=== PATIENT | female | born 1950 | race Caucasian/White ===

== ENCOUNTER 2020-11-09 11:58 | Inpatient (IN) | payer MEDICARE, BC ==
[2020-11-09] MEDS ORDERED: NALOXONE 0.4 MG/ML 1 ML VIAL IV STA (12:01)
[2020-11-09] MEDS ORDERED: IPRATROPIUM-ALBUTEROL 3 ML NEB INHALATION STA (12:08)
[2020-11-09] MEDS ORDERED: LORazepam 2 MG/ML INJ IV PRN ×2 (12:09)
[2020-11-09] MEDS ORDERED: IPRATROPIUM-ALBUTEROL 3 ML NEB INHALATION PRN (12:09)
[2020-11-09 12:12] LABS: Glucose,Whole Blood 131 mg/dL (75-99)
--- NOTE | 2020-11-09 12:14 | ED ---
General Adult HPI - General Chief complaint: Shortness of Breath Stated complaint: unresponsive Time Seen by Provider: 11/09/20 12:05 Source: EMS, RN notes reviewed Mode of arrival: EMS Limitations: altered mental status, physical limitation - History of Present Illness Initial comments: Patient is a 70-year-old female presenting to the emergency Department with shortness of breath. Patient last known well 3 hours before family found her again after 11 with difficulty in breathing. Patient was decreased responsiveness. EMS states further history is limited. Patient is unresponsive at this time and does not provide any further history. - Related Data Home Medications Medication Instructions Recorded Confirmed Albuterol Inhaler [Ventolin Hfa 2 puff INHALATION RT-Q6H PRN 11/09/20 11/09/20 Inhaler] Cholecalciferol [Vitamin D3 (25 50 mcg PO DAILY 11/09/20 11/09/20 Mcg = 1000 Iu)] Dialyvite Tablet 1 tab PO DAILY 11/09/20 11/09/20 Docusate [Colace] 100 mg PO DAILY PRN 11/09/20 11/09/20 Fluticasone Nasal [place] [Flonase 1 spray EA NOSTRIL BID 11/09/20 11/09/20 Nasal [place]] Furosemide [Lasix] 40 mg PO SUTUTHSA 11/09/20 11/09/20 Lidocaine-Prilocaine Cream [Emla 1 applic TOPICAL DAILY PRN 11/09/20 11/09/20 Cream 2.5%/2.5%] Melatonin 3 mg PO HS PRN 11/09/20 11/09/20 Montelukast Sodium [Singulair] 10 mg PO HS 11/09/20 11/09/20 Omeprazole 20 mg PO DAILY 11/09/20 11/09/20 Propranolol HCl 20 mg PO DAILY 11/09/20 11/09/20 Tiotropium Br/Olodaterol HCl 2 puff INHALATION RT-DAILY 11/09/20 11/09/20 [Stiolto Respimat Inhal [place]] allopurinoL [Zyloprim] 200 mg PO DAILY 11/09/20 11/09/20 amLODIPine [Norvasc] 10 mg PO DAILY 11/09/20 11/09/20 levOCARNitine [Levocarnitine] 990 mg PO BID 11/09/20 11/09/20 Allergies Allergy/AdvReac Type Severity Reaction Status Date / Time Corticosteroids Allergy Unknown Verified 11/09/20 13:06 (Glucocorticoids) iodine Allergy Unknown Verified 11/09/20 13:06 Penicillins Allergy Unknown Verified 11/09/20 13:06 shellfish derived [Shellfish] Allergy Unknown Verified 11/09/20 13:06 [id number] Reductase Allergy Unknown Verified 11/09/20 13:06 Inhibitor Sulfa (Sulfonamide Allergy Unknown Verified 11/09/20 13:06 Antibiotics) Review of Systems ROS Statement: Those systems with pertinent positive or pertinent negative responses have been documented in the HPI. ROS Other: All systems not noted in ROS Statement are negative. Limitations: ROS unobtainable due to patients medical condition Past Medical History History of Any Multi-Drug Resistant Organisms: None Reported Smoking Status: Unknown if ever smoked Past Alcohol Use History: None Reported Past Drug Use History: None Reported General Exam Limitations: altered mental status, physical limitation General appearance: obtunded, obese Head exam: Present: atraumatic Eye exam: Present: normal appearance, PERRL ENT exam: Present: normal oropharynx Neck exam: Present: normal inspection Respiratory exam: Present: respiratory distress, wheezes, decreased breath sounds Cardiovascular Exam: Present: regular rate, normal rhythm Expanded Peripheral pulses: 2+: Radial (R), Radial (L) GI/Abdominal exam: Present: soft. Absent: tenderness Extremities exam: Present: normal inspection Expanded Eye Response: (1) no response Motor Response: (1) no motor response Verbal Response: (1) no verbal response Psychiatric exam: Present: other (Unresponsive) Skin exam: Present: normal color Course Vital Signs 11/09/20 11/09/20 11/09/20 12:02 12:08 12:27 Temperature 97.9 F 97.9 F Pulse Rate 67 61 60 Respiratory 31 H 22 16 Rate Blood Pressure 143/110 143/82 78/48 O2 Sat by Pulse 88 L 99 100 Oximetry 11/09/20 11/09/20 11/09/20 12:33 12:36 13:00 Temperature 97.9 F 97.7 F Pulse Rate 58 L 58 L Respiratory 8 L 10 L 16 Rate Blood Pressure 75/41 87/50 O2 Sat by Pulse 100 96 Oximetry 11/09/20 11/09/20 11/09/20 13:20 13:44 14:00 Temperature 97.7 F Pulse Rate 53 L 57 L 56 L Respiratory 12 18 20 Rate Blood Pressure 72/47 87/50 78/52 O2 Sat by Pulse 96 97 96 Oximetry - Reevaluation(s) Reevaluation #1: 11/09/20 14:29 Family present. Family updated. Family states patient symptoms progressed since 3 AM this morning started with anxiety than dyspnea and decreased responsiveness. Family updated on patient's critical condition. Patient is full code at this time. Daughter does consent to central line placement. 11/09/20 14:34 Patient given 2 L bolus for ideal body weight of 64 kg. There is concern for septic shock diagnosed at 1430. Blood culture and lactic acid ordered. Central line placed with levophed. IV antibiotics ordered. 11/09/20 14:[address] Casillas, who will consult for critical care and come evaluate. EKG Findings - EKG Comments: EKG Findings:: Normal sinus rhythm 65. [place] 170. QRS 150. QT 44. QTC 503. Left axis. Right bundle branch block. No acute ST change. Procedures - ABG Interpretation Ph: 7.166 PCO2: 83.7 PO2: 172 Bicarbonate: 30 Interpretation: respiratory acidosis - Central Line Placement Right Femoral Consent Obtained: verbal consent (Discussed with daughter), emergent situation Patient Placed on Monitor/Pulse Ox: Yes MD Prep: mask, gown, gloves Central Line Prep: Chlorhexidine scrub Local Anesthesia Used: Lidocaine 1% Amount of Anesthesia Used (mls): 2 Central Line Lumen Inserted: triple Central Line Position: good blood return, all ports aspirated, flushed, capped, sutured in place with 3-0 nylon Dressing Applied: Tegaderm Patient Tolerated Procedure: well Complications: none - Sepsis Sepsis Focused Exam #1 Time Sepsis Criteria Met: 14:30 Sepsis Focused Exam Date: 11/09/20 Sepsis Focused Exam Time: 14:37 Sepsis Focused Exam Complete: Yes Vital Signs & RN Notes Reviewed: Yes Capillary Refill: < 2 Seconds: Fingers, Toes Peripheral Pulses: Normal: Radial (R), Radial (L) Skin Color: Normal for Patient Respiratory Exam: decreased breath sounds Cardiovascular Exam: regular rate, normal rhythm Medical Decision Making - Lab Data Result diagrams: 11/09/20 12:22 11/09/20 12:22 Lab Results 11/09/20 11/09/20 11/09/20 Range/Units 12:01 12:22 12:22 WBC 15.1 H (3.8-10.6) k/uL RBC 2.45 L (3.80-5.40) m/uL Hgb 6.8 L* (11.4-16.0) gm/dL Hct 23.5 L (34.0-46.0) % MCV 95.8 (80.0-100.0) fL MCH 27.9 (25.0-35.0) pg MCHC 29.1 L (31.0-37.0) g/dL RDW 16.7 H (11.5-15.5) % Plt Count 222 (150-450) k/uL MPV 7.2 Neutrophils % 93 % Lymphocytes % 2 % Monocytes % 3 % Eosinophils % 1 % Basophils % 0 % Neutrophils # 14.1 H (1.3-7.7) k/uL Lymphocytes # 0.3 L (1.0-4.8) k/uL Monocytes # 0.5 (0-1.0) k/uL Eosinophils # 0.2 (0-0.7) k/uL Basophils # 0.0 (0-0.2) k/uL Hypochromasia Marked Anisocytosis Slight PT 11.4 (9.0-12.0) sec INR 1.1 (<1.2) APTT 25.7 (22.0-30.0) sec Sample Site ABG pH (7.35-7.45) ABG pCO2 (35-45) mmHg ABG pO2 (83-108) mmHg ABG HCO3 (21-25) mmol/L ABG Total CO2 (19-24) mmol/L ABG O2 Saturation (94-97) % ABG Base Excess mmol/L Zachary Test FiO2 % Sodium (137-145) mmol/L Potassium (3.5-5.1) mmol/L Chloride (98-107) mmol/L Carbon Dioxide (22-30) mmol/L Anion Gap mmol/L BUN (7-17) mg/dL Creatinine (0.52-1.04) mg/dL Est GFR (CKD-EPI)AfAm (>60 ml/min/1.73 sqM) Est GFR (CKD-EPI)NonAf (>60 ml/min/1.73 sqM) Glucose (74-99) mg/dL POC Glucose (mg/dL) 131 H (75-99) mg/dL POC Glu Press Room Supervisor ID Plasma Lactic Acid Johnny (0.7-2.0) mmol/L Calcium (8.4-10.2) mg/dL Total Bilirubin (0.2-1.3) mg/dL AST (14-36) U/L ALT (4-34) U/L Alkaline Phosphatase (38-126) U/L Troponin I (0.000-0.034) ng/mL NT-Pro-B Natriuret Pep pg/mL Total Protein (6.3-8.2) g/dL Albumin (3.5-5.0) g/dL Urine Color Urine Appearance (Clear) Urine pH (5.0-8.0) Ur Specific [place] (1.001-1.035) Urine Protein (Negative) Urine Glucose (UA) (Negative) Urine Ketones (Negative) Urine Blood (Negative) Urine Nitrite (Negative) Urine Bilirubin (Negative) Urine Urobilinogen (<2.0) mg/dL Ur Leukocyte Esterase (Negative) Urine RBC (0-5) /hpf Urine WBC (0-5) /hpf Ur Squamous Epith Cells (0-4) /hpf Hyaline Casts (0-2) /lpf Stool Occult Blood (Negative) Coronavirus (PCR) (Not Detectd) 11/09/20 11/09/20 11/09/20 Range/Units 12:22 12:22 12:22 WBC (3.8-10.6) k/uL RBC (3.80-5.40) m/uL Hgb (11.4-16.0) gm/dL Hct (34.0-46.0) % MCV (80.0-100.0) fL MCH (25.0-35.0) pg MCHC (31.0-37.0) g/dL RDW (11.5-15.5) % Plt Count (150-450) k/uL MPV Neutrophils % % Lymphocytes % % Monocytes % % Eosinophils % % Basophils % % Neutrophils # (1.3-7.7) k/uL Lymphocytes # (1.0-4.8) k/uL Monocytes # (0-1.0) k/uL Eosinophils # (0-0.7) k/uL Basophils # (0-0.2) k/uL Hypochromasia Anisocytosis PT (9.0-12.0) sec INR (<1.2) APTT (22.0-30.0) sec Sample Site ABG pH (7.35-7.45) ABG pCO2 (35-45) mmHg ABG pO2 (83-108) mmHg ABG HCO3 (21-25) mmol/L ABG Total CO2 (19-24) mmol/L ABG O2 Saturation (94-97) % ABG Base Excess mmol/L Zachary Test FiO2 % Sodium 140 (137-145) mmol/L Potassium 3.9 (3.5-5.1) mmol/L Chloride 110 H (98-107) mmol/L Carbon Dioxide 26 (22-30) mmol/L Anion Gap 4 mmol/L BUN 22 H (7-17) mg/dL Creatinine 3.26 H (0.52-1.04) mg/dL Est GFR (CKD-EPI)AfAm 16 (>60 ml/min/1.73 sqM) Est GFR (CKD-EPI)NonAf 14 (>60 ml/min/1.73 sqM) Glucose 111 H (74-99) mg/dL POC Glucose (mg/dL) (75-99) mg/dL POC Glu Press Room Supervisor ID Plasma Lactic Acid Johnny <0.5 L (0.7-2.0) mmol/L Calcium 6.5 L (8.4-10.2) mg/dL Total Bilirubin 0.4 (0.2-1.3) mg/dL AST 124 H (14-36) U/L ALT 112 H (4-34) U/L Alkaline Phosphatase 104 (38-126) U/L Troponin I 0.029 (0.000-0.034) ng/mL NT-Pro-B Natriuret Pep pg/mL Total Protein 4.6 L (6.3-8.2) g/dL Albumin 2.5 L (3.5-5.0) g/dL Urine Color Urine Appearance (Clear) Urine pH (5.0-8.0) Ur Specific [place] (1.001-1.035) Urine Protein (Negative) Urine Glucose (UA) (Negative) Urine Ketones (Negative) Urine Blood (Negative) Urine Nitrite (Negative) Urine Bilirubin (Negative) Urine Urobilinogen (<2.0) mg/dL Ur Leukocyte Esterase (Negative) Urine RBC (0-5) /hpf Urine WBC (0-5) /hpf Ur Squamous Epith Cells (0-4) /hpf Hyaline Casts (0-2) /lpf Stool Occult Blood (Negative) Coronavirus (PCR) (Not Detectd) 11/09/20 11/09/20 11/09/20 Range/Units 12:22 12:22 12:35 WBC (3.8-10.6) k/uL RBC (3.80-5.40) m/uL Hgb (11.4-16.0) gm/dL Hct (34.0-46.0) % MCV (80.0-100.0) fL MCH (25.0-35.0) pg MCHC (31.0-37.0) g/dL RDW (11.5-15.5) % Plt Count (150-450) k/uL MPV Neutrophils % % Lymphocytes % % Monocytes % % Eosinophils % % Basophils % % Neutrophils # (1.3-7.7) k/uL Lymphocytes # (1.0-4.8) k/uL Monocytes # (0-1.0) k/uL Eosinophils # (0-0.7) k/uL Basophils # (0-0.2) k/uL Hypochromasia Anisocytosis PT (9.0-12.0) sec INR (<1.2) APTT (22.0-30.0) sec Sample Site ABG pH (7.35-7.45) ABG pCO2 (35-45) mmHg ABG pO2 (83-108) mmHg ABG HCO3 (21-25) mmol/L ABG Total CO2 (19-24) mmol/L ABG O2 Saturation (94-97) % ABG Base Excess mmol/L Zachary Test FiO2 % Sodium (137-145) mmol/L Potassium (3.5-5.1) mmol/L Chloride (98-107) mmol/L Carbon Dioxide (22-30) mmol/L Anion Gap mmol/L BUN (7-17) mg/dL Creatinine (0.52-1.04) mg/dL Est GFR (CKD-EPI)AfAm (>60 ml/min/1.73 sqM) Est GFR (CKD-EPI)NonAf (>60 ml/min/1.73 sqM) Glucose (74-99) mg/dL POC Glucose (mg/dL) (75-99) mg/dL POC Glu Press Room Supervisor ID Plasma Lactic Acid Johnny (0.7-2.0) mmol/L Calcium (8.4-10.2) mg/dL Total Bilirubin (0.2-1.3) mg/dL AST (14-36) U/L ALT (4-34) U/L Alkaline Phosphatase (38-126) U/L Troponin I (0.000-0.034) ng/mL NT-Pro-B Natriuret Pep 67488 pg/mL Total Protein (6.3-8.2) g/dL Albumin (3.5-5.0) g/dL Urine Color Light Yellow Urine Appearance Clear (Clear) Urine pH 7.0 (5.0-8.0) Ur Specific [place] 1.006 (1.001-1.035) Urine Protein 2+ H (Negative) Urine Glucose (UA) Negative (Negative) Urine Ketones Negative (Negative) Urine Blood Negative (Negative) Urine Nitrite Negative (Negative) Urine Bilirubin Negative (Negative) Urine Urobilinogen <2.0 (<2.0) mg/dL Ur Leukocyte Esterase Negative (Negative) Urine RBC 1 (0-5) /hpf Urine WBC 3 (0-5) /hpf Ur Squamous Epith Cells <1 (0-4) /hpf Hyaline Casts 1 (0-2) /lpf Stool Occult Blood (Negative) Coronavirus (PCR) Not Detected (Not Detectd) 11/09/20 11/09/20 Range/Units 12:36 12:56 WBC (3.8-10.6) k/uL RBC (3.80-5.40) m/uL Hgb (11.4-16.0) gm/dL Hct (34.0-46.0) % MCV (80.0-100.0) fL MCH (25.0-35.0) pg MCHC (31.0-37.0) g/dL RDW (11.5-15.5) % Plt Count (150-450) k/uL MPV Neutrophils % % Lymphocytes % % Monocytes % % Eosinophils % % Basophils % % Neutrophils # (1.3-7.7) k/uL Lymphocytes # (1.0-4.8) k/uL Monocytes # (0-1.0) k/uL Eosinophils # (0-0.7) k/uL Basophils # (0-0.2) k/uL Hypochromasia Anisocytosis PT (9.0-12.0) sec INR (<1.2) APTT (22.0-30.0) sec Sample Site rbrach ABG pH 7.17 L* (7.35-7.45) ABG pCO2 84 H* (35-45) mmHg ABG pO2 172 H (83-108) mmHg ABG HCO3 30 H (21-25) mmol/L ABG Total CO2 33 H (19-24) mmol/L ABG O2 Saturation 97.9 H (94-97) % ABG Base Excess 1.6 mmol/L Zachary Test Yes FiO2 100 % Sodium (137-145) mmol/L Potassium (3.5-5.1) mmol/L Chloride (98-107) mmol/L Carbon Dioxide (22-30) mmol/L Anion Gap mmol/L BUN (7-17) mg/dL Creatinine (0.52-1.04) mg/dL Est GFR (CKD-EPI)AfAm (>60 ml/min/1.73 sqM) Est GFR (CKD-EPI)NonAf (>60 ml/min/1.73 sqM) Glucose (74-99) mg/dL POC Glucose (mg/dL) (75-99) mg/dL POC Glu Press Room Supervisor ID Plasma Lactic Acid Johnny (0.7-2.0) mmol/L Calcium (8.4-10.2) mg/dL Total Bilirubin (0.2-1.3) mg/dL AST (14-36) U/L ALT (4-34) U/L Alkaline Phosphatase (38-126) U/L Troponin I (0.000-0.034) ng/mL NT-Pro-B Natriuret Pep pg/mL Total Protein (6.3-8.2) g/dL Albumin (3.5-5.0) g/dL Urine Color Urine Appearance (Clear) Urine pH (5.0-8.0) Ur Specific [place] (1.001-1.035) Urine Protein (Negative) Urine Glucose (UA) (Negative) Urine Ketones (Negative) Urine Blood (Negative) Urine Nitrite (Negative) Urine Bilirubin (Negative) Urine Urobilinogen (<2.0) mg/dL Ur Leukocyte Esterase (Negative) Urine RBC (0-5) /hpf Urine WBC (0-5) /hpf Ur Squamous Epith Cells (0-4) /hpf Hyaline Casts (0-2) /lpf Stool Occult Blood Positive H (Negative) Coronavirus (PCR) (Not Detectd) - Radiology Data Radiology results: image reviewed (Chest x-ray shows coarse diffuse lung garner consistent with pneumonia) Critical Care Time Critical Care Time: Yes Total Critical Care Time: 44 Disposition Clinical Impression: Respiratory failure, Pneumonia, GI hemorrhage, Septic shock Disposition: ADMITTED IP TO THIS [facility] Condition: Critical Is patient prescribed a controlled substance at d/c from ED?: No Referrals: None,Stated [REFERRING] - 1-2 days Decision Time: 14:30
[2020-11-09] MEDS ORDERED: SODIUM CHLORIDE 0.9% 1,000 ML IV STA ×2 (12:35→13:13)
[2020-11-09 12:40] LABS: ABG Base Excess 1.6 mmol/L; ABG HCO3 30 mmol/L (21-25); ABG Oxygen Saturation 97.9 % (94-97); ABG PO2 172 mmHg (83-108); ABG TCO2 33 mmol/L (19-24); Allen Test Performed? Yes
[2020-11-09 12:42] LABS: Anisocytosis Slight; Basophils % (A) 0 %; Eosinophils # (A) 0.2 k/uL (0-0.7); Eosinophils % (A) 1 %; HCT 23.5 % (34.0-46.0); Hypochromasia Marked; Lymphocytes # (A) 0.3 k/uL (1.0-4.8); Lymphocytes % (A) 2 %; MCH 27.9 pg (25.0-35.0); MCHC 29.1 g/dL (31.0-37.0); MCV 95.8 fL (80.0-100.0); Mean Platelet Volume 7.2; Monocytes # (A) 0.5 k/uL (0-1.0); Monocytes % (A) 3 %; Neutrophils # (A) 14.1 k/uL (1.3-7.7); Neutrophils % (A) 93 %; Platelet Count 222 k/uL (150-450); RBC 2.45 m/uL (3.80-5.40); RDW 16.7 % (11.5-15.5); WBC 15.1 k/uL (3.8-10.6)
[2020-11-09 12:45] LABS: HGB 6.8 gm/dL (11.4-16.0)
[2020-11-09 12:49] LABS: ABG PCO2 84 mmHg (35-45); ABG PH 7.17 (7.35-7.45)
--- NOTE | 2020-11-09 12:49 | XR ---
EXAMINATION TYPE: XR chest 1V portable DATE OF EXAM: 11/09/2020 HISTORY: Shortness of breath. COMPARISON: None TECHNIQUE: Single view of the chest is submitted. FINDINGS: Endotracheal tube 5 cm from the greg. Coarse infiltrates throughout both lung garner compatible with pneumonia. The heart is mildly enlarged. Hilar and mediastinal structures are within normal limits. Degenerative changes are seen of the dorsal spine. IMPRESSION: 1. Coarse infiltrates throughout both lung garner compatible with pneumonia.
[2020-11-09 12:50] LABS: INR 1.1 (<1.2); Partial Thromboplastin Time 25.7 sec (22.0-30.0); Prothrombin Time 11.4 sec (9.0-12.0)
[2020-11-09 12:53] LABS: Appearance,Urine Clear (Clear); Bilirubin,Urine Negative (Negative); Blood,Urine Negative (Negative); Color,Urine Light Yellow; Glucose,Urine (UA) Negative (Negative); Hyaline Casts,Urine 1 /lpf (0-2); Ketones,Urine Negative (Negative); Leukocyte Esterase,Urine Negative (Negative); Nitrite,Urine Negative (Negative); Protein,Urine 2+ (Negative); RBC,Urine 1 /hpf (0-5); Specific Gravity,Urine 1.006 (1.001-1.035); Squamous Epithelial Cell,Urine <1 /hpf (0-4); Urobilinogen,Urine <2.0 mg/dL (<2.0); WBC,Urine 3 /hpf (0-5)
[2020-11-09 12:53] LABS: Potassium 3.9 mmol/L (3.5-5.1)
[2020-11-09 12:54] LABS: Albumin 2.5 g/dL (3.5-5.0); Total Bilirubin 0.4 mg/dL (0.2-1.3); Total Protein 4.6 g/dL (6.3-8.2)
[2020-11-09 13:00] LABS: Calcium 6.5 mg/dL (8.4-10.2)
[2020-11-09] MEDS ORDERED: PNEUMONIA PROTOCOL UTILIZED 1 EACH MISC PO PRN (13:11)
[2020-11-09] MEDS ORDERED: CEFEPIME 2 GM in SODIUM CHLORIDE 0.9% 100 ML IVPB STA (13:11)
[2020-11-09] MEDS ORDERED: AZITHROMYCIN 500 MG in SODIUM CHLORIDE 0.9% 250 ML IVPB STA (13:11)
--- NOTE | 2020-11-09 13:53 | CT ---
EXAMINATION TYPE: CT brain wo con DATE OF EXAM: 11/09/2020 COMPARISON: None HISTORY: unresponsive CT DLP: 1098.[address] of the brain was performed. The ventricles, basal cisterns and sulci overlying the cerebral convexities demonstrate mild enlargem ent. There is no evidence for intracranial hemorrhage or sulcal effacement. There is decreased attenuation about the periventricular white matter and deep white matter of both c erebral hemispheres, compatible with chronic small vessel ischemia. Differential diagnosis does inclu de demyelination. No mass effects are seen.No midline shift. Osseous calvarium is intact. If symptoms persist consider MRI. IMPRESSION: 1. Age related atrophic and chronic small vessel ischemic change without acute intracranial process s een at this time.
[2020-11-09] MEDS: NOREPINEPHRINE 32 MG in SODIUM CHLORIDE 0.9% 218 ML IV SCH (14:26)
[2020-11-09] MEDS ORDERED: PANTOPRAZOLE 40 MG/10 ML VIAL IVP STA (14:31)
[2020-11-09] MEDS ORDERED: NALOXONE 0.4 MG/ML 1 ML VIAL IV PRN (14:38)
[2020-11-09] MEDS ORDERED: SODIUM CHLORIDE 0.9% 1,000 ML IV SCH (14:45)
--- NOTE | 2020-11-09 15:38 | P.CNPUL ---
History of Present Illness Consult date: 11/09/20 Requesting physician: Ruben Webber Reason for consult: other (Mechanical ventilator/critical care management) Chief complaint: Altered mental status History of present illness: This is a 70-year-old female patient who follows with Dr. Keene. She does have a history of end-stage renal disease receiving hemodialysis on Thursday, hypertension, pulmonary disease followed at [facility], gastroesophageal reflux disease. Approximate 3:00 this morning the patient was having some altered mental status. Her family was observing her. She started propanolol is a new medication yesterday. By 8 AM she was much less responsive and EMS was called. She was brought into the emergency room where she was hypotensive and unable to protect her airway. She was intubated and placed on mechanical ventilator. Initial settings are assist-control rate of 16, tidal volume 450, FiO2 100% and a PEEP of 5. Follow-up blood gases revealed a pO2 of 172, P CO2 83 come a pH 7.16. Respiratory rate was adjusted to 16, FiO2 down to 60%. A right femoral triple-lumen catheter placed. She is seen today in consultation in the emergency room. She is on propofol at 5 mcg/kg/m. Norepi nephrine at 0.05 mcg/kg/m. She received 2 L of fluid resuscitation. White count 15.1. Hemoglobin 6.8. Platelet count 222. INR 1.1. Sodium 140. Potassium 3.9. Creatinine 3.26. Glucose 111. ProBNP 13,200. Troponin 0.029. AST 124. ALT 112. Stool for occult blood positive. Coronavirus by PCR not detected. Chest x-ray reveals coarse infiltrates throughout both lung garner, pulmonary edema. Computed tomography scan of the brain revealed age-related atrophy and chronic small vessel changes without acute intracranial process. No family is present. No other information is able to be obtained. No previous admission to this facility. She's been initiated on cefepime and azithromycin. One unit of packed red blood cells has been ordered. Review of Systems ROS unobtainable: due to endotracheal tube Past Medical History History of Any Multi-Drug Resistant Organisms: None Reported Smoking Status: Unknown if ever smoked Past Alcohol Use History: None Reported Past Drug Use History: None Reported Medications and Allergies Home Medications Medication Instructions Recorded Confirmed Type Albuterol Inhaler [Ventolin Hfa 2 puff INHALATION RT-Q6H PRN 11/09/20 11/09/20 History Inhaler] Cholecalciferol [Vitamin D3 (25 50 mcg PO DAILY 11/09/20 11/09/20 History Mcg = 1000 Iu)] Dialyvite Tablet 1 tab PO DAILY 11/09/20 11/09/20 History Docusate [Colace] 100 mg PO DAILY PRN 11/09/20 11/09/20 History Fluticasone Nasal [place] [Flonase 1 spray EA NOSTRIL BID 11/09/20 11/09/20 History Nasal [place]] Furosemide [Lasix] 40 mg PO SUTUTHSA 11/09/20 11/09/20 History Lidocaine-Prilocaine Cream [Emla 1 applic TOPICAL DAILY PRN 11/09/20 11/09/20 History Cream 2.5%/2.5%] Melatonin 3 mg PO HS PRN 11/09/20 11/09/20 History Montelukast Sodium [Singulair] 10 mg PO HS 11/09/20 11/09/20 History Omeprazole 20 mg PO DAILY 11/09/20 11/09/20 History Propranolol HCl 20 mg PO DAILY 11/09/20 11/09/20 History Tiotropium Br/Olodaterol HCl 2 puff INHALATION RT-DAILY 11/09/20 11/09/20 History [Stiolto Respimat Inhal [place]] allopurinoL [Zyloprim] 200 mg PO DAILY 11/09/20 11/09/20 History amLODIPine [Norvasc] 10 mg PO DAILY 11/09/20 11/09/20 History levOCARNitine [Levocarnitine] 990 mg PO BID 11/09/20 11/09/20 History Allergies Allergy/AdvReac Type Severity Reaction Status Date / Time Corticosteroids Allergy Unknown Verified 11/09/20 13:06 (Glucocorticoids) iodine Allergy Unknown Verified 11/09/20 13:06 Penicillins Allergy Unknown Verified 11/09/20 13:06 shellfish derived [Shellfish] Allergy Unknown Verified 11/09/20 13:06 Lhmqwne-Yii-Dwy Reductase Allergy Unknown Verified 11/09/20 13:06 Inhibitor Sulfa (Sulfonamide Allergy Unknown Verified 11/09/20 13:06 Antibiotics) Physical Exam Vitals: Vital Signs Temp Pulse Resp BP Pulse Ox 11/09/20 15:00 97.7 F 54 L 20 108/68 97 11/09/20 14:56 97.7 F 53 L 20 97/62 99 11/09/20 14:00 97.7 F 56 L 20 78/52 96 11/09/20 13:44 57 L 18 87/50 97 11/09/20 13:20 53 L 12 72/47 96 11/09/20 13:00 97.7 F 58 L 16 87/50 96 11/09/20 12:36 97.9 F 58 L 10 L 75/41 100 11/09/20 12:33 8 L 11/09/20 12:27 97.9 F 60 16 78/48 100 11/09/20 12:08 97.9 F 61 22 143/82 99 11/09/20 12:02 67 31 H 143/110 88 L Intake and Output 11/09/20 11/09/20 11/09/20 06:59 14:59 22:59 Intake Total 7.481 Balance 7.481 Intake: Intake, IV Titration 7.481 Amount Norepinephrine 32 mg In 0.161 Sodium Chloride 0.9% 218 ml @ 0.05 MCG/KG/MIN 2. 416 mls/hr IV .Q24H C[facility]IE Rx#:[id number] propofoL 1,000 mg In 7.320 Empty Bag 1 bag @ Titrate IV .Q0M CANDIE Rx#: [id number] Other: Weight 103.1 kg GENERAL EXAM: Intubated, sedated 70-year-old female patient. HEAD: Normocephalic. EYES: Sluggish reaction of pupils, equal size. NOSE: Clear with pink turbinates. THROAT: Oral endotracheal and gastric tube secured in place. No erythema or exudates. NECK: No masses, no JVD. CHEST: No chest wall deformity. LUNGS: Equal air entry with bilateral scattered crackles CVS: S1 and S2 normal with no audible murmur, regular rhythm. ABDOMEN: No hepatosplenomegaly, normal bowel sounds, no guarding or rigidity. SPINE: No scoliosis or deformity SKIN: No rashes CENTRAL NERVOUS SYSTEM: No focal deficits, tone is normal in all 4 extremities. EXTREMITIES: Right femoral triple-lumen catheter in place. Left upper extremity graft. No clubbing, no cyanosis. Peripheral pulses are intact. Results - Laboratory Findings CBC and BMP: 11/09/20 12:22 11/09/20 12:22 ABG ABG pH 7.17 (7.35-7.45) L* 11/09/20 12:36 ABG pCO2 84 mmHg (35-45) H* 11/09/20 12:36 ABG pO2 172 mmHg (83-108) H 11/09/20 12:36 ABG O2 Saturation 97.9 % (94-97) H 11/09/20 12:36 PT/INR, D-dimer PT 11.4 sec (9.0-12.0) 11/09/20 12:22 INR 1.1 (<1.2) 11/09/20 12:22 Abnormal lab findings: Abnormal Labs 11/09/20 11/09/20 11/09/20 12:01 12:22 12:22 WBC 15.1 H RBC 2.45 L Hgb 6.8 L* Hct 23.5 L MCHC 29.1 L RDW 16.7 H Neutrophils # 14.1 H Lymphocytes # 0.3 L ABG pH ABG pCO2 ABG pO2 ABG HCO3 ABG Total CO2 ABG O2 Saturation Chloride 110 H BUN 22 H Creatinine 3.26 H Glucose 111 H POC Glucose (mg/dL) 131 H Plasma Lactic Acid Johnny Calcium 6.5 L AST 124 H ALT 112 H Total Protein 4.6 L Albumin 2.5 L Urine Protein Stool Occult Blood 11/09/20 11/09/20 11/09/20 12:22 12:35 12:36 WBC RBC Hgb Hct MCHC RDW Neutrophils # Lymphocytes # ABG pH 7.17 L* ABG pCO2 84 H* ABG pO2 172 H ABG HCO3 30 H ABG Total CO2 33 H ABG O2 Saturation 97.9 H Chloride BUN Creatinine Glucose POC Glucose (mg/dL) Plasma Lactic Acid Johnny <0.5 L Calcium AST ALT Total Protein Albumin Urine Protein 2+ H Stool Occult Blood 11/09/20 12:56 WBC RBC Hgb Hct MCHC RDW Neutrophils # Lymphocytes # ABG pH ABG pCO2 ABG pO2 ABG HCO3 ABG Total CO2 ABG O2 Saturation Chloride BUN Creatinine Glucose POC Glucose (mg/dL) Plasma Lactic Acid Johnny Calcium AST ALT Total Protein Albumin Urine Protein Stool Occult Blood Positive H - Diagnostic Findings Chest x-ray: image reviewed Assessment and Plan Assessment: 1 Altered mental status of unclear etiology 2 Acute hypoxemic respiratory failure requiring intubation mechanical vent ilatory support on 11/09/2020, secondary to acute fluid volume overload/pulmonary edema 3 Acute hypotension requiring pressor support 4 Acute anemia, presenting hemoglobin 6.8 5 Elevated liver enzymes 6 End stage renal disease on hemodialysis Thursday. Creatinine today 3.6 7 COPD/asthma follows with medical accounts receivable specialist out of [place] 8 History of hypertension 9 History of gout 10 History of carnitine deficiency Plan: The patient was seen and evaluated by Dr. Garza Chest x-ray, ABGs and labs reviewed Transfer to the ICU Transfuse 1 unit of packed red blood cells Continue sedation and pressors Continue cefepime and azithromycin for now Continue bronchodilators 0.9 normal saline at 130 ML's per hour. Repeat arterial blood gases We will continue to follow and make further recommendations based on her clinical status I, the cosigning physician, performed a history & physical examination of the patient. Lungs sounds with bilateral scattered crackles. Maintaining good O2 saturations in the 90s on 60% FiO2. I discussed the assessment and plan of care with my nurse practitioner, Angela Maciel. I attest to the above consultation as dictated by her. Time with Patient: Greater than 30
[2020-11-09 15:44] LABS: Glucose,Whole Blood 135 mg/dL (75-99)
[2020-11-09] MEDS: IPRATROPIUM-ALBUTEROL 3 ML NEB INHALATION SCH ×2 (15:58→21:01)
--- NOTE | 2020-11-09 15:59 | P.HPIM ---
History of Present Illness H&P Date: 11/09/20 Chief Complaint: Shortness of breath Patient is a 70-year-old female with a history of end-stage renal disease on dialysis Thursday and Thursday, CHF unknown EF, and COPD chronically on 2L NC who came in via EMS secondary to decreased responsiveness. In the ER she was obtunded and was intubated. Initial laboratory analysis was significant for hemoglobin of 6.1, BUN 22, creatinine 3.26, calcium 6.5, AST is 124, ALT 112, BNO [id number] urinalysis was negative and a COVID 19 screening negative. Chest x- ray reviewed by myself and shows pulmonary edema with fluid within the right major fissure. She became hypotensive and a central line was placed and she was started on Levaquin 5. Propofol was initiated for sedation. She was noted to have a pH of 7.17/84/172/30 30 minutes after on the vent and setting were adjusted. She was noted to have a peak pressure of 48. Patient seen and examined at bedside. She is sedated on the vent. Daughter present and answers all medical history gathering for the patient. She last had a dialysis on Thursday. Yesterday she took her first dose of propranolol. Approximately one hour later she began having increasing shortness of breath. This continued to progress throughout the day and was noted to be severe at 4 AM. Between the hours of 4 AM and 8 and had to go up from 2 L to 8 L and from nasal cannula to a mask. She was complaining of dizziness. THey noted that her pulse was 49 and per daughter her typical resting HR is 100. Her O2 did register as less than 70. She did have some confusion at that point in time and is trying to take the mask off. The daughter reports she was nodding yes and no appropriately during that period but at 8 AM she became unresponsive and activated EMS area and she has been in her typical state of health. She has not been complaining of any recent chest pain, nausea, vomiting, or diarrhea. She does make some urine per the daughter. She tells that she has severe cramping with dialysis. She is unsure of her ejection fraction. Review of Systems ROS unobtainable: due to mental status Past Medical History Past Medical History: Hypertension Additional Past Medical History / Comment(s): ESRD on M/W/F last on 11/07 on HD for 1.75 years, CHF, COPD on 2.5 L NC, History of Any Multi-Drug Resistant Organisms: None Reported Additional Past Surgical History / Comment(s): Left Upper arm graft, hs of HD cath right, Salivary gland tumor, leonides Smoking Status: Former smoker (quit 9 year ago) Past Alcohol Use History: None Reported Past Drug Use History: None Reported Additional History: Wheelchair boud outside of the house due to shortness of breath - Past Family History Father Family Medical History: Unable to Obtain Mother Family Medical History: Congestive Heart Failure (CHF) Medications and Allergies Home Medications Medication Instructions Recorded Confirmed Type Albuterol Inhaler [Ventolin Hfa 2 puff INHALATION RT-Q6H PRN 11/09/20 11/09/20 History Inhaler] Cholecalciferol [Vitamin D3 (25 50 mcg PO DAILY 11/09/20 11/09/20 History Mcg = 1000 Iu)] Dialyvite Tablet 1 tab PO DAILY 11/09/20 11/09/20 History Docusate [Colace] 100 mg PO DAILY PRN 11/09/20 11/09/20 History Fluticasone Nasal [place] [Flonase 1 spray EA NOSTRIL BID 11/09/20 11/09/20 History Nasal [place]] Furosemide [Lasix] 40 mg PO SUTUTHSA 11/09/20 11/09/20 History Lidocaine-Prilocaine Cream [Emla 1 applic TOPICAL DAILY PRN 11/09/20 11/09/20 History Cream 2.5%/2.5%] Melatonin 3 mg PO HS PRN 11/09/20 11/09/20 History Montelukast Sodium [Singulair] 10 mg PO HS 11/09/20 11/09/20 History Omeprazole 20 mg PO DAILY 11/09/20 11/09/20 History Propranolol HCl 20 mg PO DAILY 11/09/20 11/09/20 History Tiotropium Br/Olodaterol HCl 2 puff INHALATION RT-DAILY 11/09/20 11/09/20 History [Stiolto Respimat Inhal [place]] allopurinoL [Zyloprim] 200 mg PO DAILY 11/09/20 11/09/20 History amLODIPine [Norvasc] 10 mg PO DAILY 11/09/20 11/09/20 History levOCARNitine [Levocarnitine] 990 mg PO BID 11/09/20 11/09/20 History Allergies Allergy/AdvReac Type Severity Reaction Status Date / Time Corticosteroids Allergy Unknown Verified 11/09/20 13:06 (Glucocorticoids) iodine Allergy Unknown Verified 11/09/20 13:06 Penicillins Allergy Unknown Verified 11/09/20 13:06 shellfish derived [Shellfish] Allergy Unknown Verified 11/09/20 13:06 Xnilrzq-Bpw-Tle Reductase Allergy Unknown Verified 11/09/20 13:06 Inhibitor Sulfa (Sulfonamide Allergy Unknown Verified 11/09/20 13:06 Antibiotics) Physical Exam Osteopathic Statement: *. No significant issues noted on an osteopathic structural exam other than those noted in the History and Physical/Consult. Vitals: Vital Signs Temp Pulse Resp BP Pulse Ox 11/09/20 14:00 97.7 F 56 L 20 78/52 96 11/09/20 13:44 57 L 18 87/50 97 11/09/20 13:20 53 L 12 72/47 96 11/09/20 13:00 97.7 F 58 L 16 87/50 96 11/09/20 12:36 97.9 F 58 L 10 L 75/41 100 11/09/20 12:33 8 L 11/09/20 12:27 97.9 F 60 16 78/48 100 11/09/20 12:08 97.9 F 61 22 143/82 99 11/09/20 12:02 67 31 H 143/110 88 L Intake and Output 11/08/20 11/09/20 11/09/20 22:59 06:59 14:59 Intake Total 7.481 Balance 7.481 Intake: Intake, IV Titration 7.481 Amount Norepinephrine 32 mg In 0.161 Sodium Chloride 0.9% 218 ml @ 0.05 MCG/KG/MIN 2. 416 mls/hr IV .Q24H [facility] Rx#:[id number] propofoL 1,000 mg In 7.320 Empty Bag 1 bag @ Titrate IV .Q0M CANDIE Rx#: [id number] Other: Weight 103.1 kg General: ill appearing, moderate distress, appears at stated age Derm: warm, dry Head: atraumatic, normocephalic, symmetric Eyes: EOMI, no lid lag, anicteric sclera, pupils equal round reactive to light ENT: Nose and ears atraumatic, no thrush, + ET tube in place Neck: No thyromegaly, no cervical lymphadenopathy, trachea midline, supple Mouth: no lip lesion, mucus membranes dry Cardiovascular: S1S2 reg, no murmur, positive posterior tibial pulse bilateral, 3+ edema, capillary refill less than 2 seconds Lungs: course bs bilateral, no ronchi, no rales, no wheeze, no accessory muscle use Abdominal: soft, nontender to palpation, no guarding, no appreciable organomegaly, normal bowel sounds, + ronquillo in place yellow urine Ext: no gross muscle atrophy, muscle strength muscle strength 5 out of 5 in all 4 extremities, no contractures Neuro: Pupils are pinpoint, no withdrawal to pain all 4 extremities Psych: obtunded Results CBC & Chem 7: 11/09/20 18:26 11/09/20 18:26 Labs: Abnormal Lab Results - Last 24 Hours (Table) 11/09/20 11/09/20 11/09/20 Range/Units 12:01 12:22 12:22 WBC 15.1 H (3.8-10.6) k/uL RBC 2.45 L (3.80-5.40) m/uL Hgb 6.8 L* (11.4-16.0) gm/dL Hct 23.5 L (34.0-46.0) % MCHC 29.1 L (31.0-37.0) g/dL RDW 16.7 H (11.5-15.5) % Neutrophils # 14.1 H (1.3-7.7) k/uL Lymphocytes # 0.3 L (1.0-4.8) k/uL ABG pH (7.35-7.45) ABG pCO2 (35-45) mmHg ABG pO2 (83-108) mmHg ABG HCO3 (21-25) mmol/L ABG Total CO2 (19-24) mmol/L ABG O2 Saturation (94-97) % Chloride 110 H (98-107) mmol/L BUN 22 H (7-17) mg/dL Creatinine 3.26 H (0.52-1.04) mg/dL Glucose 111 H (74-99) mg/dL POC Glucose (mg/dL) 131 H (75-99) mg/dL Plasma Lactic Acid Johnny (0.7-2.0) mmol/L Calcium 6.5 L (8.4-10.2) mg/dL AST 124 H (14-36) U/L ALT 112 H (4-34) U/L Total Protein 4.6 L (6.3-8.2) g/dL Albumin 2.5 L (3.5-5.0) g/dL Urine Protein (Negative) Stool Occult Blood (Negative) 11/09/20 11/09/20 11/09/20 Range/Units 12:22 12:35 12:36 WBC (3.8-10.6) k/uL RBC (3.80-5.40) m/uL Hgb (11.4-16.0) gm/dL Hct (34.0-46.0) % MCHC (31.0-37.0) g/dL RDW (11.5-15.5) % Neutrophils # (1.3-7.7) k/uL Lymphocytes # (1.0-4.8) k/uL ABG pH 7.17 L* (7.35-7.45) ABG pCO2 84 H* (35-45) mmHg ABG pO2 172 H (83-108) mmHg ABG HCO3 30 H (21-25) mmol/L ABG Total CO2 33 H (19-24) mmol/L ABG O2 Saturation 97.9 H (94-97) % Chloride (98-107) mmol/L BUN (7-17) mg/dL Creatinine (0.52-1.04) mg/dL Glucose (74-99) mg/dL POC Glucose (mg/dL) (75-99) mg/dL Plasma Lactic Acid Johnny <0.5 L (0.7-2.0) mmol/L Calcium (8.4-10.2) mg/dL AST (14-36) U/L ALT (4-34) U/L Total Protein (6.3-8.2) g/dL Albumin (3.5-5.0) g/dL Urine Protein 2+ H (Negative) Stool Occult Blood (Negative) 11/09/20 Range/Units 12:56 WBC (3.8-10.6) k/uL RBC (3.80-5.40) m/uL Hgb (11.4-16.0) gm/dL Hct (34.0-46.0) % MCHC (31.0-37.0) g/dL RDW (11.5-15.5) % Neutrophils # (1.3-7.7) k/uL Lymphocytes # (1.0-4.8) k/uL ABG pH (7.35-7.45) ABG pCO2 (35-45) mmHg ABG pO2 (83-108) mmHg ABG HCO3 (21-25) mmol/L ABG Total CO2 (19-24) mmol/L ABG O2 Saturation (94-97) % Chloride (98-107) mmol/L BUN (7-17) mg/dL Creatinine (0.52-1.04) mg/dL Glucose (74-99) mg/dL POC Glucose (mg/dL) (75-99) mg/dL Plasma Lactic Acid Johnny (0.7-2.0) mmol/L Calcium (8.4-10.2) mg/dL AST (14-36) U/L ALT (4-34) U/L Total Protein (6.3-8.2) g/dL Albumin (3.5-5.0) g/dL Urine Protein (Negative) Stool Occult Blood Positive H (Negative) Assessment and Plan Assessment: Acute exacerbation of CHF with unknown EF -Check echo -Fluid management with dialysis -Not chronically an NIKKI inhibitor -Beta linsey on hold secondary to tachycardia -Strict I's and O's, daily weights -Pending results of echocardiogram consider cardiology consult Anemia with + FOB -Follow CBC -1 unit packed red blood cells -Check iron studies End-stage renal disease on hemodialysis Thursday/Thursday/Thursday -Case discussed with Dr. Ott and will plan for hemodialysis today Shock -Undetermined etiology possible septic versus medication induced versus is cardiogenic -Continue with levothyroid -Check pro-calcitonin possible underlying pneumonia but most likely congestive heart failure -Continue with broad-spectrum antibiotics COPD with acute on chronic Respiratory failure -Clinically doubt exacerbation and feel that patient's current state is more likely secondary to fluid overload -Pulmonary recommendations -Bronchodilators -Pulmonary hygiene -Sputum culture HTN - recently discovered - hold propranolol and norvasc Toxic metabolic encephlopathy - treatment as above Possible posturing -Patient noted to have rhythmic enrolling bilateral lower extremities -Continue to monitor Obesity with BMI 34.6 -Structured outpatient weight loss Daughter updated at bedside. Aware that her mother is critical we will have to wait the next 1-2 days to see how she doesn't improve. She reports that the ALLERGY to corticosteroids increased confusion 4-5 days after steroids are in itiated. She confirms full code. The patient is admitted with an anticipated greater than 2 midnight stay for evaluation of AE chf. Surrogate decision-maker: daughter CODE STATUS:Full DVT prophylaxis: SCDs Discussed with: jarad arana, ed physician Anticipated discharge date: unknow Anticipated discharge place: unknown A total of 75 minutes was spent on the care of this complex patient more than 50% of the time was spent in counseling and care coordination.
[2020-11-09 17:33] LABS: Anisocytosis Slight; Hypochromasia Marked; MCH 28.3 pg (25.0-35.0); MCHC 30.1 g/dL (31.0-37.0); MCV 93.9 fL (80.0-100.0); Platelet Count 247 k/uL (150-450); RBC 3.31 m/uL (3.80-5.40); RDW 16.5 % (11.5-15.5); WBC 18.7 k/uL (3.8-10.6)
[2020-11-09 17:47] LABS: HGB 9.3 gm/dL (11.4-16.0)
--- NOTE | 2020-11-09 18:31 | ECHOF ---
Referral Reason:chf MEASUREMENTS -------- HEIGHT: 172.7 cm WEIGHT: 103.0 kg BP: 108/68 RVIDd: 4.1 cm (< 3.3) IVSd: 1.5 cm (0.6 - 1.1) LVIDd: 5.5 cm (3.9 - 5.3) LVPWd: 1.7 cm (0.6 - 1.1) IVSs: 1.7 cm LVIDs: 4.5 cm LVPWs: 1.7 cm LAESV Index (A-L): 45.88 ml/m Ao Diam: 3.5 cm (2.0 - 3.7) AV Cusp: 1.9 cm (1.5 - 2.6) MV EXCURSION: 12.649 mm (> 18.000) MV EF SLOPE: 81 mm/s (70 - 150) EPSS: 0.8 cm MV E Jacob: 1.38 m/s MV DecT: 326 ms MV A Jacob: 1.34 m/s MV E/A Ratio: 1.03 AR PHT: 314 ms RAP: 5.00 mmHg RVSP: 25.00 mmHg FINDINGS -------- This was a technically difficult study with suboptimal views. Pt. on a vent. The left ventricle is mildly dilated. There is moderate concentric left ventricular hypertrophy. Overall left ventricular systolic function is mild-moderately impaired with, an EF between 40 - 45 %. The right ventricle is moderately enlarged. LA is severely dilated >40 ml/m2 The right atrium was not well visualized. 5.0mg of Lumason was utilized for enhancement of images Interatrial and interventricular septum intact. There is mild aortic regurgitation. There is no evidence of aortic stenosis. Moderate mitral annular calcification present. Exqhdfpz-pl-hrtvcz mitral regurgitation is present. Acmf-xq-ixxepxhj mitral stenosis , with a MVA of 2.3cm (by PHT) Mild tricuspid regurgitation present. There is no evidence of pulmonary hypertension. The right v entricular systolic pressure, as measured by Doppler, is 25.00mmHg. The pulmonic valve was not well visualized. There is no pulmonic regurgitation present. The aortic root size is normal. IVC Not well visulized. There is no pericardial effusion. CONCLUSIONS -------- 1. The left ventricle is mildly dilated. 2. There is moderate concentric left ventricular hypertrophy. 3. Overall left ventricular systolic function is mild-moderately impaired with, an EF between 40 - 45 %. 4. The right ventricle is moderately enlarged. 5. LA is severely dilated >40 ml/m2 6. There is mild aortic regurgitation. 7. Moderate mitral annular calcification present. 8. Higdvxcy-if-rxkuij mitral regurgitation is present. 9. Zwcm-qg-eqqdvdgv mitral stenosis. 10. , with a MVA of 2.3cm (by PHT) 11. Mild tricuspid regurgitation present. HARNESS RACING HANDICAPPER: Amber Warner RDCS
[2020-11-09 18:39] LABS: Anisocytosis Slight; Basophils % (A) 0 %; Eosinophils % (A) 0 %; HCT 30.6 % (34.0-46.0); HGB 9.2 gm/dL (11.4-16.0); Hypochromasia Marked; Lymphocytes # (A) 0.5 k/uL (1.0-4.8); Lymphocytes % (A) 3 %; MCH 28.6 pg (25.0-35.0); MCHC 29.9 g/dL (31.0-37.0); MCV 95.5 fL (80.0-100.0); Mean Platelet Volume 7.3; Monocytes # (A) 0.6 k/uL (0-1.0); Monocytes % (A) 4 %; Neutrophils # (A) 14.7 k/uL (1.3-7.7); Neutrophils % (A) 93 %; Platelet Count 235 k/uL (150-450); RBC 3.21 m/uL (3.80-5.40); RDW 16.5 % (11.5-15.5); WBC 15.9 k/uL (3.8-10.6)
[2020-11-09 18:47] LABS: INR 0.9 (<1.2); Prothrombin Time 9.9 sec (9.0-12.0)
[2020-11-09 19:01] LABS: Albumin 3.3 g/dL (3.5-5.0); Calcium 8.3 mg/dL (8.4-10.2); Potassium 4.7 mmol/L (3.5-5.1); Total Bilirubin 0.7 mg/dL (0.2-1.3); Total Protein 5.6 g/dL (6.3-8.2)
[2020-11-09] MEDS: CEFEPIME 2 GM in SODIUM CHLORIDE 0.9% 100 ML IVPB SCH (21:46)
[2020-11-09] MEDS: MONTELUKAST 10 MG TAB PO SCH (21:46)
[2020-11-09] MEDS: PANTOPRAZOLE 40 MG/10 ML VIAL IVP SCH (21:46)
[2020-11-09 22:31] LABS: Anisocytosis Slight; HCT 28.9 % (34.0-46.0); HGB 8.8 gm/dL (11.4-16.0); Hypochromasia Marked; MCH 28.4 pg (25.0-35.0); MCHC 30.3 g/dL (31.0-37.0); MCV 93.6 fL (80.0-100.0); Mean Platelet Volume 7.3; Platelet Count 229 k/uL (150-450); RBC 3.08 m/uL (3.80-5.40); RDW 16.4 % (11.5-15.5); WBC 13.6 k/uL (3.8-10.6)
[2020-11-10] MEDS: IPRATROPIUM-ALBUTEROL 3 ML NEB INHALATION SCH ×6 (00:08→22:02)
[2020-11-10 00:39] LABS: Glucose,Whole Blood 73 mg/dL (75-99)
[2020-11-10 04:01] LABS: Anisocytosis Slight; HCT 27.4 % (34.0-46.0); HGB 8.3 gm/dL (11.4-16.0); Hypochromasia Marked; MCH 27.9 pg (25.0-35.0); MCHC 30.3 g/dL (31.0-37.0); MCV 92.1 fL (80.0-100.0); Mean Platelet Volume 7.7; Platelet Count 247 k/uL (150-450); RBC 2.98 m/uL (3.80-5.40); RDW 16.5 % (11.5-15.5); WBC 13.9 k/uL (3.8-10.6)
[2020-11-10 04:18] LABS: Albumin 3.1 g/dL (3.5-5.0); Potassium 4.5 mmol/L (3.5-5.1); Total Bilirubin 0.7 mg/dL (0.2-1.3); Total Protein 5.3 g/dL (6.3-8.2)
[2020-11-10 05:53] LABS: Glucose,Whole Blood 86 mg/dL (75-99)
[2020-11-10 06:12] LABS: ABG Base Excess -0.5 mmol/L; ABG HCO3 25 mmol/L (21-25); ABG Oxygen Saturation 96.6 % (94-97); ABG PCO2 48 mmHg (35-45); ABG PH 7.34 (7.35-7.45); ABG PO2 79 mmHg (83-108); ABG TCO2 27 mmol/L (19-24); Allen Test Performed? Yes
--- NOTE | 2020-11-10 06:37 | XR ---
EXAMINATION TYPE: XR chest 1V portable DATE OF EXAM: 11/10/2020 CLINICAL HISTORY: Difficulty breathing progress study. TECHNIQUE: Single AP portable semiupright view of the chest is obtained. COMPARISON: Chest x-ray from one day earlier. FINDINGS: Stable endotracheal and orogastric tubes. Persistent cardiomegaly. Persistent reticular in creased markings bilaterally with bibasilar and right midlung opacities. Osseous structures remains i ntact. IMPRESSION: Overall stable findings, cardiomegaly and chronic parenchymal changes with right midlun g and bibasilar acute infiltrate and/or atelectasis are all redemonstrated.
--- NOTE | 2020-11-10 08:53 | PCN ---
PROCEDURE NOTE PROCEDURE: Left radial arterial line. PREOPERATIVE DIAGNOSES: Frequent blood draws and blood gas monitoring. POSTOPERATIVE DIAGNOSES: Frequent blood draws and blood gas monitoring. OPERATORS: Dr. Garaz and Dr. Maciel. Indications: Hemodynamic monitoring. A time-out was completed verifying correct patient, procedure, site, positioning, and implant(s) or special equipment if applicable. Zachary's test was performed to ensure adequate perfusion. The patient's left wrist was prepped and draped in sterile fashion. 1% Lidocaine was used to anesthetize the area. An 18G [place] arterial line was introduced into the left radial artery. The catheter was threaded over the guide wire and the needle was removed with appropriate pulsatile blood return. Blood loss was minimal. The catheter was then sutured in place to the skin and a sterile dressing applied. Perfusion to the extremity distal to the point of catheter insertion was checked and found to be adequate. The patient tolerated the procedure well and there were no complications. There is good waveform and blood pressure reading. Again, no immediate complications. The patient tolerated the procedure very well. MMODL / IJN: [id number] /
[2020-11-10] MEDS ORDERED: DARBEPOETIN ALFA 40 MCG/0.4 ML SYRINGE SQ SCH (09:00)
--- NOTE | 2020-11-10 09:02 | P.NPCON ---
History of Present Illness - Reason for Consult end stage renal disease - History of Present Illness Reason for consultation: End-stage renal disease History of present illness: Patient is a 70-year-old female seen in renal consultation for end-stage renal disease. She is maintained on hemodialysis on Thursday schedule. Patient is home oxygen dependent and was requiring more oxygen at home yesterday. She was subsequently found unresponsive by family and was brought to the hospital. She is currently intubated and is on 50% FiO2. She is also on low-dose Levophed. Patient's left AV graft is clotted and she scheduled for a groin catheter placement today. No fever but she was noted to be hypothermic yesterday with temperature documented as low as 89F. Cultures pending. Chest x-ray suggestive of pneumonia. She is currently on cefepime and azithromycin. Covid PCR was negative. Patient's echocardiogram revealed ejection fraction of 40-45% with mild to moderate mitral stenosis and moderate to severe mitral regurgitation. Patient is quite edematous. Vital signs are stable. On low-dose Levophed. General: The patient appeared well nourished and normally developed. HEENT: Intubated. LUNGS: Breath sounds decreased. HEART: Rate and Rhythm are regular. ABDOMEN: Soft, nontender. EXTREMITITES: 2+ edema. Past Medical History Past Medical History: Hypertension Additional Past Medical History / Comment(s): ESRD on M/W/F last on 11/07 on HD for 1.75 years, CHF, COPD on 2.5 L NC, History of Any Multi-Drug Resistant Organisms: None Reported Past Surgical History: Cholecystectomy Additional Past Surgical History / Comment(s): Left Upper arm graft, hs of HD cath right, Salivary gland tumor, leonides Smoking Status: Former smoker (quit 9 year ago) Past Alcohol Use History: None Reported Past Drug Use History: None Reported - Past Family History Father Family Medical History: Unable to Obtain Mother Family Medical History: Congestive Heart Failure (CHF) Medications and Allergies Home Medications Medication Instructions Recorded Confirmed Type Albuterol Inhaler [Ventolin Hfa 2 puff INHALATION RT-Q6H PRN 11/09/20 11/09/20 History Inhaler] Cholecalciferol [Vitamin D3 (25 50 mcg PO DAILY 11/09/20 11/09/20 History Mcg = 1000 Iu)] Dialyvite Tablet 1 tab PO DAILY 11/09/20 11/09/20 History Docusate [Colace] 100 mg PO DAILY PRN 11/09/20 11/09/20 History Fluticasone Nasal [place] [Flonase 1 spray EA NOSTRIL BID 11/09/20 11/09/20 History Nasal [place]] Furosemide [Lasix] 40 mg PO SUTUTHSA 11/09/20 11/09/20 History Lidocaine-Prilocaine Cream [Emla 1 applic TOPICAL DAILY PRN 11/09/20 11/09/20 Hi story Cream 2.5%/2.5%] Melatonin 3 mg PO HS PRN 11/09/20 11/09/20 History Montelukast Sodium [Singulair] 10 mg PO HS 11/09/20 11/09/20 History Omeprazole 20 mg PO DAILY 11/09/20 11/09/20 History Propranolol HCl 20 mg PO DAILY 11/09/20 11/09/20 History Tiotropium Br/Olodaterol HCl 2 puff INHALATION RT-DAILY 11/09/20 11/09/20 History [Stiolto Respimat Inhal Spreckels] allopurinoL [Zyloprim] 200 mg PO DAILY 11/09/20 11/09/20 History amLODIPine [Norvasc] 10 mg PO DAILY 11/09/20 11/09/20 History levOCARNitine [Levocarnitine] 990 mg PO BID 11/09/20 11/09/20 History Allergies Allergy/AdvReac Type Severity Reaction Status Date / Time Corticosteroids Allergy Unknown Verified 11/09/20 13:06 (Glucocorticoids) iodine Allergy Unknown Verified 11/09/20 13:06 Penicillins Allergy Unknown Verified 11/09/20 13:06 shellfish derived [Shellfish] Allergy Unknown Verified 11/09/20 13:06 [id number]-Fcy Reductase Allergy Unknown Verified 11/09/20 13:06 Inhibitor Sulfa (Sulfonamide Allergy Unknown Verified 11/09/20 13:06 Antibiotics) Physical Exam Vitals: Vital Signs Temp Pulse Resp BP Pulse Ox 11/10/20 08:40 86 11/10/20 07:00 82 20 97/50 97 11/10/20 06:30 82 20 101/51 97 11/10/20 06:00 82 20 103/52 96 11/10/20 05:30 81 20 91/48 95 02/27/21 05:00 81 20 96/48 96 11/10/20 04:30 81 20 100/56 98 11/10/20 04:00 98.8 F 76 20 98/52 99 11/10/20 03:54 74 11/10/20 03:43 73 11/10/20 03:30 74 20 91/51 96 11/10/20 03:00 74 20 95/50 95 11/10/20 02:30 75 20 94/51 96 11/10/20 02:00 73 20 95/53 96 11/10/20 01:30 73 20 92/52 95 11/10/20 01:00 71 21 105/55 96 11/10/20 00:30 71 20 101/54 98 11/10/20 00:22 72 11/10/20 00:10 70 11/10/20 00:00 97.0 F L 70 20 103/57 98 11/09/20 23:30 68 20 101/57 97 11/09/20 23:00 68 20 101/56 98 11/09/20 22:30 67 20 99/59 97 11/09/20 22:00 64 20 102/57 96 11/09/20 21:30 65 20 101/67 96 11/09/20 21:01 65 11/09/20 21:00 65 17 110/62 98 11/09/20 20:30 61 20 108/65 100 11/09/20 20:00 94.1 F L 60 20 107/59 100 11/09/20 19:30 61 20 99/62 100 11/09/20 19:00 94.1 F L 59 L 20 102/61 100 11/09/20 18:30 60 20 108/58 98 11/09/20 18:00 93.9 F L 61 11 L 113/65 98 11/09/20 17:30 61 13 109/66 97 11/09/20 17:00 59 L 16 99/89 96 11/09/20 16:50 60 20 99/89 95 11/09/20 16:40 93.6 F L 58 L 20 122/71 94 L 11/09/20 16:30 60 18 109/59 97 11/09/20 16:20 59 L 20 94 L 11/09/20 16:11 59 L 11/09/20 16:10 59 L 20 109/67 97 11/09/20 16:00 89.2 F L 58 L 20 107/57 95 11/09/20 15:59 60 11/09/20 15:50 89 F L 60 20 11/09/20 15:00 97.7 F 54 L 20 108/68 97 11/09/20 14:56 97.7 F 53 L 20 97/62 99 11/09/20 14:00 97.7 F 56 L 20 78/52 96 11/09/20 13:44 57 L 18 87/50 97 11/09/20 13:20 53 L 12 72/47 96 11/09/20 13:00 97.7 F 58 L 16 87/50 96 11/09/20 12:36 97.9 F 58 L 10 L 75/41 100 11/09/20 12:33 8 L 11/09/20 12:27 97.9 F 60 16 78/48 100 11/09/20 12:08 97.9 F 61 22 143/82 99 11/09/20 12:02 67 31 H 143/110 88 L Intake and Output 11/09/20 11/10/20 11/10/20 22:59 06:59 14:59 Intake Total 176.211 202.132 15 Output Total 127 87 10 Balance 49.211 115.132 5 Intake: IV 70 190 15 Cefepime 2 gm In Sodium 100 Chloride 0.9% 100 ml @ 25 mls/hr IVPB Q8H C[facility] Rx#: [id number] KVO 70 90 15 Intake, IV Titration 106.211 12.132 Amount Norepinephrine 32 mg In 13.531 12.132 Sodium Chloride 0.9% 218 ml @ 0.05 MCG/KG/MIN 2. 416 mls/hr IV .Q24H [facility] Rx#:[id number] propofoL 1,000 mg In 92.680 Empty Bag 1 bag @ Titrate IV .Q0M CANDIE Rx#: [id number] Output: Urine 127 87 10 Other: Weight 103.1 kg 99.2 kg Results - Lab Results Most recent lab results ABG pH 7.34 (7.35-7.45) L 11/10/20 06:06 ABG pCO2 48 mmHg (35-45) H 11/10/20 06:06 ABG pO2 79 mmHg (83-108) L 11/10/20 06:06 ABG HCO3 25 mmol/L (21-25) 11/10/20 06:06 ABG O2 Saturation 96.6 % (94-97) 11/10/20 06:06 Calcium 8.0 mg/dL (8.4-10.2) L 11/10/20 03:36 11/10/20 03:36 11/10/20 03:36 Assessment and Plan Plan: Assessment: 1. End-stage renal disease maintained on hemodialysis on Thursday schedule via left upper extremity AV graft. 2. Clotted AV graft. Vascular surgery following. Femoral catheter replaced today. 3. Acute hypoxic and hypercapnic respiratory failure. 4. Volume overload. 5. Acute on chronic systolic CHF with ejection fraction of 40-45% with moderate to severe mitral regurgitation and mild to moderate mitral stenosis. 6. Anemia of chronic any disease. 7. Shock likely secondary to pneumonia. On low-dose Levophed. Plan: Hemodialysis today with goal UF 2-3 L as able to tolerate. Plan for another treatment tomorrow. Femoral catheter to be placed today. Follow-up cultures. Check iron studies. Add Aranesp. Wean FiO2 and vasopressors. Thank you for the consultation. I will continue to follow the patient with you during her hospital stay.
--- NOTE | 2020-11-10 09:15 | P.PN ---
Subjective Progress Note Date: 11/10/20 Principal diagnosis: Acute on chronic hypoxemic respiratory failure, altered mental status This is a 70-year-old female patient who follows with Dr. Keene. She does have a history of end-stage renal disease receiving hemodialysis on Thursday, hypertension, pulmonary disease followed at [facility], gastroesophageal reflux disease. Approximate 3:00 this morning the patient was having some altered mental status. Her family was observing her. She started propanolol is a new medication yesterday. By 8 AM she was much less responsive and EMS was called. She was brought into the emergency room where she was hypotensive and unable to protect her airway. She was intubated and placed on mechanical ventilator. Initial settings are assist-control rate of 16, tidal volume 450, FiO2 100% and a PEEP of 5. Follow-up blood gases revealed a pO2 of 172, P CO2 83 come a pH 7.16. Respiratory rate was adjusted to 16, FiO2 down to 60%. A right femoral triple-lumen catheter placed. She is seen today in consultation in the emergency room. She is on propofol at 5 mcg/kg/m. Norepinephrine at 0.05 mcg/kg/m. She received 2 L of fluid resuscitation. Whi te count 15.1. Hemoglobin 6.8. Platelet count 222. INR 1.1. Sodium 140. Potassium 3.9. Creatinine 3.26. Glucose 111. ProBNP 13,200. Troponin 0.029. AST 124. ALT 112. Stool for occult blood positive. Coronavirus by PCR not detected. Chest x-ray reveals coarse infiltrates throughout both lung garner, pulmonary edema. Computed tomography scan of the brain revealed age-related atrophy and chronic small vessel changes without acute intracranial process. No family is present. No other information is able to be obtained. No previous admission to this facility. She's been initiated on cefepime and azithromycin. One unit of packed red blood cells has been ordered. The patient was seen today 11/10/2020 in follow-up in the intensive care unit. She remains intubated on the mechanical ventilator. Current settings are assist control at a rate of 20, tidal volume 450, FiO2 50% and a PEEP of 5. Morning blood gases reveal a P O2 of 79, pCO2 48, pH 7.3. She is sedated on propofol at 20 mcg/kg/m. Requiring norepinephrine at 0.04 mcg/kg/m approximately 4 mcg/m. 0.9 normal saline at KVO. Chest x-ray reveals cardiomegaly with persistent reticular increased markings bilaterally without bibasilar right midlung opacities. Stable compared to yesterday. She has received 1 unit of packed red blood cells this admission. Current hemoglobin 8.3. White count 13.9. Sodium 139. Potassium 4.5. Creatinine 4.75. AST 71. ALT 102. Stool for occult blood was positive. Left upper extremity AV fistula was not working. No hemodialysis yesterday. The plan is for temporary HD catheter today and dialysis later today. Tube feedings will be initiated. Left radial arterial line placed. She remains on DuoNeb inhalations every 4 hours, antibiotics in the form of cefepime and azithromycin. Protonix for GI prophylaxis. Objective - Vital Signs Vital signs: Vital Signs Temp 98.8 F 11/10/20 04:00 Pulse 88 11/10/20 08:50 Resp 20 11/10/20 07:00 BP 97/50 11/10/20 07:00 Pulse Ox 97 11/10/20 07:00 Intake & Output 11/09/20 11/10/20 11/10/20 18:59 06:59 18:59 Intake Total 60.291 325.533 15 Output Total 55 159 10 Balance 5.291 166.533 5 Weight 103.1 kg 99.2 kg Intake: IV 30 230 15 Cefepime 2 gm In Sodium 100 Chloride 0.9% 100 ml @ 25 mls/hr IVPB Q8H CANDIE Rx#: [id number] KVO 30 130 15 Intake, IV Titration 30.291 95.533 Amount Norepinephrine 32 mg In 13.692 12.132 Sodium Chloride 0.9% 218 ml @ 0.05 MCG/KG/MIN 2. 416 mls/hr IV .Q24H [facility]IE Rx#:[id number] propofoL 1,000 mg In 16.599 83.401 Empty Bag 1 bag @ Titrate IV .Q0M CANDIE Rx#: [id number] Output: Urine 55 159 10 - Exam GENERAL EXAM: Intubated, sedated 70-year-old female patient. HEAD: Normocephalic. EYES: Sluggish reaction of pupils, equal size. NOSE: Clear with pink turbinates. THROAT: Oral endotracheal and gastric tube secured in place. No erythema or exudates. NECK: No masses, no JVD. CHEST: No chest wall deformity. LUNGS: Equal air entry with bilateral scattered crackles CVS: S1 and S2 normal with no audible murmur, regular rhythm. ABDOMEN: No hepatosplenomegaly, normal bowel sounds, no guarding or rigidity. SPINE: No scoliosis or deformity SKIN: No rashes CENTRAL NERVOUS SYSTEM: No focal deficits, tone is normal in all 4 extremities. EXTREMITIES: Right femoral triple-lumen catheter in place. Left upper extremity graft. No clubbing, no cyanosis. Peripheral pulses are intact. - Labs CBC & Chem 7: 11/10/20 03:36 11/10/20 03:36 Labs: Abnormal Lab Results - Last 24 Hours (Table) 11/09/20 11/09/20 11/09/20 Range/Units 12:01 12:22 12:22 WBC 15.1 H (3.8-10.6) k/uL RBC 2.45 L (3.80-5.40) m/uL Hgb 6.8 L* (11.4-16.0) gm/dL Hct 23.5 L (34.0-46.0) % MCHC 29.1 L (31.0-37.0) g/dL RDW 16.7 H (11.5-15.5) % Neutrophils # 14.1 H (1.3-7.7) k/uL Lymphocytes # 0.3 L (1.0-4.8) k/uL ABG pH (7.35-7.45) ABG pCO2 (35-45) mmHg ABG pO2 (83-108) mmHg ABG HCO3 (21-25) mmol/L ABG Total CO2 (19-24) mmol/L ABG O2 Saturation (94-97) % Chloride 110 H (98-107) mmol/L BUN 22 H (7-17) mg/dL Creatinine 3.26 H (0.52-1.04) mg/dL Glucose 111 H (74-99) mg/dL POC Glucose (mg/dL) 131 H (75-99) mg/dL Plasma Lactic Acid Johnny (0.7-2.0) mmol/L Calcium 6.5 L (8.4-10.2) mg/dL AST 124 H (14-36) U/L ALT 112 H (4-34) U/L Alkaline Phosphatase (38-126) U/L Total Protein 4.6 L (6.3-8.2) g/dL Albumin 2.5 L (3.5-5.0) g/dL Urine Protein (Negative) Stool Occult Blood (Negative) Crossmatch 11/09/20 11/09/20 11/09/20 Range/Units 12:22 12:35 12:36 WBC (3.8-10.6) k/uL RBC (3.80-5.40) m/uL Hgb (11.4-16.0) gm/dL Hct (34.0-46.0) % MCHC (31.0-37.0) g/dL RDW (11.5-15.5) % Neutrophils # (1.3-7.7) k/uL Lymphocytes # (1.0-4.8) k/uL ABG pH 7.17 L* (7.35-7.45) ABG pCO2 84 H* (35-45) mmHg ABG pO2 172 H (83-108) mmHg ABG HCO3 30 H (21-25) mmol/L ABG Total CO2 33 H (19-24) mmol/L ABG O2 Saturation 97.9 H (94-97) % Chloride (98-107) mmol/L BUN (7-17) mg/dL Creatinine (0.52-1.04) mg/dL Glucose (74-99) mg/dL POC Glucose (mg/dL) (75-99) mg/dL Plasma Lactic Acid Johnny <0.5 L (0.7-2.0) mmol/L Calcium (8.4-10.2) mg/dL AST (14-36) U/L ALT (4-34) U/L Alkaline Phosphatase (38-126) U/L Total Protein (6.3-8.2) g/dL Albumin (3.5-5.0) g/dL Urine Protein 2+ H (Negative) Stool Occult Blood (Negative) Crossmatch 11/09/20 11/09/20 11/09/20 Range/Units 12:56 14:47 15:43 WBC (3.8-10.6) k/uL RBC (3.80-5.40) m/uL Hgb (11.4-16.0) gm/dL Hct (34.0-46.0) % MCHC (31.0-37.0) g/dL RDW (11.5-15.5) % Neutrophils # (1.3-7.7) k/uL Lymphocytes # (1.0-4.8) k/uL ABG pH (7.35-7.45) ABG pCO2 (35-45) mmHg ABG pO2 (83-108) mmHg ABG HCO3 (21-25) mmol/L ABG Total CO2 (19-24) mmol/L ABG O2 Saturation (94-97) % Chloride (98-107) mmol/L BUN (7-17) mg/dL Creatinine (0.52-1.04) mg/dL Glucose (74-99) mg/dL POC Glucose (mg/dL) 135 H (75-99) mg/dL Plasma Lactic Acid Johnny (0.7-2.0) mmol/L Calcium (8.4-10.2) mg/dL AST (14-36) U/L ALT (4-34) U/L Alkaline Phosphatase (38-126) U/L Total Protein (6.3-8.2) g/dL Albumin (3.5-5.0) g/dL Urine Protein (Negative) Stool Occult Blood Positive H (Negative) Crossmatch See Detail 11/09/20 11/09/20 11/09/20 Range/Units 16:49 18:26 18:26 WBC 18.7 H 15.9 H (3.8-10.6) k/uL RBC 3.31 L 3.21 L (3.80-5.40) m/uL Hgb 9.3 L D 9.2 L (11.4-16.0) gm/dL Hct 31.0 L 30.6 L (34.0-46.0) % MCHC 30.1 L 29.9 L (31.0-37.0) g/dL RDW 16.5 H 16.5 H (11.5-15.5) % Neutrophils # 14.7 H (1.3-7.7) k/uL Lymphocytes # 0.5 L (1.0-4.8) k/uL ABG pH (7.35-7.45) ABG pCO2 (35-45) mmHg ABG pO2 (83-108) mmHg ABG HCO3 (21-25) mmol/L ABG Total CO2 (19-24) mmol/L ABG O2 Saturation (94-97) % Chloride (98-107) mmol/L BUN 33 H (7-17) mg/dL Creatinine 4.44 H (0.52-1.04) mg/dL Glucose 130 H (74-99) mg/dL POC Glucose (mg/dL) (75-99) mg/dL Plasma Lactic Acid Johnny (0.7-2.0) mmol/L Calcium 8.3 L (8.4-10.2) mg/dL AST 118 H (14-36) U/L ALT 129 H (4-34) U/L Alkaline Phosphatase 128 H (38-126) U/L Total Protein 5.6 L (6.3-8.2) g/dL Albumin 3.3 L (3.5-5.0) g/dL Urine Protein (Negative) Stool Occult Blood (Negative) Crossmatch 11/09/20 11/10/20 11/10/20 Range/Units 22:09 00:38 03:36 WBC 13.6 H 13.9 H (3.8-10.6) k/uL RBC 3.08 L 2.98 L (3.80-5.40) m/uL Hgb 8.8 L 8.3 L (11.4-16.0) gm/dL Hct 28.9 L 27.4 L (34.0-46.0) % MCHC 30.3 L 30.3 L (31.0-37.0) g/dL RDW 16.4 H 16.5 H (11.5-15.5) % Neutrophils # (1.3-7.7) k/uL Lymphocytes # (1.0-4.8) k/uL ABG pH (7.35-7.45) ABG pCO2 (35-45) mmHg ABG pO2 (83-108) mmHg ABG HCO3 (21-25) mmol/L ABG Total CO2 (19-24) mmol/L ABG O2 Saturation (94-97) % Chloride (98-107) mmol/L BUN (7-17) mg/dL Creatinine (0.52-1.04) mg/dL Glucose (74-99) mg/dL POC Glucose (mg/dL) 73 L (75-99) mg/dL Plasma Lactic Acid Johnny (0.7-2.0) mmol/L Calcium (8.4-10.2) mg/dL AST (14-36) U/L ALT (4-34) U/L Alkaline Phosphatase (38-126) U/L Total Protein (6.3-8.2) g/dL Albumin (3.5-5.0) g/dL Urine Protein (Negative) Stool Occult Blood (Negative) Crossmatch 11/10/20 11/10/20 Range/Units 03:36 06:06 WBC (3.8-10.6) k/uL RBC (3.80-5.40) m/uL Hgb (11.4-16.0) gm/dL Hct (34.0-46.0) % MCHC (31.0-37.0) g/dL RDW (11.5-15.5) % Neutrophils # (1.3-7.7) k/uL Lymphocytes # (1.0-4.8) k/uL ABG pH 7.34 L (7.35-7.45) ABG pCO2 48 H (35-45) mmHg ABG pO2 79 L (83-108) mmHg ABG HCO3 (21-25) mmol/L ABG Total CO2 27 H (19-24) mmol/L ABG O2 Saturation (94-97) % Chloride (98-107) mmol/L BUN 40 H (7-17) mg/dL Creatinine 4.75 H (0.52-1.04) mg/dL Glucose (74-99) mg/dL POC Glucose (mg/dL) (75-99) mg/dL Plasma Lactic Acid Johnny (0.7-2.0) mmol/L Calcium 8.0 L (8.4-10.2) mg/dL AST 71 H (14-36) U/L ALT 102 H (4-34) U/L Alkaline Phosphatase (38-126) U/L Total Protein 5.3 L (6.3-8.2) g/dL Albumin 3.1 L (3.5-5.0) g/dL Urine Protein (Negative) Stool Occult Blood (Negative) Crossmatch Microbiology - Last 24 Hours (Table) 11/09/20 21:01 Gram Stain - Preliminary Sputum Sputum Culture - Preliminary Assessment and Plan Assessment: 1 Altered mental status of unclear etiology 2 Acute hypoxemic respiratory failure requiring intubation mechanical ventilatory support on 11/09/2020, secondary to acute fluid volume o verload/pulmonary edema 3 Acute hypotension requiring pressor support 4 Acute anemia, presenting hemoglobin 6.8 5 Elevated liver enzymes 6 End stage renal disease on hemodialysis Thursday. Creatinine today 3.6 7 COPD/asthma follows with radiation control health physicist out of [place] 8 History of hypertension 9 History of gout 10 History of carnitine deficiency Plan: The patient was seen and evaluated by Dr. Garza Chest x-ray, ABGs and labs reviewed Continue sedation for now Possible spontaneous breathing trial and daily interruption of sedation after hemodialysis today Titrate the pressors as tolerated Continue cefepime and azithromycin for now Continue bronchodilators Lovenox for DVT prophylaxis Left radial arterial line placed Initiate tube feedings We will continue to follow and make further recommendations based on her clinical status Critical care time not including procedures: 36 minutes I, the cosigning physician, performed a history & physical examination of the patient. Lungs sounds with bilateral crackles in the posterior bases, scattered rhonchi. Maintaining good O2 saturations in the 90s on 50% FiO2. I discussed the assessment and plan of care with my nurse practitioner, Angela Maciel. I attest to the above note as dictated by her.
--- NOTE | 2020-11-10 10:00 | P.GSCN ---
History of Present Illness History of present illness: 70-year-old white female, I was consulted for placement of urgent dialysis catheter. Ant has history of acute chronic renal failure on dialysis 3 times a week patient had left upper problem which has been occluded. Patient has been intubated. Patient also history of COPD in the past and his heart failure Patient was seen and discussed care unit she has been intubated Chest crackles bilateral Abdomen is soft nontender Vascular femorals are 1+ bilateral Plan is placement of the dialysis catheter risk and complication discussed Past Medical History Past Medical History: Hypertension Additional Past Medical History / Comment(s): ESRD on M/W/F last on 11/07 on HD for 1.75 years, CHF, COPD on 2.5 L NC, History of Any Multi-Drug Resistant Organisms: None Reported Past Surgical History: Cholecystectomy Additional Past Surgical History / Comment(s): Left Upper arm graft, hs of HD cath right, Salivary gland tumor, leonides Smoking Status: Former smoker (quit 9 year ago) Past Alcohol Use History: None Reported Past Drug Use History: None Reported - Past Family History Father Family Medical History: Unable to Obtain Mother Family Medical History: Congestive Heart Failure (CHF) Medications and Allergies Home Medications Medication Instructions Recorded Confirmed Type Albuterol Inhaler [Ventolin Hfa 2 puff INHALATION RT-Q6H PRN 11/09/20 11/09/20 History Inhaler] Cholecalciferol [Vitamin D3 (25 50 mcg PO DAILY 11/09/20 11/09/20 History Mcg = 1000 Iu)] Dialyvite Tablet 1 tab PO DAILY 11/09/20 11/09/20 History Docusate [Colace] 100 mg PO DAILY PRN 11/09/20 11/09/20 History Fluticasone Nasal [place] [Flonase 1 spray EA NOSTRIL BID 11/09/20 11/09/20 History Nasal [place]] Furosemide [Lasix] 40 mg PO SUTUTHSA 11/09/20 11/09/20 History Lidocaine-Prilocaine Cream [Emla 1 applic TOPICAL DAILY PRN 11/09/20 11/09/20 History Cream 2.5%/2.5%] Melatonin 3 mg PO HS PRN 11/09/20 11/09/20 History Montelukast Sodium [Singulair] 10 mg PO HS 11/09/20 11/09/20 History Omeprazole 20 mg PO DAILY 11/09/20 11/09/20 History Propranolol HCl 20 mg PO DAILY 11/09/20 11/09/20 History Tiotropium Br/Olodaterol HCl 2 puff INHALATION RT-DAILY 11/09/20 11/09/20 History [Stiolto Respimat Inhal [place]] allopurinoL [Zyloprim] 200 mg PO DAILY 11/09/20 11/09/20 History amLODIPine [Norvasc] 10 mg PO DAILY 11/09/20 11/09/20 History levOCARNitine [Levocarnitine] 990 mg PO BID 11/09/20 11/09/20 History Allergies Allergy/AdvReac Type Severity Reaction Status Date / Time Corticosteroids Allergy Unknown Verified 11/09/20 13:06 (Glucocorticoids) iodine Allergy Unknown Verified 11/09/20 13:06 Penicillins Allergy Unknown Verified 11/09/20 13:06 shellfish derived [Shellfish] Allergy Unknown Verified 11/09/20 13:06 Ozspuct-Mvl-Bmh Reductase Allergy Unknown Verified 11/09/20 13:06 Inhibitor Sulfa (Sulfonamide Allergy Unknown Verified 11/09/20 13:06 Antibiotics) Surgical - Exam Vital Signs Pulse Resp BP Pulse Ox 67 31 H 143/110 88 L 11/09/20 12:02 11/09/20 12:02 11/09/20 12:02 11/09/20 12:02 Results - Labs 11/10/20 03:36 11/10/20 03:36 Abnormal Lab Results - Last 24 Hours (Table) 11/09/20 11/09/20 11/09/20 Range/Units 12:01 12:22 12:22 WBC 15.1 H (3.8-10.6) k/uL RBC 2.45 L (3.80-5.40) m/uL Hgb 6.8 L* (11.4-16.0) gm/dL Hct 23.5 L (34.0-46.0) % MCHC 29.1 L (31.0-37.0) g/dL RDW 16.7 H (11.5-15.5) % Neutrophils # 14.1 H (1.3-7.7) k/uL Lymphocytes # 0.3 L (1.0-4.8) k/uL ABG pH (7.35-7.45) ABG pCO2 (35-45) mmHg ABG pO2 (83-108) mmHg ABG HCO3 (21-25) mmol/L ABG Total CO2 (19-24) mmol/L ABG O2 Saturation (94-97) % Chloride 110 H (98-107) mmol/L BUN 22 H (7-17) mg/dL Creatinine 3.26 H (0.52-1.04) mg/dL Glucose 111 H (74-99) mg/dL POC Glucose (mg/dL) 131 H (75-99) mg/dL Plasma Lactic Acid Johnny (0.7-2.0) mmol/L Calcium 6.5 L (8.4-10.2) mg/dL AST 124 H (14-36) U/L ALT 112 H (4-34) U/L Alkaline Phosphatase (38-126) U/L Total Protein 4.6 L (6.3-8.2) g/dL Albumin 2.5 L (3.5-5.0) g/dL Urine Protein (Negative) Stool Occult Blood (Negative) Crossmatch 11/09/20 11/09/20 11/09/20 Range/Units 12:22 12:35 12:36 WBC (3.8-10.6) k/uL RBC (3.80-5.40) m/uL Hgb (11.4-16.0) gm/dL Hct (34.0-46.0) % MCHC (31.0-37.0) g/dL RDW (11.5-15.5) % Neutrophils # (1.3-7.7) k/uL Lymphocytes # (1.0-4.8) k/uL ABG pH 7.17 L* (7.35-7.45) ABG pCO2 84 H* (35-45) mmHg ABG pO2 172 H (83-108) mmHg ABG HCO3 30 H (21-25) mmol/L ABG Total CO2 33 H (19-24) mmol/L ABG O2 Saturation 97.9 H (94-97) % Chloride (98-107) mmol/L BUN (7-17) mg/dL Creatinine (0.52-1.04) mg/dL Glucose (74-99) mg/dL POC Glucose (mg/dL) (75-99) mg/dL Plasma Lactic Acid Johnny <0.5 L (0.7-2.0) mmol/L Calcium (8.4-10.2) mg/dL AST (14-36) U/L ALT (4-34) U/L Alkaline Phosphatase (38-126) U/L Total Protein (6.3-8.2) g/dL Albumin (3.5-5.0) g/dL Urine Protein 2+ H (Negative) Stool Occult Blood (Negative) Crossmatch 11/09/20 11/09/20 11/09/20 Range/Units 12:56 14:47 15:43 WBC (3.8-10.6) k/uL RBC (3.80-5.40) m/uL Hgb (11.4-16.0) gm/dL Hct (34.0-46.0) % MCHC (31.0-37.0) g/dL RDW (11.5-15.5) % Neutrophils # (1.3-7.7) k/uL Lymphocytes # (1.0-4.8) k/uL ABG pH (7.35-7.45) ABG pCO2 (35-45) mmHg ABG pO2 (83-108) mmHg ABG HCO3 (21-25) mmol/L ABG Total CO2 (19-24) mmol/L ABG O2 Saturation (94-97) % Chloride (98-107) mmol/L BUN (7-17) mg/dL Creatinine (0.52-1.04) mg/dL Glucose (74-99) mg/dL POC Glucose (mg/dL) 135 H (75-99) mg/dL Plasma Lactic Acid Johnny (0.7-2.0) mmol/L Calcium (8.4-10.2) mg/dL AST (14-36) U/L ALT (4-34) U/L Alkaline Phosphatase (38-126) U/L Total Protein (6.3-8.2) g/dL Albumin (3.5-5.0) g/dL Urine Protein (Negative) Stool Occult Blood Positive H (Negative) Crossmatch See Detail 11/09/20 11/09/20 11/09/20 Range/Units 16:49 18:26 18:26 WBC 18.7 H 15.9 H (3.8-10.6) k/uL RBC 3.31 L 3.21 L (3.80-5.40) m/uL Hgb 9.3 L D 9.2 L (11.4-16.0) gm/dL Hct 31.0 L 30.6 L (34.0-46.0) % MCHC 30.1 L 29.9 L (31.0-37.0) g/dL RDW 16.5 H 16.5 H (11.5-15.5) % Neutrophils # 14.7 H (1.3-7.7) k/uL Lymphocytes # 0.5 L (1.0-4.8) k/uL ABG pH (7.35-7.45) ABG pCO2 (35-45) mmHg ABG pO2 (83-108) mmHg ABG HCO3 (21-25) mmol/L ABG Total CO2 (19-24) mmol/L ABG O2 Saturation (94-97) % Chloride (98-107) mmol/L BUN 33 H (7-17) mg/dL Creatinine 4.44 H (0.52-1.04) mg/dL Glucose 130 H (74-99) mg/dL POC Glucose (mg/dL) (75-99) mg/dL Plasma Lactic Acid Johnny (0.7-2.0) mmol/L Calcium 8.3 L (8.4-10.2) mg/dL AST 118 H (14-36) U/L ALT 129 H (4-34) U/L Alkaline Phosphatase 128 H (38-126) U/L Total Protein 5.6 L (6.3-8.2) g/dL Albumin 3.3 L (3.5-5.0) g/dL Urine Protein (Negative) Stool Occult Blood (Negative) Crossmatch 11/09/20 11/10/20 11/10/20 Range/Units 22:09 00:38 03:36 WBC 13.6 H 13.9 H (3.8-10.6) k/uL RBC 3.08 L 2.98 L (3.80-5.40) m/uL Hgb 8.8 L 8.3 L (11.4-16.0) gm/dL Hct 28.9 L 27.4 L (34.0-46.0) % MCHC 30.3 L 30.3 L (31.0-37.0) g/dL RDW 16.4 H 16.5 H (11.5-15.5) % Neutrophils # (1.3-7.7) k/uL Lymphocytes # (1.0-4.8) k/uL ABG pH (7.35-7.45) ABG pCO2 (35-45) mmHg ABG pO2 (83-108) mmHg ABG HCO3 (21-25) mmol/L ABG Total CO2 (19-24) mmol/L ABG O2 Saturation (94-97) % Chloride (98-107) mmol/L BUN (7-17) mg/dL Creatinine (0.52-1.04) mg/dL Glucose (74-99) mg/dL POC Glucose (mg/dL) 73 L (75-99) mg/dL Plasma Lactic Acid Johnny (0.7-2.0) mmol/L Calcium (8.4-10.2) mg/dL AST (14-36) U/L ALT (4-34) U/L Alkaline Phosphatase (38-126) U/L Total Protein (6.3-8.2) g/dL Albumin (3.5-5.0) g/dL Urine Protein (Negative) Stool Occult Blood (Negative) Crossmatch 11/10/20 11/10/20 Range/Units 03:36 06:06 WBC (3.8-10.6) k/uL RBC (3.80-5.40) m/uL Hgb (11.4-16.0) gm/dL Hct (34.0-46.0) % MCHC (31.0-37.0) g/dL RDW (11.5-15.5) % Neutrophils # (1.3-7.7) k/uL Lymphocytes # (1.0-4.8) k/uL ABG pH 7.34 L (7.35-7.45) ABG pCO2 48 H (35-45) mmHg ABG pO2 79 L (83-108) mmHg ABG HCO3 (21-25) mmol/L ABG Total CO2 27 H (19-24) mmol/L ABG O2 Saturation (94-97) % Chloride (98-107) mmol/L BUN 40 H (7-17) mg/dL Creatinine 4.75 H (0.52-1.04) mg/dL Glucose (74-99) mg/dL POC Glucose (mg/dL) (75-99) mg/dL Plasma Lactic Acid Johnny (0.7-2.0) mmol/L Calcium 8.0 L (8.4-10.2) mg/dL AST 71 H (14-36) U/L ALT 102 H (4-34) U/L Alkaline Phosphatase (38-126) U/L Total Protein 5.3 L (6.3-8.2) g/dL Albumin 3.1 L (3.5-5.0) g/dL Urine Protein (Negative) Stool Occult Blood (Negative) Crossmatch Microbiology - Last 24 Hours (Table) 11/09/20 21:01 Gram Stain - Preliminary Sputum Sputum Culture - Preliminary Diabetes panel 11/09/20 11/09/20 11/10/20 Range/Units 12:22 18:26 03:36 Sodium 140 139 139 (137-145) mmol/L Potassium 3.9 4.7 4.5 (3.5-5.1) mmol/L Chloride 110 H 105 103 (98-107) mmol/L Carbon Dioxide 26 22 24 (22-30) mmol/L BUN 22 H 33 H 40 H (7-17) mg/dL Creatinine 3.26 H 4.44 H 4.75 H (0.52-1.04) mg/dL Glucose 111 H 130 H 80 (74-99) mg/dL Calcium 6.5 L 8.3 L 8.0 L (8.4-10.2) mg/dL AST 124 H 118 H 71 H (14-36) U/L ALT 112 H 129 H 102 H (4-34) U/L Alkaline Phosphatase 104 128 H 104 (38-126) U/L Total Protein 4.6 L 5.6 L 5.3 L (6.3-8.2) g/dL Albumin 2.5 L 3.3 L 3.1 L (3.5-5.0) g/dL Calcium panel 11/09/20 11/09/20 11/10/20 Range/Units 12:22 18:26 03:36 Calcium 6.5 L 8.3 L 8.0 L (8.4-10.2) mg/dL Albumin 2.5 L 3.3 L 3.1 L (3.5-5.0) g/dL Pituitary panel 11/09/20 11/09/20 11/10/20 Range/Units 12:22 18: 03:36 Sodium 140 139 139 (137-145) mmol/L Potassium 3.9 4.7 4.5 (3.5-5.1) mmol/L Chloride 110 H 105 103 (98-107) mmol/L Carbon Dioxide 26 22 24 (22-30) mmol/L BUN 22 H 33 H 40 H (7-17) mg/dL Creatinine 3.26 H 4.44 H 4.75 H (0.52-1.04) mg/dL Glucose 111 H 130 H 80 (74-99) mg/dL Calcium 6.5 L 8.3 L 8.0 L (8.4-10.2) mg/dL Adrenal panel 11/09/20 11/09/20 11/10/20 Range/Units 12: 18:26 03:36 Sodium 140 139 139 (137-145) mmol/L Potassium 3.9 4.7 4.5 (3.5-5.1) mmol/L Chloride 110 H 105 103 (98-107) mmol/L Carbon Dioxide 26 22 24 (22-30) mmol/L BUN 22 H 33 H 40 H (7-17) mg/dL Creatinine 3.26 H 4.44 H 4.75 H (0.52-1.04) mg/dL Glucose 111 H 130 H 80 (74-99) mg/dL Calcium 6.5 L 8.3 L 8.0 L (8.4-10.2) mg/dL Total Bilirubin 0.4 0.7 0.7 (0.2-1.3) mg/dL AST 124 H 118 H 71 H (14-36) U/L ALT 112 H 129 H 102 H (4-34) U/L Alkaline Phosphatase 104 128 H 104 (38-126) U/L Total Protein 4.6 L 5.6 L 5.3 L (6.3-8.2) g/dL Albumin 2.5 L 3.3 L 3.1 L (3.5-5.0) g/dL
--- NOTE | 2020-11-10 10:02 | P.PCN ---
Description of Procedure: Preoperative diagnoses is acute chronic renal failure Postoperative same Procedure patient was seen in the room left groin was prepped and draped applied in standard manner patient has a triple-lumen catheter for IV infusion of the right groin ultrasound-guided 1% lidocaine was used to access the left femoral vein and micropuncture guidewire was passed and 4. dilator advanced on the top of the guidewire. After that we passed a regular guidewire without any resistance dilator was advanced on the top of guidewire. After that we placed a double-lumen dialysis catheter on the top of guidewire guidewire was removed catheter was flushed with heparin heparin saline and Hep-Lock and secured with 3-0 nylon dressing applied patient are to the procedure well
[2020-11-10] MEDS: CEFEPIME 2 GM in SODIUM CHLORIDE 0.9% 100 ML IVPB SCH ×2 (10:23→14:55)
[2020-11-10] MEDS: PANTOPRAZOLE 40 MG/10 ML VIAL IVP SCH ×2 (10:23→21:40)
[2020-11-10] MEDS: CHOLECALCIFEROL 25 MCG (1000 IU) TABLET PO SCH (10:23)
[2020-11-10] MEDS: allopurinoL 100 MG TAB PO SCH (10:23)
[2020-11-10] MEDS: ENOXAPARIN 30 MG/0.3 ML SYRINGE SQ SCH (10:31)
[2020-11-10] MEDS: CHLORHEXIDINE GLUCONATE 15 ML CUP MUCOUS MEM SCH ×2 (10:58→21:12)
[2020-11-10 11:48] LABS: Glucose,Whole Blood 92 mg/dL (75-99)
[2020-11-10 15:10] LABS: % Iron Saturation 8.47 (12.00-45.00); Ferritin 844.4 ng/mL (10.0-291.0)
[2020-11-10] MEDS ORDERED: AZITHROMYCIN 500 MG in SODIUM CHLORIDE 0.9% 250 ML IVPB SCH (16:00)
--- NOTE | 2020-11-10 17:05 | P.PN ---
Subjective Progress Note Date: 11/10/20 Principal diagnosis: Unresponsiveness Patient continues to be on mechanical ventilation. When seen she was getting dialysis. Still requiring pressors. Objective - Vital Signs Vital signs: Vital Signs Temp 97.9 F 11/10/20 16:00 Pulse 88 11/10/20 16:00 Resp 21 11/10/20 16:00 BP 112/54 11/10/20 16:00 Pulse Ox 100 11/10/20 16:00 Intake & Output 11/09/20 11/10/20 11/10/20 18:59 06:59 18:59 Intake Total 60.291 325.533 358.129 Output Total 55 159 3040 Balance 5.291 166.533 -2681.871 Weight 103.1 kg 99.2 kg 99.2 kg Intake: IV 30 230 261 A-line 21 Cefepime 2 gm In Sodium 100 100 Chloride 0.9% 100 ml @ 25 mls/hr IVPB Q8H [facility] Rx#: [id number] KVO 30 130 140 Intake, IV Titration 30.291 95.533 97.129 Amount Norepinephrine 32 mg In 13.692 12.132 23.722 Sodium Chloride 0.9% 218 ml @ 0.05 MCG/KG/MIN 2. 416 mls/hr IV .Q24H [facility] Rx#:[id number] propofoL 1,000 mg In 16.599 83.401 Empty Bag 1 bag @ Titrate IV .Q0M [facility] Rx#: [id number] propofoL 1,000 mg In 73.407 Empty Bag 1 bag @ Titrate IV .Q0M [facility] Rx#: [id number] Output: Urine 55 159 40 Hemodialysis 3000 ABP, PAP, CO, CI - Last Documented Arterial Blood Pressure 104/41 - Exam General: ill appearing, moderate distress, appears at stated age Derm: warm, dry Head: atraumatic, normocephalic, symmetric Eyes: EOMI, no lid lag, anicteric sclera, pupils equal round reactive to light ENT: Nose and ears atraumatic, no thrush, + ET tube in place Neck: No thyromegaly, no cervical lymphadenopathy, trachea midline, supple Mouth: no lip lesion, mucus membranes dry Cardiovascular: S1S2 reg, no murmur, positive posterior tibial pulse bilateral, 3+ edema, capillary refill less than 2 seconds Lungs: course bs bilateral, no ronchi, no rales, no wheeze, no accessory muscle use Abdominal: soft, nontender to palpation, no guarding, no appreciable organomegaly, normal bowel sounds, + ronquillo in place yellow urine Ext: no gross muscle atrophy, muscle strength muscle strength 5 out of 5 in all 4 extremities, no contractures Neuro: Pupils are pinpoint, no withdrawal to pain all 4 extremities Psych: obtunded - Labs CBC & Chem 7: 11/10/20 03:36 11/10/20 03:36 Labs: Abnormal Lab Results - Last 24 Hours (Table) 11/09/20 11/09/20 11/09/20 Range/Units 16:49 18:26 18:26 WBC 18.7 H 15.9 H (3.8-10.6) k/uL RBC 3.31 L 3.21 L (3.80-5.40) m/uL Hgb 9.3 L D 9.2 L (11.4-16.0) gm/dL Hct 31.0 L 30.6 L (34.0-46.0) % MCHC 30.1 L 29.9 L (31.0-37.0) g/dL RDW 16.5 H 16.5 H (11.5-15.5) % Neutrophils # 14.7 H (1.3-7.7) k/uL Lymphocytes # 0.5 L (1.0-4.8) k/uL ABG pH (7.35-7.45) ABG pCO2 (35-45) mmHg ABG pO2 (83-108) mmHg ABG Total CO2 (19-24) mmol/L BUN 33 H (7-17) mg/dL Creatinine 4.44 H (0.52-1.04) mg/dL Glucose 130 H (74-99) mg/dL POC Glucose (mg/dL) (75-99) mg/dL Calcium 8.3 L (8.4-10.2) mg/dL Iron (50-170) ug/dL TIBC (228-460) ug/dL % Saturation (12.00-45.00) Ferritin (10.0-291.0) ng/mL AST 118 H (14-36) U/L ALT 129 H (4-34) U/L Alkaline Phosphatase 128 H (38-126) U/L Total Protein 5.6 L (6.3-8.2) g/dL Albumin 3.3 L (3.5-5.0) g/dL Procalcitonin (0.02-0.09) ng/mL 11/09/20 11/10/20 11/10/20 Range/Units 22:09 00:38 03:36 WBC 13.6 H 13.9 H (3.8-10.6) k/uL RBC 3.08 L 2.98 L (3.80-5.40) m/uL Hgb 8.8 L 8.3 L (11.4-16.0) gm/dL Hct 28.9 L 27.4 L (34.0-46.0) % MCHC 30.3 L 30.3 L (31.0-37.0) g/dL RDW 16.4 H 16.5 H (11.5-15.5) % Neutrophils # (1.3-7.7) k/uL Lymphocytes # (1.0-4.8) k/uL ABG pH (7.35-7.45) ABG pCO2 (35-45) mmHg ABG pO2 (83-108) mmHg ABG Total CO2 (19-24) mmol/L BUN (7-17) mg/dL Creatinine (0.52-1.04) mg/dL Glucose (74-99) mg/dL POC Glucose (mg/dL) 73 L (75-99) mg/dL Calcium (8.4-10.2) mg/dL Iron (50-170) ug/dL TIBC (228-460) ug/dL % Saturation (12.00-45.00) Ferritin (10.0-291.0) ng/mL AST (14-36) U/L ALT (4-34) U/L Alkaline Phosphatase (38-126) U/L Total Protein (6.3-8.2) g/dL Albumin (3.5-5.0) g/dL Procalcitonin (0.02-0.09) ng/mL 11/10/20 11/10/20 11/10/20 Range/Units 03:36 03:36 03:36 WBC (3.8-10.6) k/uL RBC (3.80-5.40) m/uL Hgb (11.4-16.0) gm/dL Hct (34.0-46.0) % MCHC (31.0-37.0) g/dL RDW (11.5-15.5) % Neutrophils # (1.3-7.7) k/uL Lymphocytes # (1.0-4.8) k/uL ABG pH (7.35-7.45) ABG pCO2 (35-45) mmHg ABG pO2 (83-108) mmHg ABG Total CO2 (19-24) mmol/L BUN 40 H (7-17) mg/dL Creatinine 4.75 H (0.52-1.04) mg/dL Glucose (74-99) mg/dL POC Glucose (mg/dL) (75-99) mg/dL Calcium 8.0 L (8.4-10.2) mg/dL Iron 15 L (50-170) ug/dL TIBC 177 L (228-460) ug/dL % Saturation 8.47 L (12.00-45.00) Ferritin 844.4 H (10.0-291.0) ng/mL AST 71 H (14-36) U/L ALT 102 H (4-34) U/L Alkaline Phosphatase (38-126) U/L Total Protein 5.3 L (6.3-8.2) g/dL Albumin 3.1 L (3.5-5.0) g/dL Procalcitonin 5.66 H (0.02-0.09) ng/mL 11/10/20 Range/Units 06:06 WBC (3.8-10.6) k/uL RBC (3.80-5.40) m/uL Hgb (11.4-16.0) gm/dL Hct (34.0-46.0) % MCHC (31.0-37.0) g/dL RDW (11.5-15.5) % Neutrophils # (1.3-7.7) k/uL Lymphocytes # (1.0-4.8) k/uL ABG pH 7.34 L (7.35-7.45) ABG pCO2 48 H (35-45) mmHg ABG pO2 79 L (83-108) mmHg ABG Total CO2 27 H (19-24) mmol/L BUN (7-17) mg/dL Creatinine (0.52-1.04) mg/dL Glucose (74-99) mg/dL POC Glucose (mg/dL) (75-99) mg/dL Calcium (8.4-10.2) mg/dL Iron (50-170) ug/dL TIBC (228-460) ug/dL % Saturation (12.00-45.00) Ferritin (10.0-291.0) ng/mL AST (14-36) U/L ALT (4-34) U/L Alkaline Phosphatase (38-126) U/L Total Protein (6.3-8.2) g/dL Albumin (3.5-5.0) g/dL Procalcitonin (0.02-0.09) ng/mL Microbiology - Last 24 Hours (Table) 11/09/20 21:01 Gram Stain - Preliminary Sputum Sputum Culture - Preliminary Assessment and Plan Plan: Acute exacerbation of CHF with unknown EF -Echo showing mitral valve disease, stenosis and regurgitation, left atrial dilation, 40-45% ejection fraction. -Getting dialysis today -Beta linsey on hold secondary to hypotension -Strict I's and O's, daily weights Anemia with + FOB -Follow CBC -1 unit packed red blood cells - Continue on aranesp End-stage renal disease on hemodialysis Thursday/Thursday/Thursday -Nephrology following Shock -Undetermined etiology possible septic versus medication induced versus is cardiogenic -Continue with levophed -Pro-calcitonin high, tinea antibiotics COPD with acute on chronic hypoxic Respiratory failure -Pulmonary recommendations -Bronchodilators -Pulmonary hygiene -Sputum culture HTN currently hypotensive - recently discovered - hold propranolol and norvasc Toxic metabolic encephlopathy - treatment as above Possible posturing -Patient noted to have rhythmic enrolling bilateral lower extremities -Continue to monitor Obesity with BMI 34.6 -Structured outpatient weight loss CODE STATUS:Full DVT prophylaxis: SCDs Anticipated discharge date: unknow Anticipated discharge place: unknown A total of 35 minutes was spent on the care of this complex patient more than 50% of the time was spent in counseling and care coordination.
[2020-11-10 17:14] LABS: Glucose,Whole Blood 82 mg/dL (75-99)
[2020-11-10] MEDS ORDERED: HEPARIN SODIUM,PORCINE 5,000 UNIT/ML 1 ML VIAL ONE (18:00)
[2020-11-10] MEDS ORDERED: PHENYTOIN SODIUM INJ 1,000 MG in SODIUM CHLORIDE 0.9% 100 ML IVPB STA (19:06)
[2020-11-10] MEDS: NOREPINEPHRINE 32 MG in SODIUM CHLORIDE 0.9% 218 ML IV SCH (21:12)
[2020-11-10] MEDS: MONTELUKAST 10 MG TAB PO SCH (21:40)
[2020-11-10] MEDS: MELATONIN 3 MG TABLET PO SCH (21:40)
[2020-11-10 23:44] LABS: Glucose,Whole Blood 100 mg/dL (75-99)
[2020-11-11] MEDS: IPRATROPIUM-ALBUTEROL 3 ML NEB INHALATION SCH ×3 (00:22→07:20)
[2020-11-11 04:40] LABS: Anisocytosis Slight; Basophils % (A) 0 %; Eosinophils # (A) 0.3 k/uL (0-0.7); Eosinophils % (A) 3 %; HCT 25.1 % (34.0-46.0); HGB 7.5 gm/dL (11.4-16.0); Hypochromasia Marked; Lymphocytes # (A) 0.9 k/uL (1.0-4.8); Lymphocytes % (A) 10 %; MCH 27.6 pg (25.0-35.0); Mean Platelet Volume 8.9; Monocytes # (A) 0.5 k/uL (0-1.0); Monocytes % (A) 6 %; Neutrophils # (A) 7.4 k/uL (1.3-7.7); Neutrophils % (A) 80 %; Platelet Count 198 k/uL (150-450); RBC 2.73 m/uL (3.80-5.40); RDW 16.5 % (11.5-15.5); WBC 9.2 k/uL (3.8-10.6)
[2020-11-11 05:02] LABS: Calcium 8.6 mg/dL (8.4-10.2); Potassium 4.1 mmol/L (3.5-5.1); Total Bilirubin 0.6 mg/dL (0.2-1.3); Total Protein 5.2 g/dL (6.3-8.2)
[2020-11-11 06:19] LABS: Glucose,Whole Blood 95 mg/dL (75-99)
--- NOTE | 2020-11-11 06:35 | XR ---
EXAMINATION TYPE: XR chest 1V portable DATE OF EXAM: 11/11/2020 CLINICAL HISTORY: Difficulty breathing progress study. TECHNIQUE: Single AP portable semiupright view of the chest is obtained. COMPARISON: Chest x-ray from one and 2 days earlier FINDINGS: Interval extubation with removal of endotracheal and orogastric tubes. Persistent cardiome edison. Persistent reticular increased markings bilaterally with bibasilar and right midlung opacities. Osseous structures remain intact. IMPRESSION: Interval extubation. Cardiomegaly and background chronic parenchymal changes with right m idlung and bibasilar acute infiltrate and/or atelectasis are all redemonstrated.
[2020-11-11] MEDS ORDERED: PHENYTOIN SODIUM INJ 100 MG in SODIUM CHLORIDE 0.9% 100 ML IVPB SCH (08:00)
--- NOTE | 2020-11-11 09:39 | P.PN ---
Subjective patient is seen in follow-up for end-stage renal disease. She is maintained on hemodialysis on Thursday schedule. She was extubated November 10. Currently on 4 L nasal cannula. No chest pain or shortness of breath. Tolerated dialysis well yesterday with 3 L of infiltration. Vital signs are stable. General: The patient appeared well nourished and normally developed. HEENT: Head exam is unremarkable. Neck is without jugular venous distension. LUNGS: Breath sounds decreased. HEART: Rate and Rhythm are regular. ABDOMEN: Soft, nontender. EXTREMITITES: 1+ edema. Objective - Vital Signs Vital signs: Vital Signs Temp 97.6 F 11/11/20 08:00 Pulse 103 H 11/11/20 09:00 Resp 22 11/11/20 09:00 BP 115/58 11/10/20 18:30 Pulse Ox 91 L 11/11/20 09:00 Intake & Output 11/10/20 11/11/20 11/11/20 18:59 06:59 18:59 Intake Total 401.113 216 36 Output Total 3050 47 20 Balance -2648.887 169 16 Weight 99.2 kg 97.5 kg Intake: IV 302 216 36 A-line 27 36 6 Cefepime 2 gm In Sodium 100 Chloride 0.9% 100 ml @ 25 mls/hr IVPB Q8H [facility] Rx#: [id number] KVO 175 180 30 Intake, IV Titration 99.113 Amount Norepinephrine 32 mg In 23.722 Sodium Chloride 0.9% 218 ml @ 0.05 MCG/KG/MIN 2. 416 mls/hr IV .Q24H [facility] Rx#:[id number] propofoL 1,000 mg In 75.391 Empty Bag 1 bag @ Titrate IV .Q0M [facility] Rx#: [id number] Output: Urine 50 47 20 Hemodialysis 3000 ABP, PAP, CO, CI - Last Documented Arterial Blood Pressure 162/60 - Labs CBC & Chem 7: 11/11/20 04:30 11/11/20 04:30 Labs: Abnormal Lab Results - Last 24 Hours (Table) 11/09/20 11/10/20 11/10/20 Range/Units 14:47 03:36 03:36 RBC (3.80-5.40) m/uL Hgb (11.4-16.0) gm/dL Hct (34.0-46.0) % MCHC (31.0-37.0) g/dL RDW (11.5-15.5) % Lymphocytes # (1.0-4.8) k/uL Chloride (98-107) mmol/L BUN (7-17) mg/dL Creatinine (0.52-1.04) mg/dL POC Glucose (mg/dL) (75-99) mg/dL Iron 15 L (50-170) ug/dL TIBC 177 L (228-460) ug/dL % Saturation 8.47 L (12.00-45.00) Ferritin 844.4 H (10.0-291.0) ng/mL AST (14-36) U/L ALT (4-34) U/L Total Protein (6.3-8.2) g/dL Albumin (3.5-5.0) g/dL Procalcitonin 5.66 H (0.02-0.09) ng/mL Crossmatch See Detail 11/10/20 11/11/20 11/11/20 Range/Units 23:43 04:30 04:30 RBC 2.73 L (3.80-5.40) m/uL Hgb 7.5 L (11.4-16.0) gm/dL Hct 25.1 L (34.0-46.0) % MCHC 30.0 L (31.0-37.0) g/dL RDW 16.5 H (11.5-15.5) % Lymphocytes # 0.9 L (1.0-4.8) k/uL Chloride 111 H (98-107) mmol/L BUN 22 H (7-17) mg/dL Creatinine 3.41 H (0.52-1.04) mg/dL POC Glucose (mg/dL) 100 H (75-99) mg/dL Iron (50-170) ug/dL TIBC (228-460) ug/dL % Saturation (12.00-45.00) Ferritin (10.0-291.0) ng/mL AST 37 H (14-36) U/L ALT 69 H (4-34) U/L Total Protein 5.2 L (6.3-8.2) g/dL Albumin 3.0 L (3.5-5.0) g/dL Procalcitonin (0.02-0.09) ng/mL Crossmatch Microbiology - Last 24 Hours (Table) 11/09/20 14:30 Blood Culture - Preliminary Blood No Growth after 24 hours 11/09/20 14:47 Blood Culture - Preliminary Blood No Growth after 24 hours 11/09/20 21:01 Gram Stain - Preliminary Sputum Sputum Culture - Preliminary Assessment and Plan Plan: Assessment: 1. End-stage renal disease maintained on hemodialysis on Thursday schedule. 2. Clotted AV graft. Vascular surgery following. Femoral catheter placed November 10. 3. Acute hypoxic and hypercapnic respiratory failure. Extubated November 10. 4. Volume overload. Improved with ultrafiltration. 5. Acute on chronic systolic CHF with ejection fraction of 40-45% with moderate to severe mitral regurgitation and mild to moderate mitral stenosis. 6. Anemia of chronic kidney disease. Maintained on Aranesp. Iron deficiency present. 7. Shock likely secondary to pneumonia. Off vasopressors. On antibiotics. Plan: Hemodialysis tomorrow with goal 3 L UF. IV iron 3 doses. First dose today. Patient will need a permacath placed and groin catheter removed prior to discharge. However she wishes to transfer to [facility] for the permac ath placement.
[2020-11-11] MEDS: allopurinoL 100 MG TAB PO SCH (10:42)
[2020-11-11] MEDS: CHOLECALCIFEROL 25 MCG (1000 IU) TABLET PO SCH (10:42)
[2020-11-11] MEDS: SODIUM FERRIC GLUCONAT-SUCROSE 125 MG in SODIUM CHLORIDE 0.9% 100 ML IVPB SCH (10:46)
[2020-11-11] MEDS: CEFEPIME 1 GM in SODIUM CHLORIDE 0.9% 50 ML IVPB SCH ×2 (10:46→20:03)
[2020-11-11] MEDS: ENOXAPARIN 30 MG/0.3 ML SYRINGE SQ SCH (10:46)
[2020-11-11] MEDS: PANTOPRAZOLE 40 MG/10 ML VIAL IVP SCH ×2 (10:47→20:04)
--- NOTE | 2020-11-11 12:35 | P.PN ---
Subjective Progress Note Date: 11/11/20 Principal diagnosis: Acute on chronic hypoxemic respiratory failure, altered mental status This is a 70-year-old female patient who follows with Dr. Keene. She does have a history of end-stage renal disease receiving hemodialysis on Thursday, hypertension, pulmonary disease followed at [facility], gastroesophageal reflux disease. Approximate 3:00 this morning the patient was having some altered mental status. Her family was observing her. She started propanolol is a new medication yesterday. By 8 AM she was much less responsive and EMS was called. She was brought into the emergency room where she was hypotensive and unable to protect her airway. She was intubated and placed on mechanical ventilator. Initial settings are assist-control rate of 16, tidal volume 450, FiO2 100% and a PEEP of 5. Follow-up blood gases revealed a pO2 of 172, P CO2 83 come a pH 7.16. Respiratory rate was adjusted to 16, FiO2 down to 60%. A right femoral triple-lumen catheter placed. She is seen today in consultation in the emergency room. She is on propofol at 5 mcg/kg/m. Norepinephrine at 0.05 mcg/kg/m. She received 2 L of fluid resuscitation. Whi te count 15.1. Hemoglobin 6.8. Platelet count 222. INR 1.1. Sodium 140. Potassium 3.9. Creatinine 3.26. Glucose 111. ProBNP 13,200. Troponin 0.029. AST 124. ALT 112. Stool for occult blood positive. Coronavirus by PCR not detected. Chest x-ray reveals coarse infiltrates throughout both lung garner, pulmonary edema. Computed tomography scan of the brain revealed age-related atrophy and chronic small vessel changes without acute intracranial process. No family is present. No other information is able to be obtained. No previous admission to this facility. She's been initiated on cefepime and azithromycin. One unit of packed red blood cells has been ordered. The patient was seen today 11/10/2020 in follow-up in the intensive care unit. She remains intubated on the mechanical ventilator. Current settings are assist control at a rate of 20, tidal volume 450, FiO2 50% and a PEEP of 5. Morning blood gases reveal a P O2 of 79, pCO2 48, pH 7.3. She is sedated on propofol at 20 mcg/kg/m. Requiring norepinephrine at 0.04 mcg/kg/m approximately 4 mcg/m. 0.9 normal saline at KVO. Chest x-ray reveals cardiomegaly with persistent reticular increased markings bilaterally without bibasilar right midlung opacities. Stable compared to yesterday. She has received 1 unit of packed red blood cells this admission. Current hemoglobin 8.3. White count 13.9. Sodium 139. Potassium 4.5. Creatinine 4.75. AST 71. ALT 102. Stool for occult blood was positive. Left upper extremity AV fistula was not working. No hemodialysis yesterday. The plan is for temporary HD catheter today and dialysis later today. Tube feedings will be initiated. Left radial arterial line placed. She remains on DuoNeb inhalations every 4 hours, antibiotics in the form of cefepime and azithromycin. Protonix for GI prophylaxis. The patient is seen today 11/11/2020 and follow-up in the intensive care unit. She was successfully extubated yesterday 11/10/2020. Early this morning she was doing quite well she is on 3 L nasal cannula and maintaining O2 saturations in the 90s. By noontime or so she was getting quite tired and is requiring BiPAP 10/5 and 50% FiO2. The plan is for repeat hemodialysis today. 3 L was removed yesterday. She has 0.9 normal saline at 10 mL per hour. Chest x-ray continues to show cardiomegaly and background chronic parenchymal changes with right mid lung and bibasilar infiltrate/atelectasis. Blood and sputum cultures reveal no growth to date. White count 9.2. Hemoglobin 7.5. Sodium 142. Potassium 4.1. Creatinine 3.41. AST 37, ALT 69. Albumin 3.0. She remains on cefepime. She declines bronchodilators. She is having her Stiolto brought in from home. She is on Lovenox for DVT prophylaxis. Objective - Vital Signs Vital signs: Vital Signs Temp 98.1 F 11/11/20 12:00 Pulse 101 H 11/11/20 12:00 Resp 22 11/11/20 12:00 BP 115/58 11/10/20 18:30 Pulse Ox 95 11/11/20 12:00 Intake & Output 11/10/20 11/11/20 11/11/20 18:59 06:59 18:59 Intake Total 401.113 216 78 Output Total 3050 47 95 Balance -2648.887 169 -17 Weight 99.2 kg 97.5 kg Intake: IV 302 216 78 A-line 27 36 18 Cefepime 2 gm In Sodium 100 Chloride 0.9% 100 ml @ 25 mls/hr IVPB Q8H CANDIE Rx#: [id number] KVO 175 180 60 Intake, IV Titration 99.113 Amount Norepinephrine 32 mg In 23.722 Sodium Chloride 0.9% 218 ml @ 0.05 MCG/KG/MIN 2. 416 mls/hr IV .Q24H CANDIE Rx#:[id number] propofoL 1,000 mg In 75.391 Empty Bag 1 bag @ Titrate IV .Q0M CANDIE Rx#: [id number] Output: Urine 50 47 95 Hemodialysis 3000 ABP, PAP, CO, CI - Last Documented Arterial Blood Pressure 159/57 - Exam GENERAL EXAM: Awake, alert, very pleasant 70-year-old female patient on 3 L nasal cannula alternating with BiPAP 10/5 50% FiO2.. HEAD: Normocephalic. EYES: Sluggish reaction of pupils, equal size. NOSE: Clear with pink turbinates. THROAT: Oral endotracheal and gastric tube secured in place. No erythema or exudates. NECK: No masses, no JVD. CHEST: No chest wall deformity. LUNGS: Equal air entry with bilateral scattered crackles, rhonchi CVS: S1 and S2 normal with no audible murmur, regular rhythm. ABDOMEN: No hepatosplenomegaly, normal bowel sounds, no guarding or rigidity. SPINE: No scoliosis or deformity SKIN: No rashes CENTRAL NERVOUS SYSTEM: No focal deficits, tone is normal in all 4 extremities. EXTREMITIES: Right femoral triple-lumen catheter in place. Left upper extremity graft. Left groin temporary hemodialysis catheter. No clubbing, no cyanosis. Peripheral pulses are intact. - Labs CBC & Chem 7: 11/11/20 04:30 11/11/20 04:30 Labs: Abnormal Lab Results - Last 24 Hours (Table) 11/09/20 11/10/20 11/10/20 Range/Units 14:47 03:36 23:43 RBC (3.80-5.40) m/uL Hgb (11.4-16.0) gm/dL Hct (34.0-46.0) % MCHC (31.0-37.0) g/dL RDW (11.5-15.5) % Lymphocytes # (1.0-4.8) k/uL Chloride (98-107) mmol/L BUN (7-17) mg/dL Creatinine (0.52-1.04) mg/dL POC Glucose (mg/dL) 100 H (75-99) mg/dL Iron 15 L (50-170) ug/dL TIBC 177 L (228-460) ug/dL % Saturation 8.47 L (12.00-45.00) Ferritin 844.4 H (10.0-291.0) ng/mL AST (14-36) U/L ALT (4-34) U/L Total Protein (6.3-8.2) g/dL Albumin (3.5-5.0) g/dL Crossmatch See Detail 11/11/20 11/11/20 Range/Units 04:30 04:30 RBC 2.73 L (3.80-5.40) m/uL Hgb 7.5 L (11.4-16.0) gm/dL Hct 25.1 L (34.0-46.0) % MCHC 30.0 L (31.0-37.0) g/dL RDW 16.5 H (11.5-15.5) % Lymphocytes # 0.9 L (1.0-4.8) k/uL Chloride 111 H (98-107) mmol/L BUN 22 H (7-17) mg/dL Creatinine 3.41 H (0.52-1.04) mg/dL POC Glucose (mg/dL) (75-99) mg/dL Iron (50-170) ug/dL TIBC (228-460) ug/dL % Saturation (12.00-45.00) Ferritin (10.0-291.0) ng/mL AST 37 H (14-36) U/L ALT 69 H (4-34) U/L Total Protein 5.2 L (6.3-8.2) g/dL Albumin 3.0 L (3.5-5.0) g/dL Crossmatch Microbiology - Last 24 Hours (Table) 11/09/20 14:30 Blood Culture - Preliminary Blood No Growth after 24 hours 11/09/20 14:47 Blood Culture - Preliminary Blood No Growth after 24 hours Assessment and Plan Assessment: 1 Altered mental status of unclear etiology, improved and recovered 2 Acute hypoxemic respiratory failure requiring intubation mechanical ventilatory support on 11/09/2020, secondary to acute fluid volume overload/pu lmonary edema. Extubated on 11/10/2020. 3 Acute hypotension requiring pressor support, recovered 4 Acute anemia, presenting hemoglobin 6.8, currently 7.5, no transfusions required 5 Elevated liver enzymes but improving 6 End stage renal disease on hemodialysis Thursday. Creatinine today 3.41 7 COPD/asthma follows with [facility] out of [place] 8 History of hypertension 9 History of gout 10 History of carnitine deficiency Plan: The patient was seen and evaluated by Dr. Garza Chest x-ray and labs reviewed Requiring BiPAP 10/5 and 50% FiO2 Plan is for hemodialysis again today, 2 L removed yesterday Temporary hemodialysis placed yesterday in the left groin Continue cefepime Declines bronchodilators, able to use home Stiolto Once stable, the patient requests transfer to [facility] for revision of left upper extremity AV fistula We will continue to follow and make further recommendations based on her clinical status I, the cosigning physician, performed a history & physical examination of the patient. Lungs sounds with bilateral crackles in the posterior bases, scattered rhonchi. Maintaining good O2 saturations in the 90s on 50% FiO2 via the BiPAP 10/5. I discussed the assessment and plan of care with my nurse practitioner, Angela Maciel. I attest to the above note as dictated by her.
--- NOTE | 2020-11-11 13:42 | P.PN ---
Subjective Progress Note Date: 11/11/20 Principal diagnosis: Unresponsiveness Patient was extubated today because of continued. Currently she is doing well. No shortness of breath or chest pain. Family reported that patient started getting worse when she started propranolol prescribed to her by her primary care physician for tachycardia with ambulation. She stated that she felt dizzy and shaky right before she passed out. Objective - Vital Signs Vital signs: Vital Signs Temp 98.1 F 11/11/20 12:00 Pulse 93 11/11/20 13:00 Resp 22 11/11/20 13:00 BP 115/58 11/10/20 18:30 Pulse Ox 97 11/11/20 13:00 Intake & Output 11/10/20 11/11/20 11/11/20 18:59 06:59 18:59 Intake Total 401.113 216 101 Output Total 3050 47 120 Balance -2648.887 169 -19 Weight 99.2 kg 97.5 kg Intake: IV 302 216 101 A-line 27 36 21 Cefepime 2 gm In Sodium 100 Chloride 0.9% 100 ml @ 25 mls/hr IVPB Q8H [facility] Rx#: [id number] KVO 175 180 80 Intake, IV Titration 99.113 Amount Norepinephrine 32 mg In 23.722 Sodium Chloride 0.9% 218 ml @ 0.05 MCG/KG/MIN 2. 416 mls/hr IV .Q24H [facility]IE Rx#:[id number] propofoL 1,000 mg In 75.391 Empty Bag 1 bag @ Titrate IV .Q0M C[facility]IE Rx#: [id number] Output: Urine 50 47 120 Hemodialysis 3000 ABP, PAP, CO, CI - Last Documented Arterial Blood Pressure 148/57 - Exam General: ill appearing, moderate distress, appears at stated age Derm: warm, dry Head: atraumatic, normocephalic, symmetric Eyes: EOMI, no lid lag, anicteric sclera, pupils equal round reactive to light ENT: Nose and ears atraumatic, no thrush, + ET tube in place Neck: No thyromegaly, no cervical lymphadenopathy, trachea midline, supple Mouth: no lip lesion, mucus membranes dry Cardiovascular: S1S2 reg, no murmur, positive posterior tibial pulse bilateral, 3+ edema, capillary refill less than 2 seconds Lungs: course bs bilateral, no ronchi, no rales, no wheeze, no accessory muscle use Abdominal: soft, nontender to palpation, no guarding, no appreciable organomegaly, normal bowel sounds, + ronquillo in place yellow urine Ext: no gross muscle atrophy, muscle strength muscle strength 5 out of 5 in all 4 extremities, no contractures Neuro: Pupils are pinpoint, no withdrawal to pain all 4 extremities Psych: obtunded - Labs CBC & Chem 7: 11/11/20 04:30 11/11/20 04:30 Labs: Abnormal Lab Results - Last 24 Hours (Table) 11/09/20 11/10/20 11/10/20 Range/Units 14:47 03:36 23:43 RBC (3.80-5.40) m/uL Hgb (11.4-16.0) gm/dL Hct (34.0-46.0) % MCHC (31.0-37.0) g/dL RDW (11.5-15.5) % Lymphocytes # (1.0-4.8) k/uL Chloride (98-107) mmol/L BUN (7-17) mg/dL Creatinine (0.52-1.04) mg/dL POC Glucose (mg/dL) 100 H (75-99) mg/dL Iron 15 L (50-170) ug/dL TIBC 177 L (228-460) ug/dL % Saturation 8.47 L (12.00-45.00) Ferritin 844.4 H (10.0-291.0) ng/mL AST (14-36) U/L ALT (4-34) U/L Total Protein (6.3-8.2) g/dL Albumin (3.5-5.0) g/dL Crossmatch See Detail 11/11/20 11/11/20 Range/Units 04:30 04:30 RBC 2.73 L (3.80-5.40) m/uL Hgb 7.5 L (11.4-16.0) gm/dL Hct 25.1 L (34.0-46.0) % MCHC 30.0 L (31.0-37.0) g/dL RDW 16.5 H (11.5-15.5) % Lymphocytes # 0.9 L (1.0-4.8) k/uL Chloride 111 H (98-107) mmol/L BUN 22 H (7-17) mg/dL Creatinine 3.41 H (0.52-1.04) mg/dL POC Glucose (mg/dL) (75-99) mg/dL Iron (50-170) ug/dL TIBC (228-460) ug/dL % Saturation (12.00-45.00) Ferritin (10.0-291.0) ng/mL AST 37 H (14-36) U/L ALT 69 H (4-34) U/L Total Protein 5.2 L (6.3-8.2) g/dL Albumin 3.0 L (3.5-5.0) g/dL Crossmatch Microbiology - Last 24 Hours (Table) 11/09/20 14:30 Blood Culture - Preliminary Blood No Growth after 24 hours 11/09/20 14:47 Blood Culture - Preliminary Blood No Growth after 24 hours Assessment and Plan Plan: Acute exacerbation of systolic CHF -Echo showing mitral valve disease, stenosis and regurgitation, left atrial dilation, 40-45% ejection fraction. -Getting dialysis today -Beta linsey on hold secondary to hypotension -Strict I's and O's, daily weights Anemia with + FOB -Hemoglobin down today to 7.5, recheck in a.m. -1 unit packed red blood cells given on admission - Continue on aranesp End-stage renal disease on hemodialysis Thursday/Thursday/Thursday -Nephrology following Shock -Undetermined etiology possible septic versus medication induced versus is cardiogenic -Off levophed -Pro-calcitonin high, continue antibiotics COPD with acute on chronic hypoxic Respiratory failure -Pulmonary recommendations -Bronchodilators -Pulmonary hygiene -Sputum culture Clotted AV fistula We'll call Dr. Cedeño her vascular surgeon tomorrow, permacath need to be placed prior to discharge according to nephrology service HTN currently hypotensive - recently discovered - hold propranolol and norvasc Toxic metabolic encephlopathy - treatment as above Obesity with BMI 34.6 -Structured outpatient weight loss CODE STATUS:Full DVT prophylaxis: SCDs Anticipated discharge date: 1-[address]: home A total of 35 minutes was spent on the care of this complex patient more than 50% of the time was spent in counseling and care coordination.
[2020-11-11] MEDS: OLODATEROL HCL INHALATION SCH ×2 (14:46→14:48)
[2020-11-11] MEDS: TIOTROPIUM BR INHALATION SCH ×2 (14:46→14:48)
[2020-11-11] MEDS: MELATONIN 3 MG TABLET PO SCH (20:04)
[2020-11-11] MEDS: MONTELUKAST 10 MG TAB PO SCH (20:04)
[2020-11-11] MEDS: NON FORMULARY DRUG (Levocarnitine [Levocarnitine] 330 MG Tablet) PO SCH (20:05)
[2020-11-12 03:44] LABS: Anisocytosis Slight; Basophils % (A) 0 %; Eosinophils # (A) 0.5 k/uL (0-0.7); Eosinophils % (A) 7 %; HCT 24.2 % (34.0-46.0); HGB 7.2 gm/dL (11.4-16.0); Hypochromasia Marked; Lymphocytes # (A) 0.9 k/uL (1.0-4.8); Lymphocytes % (A) 13 %; MCH 27.3 pg (25.0-35.0); MCHC 29.8 g/dL (31.0-37.0); MCV 91.6 fL (80.0-100.0); Mean Platelet Volume 9.1; Monocytes # (A) 0.5 k/uL (0-1.0); Monocytes % (A) 7 %; Neutrophils # (A) 4.9 k/uL (1.3-7.7); Neutrophils % (A) 72 %; Platelet Count 164 k/uL (150-450); RBC 2.64 m/uL (3.80-5.40); RDW 16.6 % (11.5-15.5); WBC 6.8 k/uL (3.8-10.6)
[2020-11-12 04:09] LABS: Potassium 3.8 mmol/L (3.5-5.1)
[2020-11-12 04:10] LABS: Calcium 8.6 mg/dL (8.4-10.2); Phosphorus 3.5 mg/dL (2.5-4.5)
--- NOTE | 2020-11-12 07:48 | XR ---
EXAMINATION TYPE: XR chest 1V portable DATE OF EXAM: 11/12/2020 CLINICAL HISTORY: Difficulty breathing progress study. TECHNIQUE: Single AP portable upright view of the chest is obtained. COMPARISON: Chest x-ray from one day earlier and older studies. FINDINGS: Persistent cardiomegaly with atherosclerotic aorta. Persistent reticular increased marking s bilaterally with bibasilar and patchy peripheral right midlung opacities. Osseous structures remain intact. IMPRESSION: Cardiomegaly and background chronic parenchymal changes with right midlung and bibasilar acute infiltrate and/or atelectasis are all redemonstrated. No significant change from one day enrike dawson
[2020-11-12] MEDS ORDERED: NON FORMULARY DRUG (Tiotropium Br/Olodaterol Hcl [Stiolto Respimat Inhal Spray] 4 GM Mist. INHALATION SCH (08:00)
--- NOTE | 2020-11-12 08:19 | P.PN ---
Subjective Progress Note Date: 11/12/20 This is a 70-year-old female patient who follows with Dr. Keene. She does have a history of end-stage renal disease receiving hemodialysis on Thursday, hypertension, pulmonary disease followed at [facility], gastroesophageal reflux disease. Approximate 3:00 this morning the patient was having some altered mental status. Her family was observing her. She started propanolol is a new medication yesterday. By 8 AM she was much less responsive and EMS was called. She was brought into the emergency room where she was hypotensive and unable to protect her airway. She was intubated and placed on mechanical ventilator. Initial settings are assist-control rate of 16, tidal vo lume 450, FiO2 100% and a PEEP of 5. Follow-up blood gases revealed a pO2 of 172, P CO2 83 come a pH 7.16. Respiratory rate was adjusted to 16, FiO2 down to 60%. A right femoral triple-lumen catheter placed. She is seen today in consultation in the emergency room. She is on propofol at 5 mcg/kg/m. Norepinephrine at 0.05 mcg/kg/m. She received 2 L of fluid resuscitation. White count 15.1. Hemoglobin 6.8. Platelet count 222. INR 1.1. Sodium 140. Potassium 3.9. Creatinine 3.26. Glucose 111. ProBNP 13,200. Troponin 0.029. AST 124. ALT 112. Stool for occult blood positive. Coronavirus by PCR not detected. Chest x-ray reveals coarse infiltrates throughout both lung garner, pulmonary edema. Computed tomography scan of the brain revealed age-related atrophy and chronic small vessel changes without acute intracranial process. No family is present. No other information is able to be obtained. No previous admission to this facility. She's been initiated on cefepime and azithromycin. One unit of packed red blood cells has been ordered. The patient was seen today 11/10/2020 in follow-up in the intensive care unit. She remains intubated on the mechanical ventilator. Current settings are assist control at a rate of 20, tidal volume 450, FiO2 50% and a PEEP of 5. Morning blood gases reveal a P O2 of 79, pCO2 48, pH 7.3. She is sedated on propofol at 20 mcg/kg/m. Requiring norepinephrine at 0.04 mcg/kg/m approximately 4 mcg/m. 0.9 normal saline at KVO. Chest x-ray reveals cardiomegaly with persistent reticular increased markings bilaterally without bibasilar right midlung opacities. Stable compared to yesterday. She has received 1 unit of packed red blood cells this admission. Current hemoglobin 8.3. White count 13.9. Sodium 139. Potassium 4.5. Creatinine 4.75. AST 71. ALT 102. Stool for occult blood was positive. Left upper extremity AV fistula was not working. No hemodialysis yesterday. The plan is for temporary HD catheter today and dialysis later today. Tube feedings will be initiated. Left radial arterial line placed. She remains on DuoNeb inhalations every 4 hours, antibiotics in the form of cefepime and azithromycin. Protonix for GI prophylaxis. The patient is seen today 11/11/2020 and follow-up in the intensive care unit. She was successfully extubated yesterday 11/10/2020. Early this morning she was doing quite well she is on 3 L nasal cannula and maintaining O2 saturations in the 90s. By noontime or so she was getting quite tired and is requiring BiPAP 10/5 and 50% FiO2. The plan is for repeat hemodialysis today. 3 L was removed yesterday. She has 0.9 normal saline at 10 mL per hour. Chest x-ray continues to show cardiomegaly and background chronic parenchymal changes with right midlung and bibasilar infiltrate/atelectasis. Blood and sputum cultures reveal no growth to date. White count 9.2. Hemoglobin 7.5. Sodium 142. Potassium 4.1. Creatinine 3.41. AST 37, ALT 69. Albumin 3.0. She remains on cefepime. She declines bronchodilators. She is having her Stiolto brought in from home. She is on Lovenox for DVT prophylaxis. On 11/12/2020 I'm seeing the patient in follow-up in the intensive care unit. The patient remains extubated and patient is currently on 4 L of oxygen by nasal cannula. Chest x-ray showing improvement in the volume status. There is still some interstitial and nondistended and infiltrates bilaterally more so in the right upper lobe area. There may be also some small bilateral pleural effusions. The patient is a dialysis-dependent patient and the patient has a clotted left upper extremity fistula and the patient is a temporary dialysis catheter in his left groin and his last session of hemodialysis was on 11/11/2020 with a total of 1.5 L of fluid was removed. On 11/10/2020 the liters of fluid was removed. The patient follows up with nephrology team at [facility]. Today's creatinine is at 4 with a BUN of 23. White cell count 6.8 with a hemoglobin of 7.2 and the platelet count is at 164. He is currently on no pressors and his been off pressors for the past 24 hours. He is urine output is no order of 50 mL an hour. His net fluid balance has been negative especially postdialysis. He remains on IV cefepime is in a row spectrum ant ibiotic coverage and the blood cultures and a sputum culture was essentially negative. His BNP level was 13,000 and admission. His liver function test is showing improvement in the AST and ALP. Objective - Vital Signs Vital signs: Vital Signs Temp 97.9 F 11/12/20 04:00 Pulse 87 11/12/20 07:00 Resp 27 H 11/12/20 07:00 BP 152/55 11/11/20 13:43 Pulse Ox 92 L 11/12/20 07:00 Intake & Output 11/11/20 11/12/20 11/12/20 18:59 06:59 18:59 Intake Total 191 216 18 Output Total 2045 290 20 Balance -1854 -74 -2 Weight 98.2 kg Intake: IV 191 216 18 A-line 36 36 3 KVO 155 180 15 Output: Urine 245 290 20 Hemodialysis 1800 ABP, PAP, CO, CI - Last Documented Arterial Blood Pressure 132/44 - Exam GENERAL EXAM: Awake, alert, very pleasant 70-year-old female patient on 4 L nasal cannula HEAD: Normocephalic. EYES: Sluggish reaction of pupils, equal size. NOSE: Clear with pink turbinates. THROAT: Oral endotracheal and gastric tube secured in place. No erythema or exudates. NECK: No masses, no JVD. CHEST: No chest wall deformity. LUNGS: Equal air entry with bilateral scattered crackles, rhonchi, crackles are still present in the lung bases bilaterally. CVS: S1 and S2 normal with no audible murmur, regular rhythm. ABDOMEN: No hepatosplenomegaly, normal bowel sounds, no guarding or rigidity. SPINE: No scoliosis or deformity SKIN: No rashes CENTRAL NERVOUS SYSTEM: No focal deficits, tone is normal in all 4 extremities. Patient is awake and alert and following commands and answering questions appropriately EXTREMITIES: Right femoral triple-lumen catheter in place. Left upper extremity graft. Left groin temporary hemodialysis catheter. No clubbing, no cyanosis. Peripheral pulses are intact. - Labs CBC & Chem 7: 11/12/20 03:35 11/12/20 03:35 Labs: Abnormal Lab Results - Last 24 Hours (Table) 11/12/20 11/12/20 Range/Units 03:35 03:35 RBC 2.64 L (3.80-5.40) m/uL Hgb 7.2 L (11.4-16.0) gm/dL Hct 24.2 L (34.0-46.0) % MCHC 29.8 L (31.0-37.0) g/dL RDW 16.6 H (11.5-15.5) % Lymphocytes # 0.9 L (1.0-4.8) k/uL Chloride 109 H (98-107) mmol/L BUN 23 H (7-17) mg/dL Creatinine 4.01 H (0.52-1.04) mg/dL Glucose 100 H (74-99) mg/dL Microbiology - Last 24 Hours (Table) 11/09/20 14:30 Blood Culture - Preliminary Blood No Growth after 48 hours 11/09/20 14:47 Blood Culture - Preliminary Blood No Growth after 48 hours Assessment and Plan Plan: 1 Altered mental status of unclear etiology, improved and recovered, and the patient's mental status has normalized. 2 Acute hypoxemic respiratory failure requiring intubation mechanical ventilatory support on 11/09/2020, secondary to acute fluid volume overload/ pulmonary edema. Extubated on 11/10/2020. The patient has chronic systolic CHF with ejection fraction of 40-45% with moderate to severe mitral regurgitation and mild to moderate mitral stenosis. The patient was on 2 L of oxygen at home and currently she is on 4 L. We'll attempt to wean her down gradually to maintain a saturation above 90%. Chest x-ray showing still interstitial and nodular infiltrates bilaterally and small bilateral pleural effusion. 3 Acute hypotension requiring pressor support, recovered, currently off pressors for the past 24 hours 4 Acute anemia, presenting hemoglobin 6.8, currently 7.2, no transfusions required 5 Elevated liver enzymes but improving 6 End stage renal disease on hemodialysis Thursday. The LUE fistula has clotted 7 COPD/asthma follows with [facility] out of [place] 8 History of hypertension 9 History of gout 10 History of carnitine deficiency Plan: Chest x-ray and labs reviewed Plan is for hemodialysis again today, 1.5 L removed yesterday Temporary hemodialysis placed yesterday in the left groin Continue cefepime May undergo dialysis today. Declines bronchodilators, able to use home Stiolto Once stable, the patient requests transfer to [facility] for revision of left upper extremity AV fistula Erna transferred out of the intensive care unit today. We will continue to follow and make further recommendations based on her clinical status
[2020-11-12] MEDS: CHOLECALCIFEROL 25 MCG (1000 IU) TABLET PO SCH (08:29)
[2020-11-12] MEDS: ENOXAPARIN 30 MG/0.3 ML SYRINGE SQ SCH (08:29)
[2020-11-12] MEDS: CEFEPIME 1 GM in SODIUM CHLORIDE 0.9% 50 ML IVPB SCH ×2 (08:29→21:50)
[2020-11-12] MEDS: allopurinoL 100 MG TAB PO SCH (08:29)
[2020-11-12] MEDS: PANTOPRAZOLE 40 MG/10 ML VIAL IVP SCH ×2 (08:30→21:45)
[2020-11-12] MEDS: NON FORMULARY DRUG (Levocarnitine [Levocarnitine] 330 MG Tablet) PO SCH ×2 (08:45→21:49)
[2020-11-12] MEDS: amLODIPine 5 MG TAB PO SCH (08:45)
[2020-11-12] MEDS: SODIUM FERRIC GLUCONAT-SUCROSE 125 MG in SODIUM CHLORIDE 0.9% 100 ML IVPB SCH (08:56)
[2020-11-12] MEDS: TIOTROPIUM BR INHALATION SCH (09:21)
[2020-11-12] MEDS: OLODATEROL HCL INHALATION SCH (09:21)
--- NOTE | 2020-11-12 10:37 | P.PN ---
Subjective patient is seen in follow-up for end-stage renal disease. She is maintained on hemodialysis on Thursday schedule. She was extubated November 10. Currently on 4 L nasal cannula. No chest pain or shortness of breath. Tolerating dialysis well. Vital signs are stable. General: The patient appeared well nourished and normally developed. HEENT: Head exam is unremarkable. Neck is without jugular venous distension. LUNGS: Breath sounds decreased. HEART: Rate and Rhythm are regular. ABDOMEN: Soft, nontender. EXTREMITITES: 1+ edema. Objective - Vital Signs Vital signs: Vital Signs Temp 97.5 F L 11/12/20 08:00 Pulse 93 11/12/20 09:00 Resp 19 11/12/20 09:00 BP 152/55 11/11/20 13:43 Pulse Ox 93 L 11/12/20 09:00 Intake & Output 11/11/20 11/12/20 11/12/20 18:59 06:59 18:59 Intake Total 191 216 426 Output Total 2045 290 80 Balance -4 -74 346 Weight 98.2 kg Intake: IV 191 216 204 A-line 36 36 9 Cefepime 1 gm In Sodium 50 Chloride 0.9% 50 ml @ 12. 5 mls/hr IVPB Q12HR [facility] Rx#:[id number] KVO 155 180 45 Sodium Ferric Gluconat- 100 Sucrose 125 mg In Sodium Chloride 0.9% 100 ml @ 100 mls/hr IVPB DAILY [facility] Rx#:[id number] Oral 222 Output: Urine 245 290 80 Hemodialysis 1800 ABP, PAP, CO, CI - Last Documented Arterial Blood Pressure 164/56 - Labs CBC & Chem 7: 11/12/20 03:35 11/12/20 03:35 Labs: Abnormal Lab Results - Last 24 Hours (Table) 11/12/20 11/12/20 Range/Units 03:35 03:35 RBC 2.64 L (3.80-5.40) m/uL Hgb 7.2 L (11.4-16.0) gm/dL Hct 24.2 L (34.0-46.0) % MCHC 29.8 L (31.0-37.0) g/dL RDW 16.6 H (11.5-15.5) % Lymphocytes # 0.9 L (1.0-4.8) k/uL Chloride 109 H (98-107) mmol/L BUN 23 H (7-17) mg/dL Creatinine 4.01 H (0.52-1.04) mg/dL Glucose 100 H (74-99) mg/dL Microbiology - Last 24 Hours (Table) 11/09/20 21:01 Gram Stain - Final Sputum Sputum Culture - Final 11/09/20 14:30 Blood Culture - Preliminary Blood No Growth after 48 hours 11/09/20 14:47 Blood Culture - Preliminary Blood No Growth after 48 hours Assessment and Plan Plan: Assessment: 1. End-stage renal disease maintained on hemodialysis on Thursday schedule. 2. Clotted AV graft. Vascular surgery following. Femoral catheter placed November 10 - permacath will be placed later today. 3. Acute hypoxic and hypercapnic respiratory failure. Extubated November 10. 4. Volume overload. Improved with ultrafiltration. 5. Acute on chronic systolic CHF with ejection fraction of 40-45% with moderate to severe mitral regurgitation and mild to moderate mitral stenosis. 6. Anemia of chronic kidney disease. Maintained on Aranesp. Iron deficiency present. 7. Shock likely secondary to pneumonia. Off vasopressors. On antibiotics. Plan: Currently seen while undergoing hemodialysis. Next treatment on Thursday. IV iron 3 doses. Second dose today. Permacath this afternoon. The groin catheter will be removed.
[2020-11-12 11:38] LABS: Glucose,Whole Blood 80 mg/dL (75-99)
--- NOTE | 2020-11-12 11:40 | P.PN ---
Subjective Progress Note Date: 11/12/20 Principal diagnosis: Unresponsiveness Doing well. No complaints currently. Breathing is better. No chest pain. She is currently on 4L, home baseline is 2.5L. Objective - Vital Signs Vital signs: Vital Signs Temp 97.5 F L 11/12/20 08:00 Pulse 95 11/12/20 11:00 Resp 24 11/12/20 11:00 BP 152/55 11/11/20 13:43 Pulse Ox 97 11/12/20 11:00 Intake & Output 11/11/20 11/12/20 11/12/20 18:59 06:59 18:59 Intake Total 191 216 426 Output Total 2045 290 80 Balance -1854 -74 346 Weight 98.2 kg Intake: IV 191 216 204 A-line 36 36 9 Cefepime 1 gm In Sodium 50 Chloride 0.9% 50 ml @ 12. 5 mls/hr IVPB Q12HR [facility] Rx#:[id number] KVO 155 180 45 Sodium Ferric Gluconat- 100 Sucrose 125 mg In Sodium Chloride 0.9% 100 ml @ 100 mls/hr IVPB DAILY [facility] Rx#:[id number] Oral 222 Output: Urine 245 290 80 Hemodialysis 1800 ABP, PAP, CO, CI - Last Documented Arterial Blood Pressure 180/48 - Exam General: ill appearing, moderate distress, appears at stated age Derm: warm, dry Head: atraumatic, normocephalic, symmetric Eyes: EOMI, no lid lag, anicteric sclera, pupils equal round reactive to light ENT: Nose and ears atraumatic, no thrush, + ET tube in place Neck: No thyromegaly, no cervical lymphadenopathy, trachea midline, supple Mouth: no lip lesion, mucus membranes dry Cardiovascular: S1S2 reg, no murmur, positive posterior tibial pulse bilateral, 3+ edema, capillary refill less than 2 seconds Lungs: course bs bilateral, no ronchi, no rales, no wheeze, no accessory muscle use Abdominal: soft, nontender to palpation, no guarding, no appreciable organom egaly, normal bowel sounds, + ronquillo in place yellow urine Ext: no gross muscle atrophy, muscle strength muscle strength 5 out of 5 in all 4 extremities, no contractures Neuro: Pupils are pinpoint, no withdrawal to pain all 4 extremities Psych: obtunded - Labs CBC & Chem 7: 11/12/20 03:35 11/12/20 03:35 Labs: Abnormal Lab Results - Last 24 Hours (Table) 11/12/20 11/12/20 Range/Units 03:35 03:35 RBC 2.64 L (3.80-5.40) m/uL Hgb 7.2 L (11.4-16.0) gm/dL Hct 24.2 L (34.0-46.0) % MCHC 29.8 L (31.0-37.0) g/dL RDW 16.6 H (11.5-15.5) % Lymphocytes # 0.9 L (1.0-4.8) k/uL Chloride 109 H (98-107) mmol/L BUN 23 H (7-17) mg/dL Creatinine 4.01 H (0.52-1.04) mg/dL Glucose 100 H (74-99) mg/dL Microbiology - Last 24 Hours (Table) 11/09/20 21:01 Gram Stain - Final Sputum Sputum Culture - Final 11/09/20 14:30 Blood Culture - Preliminary Blood No Growth after 48 hours 11/09/20 14:47 Blood Culture - Preliminary Blood No Growth after 48 hours Assessment and Plan Plan: Acute exacerbation of systolic CHF -Echo showing mitral valve disease, stenosis and regurgitation, left atrial dilation, 40-45% ejection fraction. -Getting dialysis today -Beta linsey on hold secondary to hypotension -Strict I's and O's, daily weights Anemia with + FOB -Hemoglobin down today to 7.2, recheck in a.m. -Iron infusion IV -1 unit packed red blood cells given on admission - Continue on aranesp End-stage renal disease on hemodialysis Thursday/Thursday/Thursday -Nephrology following Shock -Undetermined etiology possible septic versus medication induced (Propranolol started few days prior to event for tachycardia per patient) versus is cardiogenic -Resolved, off levophed -Pro-calcitonin high, but sputum and blood cx negative. Continue antibiotics COPD with acute on chronic hypoxic Respiratory failure -Pulmonary recommendations -Bronchodilators -Pulmonary hygiene Clotted AV fistula D/w Dr. Cedeño her vascular surgeon, outpatient care for the clotted AV fistula feasible Permacath to be placed this afternoon. HTN - Resume norvasc Toxic metabolic encephlopathy - treatment as above Obesity with BMI 34.6 -Structured outpatient weight loss CODE STATUS:Full DVT prophylaxis: SCDs Anticipated discharge date: tomorrow Anticipated discharge place: home A total of 35 minutes was spent on the care of this complex patient more than 50% of the time was spent in counseling and care coordination.
[2020-11-12] MEDS ORDERED: amLODIPine 10 MG TAB PO SCH (11:45)
--- NOTE | 2020-11-12 15:10 | P.CONS ---
History of Present Illness - Reason for Consult Consult date: 11/12/20 Anemia Requesting physician: Ruben Webber - Chief Complaint Altered mental status - History of Present Illness 70-year-old female with multiple medical comorbidities including congestive heart failure, COPD on home oxygen therapy, end-stage renal disease on h emodialysis, hypertension and GERD who presented to the hospital due to altered mental status and shortness of breath. Patient was subsequently intubated and has been extubated. She is receiving treatment for exacerbation of her congestive heart failure as well as metabolic encephalopathy. Patient found to be anemic on presentation with normocytic hypochromic indices. Iron studies are consistent with iron deficiency. She does report receiving iron supplementation in the past. Hemoglobin currently 7.2 from 6.8 previously. She denies any signs or symptoms of GI bleeding with no hematochezia, melena, nausea, vomiting, hematemesis or coffee-ground emesis. He denies any abdominal pain at this time. She is tolerating a diet. Review of Systems REVIEW OF SYSTEMS: CONSTITUTIONAL: Denies any fevers, chills, weight change or fatigue. CARDIOVASCULAR: Denies any chest pain, palpitations high or low blood pressures RESPIRATORY: Denies any shortness of breath, hemoptysis or cough, she had reported shortness of breath on presentation and is on home oxygen therapy. GENITOURINARY: No dysuria or hematuria, history of end-stage renal disease on hemodialysis. MUSCULOSKELETAL: No weakness reported. SKIN: Denies any new rashes or lesions, jaundice or pallor. PSYCHIATRIC: Denies any depression or anxiety. NEUROLOGY: Denies headache, denies any new focal deficits. EARS/NOSE/THROAT: No recent hearing change, congestion, nasal discharge or sore throat. EYES: No pain in eyes, discharge or change in vision. GASTROINTESTINAL: As per HPI. Past Medical History Past Medical History: Hypertension Additional Past Medical History / Comment(s): ESRD on M/W/F last on 11/07 on HD for 1.75 years, CHF, COPD on 2.5 L NC, History of Any Multi-Drug Resistant Organisms: None Reported Past Surgical History: Cholecystectomy Additional Past Surgical History / Comment(s): Left Upper arm graft, hs of HD cath right, Salivary gland tumor, leonides Smoking Status: Former smoker (quit 9 year ago) Past Alcohol Use History: None Reported Past Drug Use History: None Reported - Past Family History Father Family Medical History: Unable to Obtain Mother Family Medical History: Congestive Heart Failure (CHF) Medications and Allergies Home Medications Medication Instructions Recorded Confirmed Type Albuterol Inhaler [Ventolin Hfa 2 puff INHALATION RT-Q6H PRN 11/09/20 11/09/20 History Inhaler] Cholecalciferol [Vitamin D3 (25 50 mcg PO DAILY 11/09/20 11/09/20 History Mcg = 1000 Iu)] Dialyvite Tablet 1 tab PO DAILY 11/09/20 11/09/20 History Docusate [Colace] 100 mg PO DAILY PRN 11/09/20 11/09/20 History Fluticasone Nasal [place] [Flonase 1 spray EA NOSTRIL BID 11/09/20 11/09/20 History Nasal Henderson] Furosemide [Lasix] 40 mg PO SUTUTHSA 11/09/20 11/09/20 History Lidocaine-Prilocaine Cream [Emla 1 applic TOPICAL DAILY PRN 11/09/20 11/09/20 History Cream 2.5%/2.5%] Melatonin 3 mg PO HS PRN 11/09/20 11/09/20 History Montelukast Sodium [Singulair] 10 mg PO HS 11/09/20 11/09/20 History Omeprazole 20 mg PO DAILY 11/09/20 11/09/20 History Propranolol HCl 20 mg PO DAILY 11/09/20 11/09/20 History Tiotropium Br/Olodaterol HCl 2 puff INHALATION RT-DAILY 11/09/20 11/09/20 History [Stiolto Respimat Inhal Henderson] allopurinoL [Zyloprim] 200 mg PO DAILY 11/09/20 11/09/20 History amLODIPine [Norvasc] 10 mg PO DAILY 11/09/20 11/09/20 History levOCARNitine [Levocarnitine] 990 mg PO BID 11/09/20 11/09/20 History Allergies Allergy/AdvReac Type Severity Reaction Status Date / Time Corticosteroids Allergy Unknown Verified 11/09/20 13:06 (Glucocorticoids) iodine Allergy Unknown Verified 11/09/20 13:06 Penicillins Allergy Unknown Verified 11/09/20 13:06 shellfish derived [Shellfish] Allergy Unknown Verified 11/09/20 13:06 Pfeaccj-Uqm-Fuj Reductase Allergy Unknown Verified 11/09/20 13:06 Inhibitor Sulfa (Sulfonamide Allergy Unknown Verified 11/09/20 13:06 Antibiotics) Physical Exam Vitals: Vital Signs Temp Pulse Pulse Resp BP Pulse Ox 11/12/20 13:24 97.9 F 88 18 155/88 11/12/20 11:00 95 24 97 11/12/20 10:00 92 15 92 L 11/12/20 09:00 93 19 93 L 11/12/20 08:00 97.5 F L 83 25 H 96 11/12/20 07:00 87 27 H 92 L 11/12/20 06:00 92 15 93 L 11/12/20 05:00 97 27 H 91 L 11/12/20 04:00 97.9 F 98 23 94 L 11/12/20 03:00 86 21 94 L 11/12/20 02:00 93 24 94 L 11/12/20 01:00 93 24 91 L 11/12/20 00:10 86 21 93 L 11/12/20 00:00 98.3 F 96 30 H 93 L 11/11/20 23:00 83 26 H 94 L 11/11/20 22:00 85 25 H 94 L 11/11/20 21:00 87 23 94 L 11/11/20 20:00 97.8 F 94 17 92 L 11/11/20 19:00 104 H 24 92 L 11/11/20 18:00 92 23 93 L 11/11/20 17:00 97 17 90 L 11/11/20 16:00 97.9 F 96 20 95 11/11/20 15:00 92 21 93 L Intake and Output 11/11/20 11/12/20 11/12/20 22:59 06:59 14:59 Intake Total 144 144 462 Output Total 025 729 6950 Balance -13 -17 -8238 Intake: IV 144 144 240 A-line 24 24 15 Cefepime 1 gm In Sodium 50 Chloride 0.9% 50 ml @ 12. 5 mls/hr IVPB Q12HR [facility] Rx#:[id number] KVO 120 120 75 Sodium Ferric Gluconat- 100 Sucrose 125 mg In Sodium Chloride 0.9% 100 ml @ 100 mls/hr IVPB DAILY [facility] Rx#:[id number] Oral 222 Output: Urine 200 195 140 Hemodialysis 2000 Other: Weight 98.2 kg ABP, PAP, CO, CI - Last 8 Hours Arterial Blood Pressure 180/48 Arterial Blood Pressure 149/47 Arterial Blood Pressure 164/56 Arterial Blood Pressure 121/41 Arterial Blood Pressure 132/44 On physical examination, patient appears comfortable in no apparent distress. HEAD: Normocephalic, atraumatic. EYES: No scleral icterus. No conjunctival injection. MOUTH: No lesions, tongue midline. NECK: Trachea midline, no gross abnormalities. CHEST: Decreased air entry in all lung garner. HEART: S1-S2 appreciated. ABDOMEN: Soft, obese, nontender to palpation. Bowel sounds are positive. No organomegaly. No guarding or rigidity. EXTREMITIES: Bilateral pedal edema. SKIN: No rashes, no jaundice. NEUROLOGIC: Alert and oriented x3. No focal deficits. Results CBC & Chem 7: 11/12/20 03:35 11/12/20 03:35 Labs: Abnormal Lab Results - Last 24 Hours (Table) 11/12/20 11/12/20 Range/Units 03:35 03:35 RBC 2.64 L (3.80-5.40) m/uL Hgb 7.2 L (11.4-16.0) gm/dL Hct 24.2 L (34.0-46.0) % MCHC 29.8 L (31.0-37.0) g/dL RDW 16.6 H (11.5-15.5) % Lymphocytes # 0.9 L (1.0-4.8) k/uL Chloride 109 H (98-107) mmol/L BUN 23 H (7-17) mg/dL Creatinine 4.01 H (0.52-1.04) mg/dL Glucose 100 H (74-99) mg/dL Microbiology - Last 24 Hours (Table) 11/09/20 21:01 Gram Stain - Final Sputum Sputum Culture - Final 11/09/20 14:30 Blood Culture - Preliminary Blood No Growth after 48 hours 11/09/20 14:47 Blood Culture - Preliminary Blood No Growth after 48 hours Chest x-ray: report reviewed Assessment and Plan (1) Normocytic anemia Narrative/Plan: 70-year-old female with multiple medical comorbidities presenting to the hospital due to shortness of breath and altered mental status. The patient treated for acute exacerbation of congestive heart failure and metabolic encephalopathy. Patient found to be anemic with normocytic indices with hemoglobin 7.2. She has no signs or symptoms of bleeding denying any hematemesis, coffee-ground emesis, hematochezia or melena. Stool testing was positive for occult blood. She does report colonoscopy in the past. She denies any abdominal pain. Anemia likely multifactorial and secondary to chronic disease given normocytic indices, cannot rule out a component of GI bleed although the patient denies any overt symptoms of GI bleeding at this time and is not interested in colonoscopy Or upper endoscopy. Current Visit: Yes Status: Acute Code(s): D64.9 - ANEMIA, UNSPECIFIED SNOMED Code(s): 093031541 (2) Positive occult stool blood test Current Visit: Yes Status: Acute Code(s): R19.5 - OTHER FECAL ABNORMALITIES SNOMED Code(s): 98332318 Plan: Supportive care Okay for diet as tolerated Continue to monitor hemoglobin and hematocrit and transfuse as needed Continue Aranesp Continue iron supplementation Continue hemodialysis as per recommendations by nephrology Extensive discussion with the patient who at this time is not interested in endoscopic evaluation as she is having no signs or symptoms of GI bleeding, and follow-up after discharge for endoscopic evaluation if anemia persists Thank you for allowing us to participate in the care of the patient
[2020-11-12] MEDS ORDERED: SODIUM CHLORIDE 0.9% 250 ML IV ONE (16:52)
[2020-11-12] MEDS ORDERED: MIDAZOLAM 2 MG/2 ML VIAL IV ONE (17:03)
[2020-11-12] MEDS: fentaNYL (PF) 50 MCG/ML 2 ML AMP IV ONE ×2 (17:03→17:13)
[2020-11-12] MEDS ORDERED: LIDOCAINE 1% INJ 10MG/ML (20 ML MDV) SQ ONE ×2 (17:07→17:22)
--- NOTE | 2020-11-12 18:59 | XR ---
EXAMINATION TYPE: XR chest 1V portable DATE OF EXAM: 11/12/2020 COMPARISON: Today HISTORY: Line placement TECHNIQUE: Single view FINDINGS: There is right central venous catheter with tip in the superior vena cava. There is mild pu lmonary interstitial edema. Heart appears enlarged. There is probably some infiltrate in the right lo wer lobe. There is blunting of the costophrenic angles. IMPRESSION: Interstitial pulmonary infiltrates unchanged. Small pleural effusions unchanged. No pneum othorax.
[2020-11-12] MEDS: MONTELUKAST 10 MG TAB PO SCH (21:44)
[2020-11-12] MEDS: MELATONIN 3 MG TABLET PO SCH (22:19)
--- NOTE | 2020-11-12 22:56 | PCN ---
DATE OF PROCEDURE: 11/12/2020 PROCEDURE NOTE PREOP DIAGNOSIS: Acute chronic renal failure with occluded left arm Harriman-Garrett graft. POSTOP DIAGNOSIS: Acute chronic renal failure with occluded left arm Harriman-Garrett graft. PROCEDURE PERFORMED: 1. Ultrasound-guided 23 cm dialysis catheter placed right jugular approach. 2. Removal of the dialysis catheter from the left groin. 3. Placement of a 6-Guyanese sheath in the right groin. SEDATION: Time is 40 minutes. DESCRIPTION OF PROCEDURE: This patient was brought to the clinical lab technologist. Right side of the neck and chest was prepped and draped in the usual sterile manner. The patient had some IV started on the left arm which was not working. We decided to use the catheter in the groin which partially goes out, but still was in the femoral vein and her right groin and left side of the neck and chest were prepped and drapes applied in the usual manner with local anesthesia and IV sedation. Ultrasound-guided micropuncture was introduced to the right jugular vein. Micropuncture guidewire was passed and 4-Guyanese dilator advanced on the top of the guidewire. Then a tunnel was created. Through the tunnel, we brought 28 cm dialysis catheter. We passed a regular guidewire which was parked at the inferior vena cava and dilator was advanced and 23 cm dialysis catheter was advanced on the top of the guidewire through the sheath and sheath was removed and tip of catheter in superior vena cava and atrial junction. Flushed with heparin saline and hep-locked, secured with 3-0 nylon. Then attention was paid to the right groin. The right groin the patient had a triple-lumen catheter, which was almost completely out, but tip of the catheter was in the femoral vein. We passed a guidewire and the triple-lumen catheter was removed and we placed a 5-Guyanese sheath, secured with 3-0 nylon. Then, attention was paid to the left groin. Triple-lumen dialysis catheter was removed, secured, dressing applied. Patient tolerated the procedure well and transferred to the room in satisfactory condition. Recommend to have a chest x-ray. MMODL / IJN: [id number] / MTDD
[2020-11-12] MEDS ORDERED: ACETAMINOPHEN TAB 325 MG TAB PO STA (23:39)
[2020-11-12] MEDS ORDERED: metroNIDAZOLE 250 MG TABLET PO SCH (23:45)
[2020-11-13 04:21] LABS: Anisocytosis Slight; HCT 25.3 % (34.0-46.0); HGB 7.4 gm/dL (11.4-16.0); Hypochromasia Marked; MCH 27.1 pg (25.0-35.0); MCHC 29.3 g/dL (31.0-37.0); MCV 92.6 fL (80.0-100.0); Mean Platelet Volume 7.9; Platelet Count 174 k/uL (150-450); RBC 2.74 m/uL (3.80-5.40); RDW 16.2 % (11.5-15.5); WBC 7.8 k/uL (3.8-10.6)
--- NOTE | 2020-11-13 05:42 | XR ---
EXAMINATION TYPE: XR chest 1V portable DATE OF EXAM: 11/13/2020 Comparison: 11/12/2020 Clinical History: 70-year-old female Tube placement Findings: Right-sided double-lumen hemodialysis catheter tips in the upper right atrium. Heart remains moderate ly enlarged. Diffuse interstitial opacities persist. Slightly more focal right basilar opacity with b lunted costophrenic angle. Impression: 1. Continued moderate cardiomegaly and interstitial opacities. Correlate for mild interstitial pulmon javon edema. 2. More focal opacity at the right base could represent an area of developing more confluent pulmonar y edema. Trace right effusion.
--- NOTE | 2020-11-13 08:06 | P.PN ---
Subjective Progress Note Date: 11/13/20 This is a 70-year-old female patient who follows with Dr. Keene. She does have a history of end-stage renal disease receiving hemodialysis on Thursday, hypertension, pulmonary disease followed at [facility], gastroesophageal reflux disease. Approximate 3:00 this morning the patient was having some altered mental status. Her family was observing her. She started propanolol is a new medication yesterday. By 8 AM she was much less responsive and EMS was called. She was brought into the emergency room where she was hypotensive and unable to protect her airway. She was intubated and placed on mechanical ventilator. Initial settings are assist-control rate of 16, tidal vo lume 450, FiO2 100% and a PEEP of 5. Follow-up blood gases revealed a pO2 of 172, P CO2 83 come a pH 7.16. Respiratory rate was adjusted to 16, FiO2 down to 60%. A right femoral triple-lumen catheter placed. She is seen today in consultation in the emergency room. She is on propofol at 5 mcg/kg/m. Norepinephrine at 0.05 mcg/kg/m. She received 2 L of fluid resuscitation. White count 15.1. Hemoglobin 6.8. Platelet count 222. INR 1.1. Sodium 140. Potassium 3.9. Creatinine 3.26. Glucose 111. ProBNP 13,200. Troponin 0.029. AST 124. ALT 112. Stool for occult blood positive. Coronavirus by PCR not detected. Chest x-ray reveals coarse infiltrates throughout both lung garner, pulmonary edema. Computed tomography scan of the brain revealed age-related atrophy and chronic small vessel changes without acute intracranial process. No family is present. No other information is able to be obtained. No previous admission to this facility. She's been initiated on cefepime and azithromycin. One unit of packed red blood cells has been ordered. The patient was seen today 11/10/2020 in follow-up in the intensive care unit. She remains intubated on the mechanical ventilator. Current settings are assist control at a rate of 20, tidal volume 450, FiO2 50% and a PEEP of 5. Morning blood gases reveal a P O2 of 79, pCO2 48, pH 7.3. She is sedated on propofol at 20 mcg/kg/m. Requiring norepinephrine at 0.04 mcg/kg/m approximately 4 mcg/m. 0.9 normal saline at KVO. Chest x-ray reveals cardiomegaly with persistent reticular increased markings bilaterally without bibasilar right midlung opacities. Stable compared to yesterday. She has received 1 unit of packed red blood cells this admission. Current hemoglobin 8.3. White count 13.9. Sodium 139. Potassium 4.5. Creatinine 4.75. AST 71. ALT 102. Stool for occult blood was positive. Left upper extremity AV fistula was not working. No hemodialysis yesterday. The plan is for temporary HD catheter today and dialysis later today. Tube feedings will be initiated. Left radial arterial line placed. She remains on DuoNeb inhalations every 4 hours, antibiotics in the form of cefepime and azithromycin. Protonix for GI prophylaxis. The patient is seen today 11/11/2020 and follow-up in the intensive care unit. She was successfully extubated yesterday 11/10/2020. Early this morning she was doing quite well she is on 3 L nasal cannula and maintaining O2 saturations in the 90s. By noontime or so she was getting quite tired and is requiring BiPAP 10/5 and 50% FiO2. The plan is for repeat hemodialysis today. 3 L was removed yesterday. She has 0.9 normal saline at 10 mL per hour. Chest x-ray continues to show cardiomegaly and background chronic parenchymal changes with right midlung and bibasilar infiltrate/atelectasis. Blood and sputum cultures reveal no growth to date. White count 9.2. Hemoglobin 7.5. Sodium 142. Potassium 4.1. Creatinine 3.41. AST 37, ALT 69. Albumin 3.0. She remains on cefepime. She declines bronchodilators. She is having her Stiolto brought in from home. She is on Lovenox for DVT prophylaxis. On 11/12/2020 I'm seeing the patient in follow-up in the intensive care unit. The patient remains extubated and patient is currently on 4 L of oxygen by nasal cannula. Chest x-ray showing improvement in the volume status. There is still some interstitial and nondistended and infiltrates bilaterally more so in the right upper lobe area. There may be also some small bilateral pleural effusions. The patient is a dialysis-dependent patient and the patient has a clotted left upper extremity fistula and the patient is a temporary dialysis catheter in his left groin and his last session of hemodialysis was on 11/11/2020 with a total of 1.5 L of fluid was removed. On 11/10/2020 the liters of fluid was removed. The patient follows up with nephrology team at [facility]. Today's creatinine is at 4 with a BUN of 23. White cell count 6.8 with a hemoglobin of 7.2 and the platelet count is at 164. He is currently on no pressors and his been off pressors for the past 24 hours. He is urine output is no order of 50 mL an hour. His net fluid balance has been negative especially postdialysis. He remains on IV cefepime is in a row spectrum ant ibiotic coverage and the blood cultures and a sputum culture was essentially negative. His BNP level was 13,000 and admission. His liver function test is showing improvement in the AST and ALP. On 11/13/2020, the patient remains extubated on 2 L of oxygen by nasal cannula. She underwent hemodialysis yesterday and a total of 2 L of fluid was removed. The chest x-ray from today shows small bilateral pleural effusion, overall aeration has improved and the patient's chest x-ray findings are stable. In terms of dialysis access, the patient has a clotted AV fistula in the left upper extremity. Her temporary dialysis catheter in her groin was removed and a permacath was inserted in her right IJ. She also has IV access in her right forearm and she is doing well. No significant respiratory distress. The white cell count today is at 7.8 and hemoglobin remains stable at 7.4. Platelet count is at 174. BUN is 23 with a creatinine of 4.01 from yesterday and follow-up labs are still pending for now. In terms of her urine output, the patient has minimal amount of urine output. No pressors. Antibiotic coverage remains IV cefepime and the patient's cultures of been all negative. The liver function tests continued to improve yesterday and follow-up labs are still pending from today. No other significant events. The patient could be downgraded to medical surgical floor.. The patient was having elevated blood pressure yesterday and for that reason he was started on 5 mg of Norvasc and her BP is under better control. The patient is afebrile Objective - Vital Signs Vital signs: Vital Signs Temp 97.7 F 03/02/21 02:27 Pulse 81 11/12/20 20:00 Resp 16 11/13/20 02:27 BP 123/57 11/13/20 02:27 Pulse Ox 96 11/13/20 02:27 Intake & Output 11/12/20 11/13/20 11/13/20 18:59 06:59 18:59 Intake Total 607 45 Output Total 2290 150 Balance -1683 -105 Weight 98.6 kg Intake: IV 385 45 A-line 15 Cefepime 1 gm In Sodium 50 Chloride 0.9% 50 ml @ 12. 5 mls/hr IVPB Q12HR [facility] Rx#:[id number] KVO 120 45 Sodium Ferric Gluconat- 100 Sucrose 125 mg In Sodium Chloride 0.9% 100 ml @ 100 mls/hr IVPB DAILY [facility] Rx#:[id number] Oral 222 Output: Urine 290 150 Hemodialysis 2000 ABP, PAP, CO, CI - Last Documented Arterial Blood Pressure 180/48 - Exam GENERAL EXAM: Awake, alert, very pleasant 70-year-old female patient on 2 L nasal cannula HEAD: Normocephalic. EYES: Sluggish reaction of pupils, equal size. NOSE: Clear with pink turbinates. THROAT: Oral endotracheal and gastric tube secured in place. No erythema or exudates. NECK: No masses, no JVD. CHEST: No chest wall deformity. LUNGS: Equal air entry with bilateral scattered crackles, rhonchi, crackles are still present in the lung bases bilaterally. CVS: S1 and S2 normal with no audible murmur, regular rhythm. ABDOMEN: No hepatosplenomegaly, normal bowel sounds, no guarding or rigidity. SPINE: No scoliosis or deformity SKIN: No rashes and the patient has a permacath in her right IJ CENTRAL NERVOUS SYSTEM: No focal deficits, tone is normal in all 4 extremities. Patient is awake and alert and following commands and answering questions appropriately EXTREMITIES: Right femoral triple-lumen catheter in place. Left upper extremity graft. . No clubbing, no cyanosis. Peripheral pulses are intact. - Labs CBC & Chem 7: 11/13/20 03:24 11/12/20 03:35 Labs: Abnormal Lab Results - Last 24 Hours (Table) 11/13/20 Range/Units 03:24 RBC 2.74 L (3.80-5.40) m/uL Hgb 7.4 L (11.4-16.0) gm/dL Hct 25.3 L (34.0-46.0) % MCHC 29.3 L (31.0-37.0) g/dL RDW 16.2 H (11.5-15.5) % Microbiology - Last 24 Hours (Table) 11/09/20 14:30 Blood Culture - Preliminary Blood No Growth after 72 hours 11/09/20 14:47 Blood Culture - Preliminary Blood No Growth after 72 hours 11/09/20 21:01 Gram Stain - Final Sputum Sputum Culture - Final Assessment and Plan Plan: 1 Altered mental status of unclear etiology, improved and recovered, and the patient's mental status has normalized. 2 Acute hypoxemic respiratory failure requiring intubation mechanical ventilatory support on 11/09/2020, secondary to acute fluid volume overload/pulmonary edema. Extubated on 11/10/2020. The patient has chronic systolic CHF with ejection fraction of 40-45% with moderate to severe mitral regurgitation and mild to moderate mitral stenosis. The patient was on 2 L of oxygen at home and currently she is back to 2 L of oxygen by nasal cannula 3 Acute hypotension requiring pressor support, recovered, currently off pressors for the past 24 hours 4 Acute anemia, presenting hemoglobin 6.8, currently 7.4, no transfusions re quired the patient is receiving Venofer 5 Elevated liver enzymes but improving 6 End stage renal disease on hemodialysis Thursday. The LUE fistula has clotted 7 COPD/asthma follows with welfare supervisor out of [place] 8 History of hypertension 9 History of gout 10 History of carnitine deficiency Plan: Discontinue the Laughlin catheter Blood pressure is under better control on Norvasc at a dose of 5 mg daily basis Chest x-ray and labs reviewed him a permacath is in a good location Plan is for hemodialysis again today, 2 L removed yesterday Temporary hemodialysis catheter is removed from the left groin Discontinue cefepime Declines bronchodilators, able to use home Stiolto Once stable, the patient requests transfer to [facility] for revision of left upper extremity AV fistula Erna transferred out of the intensive care unit today. We will continue to follow and make further recommendations based on her clinical status
[2020-11-13] MEDS: PANTOPRAZOLE 40 MG/10 ML VIAL IVP SCH ×2 (08:18→20:58)
[2020-11-13] MEDS: ENOXAPARIN 30 MG/0.3 ML SYRINGE SQ SCH (08:18)
[2020-11-13] MEDS: CHOLECALCIFEROL 25 MCG (1000 IU) TABLET PO SCH (08:18)
[2020-11-13] MEDS: MULTIVITAMINS, THERA 1 EACH TAB PO SCH (08:18)
[2020-11-13] MEDS: amLODIPine 5 MG TAB PO SCH (08:18)
[2020-11-13] MEDS: TIOTROPIUM BR INHALATION SCH (08:36)
[2020-11-13] MEDS: OLODATEROL HCL INHALATION SCH (08:36)
[2020-11-13] MEDS: NON FORMULARY DRUG (Levocarnitine [Levocarnitine] 330 MG Tablet) PO SCH ×2 (08:41→20:59)
[2020-11-13] MEDS: allopurinoL 100 MG TAB PO SCH (08:42)
[2020-11-13] MEDS ORDERED: THIAMINE 100 MG TAB PO SCH (09:00)
[2020-11-13 09:29] LABS: Albumin 3.2 g/dL (3.5-5.0); Calcium 8.9 mg/dL (8.4-10.2); Potassium 4.6 mmol/L (3.5-5.1); Total Bilirubin 0.5 mg/dL (0.2-1.3); Total Protein 5.6 g/dL (6.3-8.2)
--- NOTE | 2020-11-13 10:30 | P.PN ---
Subjective Patient is seen in follow-up for end-stage renal disease. She is maintained on hemodialysis on Thursday schedule. She was extubated November 10. Currently on 2 L nasal cannula. No chest pain or shortness of breath. Tolerated dialysis yesterday with 2 L ultrafiltration. Vital signs are stable. General: The patient appeared well nourished and normally developed. HEENT: Head exam is unremarkable. Neck is without jugular venous distension. LUNGS: Breath sounds decreased. HEART: Rate and Rhythm are regular. ABDOMEN: Soft, nontender. EXTREMITITES: Trace edema. Objective - Vital Signs Vital signs: Vital Signs Temp 97.7 F 11/13/20 02:27 Pulse 81 11/12/20 20:00 Resp 16 11/13/20 02:27 BP 123/57 11/13/20 02:27 Pulse Ox 96 11/13/20 02:27 Intake & Output 11/12/20 11/13/20 11/13/20 18:59 06:59 18:59 Intake Total 607 45 Output Total 2290 150 Balance -1683 -105 Weight 98.6 kg Intake: IV 385 45 A-line 15 Cefepime 1 gm In Sodium 50 Chloride 0.9% 50 ml @ 12. 5 mls/hr IVPB Q12HR [facility] Rx#:[id number] KVO 120 45 Sodium Ferric Gluconat- 100 Sucrose 125 mg In Sodium Chloride 0.9% 100 ml @ 100 mls/hr IVPB DAILY [facility] Rx#:[id number] Oral 222 Output: Urine 290 150 Hemodialysis 2000 ABP, PAP, CO, CI - Last Documented Arterial Blood Pressure 180/48 - Labs CBC & Chem 7: 11/13/20 03:24 11/13/20 08:45 Labs: Abnormal Lab Results - Last 24 Hours (Table) 11/13/20 11/13/20 Range/Units 03:24 08:45 RBC 2.74 L (3.80-5.40) m/uL Hgb 7.4 L (11.4-16.0) gm/dL Hct 25.3 L (34.0-46.0) % MCHC 29.3 L (31.0-37.0) g/dL RDW 16.2 H (11.5-15.5) % Chloride 109 H (98-107) mmol/L Carbon Dioxide 20 L (22-30) mmol/L BUN 24 H (7-17) mg/dL Creatinine 3.88 H (0.52-1.04) mg/dL Glucose 104 H (74-99) mg/dL ALT 38 H (4-34) U/L Total Protein 5.6 L (6.3-8.2) g/dL Albumin 3.2 L (3.5-5.0) g/dL Microbiology - Last 24 Hours (Table) 11/09/20 14:30 Blood Culture - Preliminary Blood No Growth after 72 hours 11/09/20 14:47 Blood Culture - Preliminary Blood No Growth after 72 hours 11/09/20 21:01 Gram Stain - Final Sputum Sputum Culture - Final Assessment and Plan Plan: Assessment: 1. End-stage renal disease maintained on hemodialysis on Thursday schedule. 2. Clotted AV graft. Vascular surgery following. Femoral catheter placed November 10 and removed November 12. Permacath placed November 12. 3. Acute hypoxic and hypercapnic respiratory failure. Extubated November 10. 4. Volume overload. Improved with ultrafiltration. 5. Acute on chronic systolic CHF with ejection fraction of 40-45% with moderate to severe mitral regurgitation and mild to moderate mitral stenosis. 6. Anemia of chronic kidney disease. Maintained on Aranesp. Iron deficiency present. 7. Shock likely secondary to pneumonia. Off vasopressors. s/p antibiotics. Plan: Hemodialysis tomorrow. IV iron 3 doses. Last dose today.
[2020-11-13 10:42] VITALS: BMI 33.0
[2020-11-13] MEDS: ACETAMINOPHEN TAB 325 MG TAB PO PRN ×2 (12:28→20:58)
[2020-11-13] MEDS: polyethylene glycoL 3350 17 GM POWD.PACK PO SCH (12:29)
[2020-11-13] MEDS ORDERED: SODIUM FERRIC GLUCONAT-SUCROSE 125 MG in SODIUM CHLORIDE 0.9% 100 ML IVPB ONE (13:00)
--- NOTE | 2020-11-13 13:17 | P.PN ---
Subjective Progress Note Date: 11/13/20 Principal diagnosis: Anemia This is a 70-year-old female with end-stage renal disease on hemodialysis who came in with altered mental status and shortness of breath. Jatin benjamin was subsequently intubated in the emergency room, she is now status post extubation from 3 days ago. She was found to be anemic on presentation with a normocytic hypochromic indices. Iron studies are consistent with anger deficiency. She does report receiving a prior iron supplementation. She is continues to deny any signs or symptoms of GI bleeding with no hematochezia, melena, nausea, vomiting, hematemesis or coffee-ground emesis. Denies any abdominal pain. States her breathing has significantly improved. She underwent a right chest wall tunneled dialysis catheter placement yesterday she gets hemodialysis Thursday. She states she is planning on being discharged today. Yesterday was discussed for evaluation of anemia including an EGD and colonoscopy. Patient declined at that time, and continues to decline. Objective - Vital Signs Vital signs: Vital Signs Temp 97.7 F 11/13/20 02:27 Pulse 81 11/12/20 20:00 Resp 16 11/13/20 02:27 BP 123/57 11/13/20 02:27 Pulse Ox 96 11/13/20 02:27 Intake & Output 11/12/20 11/13/20 11/13/20 18:59 06:59 18:59 Intake Total 607 45 Output Total 2290 150 Balance -1683 -105 Weight 98.6 kg Intake: IV 385 45 A-line 15 Cefepime 1 gm In Sodium 50 Chloride 0.9% 50 ml @ 12. 5 mls/hr IVPB Q12HR [facility] Rx#:[id number] KVO 120 45 Sodium Ferric Gluconat- 100 Sucrose 125 mg In Sodium Chloride 0.9% 100 ml @ 100 mls/hr IVPB DAILY [facility] Rx#:[id number] Oral 222 Output: Urine 290 150 Hemodialysis 2000 ABP, PAP, CO, CI - Last Documented Arterial Blood Pressure 180/48 - Exam General appearance: The patient is alert, oriented, appears in no acute distress. HET: Head is normocephalic and atraumatic. Conjunctiva pink. Sclera anicteric. Neck: Supple without lymphadenopathy. Abdomen: Soft, nontender, nondistended with bowel sounds. No guarding or rigidity. Extremities: Normal skin color and turgor. No pedal edema Skin: No rashes, no jaundice Neurological: No focal deficits. Alert and oriented 3. - Labs CBC & Chem 7: 11/13/20 03:24 11/13/20 08:45 Labs: Abnormal Lab Results - Last 24 Hours (Table) 11/13/20 11/13/20 Range/Units 03:24 08:45 RBC 2.74 L (3.80-5.40) m/uL Hgb 7.4 L (11.4-16.0) gm/dL Hct 25.3 L (34.0-46.0) % MCHC 29.3 L (31.0-37.0) g/dL RDW 16.2 H (11.5-15.5) % Chloride 109 H (98-107) mmol/L Carbon Dioxide 20 L (22-30) mmol/L BUN 24 H (7-17) mg/dL Creatinine 3.88 H (0.52-1.04) mg/dL Glucose 104 H (74-99) mg/dL ALT 38 H (4-34) U/L Total Protein 5.6 L (6.3-8.2) g/dL Albumin 3.2 L (3.5-5.0) g/dL Microbiology - Last 24 Hours (Table) 11/09/20 14:30 Blood Culture - Preliminary Blood No Growth after 72 hours 11/09/20 14:47 Blood Culture - Preliminary Blood No Growth after 72 hours 11/09/20 21:01 Gram Stain - Final Sputum Sputum Culture - Final Assessment and Plan (1) Normocytic anemia Narrative/Plan: 70-year-old female with multiple medical comorbidities presenting to the [facility] due to shortness of breath and altered mental status. The patient treated for acute exacerbation of congestive heart failure and metabolic encephalopathy. Patient found to be anemic with normocytic indices with hemoglobin 7.2. She has no signs or symptoms of bleeding denying any hematemesi s, coffee-ground emesis, hematochezia or melena. Stool testing was positive for occult blood. She does report colonoscopy in the past. She denies any abdominal pain. Anemia likely multifactorial and secondary to chronic disease given normocytic indices, cannot rule out a component of GI bleed although the patient denies any overt symptoms of GI bleeding at this time and is not interested in colonoscopy Or upper endoscopy. Current Visit: Yes Status: Acute Code(s): D64.9 - ANEMIA, UNSPECIFIED SN OMED Code(s): 489413238 (2) Positive occult stool blood test Current Visit: Yes Status: Acute Code(s): R19.5 - OTHER FECAL ABNORMALITIES SNOMED Code(s): 01832125 Plan: Supportive care Okay for diet as tolerated Continue to monitor hemoglobin and hematocrit and transfuse as needed Continue Aranesp Continue iron supplementation Continue hemodialysis as per recommendations by nephrology Extensive discussion with the patient who at this time is not interested in endoscopic evaluation as she is having no signs or symptoms of GI bleeding, and follow-up after discharge for endoscopic evaluation if anemia persists Thank you for allowing us to participate in the care of the patient, we will sign off at this time. Dr. Ludy Pablo I agree with the dictator's note, documented as a scribe by Isabel Smith.
--- NOTE | 2020-11-13 14:42 | P.PN ---
Subjective Progress Note Date: 11/13/20 (seen at 1105) Principal diagnosis: decreased responsiveness Patient is a 70-year-old female with a history of end-stage renal disease on dialysis Thursday and Thursday, CHF unknown EF, and COPD chronically on 2L NC who came in via EMS secondary to decreased responsiveness. In the ER she was obtunded and was intubated. Initial laboratory analysis was significant for hemoglobin of 6.1, BUN 22, creatinine 3.26, calcium 6.5, AST is 124, ALT 112, BNP [id number] urinalysis was negative and a COVID 19 screening negative. Chest x- ray reviewed by myself and shows pulmonary edema with fluid within the right major fissure. She became hypotensive and a central line was placed and she was started on Levophed. She was diagnosed with acute exacerbation of congestive h eart failure possibly secondary to decreasing fluid removal from dialysis, symptomatic bradycardia, anemia with positive fecal occult blood. She is admitted to the ICU. Intensive care was consulted. Her repeat hemoglobin came back at 9 in her packed unit of red cells was held. They attempted to do dialysis on the evening of 11/09 however they were unable to do so secondary to inability to access her fistula. Vascular surgery place a temporary dialysis catheter on 11/10 and dialysis was completed. She was able to be extubated later in the day on 11/10. She was satting well on 3 L nasal cannula. She was noted to have a clotted upper extremity graft and had a permacath placed on 11/12. She was also noted to be hypertensive and was therefore started on Norvasc. She was seen by GI on the morning of 11/12 and they suggested EGD and colonoscopy for her anemia however patient declined. Patient seen and examined at bedside. She states that her shortness of breath is at baseline. No chest pain. No nausea. No vomiting. She does complain of some constipation and requests a laxative. She does not want to go to rehab and wants to go straight home. She feels as though she didn't do well at home. She also declined home care. General: non toxic, no distress, appears at stated age Derm: warm, dry Head: atraumatic, normocephalic, symmetric Eyes: EOMI, no lid lag, anicteric sclera Mouth: no lip lesion, mucus membranes moist Cardiovascular: S1S2 reg, no murmur, positive posterior tibial pulse bilateral, Lungs: Decreased breath sounds bilateral, 3 word conversational dyspnea, no rho nchi, no rales , no accessory muscle use Abdominal: soft, nontender to palpation, no guarding, no appreciable organomegaly Ext: no gross muscle atrophy, no edema, no contractures Neuro: CN II-XI grossly intact, no focal neuro deficits Psych: Alert, oriented, appropriate affect Assessment and Plan: Acute on chronic systolic congestive heart failure, ejection fraction 40-45% with moderate to severe mitral regurg and mild to moderate mitral stenosis, likely exacerbated by decreased fluid removal -Fluid optimization through hemodialysis -Did not tolerate a beta linsey at home -Has not tolerated NIKKI inhibitor in the past -Outpatient follow-up with cardiology Acute on chronic hypoxic respiratory failure -Extubated -Pulmonary recommendations -Wears 2 L nasal cannula ATC at home Hypertension, improved -Continue with Norvasc -Is still at 5 mg and takes 10 at home Acute on chronic iron deficiency and chronic disease anemia -Follow CBC -Last day of IV iron End-stage renal disease on hemodialysis Thursday/Thursday/Thursday -Nephrology recommendations appreciated -Plan on HD in a.m. and then discharged home Toxic metabolic encephalopathy -Likely secondary to hypercapnia on arrival -Resolved Constipation -Add MiraLAX Closed AV graft -Permacath placed 11/12 -Outpatient vascular surgery follow-up COPD without exacerbation -Continue with inhaler regiment Shock, resolved, undetermined etiology Transaminitis, improved Objective - Vital Signs Vital signs: Vital Signs Temp 97.7 F 11/13/20 02:27 Pulse 81 11/12/20 20:00 Resp 16 11/13/20 02:27 BP 123/57 11/13/20 02:27 Pulse Ox 96 11/13/20 02:27 Intake & Output 11/12/20 11/13/20 11/13/20 18:59 06:59 18:59 Intake Total 607 45 Output Total 2290 150 Balance -1683 -105 Weight 98.6 kg 98.6 kg Intake: IV 385 45 A-line 15 Cefepime 1 gm In Sodium 50 Chloride 0.9% 50 ml @ 12. 5 mls/hr IVPB Q12HR [facility] Rx#:[id number] KVO 120 45 Sodium Ferric Gluconat- 100 Sucrose 125 mg In Sodium Chloride 0.9% 100 ml @ 100 mls/hr IVPB DAILY [facility] Rx#:[id number] Oral 222 Output: Urine 290 150 Hemodialysis 2000 ABP, PAP, CO, CI - Last Documented Arterial Blood Pressure 180/48 - Labs CBC & Chem 7: 11/13/20 03:24 11/13/20 08:45 Labs: Abnormal Lab Results - Last 24 Hours (Table) 11/13/20 11/13/20 Range/Units 03:24 08:45 RBC 2.74 L (3.80-5.40) m/uL Hgb 7.4 L (11.4-16.0) gm/dL Hct 25.3 L (34.0-46.0) % MCHC 29.3 L (31.0-37.0) g/dL RDW 16.2 H (11.5-15.5) % Chloride 109 H (98-107) mmol/L Carbon Dioxide 20 L (22-30) mmol/L BUN 24 H (7-17) mg/dL Creatinine 3.88 H (0.52-1.04) mg/dL Glucose 104 H (74-99) mg/dL ALT 38 H (4-34) U/L Total Protein 5.6 L (6.3-8.2) g/dL Albumin 3.2 L (3.5-5.0) g/dL Microbiology - Last 24 Hours (Table) 11/09/20 14:30 Blood Culture - Preliminary Blood No Growth after 72 hours 11/09/20 14:47 Blood Culture - Preliminary Blood No Growth after 72 hours
[2020-11-13] MEDS ORDERED: bisacodyL 10 MG SUPP RECTAL STA (16:23)
--- NOTE | 2020-11-13 17:03 | IR ---
Fluoroscopy HISTORY: Dialysis catheter placement 1.1 minute fluoroscopy time supplied to the referring clinician. 306 intraoperative C-arm images doc ument the procedure. See dictated report from vascular surgery.
[2020-11-13] MEDS: MONTELUKAST 10 MG TAB PO SCH (20:58)
[2020-11-13] MEDS: MELATONIN 3 MG TABLET PO SCH (20:59)
[2020-11-14] MEDS: ACETAMINOPHEN TAB 325 MG TAB PO PRN (02:24)
[2020-11-14 04:38] LABS: Albumin 3.1 g/dL (3.5-5.0); Total Bilirubin 0.5 mg/dL (0.2-1.3); Total Protein 5.5 g/dL (6.3-8.2)
[2020-11-14 04:43] LABS: Potassium 4.7 mmol/L (3.5-5.1)
--- NOTE | 2020-11-14 08:11 | XR ---
EXAMINATION TYPE: XR chest 1V portable DATE OF EXAM: 11/14/2020 COMPARISON: 11/13/2020 INDICATION: Tube placement TECHNIQUE: Single frontal view of the chest is obtained. FINDINGS: The heart size is mildly prominent. The pulmonary vasculature is prominent. There is some mild nonspecific infiltrate within the right upper lobe. Catheter is present on the rig ht with the tip in the superior vena cava region. IMPRESSION: 1. Mild right upper lobe infiltrate. 2. Cardiomegaly with prominent pulmonary vascular markings. Consider congestive heart failure.
--- NOTE | 2020-11-14 08:41 | P.PN ---
Subjective Progress Note Date: 11/14/20 This is a 70-year-old female patient who follows with Dr. Keene. She does have a history of end-stage renal disease receiving hemodialysis on Thursday, hypertension, pulmonary disease followed at [facility], gastroesophageal reflux disease. Approximate 3:00 this morning the patient was having some altered mental status. Her family was observing her. She started propanolol is a new medication yesterday. By 8 AM she was much less responsive and EMS was called. She was brought into the emergency room where she was hypotensive and unable to protect her airway. She was intubated and placed on mechanical ventilator. Initial settings are assist-control rate of 16, tidal volume 450, FiO2 100% and a PEEP of 5. Follow-up blood gases revealed a pO2 of 172, P CO2 83 come a pH 7.16. Respiratory rate was adjusted to 16, FiO2 down to 60%. A right femoral triple-lumen catheter placed. She is seen today in consultation in the emergency room. She is on propofol at 5 mcg/kg/m. Norepinephrine at 0.05 mcg/kg/m. She received 2 L of fluid resuscitation. White count 15.1. Hemoglobin 6.8. Platelet count 222. INR 1.1. Sodium 140. Potassium 3.9. Creatinine 3.26. Glucose 111. ProBNP 13,200. Troponin 0.029. AST 124. ALT 112. Stool for occult blood positive. Coronavirus by PCR not detected. Chest x-ray reveals coarse infiltrates throughout both lung garner, pulmonary edema. Computed tomography scan of the brain revealed age-related atrophy and chronic small vessel changes without acute intracranial process. No family is present. No other information is able to be obtained. No previous admission to this facility. She's been initiated on cefepime and azithromycin. One unit of packed red blood cells has been ordered. The patient was seen today 11/10/2020 in follow-up in the intensive care unit. She remains intubated on the mechanical ventilator. Current settings are assist control at a rate of 20, tidal volume 450, FiO2 50% and a PEEP of 5. Morning blood gases reveal a P O2 of 79, pCO2 48, pH 7.3. She is sedated on propofol at 20 mcg/kg/m. Requiring norepinephrine at 0.04 mcg/kg/m approximately 4 mcg/m. 0.9 normal saline at KVO. Chest x-ray reveals cardiomegaly with persistent reticular increased markings bilaterally without bibasilar right midlung opacities. Stable compared to yesterday. She has received 1 unit of packed red blood cells this admission. Current hemoglobin 8.3. White count 13.9. Sodium 139. Potassium 4.5. Creatinine 4.75. AST 71. ALT 102. Stool for occult blood was positive. Left upper extremity AV fistula was not working. No hemodialysis yesterday. The plan is for temporary HD catheter today and di alysis later today. Tube feedings will be initiated. Left radial arterial line placed. She remains on DuoNeb inhalations every 4 hours, antibiotics in the form of cefepime and azithromycin. Protonix for GI prophylaxis. The patient is seen today 11/11/2020 and follow-up in the intensive care unit. She was successfully extubated yesterday 11/10/2020. Early this morning she was doing quite well she is on 3 L nasal cannula and maintaining O2 saturations in the 90s. By noontime or so she was getting quite tired and is requiring BiPAP 10/5 and 50% FiO2. The plan is for repeat hemodialysis today. 3 L was removed yesterday. She has 0.9 normal saline at 10 mL per hour. Chest x-ray continues to show cardiomegaly and background chronic parenchymal changes with right midlung and bibasilar infiltrate/atelectasis. Blood and sputum cultures reveal no growth to date. White count 9.2. Hemoglobin 7.5. Sodium 142. Potassium 4.1. Creatinine 3.41. AST 37, ALT 69. Albumin 3.0. She remains on cefepime. She declines bronchodilators. She is having her Stiolto brought in from home. She is on Lovenox for DVT prophylaxis. On 11/12/2020 I'm seeing the patient in follow-up in the intensive care unit. The patient remains extubated and patient is currently on 4 L of oxygen by nasal cannula. Chest x-ray showing improvement in the volume status. There is still some interstitial and nondistended and infiltrates bilaterally more so in the right upper lobe area. There may be also some small bilateral pleural effusions. The patient is a dialysis-dependent patient and the patient has a clotted left upper extremity fistula and the patient is a temporary dialysis catheter in his left groin and his last session of hemodialysis was on 11/11/2020 with a total of 1.5 L of fluid was removed. On 11/10/2020 the liters of fluid was removed. The patient follows up with nephrology team at [facility]. Today's creatinine is at 4 with a BUN of 23. White cell count 6.8 with a hemoglobin of 7.2 and the platelet count is at 164. He is currently on no pressors and his been off pressors for the past 24 hours. He is urine output is no order of 50 mL an hour. His net fluid balance has been negative especially postdialysis. He remains on IV cefepime is in a row spectrum antibi otic coverage and the blood cultures and a sputum culture was essentially negative. His BNP level was 13,000 and admission. His liver function test is showing improvement in the AST and ALP. On 11/13/2020, the patient remains extubated on 2 L of oxygen by nasal cannula. She underwent hemodialysis yesterday and a total of 2 L of fluid was removed. The chest x-ray from today shows small bilateral pleural effusion, overall aeration has improved and the patient's chest x-ray findings are stable. In terms of dialysis access, the patient has a clotted AV fistula in the left upper extremity. Her temporary dialysis catheter in her groin was removed and a permacath was inserted in her right IJ. She also has IV access in her right forearm and she is doing well. No significant respiratory distress. The white cell count today is at 7.8 and hemoglobin remains stable at 7.4. Platelet count is at 174. BUN is 23 with a creatinine of 4.01 from yesterday and follow-up labs are still pending for now. In terms of her urine output, the patient has minimal amount of urine output. No pressors. Antibiotic coverage remains IV cefepime and the patient's cultures of been all negative. The liver function tests continued to improve yesterday and follow-up labs are still pending from today. No other significant events. The patient could be downgraded to medical surgical floor.. The patient was having elevated blood pressure yesterday and for that reason he was started on 5 mg of Norvasc and her BP is under better control. The patient is afebrile On 11/14/2020 patient seen in follow-up in the intensive care unit, she is awake and alert, oriented 3, currently on 4 L of oxygen, her pulse ox is 95%. Patient is normally on home oxygen between 2-3 L and her FiO2 was turned down to 3 L/m. She is afebrile, she was up in the chair yesterday, she stated she got mild exertional dyspnea, otherwise reading comfortably, lung sounds are clear, diminished at the bases, today's chest x-ray has been reviewed and mild right upper lobe infiltrate, cardiomegaly with prominent pulmonary vascular markings. Patient is maintaining negative fluid balance she is in -1.7 L over last 24 hours, she did not have dialysis yesterday she will have a session of hemodialysis today. Labs have been reviewed, sodium is 138, potassium is 4.7, chloride is 110, CO2 is 19, B1 is 34, and creatinine is 5.32.LFT are within normal limits, no CBC ordered for today. No acute events overnight. Urine and blood cultures have shown no growth, patient is currently not on any antibiotics, she has had no fever or chills, she has occasional cough with production of some cantrell colored phlegm, no chest pain, no hemoptysis. Only trace pretibial edema in lower extremities, patient has right subclavian permacath hemodialysis catheter in place, her IV fluids have been hep-locked, no nausea vomiting or diarrhea, patient is tolerating oral intake and her appetite is improving. Objective - Vital Signs Vital signs: Vital Signs Temp 98 F 11/14/20 02:00 Pulse 81 11/12/20 20:00 Resp 16 11/14/20 02:00 BP 131/64 11/14/20 02:00 Pulse Ox 95 11/14/20 02:00 Intake & Output 11/13/20 11/14/20 11/14/20 18:59 06:59 18:59 Intake Total 500 100 Output Total 360 250 Balance 140 -150 Weight 98.6 kg 97.1 kg Intake: IV 100 KVO 100 Oral 500 Output: Urine 360 250 ABP, PAP, CO, CI - Last Documented Arterial Blood Pressure 180/48 - Exam GENERAL EXAM: Alert, active, pleasant, 70-year-old white female, currently on 4 L of oxygen pulse ox is 95% comfortable in no apparent distress. HEAD: Normocephalic/atraumatic. EYES: Normal reaction of pupils, equal size. Conjunctiva pink, sclera white. NOSE: Clear with pink turbinates. THROAT: No erythema or exudates. NECK: No masses, no JVD, no thyroid enlargement, no adenopathy. CHEST: No chest wall deformity. Symmetrical expansion. Right IJ permacath is in place LUNGS: Equal air entry with no crackles, wheeze, rhonchi or dullness. CVS: Regular rate and rhythm, normal S1 and S2, no gallops, no murmurs, no rubs ABDOMEN: Soft, nontender. No hepatosplenomegaly, normal bowel sounds, no guarding or rigidity. EXTREMITIES: No clubbing, trace pre-tibial edema, no cyanosis, 2+ pulses and upper and lower extremities. 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 SPINE: No scoliosis or deformity SKIN: No rashes CENTRAL NERVOUS SYSTEM: Alert and oriented -3. No focal deficits, tone is normal in all 4 extremities. PSYCHIATRIC: Alert and oriented -3. Appropriate affect. Intact judgment and insight. - Labs CBC & Chem 7: 11/13/20 03:24 11/14/20 03:40 Labs: Abnormal Lab Results - Last 24 Hours (Table) 11/13/20 11/14/20 Range/Units 08:45 03:40 Chloride 109 H 110 H (98-107) mmol/L Carbon Dioxide 20 L 19 L (22-30) mmol/L BUN 24 H 34 H (7-17) mg/dL Creatinine 3.88 H 5.32 H (0.52-1.04) mg/dL Glucose 104 H (74-99) mg/dL ALT 38 H (4-34) U/L Total Protein 5.6 L 5.5 L (6.3-8.2) g/dL Albumin 3.2 L 3.1 L (3.5-5.0) g/dL Microbiology - Last 24 Hours (Table) 11/09/20 14:30 Blood Culture - Preliminary Blood No Growth after 96 hours 11/09/20 14:47 Blood Culture - Preliminary Blood No Growth after 96 hours Assessment and Plan Plan: Assessment: 1 Altered mental status of unclear etiology, improved and recovered, and the patient's mental status has normalized. 2 Acute hypoxemic respiratory failure requiring intubation mechanical ventilatory support on 11/09/2020, secondary to acute fluid volume overload/pulmonary edema. Extubated on 11/10/2020. The patient has chronic systolic CHF with ejection fraction of 40-45% with moderate to severe mitral regurgitation and mild to moderate mitral stenosis. The patient was on 2 L of oxygen at home and currently she is back to 2 L of oxygen by nasal cannula 3 Acute hypotension requiring pressor support, recovered, currently off pressors for the past 24 hours 4 Acute anemia, presenting hemoglobin 6.8, currently 7.4, no transfusions required the patient is receiving Venofer 5 Elevated liver enzymes but improving 6 End stage renal disease on hemodialysis Thursday. The LUE fistula has clotted 7 COPD/asthma follows with senior sharepoint developer out of [place] 8 History of hypertension 9 History of gout 10 History of carnitine deficiency Plan: Patient is doing well, no acute events overnight, today's chest x-ray has been r eviewed, she is maintaining negative fluid balance she will have hemodialysis treatment today. FiO2 has been turned down to 3 L, and this is what the patient usually wears at home, patient is no active complaints, increase activity as tolerated, vital signs have been stable. 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 I performed a history & physical examination of the patient and discussed their management with my nurse practitioner, Luly Joy. I reviewed the nurse practitioner's note and agree with the documented findings and plan of care. Lung sounds are positive for diminished breath sounds. The findings and the impression was discussed with the patient. I attest to the documentation by the nurse practitioner. Time with Patient: Less than 30
[2020-11-14] MEDS ORDERED: HYDROcodone/APAP 5-325MG 1 EACH TAB PO STA (08:50)
[2020-11-14 08:52] VITALS: RESP 18
[2020-11-14] MEDS: MULTIVITAMINS, THERA 1 EACH TAB PO SCH (08:58)
[2020-11-14] MEDS: allopurinoL 100 MG TAB PO SCH (08:59)
[2020-11-14] MEDS: ENOXAPARIN 30 MG/0.3 ML SYRINGE SQ SCH (08:59)
[2020-11-14] MEDS: NON FORMULARY DRUG (Levocarnitine [Levocarnitine] 330 MG Tablet) PO SCH (09:00)
[2020-11-14] MEDS: polyethylene glycoL 3350 17 GM POWD.PACK PO SCH (09:00)
[2020-11-14] MEDS: PANTOPRAZOLE 40 MG/10 ML VIAL IVP SCH (09:01)
[2020-11-14] MEDS: amLODIPine 5 MG TAB PO SCH (09:01)
[2020-11-14] MEDS: CHOLECALCIFEROL 25 MCG (1000 IU) TABLET PO SCH (09:04)
[2020-11-14] MEDS: TIOTROPIUM BR INHALATION SCH (09:06)
[2020-11-14] MEDS: OLODATEROL HCL INHALATION SCH (09:06)
--- NOTE | 2020-11-14 10:34 | P.PN ---
Subjective Patient is seen in follow-up for end-stage renal disease. She is maintained on hemodialysis on Thursday schedule. She was extubated November 10. Currently on 3 L nasal cannula. No chest pain or shortness of breath. Tolerating dialysis well. Wants to go home. Vital signs are stable. General: The patient appeared well nourished and normally developed. HEENT: Head exam is unremarkable. Neck is without jugular venous distension. LUNGS: Breath sounds decreased. HEART: Rate and Rhythm are regular. ABDOMEN: Soft, nontender. EXTREMITITES: Trace edema. Objective - Vital Signs Vital signs: Vital Signs Temp 98.7 F 11/14/20 08:00 Pulse 88 11/14/20 08:00 Resp 18 11/14/20 08:00 BP 131/78 11/14/20 08:00 Pulse Ox 95 11/14/20 08:00 Intake & Output 11/13/20 11/14/20 11/14/20 18:59 06:59 18:59 Intake Total 500 100 Output Total 360 250 Balance 140 -150 Weight 98.6 kg 97.1 kg Intake: IV 100 KVO 100 Oral 500 Output: Urine 360 250 ABP, PAP, CO, CI - Last Documented Arterial Blood Pressure 180/48 - Labs CBC & Chem 7: 11/13/20 03:24 11/14/20 03:40 Labs: Abnormal Lab Results - Last 24 Hours (Table) 11/14/20 Range/Units 03:40 Chloride 110 H (98-107) mmol/L Carbon Dioxide 19 L (22-30) mmol/L BUN 34 H (7-17) mg/dL Creatinine 5.32 H (0.52-1.04) mg/dL Total Protein 5.5 L (6.3-8.2) g/dL Albumin 3.1 L (3.5-5.0) g/dL Microbiology - Last 24 Hours (Table) 11/09/20 14:30 Blood Culture - Preliminary Blood No Growth after 96 hours 11/09/20 14:47 Blood Culture - Preliminary Blood No Growth after 96 hours Assessment and Plan Plan: Assessment: 1. End-stage renal disease maintained on hemodialysis on Thursday schedule. 2. Clotted AV graft. Vascular surgery following. Femoral catheter placed November 10 and removed November 12. Permacath placed November 12. 3. Acute hypoxic and hypercapnic respiratory failure. Extubated November 10. 4. Volume overload. Improved with ultrafiltration. 5. Acute on chronic systolic CHF with ejection fraction of 40-45% with moderate to severe mitral regurgitation and mild to moderate mitral stenosis. 6. Anemia of chronic kidney disease. Maintained on Aranesp. Iron deficiency present. Status post IV iron. 7. Shock likely secondary to pneumonia. Off vasopressors. s/p antibiotics. 8. Metabolic acidosis secondary to chronic kidney disease. Expect improvement postdialysis. Plan: Currently seen while undergoing hemodialysis. Dry weight will be lowered outpatient.
[2020-11-14 13:14] VITALS: BP 128/61; PULSE 90; TEMP 98.1
--- NOTE | 2020-11-15 06:36 | P.DS ---
Providers Date of admission: 11/09/20 14:40 Expected date of discharge: 11/14/20 Attending physician: Ruben Webber Consults: 11/09/20 14:32 Consult Physician Urgent Consulting Provider: Marie Ott Consult Reason/Comments: esrd on hd Do you want consulting provider notified?: Yes 11/09/20 14:40 Consult Physician Stat Consulting Provider: Fransico Garza Consult Reason/Comments: critical care Do you want consulting provider notified?: Already Contacted 11/10/20 09:51 Consult Physician Stat Consulting Provider: Peter Dodge Consult Reason/Comments: hemodialysis catheter Do you want consulting provider notified?: Already Contacted Primary care physician: Amari Keene [facility] Hospital Course: Discharge Diagnosis: Acute on chronic systolic congestive heart failure, ejection fraction 40-45% with moderate to severe mitral regurg and mild to moderate mitral stenosis Acute on chronic hypoxic respiratory failure Hypertension, improved Acute on chronic iron deficiency and chronic disease anemia End-stage renal disease on hemodialysis Thursday/Thursday/Thursday Toxic metabolic encephalopathy Constipation Closed AV graft COPD without exacerbation Shock, resolved, undetermined etiology Transaminitis, improved Hospital Course: Patient is a 70-year-old female with a history of end-stage renal disease on dialysis Thursday and Thursday, CHF unknown EF, and COPD chronically on 2L NC who came in via EMS secondary to decreased responsiveness. In the ER she was obtunded and was intubated. Initial laboratory analysis was significant for hemoglobin of 6.1, BUN 22, creatinine 3.26, calcium 6.5, AST is 124, ALT 112, BNP [id number] urinalysis was negative and a COVID 19 screening negative. Chest x- ray reviewed by myself and shows pulmonary edema with fluid within the right major fissure. She became hypotensive and a central line was placed and she was started on Levophed. She was diagnosed with acute exacerbation of congestive heart failure possibly secondary to decreasing fluid removal from dialysis, symptomatic bradycardia, anemia with positive fecal occult blood. She is admitted to the ICU. Intensive care was consulted. Her repeat hemoglobin came back at 9 in her packed unit of red cells was held. They attempted to do dialysis on the evening of 11/09 however they were unable to do so secondary to inability to access her fistula. Vascular surgery place a temporary dialysis catheter on 11/10 and dialysis was completed. She was able to be extubated later in the day on 11/10. She was satting well on 3 L nasal cannula. She was noted to have a clotted upper extremity graft and had a permacath placed on 11/12. Her blood pressures continued to increase at her hospital stay and her Norvasc was reinitiated but at 5 mg. She was seen by GI on the morning of 11/12 and they suggested EGD and colonoscopy for her anemia however patient declined. Hemoglobin remained stable after her transfusion. She had been receiving IV fluids at dialysis secondary to cramping. She was able to tolerate fluid removal in the hospital with minimal cramping. She was slightly weak but did not want to go to rehab and felt as though she could manage at home. Offered home health care. Determined stable for discharge. Patient seen and examined at bedside on 11/14 at 0820. Currently undergoing dialysis. Denies any cramping, shortness breath, nausea, vomiting. To to go home. Vital signs reviewed and stable. General: non toxic, no distress, appears at stated age Derm: warm, dry Head: atraumatic, normocephalic, symmetric Eyes: EOMI, no lid lag, anicteric sclera Mouth: no lip lesion, mucus membranes moist Cardiovascular: S1S2 reg, no murmur, positive posterior tibial pulse bilateral, Lungs: CTA bilateral, no rhonchi, no rales , no accessory muscle use Abdominal: soft, nontender to palpation, no guarding, no appreciable organomegaly Ext: no gross muscle atrophy, no edema, no contractures Neuro: CN II-XI grossly intact, no focal neuro deficits Psych: Alert, oriented, appropriate affect A total of 35 minutes of time were spent preparing this complex discharge summary . Patient Condition at Discharge: Stable Plan - Discharge Summary New Discharge Prescriptions: New amLODIPine [Norvasc] 5 mg PO DAILY #30 tab Omeprazole 40 mg PO DAILY #30 capsule. Continue Lidocaine-Prilocaine Cream [Emla Cream 2.5%/2.5%] 1 applic TOPICAL DAILY PRN PRN Reason: DIAYLSIS Dialyvite Tablet 1 tab PO DAILY Tiotropium Br/Olodaterol HCl [Stiolto Respimat Inhal [place]] 2 puff INHALATION RT-DAILY Montelukast Sodium [Singulair] 10 mg PO HS Furosemide [Lasix] 40 mg PO SUTUTHSA allopurinoL [Zyloprim] 200 mg PO DAILY Fluticasone Nasal [place] [Flonase Nasal [place]] 1 spray EA NOSTRIL BID Albuterol Inhaler [Ventolin Hfa Inhaler] 2 puff INHALATION RT-Q6H PRN PRN Reason: Shortness Of Breath levOCARNitine [Levocarnitine] 990 mg PO BID Cholecalciferol [Vitamin D3 (25 Mcg = 1000 Iu)] 50 mcg PO DAILY Docusate [Colace] 100 mg PO DAILY PRN PRN Reason: Constipation Melatonin 3 mg PO HS PRN PRN Reason: Insomnia Discontinued Propranolol HCl 20 mg PO DAILY Omeprazole 20 mg PO DAILY amLODIPine [Norvasc] 10 mg PO DAILY Discharge Medication List Albuterol Inhaler [Ventolin Hfa Inhaler] 2 puff INHALATION RT-Q6H PRN 11/09/20 [History] Cholecalciferol [Vitamin D3 (25 Mcg = 1000 Iu)] 50 mcg PO DAILY 11/09/20 [History] Dialyvite Tablet 1 tab PO DAILY 11/09/20 [History] Docusate [Colace] 100 mg PO DAILY PRN 11/09/20 [History] Fluticasone Nasal [place] [Flonase Nasal [place]] 1 spray EA NOSTRIL BID 11/09/20 [History] Furosemide [Lasix] 40 mg PO SUTUTHSA 11/09/20 [History] Lidocaine-Prilocaine Cream [Emla Cream 2.5%/2.5%] 1 applic TOPICAL DAILY PRN 11/09/20 [History] Melatonin 3 mg PO HS PRN 11/09/20 [History] Montelukast Sodium [Singulair] 10 mg PO HS 11/09/20 [History] Tiotropium Br/Olodaterol HCl [Stiolto Respimat Inhal [place]] 2 puff INHALATION RT-DAILY 11/09/20 [History] allopurinoL [Zyloprim] 200 mg PO DAILY 11/09/20 [History] levOCARNitine [Levocarnitine] 990 mg PO BID 11/09/20 [History] Omeprazole 40 mg PO DAILY #30 capsule 11/14/20 [Rx] amLODIPine [Norvasc] 5 mg PO DAILY #30 tab 11/14/20 [Rx] Follow up Appointment(s)/Referral(s): None,Stated [REFERRING] - 1-2 days Activity/Diet/Wound Care/Special Instructions: Activity: as tolerated Diet: renal and heart healthy Special Instructions: Follow-up with your primary doctor Follow-up with your vascular surgeon Follow-up at dialysis on Thursday Monitor blood pressure, pulse ox, and heart rate daily bring these to your appointment with Dr. Ott and your primary doctor Discharge Disposition: HOME WITH HOME HEALTH SERVICES
--- NOTE | 2020-11-20 06:42 | CDI ---
Documentation Clarification Form Date: 11/20/20 From: Frieda Mcintosh Phone: Admit Date: 11/09/2020 02:40:00 PM Patient Name: Elmira Herr Visit Number: [id number] Discharge Date: 11/14/2020 01:10:00 PM ATTENTION: The Clinical Documentation Specialists (CDI) and [facility] Coding Staff appreciate your assistance in clarifying documentation. Please respond to the clarification below the line at the bottom and electronically sign. The CDI & [facility] Coding staff will review the response and follow-up if needed. Please note: Queries are made part of the Legal Health Record. If you have any questions, please contact the author of this message via ITS. Dr. Rosaline Rothman, Conflicting documentation has been found in the medical record: ED note documents clinical impression pneumonia, respiratory failure, GI hemorrhage and septic shock. Your H&P documents -check pro-calcitonin possible underlying pneumonia but most likely CHF. Nephrology consult & PNs documents -shock likely secondary to pneumonia. History/Risk Factors: acute on chronic systolic CHF w moderate to severe mitral regurg and mild to moderate mitral stenosis. Acute on chronic hypoxic resp failure. HTN w ESRD, toxic metabolic encephalopathy, COPD wo exacerbation, shock-undetermined etiology Clinical Indicators: 12/10 CXR-Coarse infiltrates throughout both lung garner compatible with pneumonia. WBC-15.1, Neutrophils-14.1, Procalcitonin-5.66, Treatment: IV Azithromycin, IV Cefepime In your opinion, what is the most clinically appropriate diagnosis for this patient? Sepsis with pneumonia Pneumonia Sepsis No sepsis and no pneumonia Other explanation of clinical findings Unable to determine (no explanation for clinical findings) No sepsis and no pneumonia, ruled out and was acute CHF MTDD
== END 2020-11-14 13:10 | disposition home or self-care (01) | DRG 291 ==
LOC: EC 11:58 → 2SICU 14:40
PROVIDERS: ADMIT Internal Medicine; ATTEND Internal Medicine
PROC: 0BH17EZ Insertion of Endotracheal Airway into Trachea, Via Natural or Artificial Opening (ICD-10-PCS; principal; 2020-11-09)
PROC: 0D9670Z Drainage of Stomach with Drainage Device, Via Natural or Artificial Opening (ICD-10-PCS; principal; 2020-11-09)
PROC: 5A1945Z Respiratory Ventilation, 24-96 Consecutive Hours (ICD-10-PCS; principal; 2020-11-09)
PROC: 3E043XZ Introduction of Vasopressor into Central Vein, Percutaneous Approach (ICD-10-PCS; principal; 2020-11-09)
PROC: 06HM33Z Insertion of Infusion Device into Right Femoral Vein, Percutaneous Approach (ICD-10-PCS; principal; 2020-11-09)
PROC: 4A133B1 Monitoring of Arterial Pressure, Peripheral, Percutaneous Approach (ICD-10-PCS; 2020-11-10)
PROC: 03HY32Z Insertion of Monitoring Device into Upper Artery, Percutaneous Approach (ICD-10-PCS; 2020-11-10)
PROC: 3E0G76Z Introduction of Nutritional Substance into Upper GI, Via Natural or Artificial Opening (ICD-10-PCS; 2020-11-10)
PROC: 4A133J1 Monitoring of Arterial Pulse, Peripheral, Percutaneous Approach (ICD-10-PCS; 2020-11-10)
PROC: 06HY33Z Insertion of Infusion Device into Lower Vein, Percutaneous Approach (ICD-10-PCS; 2020-11-10)
PROC: 5A1D70Z Performance of Urinary Filtration, Intermittent, Less than 6 Hours Per Day (ICD-10-PCS; 2020-11-10)
PROC: 5A09457 Assistance with Respiratory Ventilation, 24-96 Consecutive Hours, Continuous Positive Airway Pressure (ICD-10-PCS; 2020-11-11)
PROC: 0JH63XZ Insertion of Tunneled Vascular Access Device into Chest Subcutaneous Tissue and Fascia, Percutaneous Approach (ICD-10-PCS; 2020-11-12 22:00)
PROC: 02PY33Z Removal of Infusion Device from Great Vessel, Percutaneous Approach (ICD-10-PCS; 2020-11-12 22:00)
PROC: 02H633Z Insertion of Infusion Device into Right Atrium, Percutaneous Approach (ICD-10-PCS; 2020-11-12 22:00)
DX: I13.2 Hypertensive heart and chronic kidney disease with heart failure and with stage 5 chronic kidney disease, or end stage renal disease (principal); I50.23 Acute on chronic systolic (congestive) heart failure; J96.21 Acute and chronic respiratory failure with hypoxia; J96.22 Acute and chronic respiratory failure with hypercapnia; G92 Toxic encephalopathy; N18.6 End stage renal disease; T82.590A Other mechanical complication of surgically created arteriovenous fistula, initial encounter; R57.9 Shock, unspecified; E87.2 Acidosis; J98.11 Atelectasis; E71.40 Disorder of carnitine metabolism, unspecified; I05.2 Rheumatic mitral stenosis with insufficiency; D63.1 Anemia in chronic kidney disease; J44.9 Chronic obstructive pulmonary disease, unspecified; Z99.2 Dependence on renal dialysis; Z20.822 Contact with and (suspected) exposure to COVID-19; I45.10 Unspecified right bundle-branch block; R19.5 Other fecal abnormalities; E61.1 Iron deficiency; K21.9 Gastro-esophageal reflux disease without esophagitis; K59.00 Constipation, unspecified; M10.9 Gout, unspecified; R74.01 Elevation of levels of liver transaminase levels; E66.9 Obesity, unspecified; Z68.34 Body mass index [BMI] 34.0-34.9, adult; Z99.81 Dependence on supplemental oxygen; Z79.899 Other long term (current) drug therapy; Z87.891 Personal history of nicotine dependence; Z90.49 Acquired absence of other specified parts of digestive tract; Z87.19 Personal history of other diseases of the digestive system; Z98.890 Other specified postprocedural states; Z88.2 Allergy status to sulfonamides; Z88.8 Allergy status to other drugs, medicaments and biological substances; Z91.041 Radiographic dye allergy status; Z88.0 Allergy status to penicillin; Z91.013 Allergy to seafood; Z82.49 Family history of ischemic heart disease and other diseases of the circulatory system; Y84.1 Kidney dialysis as the cause of abnormal reaction of the patient, or of later complication, without mention of misadventure at the time of the procedure
CPT/HCPCS: 36415; 36556; 36558; 36580; 36600; 70450; 71045; 76937; 77001; 80048; 80053; 81001; 82272; 82728; 82805; 83540; 83550; 83605; 83735; 83880; 84100; 84145; 84484; 85025; 85027; 85610; 85730; 86850; 86900; 86901; 86920; 87040; 87070; 87205; 87635; 90935; 93005; 93306; 94002; 94003; 94640; 96361; 96365; 96368; 96375; 99291

== ENCOUNTER 2021-10-07 19:21 | Inpatient (IN) | payer MEDICARE, BC ==
[2021-10-07] MEDS ORDERED: IPRATROPIUM-ALBUTEROL 3 ML NEB INHALATION STA (20:01)
[2021-10-07] MEDS ORDERED: MAGNESIUM SULFATE-D5W PMX 1 GM in DEXTROSE/WATER 1 100ML.BAG IVPB STA (20:01)
--- NOTE | 2021-10-07 21:09 | XR ---
EXAMINATION TYPE: XR chest 2V DATE OF EXAM: 10/07/2021 8:44 PM COMPARISON:Multiple radiographs, with the most recent on 11/14/2020 TECHNIQUE: Frontal view of the chest. CLINICAL INDICATION:Female, 71 years old with history of difficulty breathing; FINDINGS: Lungs/Pleura: Multifocal airspace opacities. No evidence of pneumothorax or pleural effusion. Pulmonary vascularity: Pulmonary vascular congestion. Heart/mediastinum: Cardiomediastinal silhouette is enlarged and partially obscured due to overlying a nd adjacent opacities. Musculoskeletal:No acute osseous pathology. Other findings: None IMPRESSION: Bilateral diffuse airspace opacities with cardiomegaly could with pulmonary vascular congestion. Charla elate with serum BNP. Superimposed atypical pneumonia is not entirely excluded.
[2021-10-07] MEDS ORDERED: ACETAMINOPHEN TAB 500 MG TAB PO STA (21:10)
[2021-10-07 21:21] LABS: Partial Thromboplastin Time 23.1 sec (22.0-30.0); Prothrombin Time 10.8 sec (9.0-12.0)
[2021-10-07 21:26] LABS: Anisocytosis Slight; Basophils % (A) 0 %; Eosinophils % (A) 0 %; HCT 29.1 % (34.0-46.0); HGB 8.3 gm/dL (11.4-16.0); Hypochromasia Marked; Lymphocytes # (A) 0.5 k/uL (1.0-4.8); Lymphocytes % (A) 5 %; MCH 25.8 pg (25.0-35.0); MCHC 28.4 g/dL (31.0-37.0); MCV 90.7 fL (80.0-100.0); Mean Platelet Volume 8.3; Monocytes # (A) 0.4 k/uL (0-1.0); Monocytes % (A) 4 %; Neutrophils # (A) 8.8 k/uL (1.3-7.7); Neutrophils % (A) 89 %; Platelet Count 287 k/uL (150-450); Poikilocytosis Slight; RBC 3.21 m/uL (3.80-5.40); RDW 18.7 % (11.5-15.5); WBC 9.8 k/uL (3.8-10.6)
[2021-10-07 21:27] LABS: Albumin 3.2 g/dL (3.5-5.0); Calcium 8.4 mg/dL (8.4-10.2); Magnesium 1.8 mg/dL (1.6-2.3); Potassium 4.2 mmol/L (3.5-5.1); Total Bilirubin 0.9 mg/dL (0.2-1.3); Total Protein 5.7 g/dL (6.3-8.2)
--- NOTE | 2021-10-07 22:00 | ED ---
SOB HPI - General Chief Complaint: Shortness of Breath Stated Complaint: LOW O2 Time Seen by Provider: 10/07/21 19:30 Source: patient Mode of arrival: ambulatory Limitations: no limitations - History of Present Illness Initial Comments: Patient is a 71-year-old female past history of COPD on 3 L of home O2, esrd on hemodialysis Thursday and Thursday who presents to the emergency department with increased work of breathing. Patient states that she has been short of breath for 2 weeks. She saw her primary care doctor who placed her on doxycycline and a low-dose of prednisone as she does not tolerate high dose steroids. She had improvement in her symptoms however ran out of the doxycycline and this is when her breathing got worse. She did go to dialysis today however only tolerated half of the treatments. They were able to remove her fluid however due to her work of breathing she did not tolerate the second half. Patient arrives on her 3 L and is currently saturating 49%. She is not covid vaccinated. Also admits to a history of heart failure. She is on Lasix 40 mg on days that she does not have dialysis. She denies any fevers or cough. No chest pain. No other alleviating, precipitating or modifying factors - Related Data Home Medications Medication Instructions Recorded Confirmed Albuterol Inhaler [Ventolin Hfa 2 puff INHALATION RT-Q4H PRN 11/09/20 10/07/21 Inhaler] Cholecalciferol [Vitamin D3 (25 50 mcg PO DAILY 11/09/20 10/07/21 Mcg = 1000 Iu)] Dialyvite Tablet 1 tab PO DAILY 11/09/20 10/07/21 Docusate [Colace] 100 mg PO DAILY PRN 11/09/20 10/07/21 Furosemide [Lasix] 40 mg PO SUTUTHSA 11/09/20 10/07/21 Lidocaine-Prilocaine Cream [Emla 1 applic TOPICAL DAILY PRN 11/09/20 10/07/21 Cream 2.5%/2.5%] Melatonin 3 mg PO HS PRN 11/09/20 10/07/21 Montelukast Sodium [Singulair] 10 mg PO HS 11/09/20 10/07/21 Tiotropium Br/Olodaterol HCl 2 puff INHALATION RT-DAILY 11/09/20 10/07/21 [Stiolto Respimat Inhal [place]] allopurinoL [Zyloprim] 200 mg PO DAILY 11/09/20 10/07/21 levOCARNitine [Levocarnitine] 990 mg PO BID 11/09/20 10/07/21 Lactulose 20 gm PO DAILY PRN 10/07/21 10/07/21 Ondansetron Odt [Zofran ODT] 4 mg PO DAILY PRN 10/07/21 10/07/21 Ondansetron [Zofran] 8 mg PO Q8H PRN 10/07/21 10/07/21 guaiFENesin [Mucinex] 600 mg PO DAILY PRN 10/07/21 10/07/21 predniSONE [Deltasone] 10 mg PO BID 10/07/21 10/07/21 Previous Rx's Medication Instructions Recorded Acetaminophen Tab [Tylenol] 650 mg PO Q6HR PRN tab 10/21/21 Darbepoetin Fuentes [Aranesp] 40 mcg SQ Q7D each 10/21/21 Midodrine HCl 5 mg PO MOWEFR PRN #30 tablet 10/21/21 Allergies Allergy/AdvReac Type Severity Reaction Status Date / Time Corticosteroids Allergy Unknown Verified 10/07/21 20:21 (Glucocorticoids) iodine Allergy Unknown Verified 10/07/21 20:21 Penicillins Allergy Unknown Verified 10/07/21 20:21 shellfish derived [Shellfish] Allergy Unknown Verified 10/07/21 20:21 Mugoctd-JTB-ToY Reductase Allergy Unknown Verified 10/07/21 20:21 Inhibitor [Rqnngzx-Axt-Oyb Reductase Inhibitor] Sulfa (Sulfonamide Allergy Unknown Verified 10/07/21 20:21 Antibiotics) Review of Systems ROS Statement: Those systems with pertinent positive or pertinent negative responses have been documented in the HPI. ROS Other: All systems not noted in ROS Statement are negative. Past Medical History Past Medical History: Hypertension Additional Past Medical History / Comment(s): ESRD on M/W/F last on 11/07 on HD for 1.75 years, CHF, COPD on 2.5 L NC, History of Any Multi-Drug Resistant Organisms: None Reported Past Surgical History: Cholecystectomy Additional Past Surgical History / Comment(s): Left Upper arm graft, hs of HD cath right, Salivary gland tumor, leonides Smoking Status: Former smoker Past Alcohol Use History: None Reported Past Drug Use History: None Reported - Past Family History Father Family Medical History: Unable to Obtain Mother Family Medical History: Congestive Heart Failure (CHF) General Exam Limitations: no limitations General appearance: alert, in no apparent distress Head exam: Present: atraumatic, normocephalic, normal inspection Eye exam: Present: normal appearance, PERRL, EOMI. Absent: scleral icterus, conjunctival injection, periorbital swelling ENT exam: Present: normal exam, mucous membranes moist Neck exam: Present: normal inspection. Absent: tenderness, meningismus, lymphadenopathy Respiratory exam: Present: respiratory distress, wheezes, accessory muscle use, decreased breath sounds. Absent: rales, rhonchi, stridor Cardiovascular Exam: Present: normal rhythm, tachycardia, normal heart sounds. Absent: systolic murmur, diastolic murmur, rubs, gallop, clicks GI/Abdominal exam: Present: soft, normal bowel sounds. Absent: distended, tenderness, guarding, rebound, rigid Extremities exam: Present: normal inspection, full ROM, normal capillary refill. Absent: tenderness, pedal edema, joint swelling, calf tenderness Back exam: Present: normal inspection Neurological exam: Present: alert, oriented X3, CN II-XII intact Psychiatric exam: Present: normal affect, normal mood Skin exam: Present: warm, dry, intact, normal color. Absent: rash Course Vital Signs 10/07/21 10/07/21 10/07/21 19:27 20:10 20:19 Pulse Rate 110 H 102 H 106 H Respiratory 42 H Rate Blood Pressure 107/45 O2 Sat by Pulse 49 L Oximetry 10/07/21 10/07/21 10/07/21 20:59 22:11 23:50 Pulse Rate 109 H 105 H Respiratory 30 H 28 H Rate Blood Pressure 125/72 133/76 O2 Sat by Pulse 97 95 75 L Oximetry 10/08/21 10/08/21 10/08/21 00:08 02:31 03:38 Pulse Rate 100 90 87 Respiratory 30 H 20 20 Rate Blood Pressure 120/66 119/75 116/74 O2 Sat by Pulse 92 L 96 96 Oximetry 10/08/21 10/08/21 10/08/21 06:51 07:56 08:35 Pulse Rate 95 99 101 H Respiratory 22 25 H 30 H Rate Blood Pressure 103/61 117/61 118/70 O2 Sat by Pulse 98 96 94 L Oximetry 10/08/21 10/08/21 10/08/21 09:11 10:33 11:00 Pulse Rate 96 86 84 Respiratory 31 H 30 H 22 Rate Blood Pressure 106/96 93/49 97/54 O2 Sat by Pulse 93 L 94 L 96 Oximetry 10/08/21 10/08/21 16:35 18:57 Pulse Rate 87 99 Respiratory 15 24 Rate Blood Pressure 98/50 114/57 O2 Sat by Pulse 95 95 Oximetry Procedures - Fonda Protocol (Time Out) Nurse: Demetrius Jean Medical Decision Making - Medical Decision Making Upon arrival patient was placed into trauma 3. She is placed on a nonrebreather. Laboratory studies were conducted and a portable chest x-ray was performed. Laboratory studies are reviewed and demonstrate a anemia of 8.3. Troponin is 0.979. BNP 98,400. Covid is detected. Chest x-ray demonstrates bilateral diffuse airspace opacities with cardiomegaly. Patient remains with oxygenation of 94% on 15 L. I did attempt to give the patient steroids however she refused. I did recommend admission for which the patient did agree to. Spoke with Dr. Coronado who does evaluate the patient in the emergency department. Pulmonology will be placed on consult. Patient has continued work of breathing and is placed on Bipap in the ED> She remained in stable condition awaiting a bed on the floor - Lab Data Result diagrams: 10/20/21 04:48 10/20/21 04:48 Lab Results 10/07/21 10/07/21 10/07/21 Range/Units 20:15 20:34 20:34 WBC 9.8 (3.8-10.6) k/uL RBC 3.21 L (3.80-5.40) m/uL Hgb 8.3 L (11.4-16.0) gm/dL Hct 29.1 L (34.0-46.0) % MCV 90.7 (80.0-100.0) fL MCH 25.8 (25.0-35.0) pg MCHC 28.4 L (31.0-37.0) g/dL RDW 18.7 H (11.5-15.5) % Plt Count 287 (150-450) k/uL MPV 8.3 Neutrophils % 89 % Lymphocytes % 5 % Monocytes % 4 % Eosinophils % 0 % Basophils % 0 % Neutrophils # 8.8 H (1.3-7.7) k/uL Lymphocytes # 0.5 L (1.0-4.8) k/uL Monocytes # 0.4 (0-1.0) k/uL Eosinophils # 0.0 (0-0.7) k/uL Basophils # 0.0 (0-0.2) k/uL Hypochromasia Marked Poikilocytosis Slight Anisocytosis Slight PT 10.8 (9.0-12.0) sec INR 1.0 (<1.2) APTT 23.1 (22.0-30.0) sec Sodium (137-145) mmol/L Potassium (3.5-5.1) mmol/L Chloride (98-107) mmol/L Carbon Dioxide (22-30) mmol/L Anion Gap mmol/L BUN (7-17) mg/dL Creatinine (0.52-1.04) mg/dL Est GFR (CKD-EPI)AfAm (>60 ml/min/1.73 sqM) Est GFR (CKD-EPI)NonAf (>60 ml/min/1.73 sqM) Glucose (74-99) mg/dL Plasma Lactic Acid Johnny (0.7-2.0) mmol/L Calcium (8.4-10.2) mg/dL Magnesium (1.6-2.3) mg/dL Total Bilirubin (0.2-1.3) mg/dL AST (14-36) U/L ALT (4-34) U/L Alkaline Phosphatase (38-126) U/L Troponin I (0.000-0.034) ng/mL NT-Pro-B Natriuret Pep pg/mL Total Protein (6.3-8.2) g/dL Albumin (3.5-5.0) g/dL Coronavirus (PCR) Detected A (Not Detectd) 10/07/21 10/07/21 10/07/21 Range/Units 20:34 20:34 20:34 WBC (3.8-10.6) k/uL RBC (3.80-5.40) m/uL Hgb (11.4-16.0) gm/dL Hct (34.0-46.0) % MCV (80.0-100.0) fL MCH (25.0-35.0) pg MCHC (31.0-37.0) g/dL RDW (11.5-15.5) % Plt Count (150-450) k/uL MPV Neutrophils % % Lymphocytes % % Monocytes % % Eosinophils % % Basophils % % Neutrophils # (1.3-7.7) k/uL Lymphocytes # (1.0-4.8) k/uL Monocytes # (0-1.0) k/uL Eosinophils # (0-0.7) k/uL Basophils # (0-0.2) k/uL Hypochromasia Poikilocytosis Anisocytosis PT (9.0-12.0) sec INR (<1.2) APTT (22.0-30.0) sec Sodium 135 L (137-145) mmol/L Potassium 4.2 (3.5-5.1) mmol/L Chloride 96 L (98-107) mmol/L Carbon Dioxide 28 (22-30) mmol/L Anion Gap 11 mmol/L BUN 34 H (7-17) mg/dL Creatinine 4.63 H (0.52-1.04) mg/dL Est GFR (CKD-EPI)AfAm 10 (>60 ml/min/1.73 sqM) Est GFR (CKD-EPI)NonAf 9 (>60 ml/min/1.73 sqM) Glucose 110 H (74-99) mg/dL Plasma Lactic Acid Johnny 1.3 (0.7-2.0) mmol/L Calcium 8.4 (8.4-10.2) mg/dL Magnesium 1.8 (1.6-2.3) mg/dL Total Bilirubin 0.9 (0.2-1.3) mg/dL AST 34 (14-36) U/L ALT 16 (4-34) U/L Alkaline Phosphatase 62 (38-126) U/L Troponin I 0.979 H* (0.000-0.034) ng/mL NT-Pro-B Natriuret Pep pg/mL Total Protein 5.7 L (6.3-8.2) g/dL Albumin 3.2 L (3.5-5.0) g/dL Coronavirus (PCR) (Not Detectd) 10/07/21 Range/Units 20:34 WBC (3.8-10.6) k/uL RBC (3.80-5.40) m/uL Hgb (11.4-16.0) gm/dL Hct (34.0-46.0) % MCV (80.0-100.0) fL MCH (25.0-35.0) pg MCHC (31.0-37.0) g/dL RDW (11.5-15.5) % Plt Count (150-450) k/uL MPV Neutrophils % % Lymphocytes % % Monocytes % % Eosinophils % % Basophils % % Neutrophils # (1.3-7.7) k/uL Lymphocytes # (1.0-4.8) k/uL Monocytes # (0-1.0) k/uL Eosinophils # (0-0.7) k/uL Basophils # (0-0.2) k/uL Hypochromasia Poikilocytosis Anisocytosis PT (9.0-12.0) sec INR (<1.2) APTT (22.0-30.0) sec Sodium (137-145) mmol/L Potassium (3.5-5.1) mmol/L Chloride (98-107) mmol/L Carbon Dioxide (22-30) mmol/L Anion Gap mmol/L BUN (7-17) mg/dL Creatinine (0.52-1.04) mg/dL Est GFR (CKD-EPI)AfAm (>60 ml/min/1.73 sqM) Est GFR (CKD-EPI)NonAf (>60 ml/min/1.73 sqM) Glucose (74-99) mg/dL Plasma Lactic Acid Jonhny (0.7-2.0) mmol/L Calcium (8.4-10.2) mg/dL Magnesium (1.6-2.3) mg/dL Total Bilirubin (0.2-1.3) mg/dL AST (14-36) U/L ALT (4-34) U/L Alkaline Phosphatase (38-126) U/L Troponin I (0.000-0.034) ng/mL NT-Pro-B Natriuret Pep 56232 pg/mL Total Protein (6.3-8.2) g/dL Albumin (3.5-5.0) g/dL Coronavirus (PCR) (Not Detectd) - EKG Data EKG Comments: EKG demonstrates sinus tachycardia with ventricular rate of 105. ID interval 172. QRS 148. QTC of 491. ST depression 1, 2, V5 through V6 Critical Care Time Critical Care Time: Yes Critical Care Time: 45 minutes for hypoxic resp failure requring bipap Disposition Clinical Impression: Hypoxia, COVID-19 virus infection, Atypical pneumonia, BiPAP (biphasic positive airway pressure) dependence, ESRD (end stage renal disease) on dialysis Disposition: ADMITTED IP TO THIS [facility] Condition: Serious Is patient prescribed a controlled substance at d/c from ED?: No Decision to Admit Reason: Admit from EC Decision Date: 10/07/21 Decision Time: 22:10
[2021-10-07] MEDS ORDERED: NALOXONE 0.4 MG/ML 1 ML VIAL IV PRN (22:10)
[2021-10-07] MEDS ORDERED: FUROSEMIDE 10 MG/ML 10 ML VIAL IV STA (22:40)
--- NOTE | 2021-10-08 00:26 | P.HPIM ---
History of Present Illness H&P Date: 10/07/21 Chief Complaint: Hypoxemia 71-year-old female with end-stage renal disease on hemodialysis Thursday Patient comes into the hospital due to hypoxemia today during having her dialysis session she was found to have hypoxemia at 68% otherwise patient was asymptomatic for which her dialysis session was cut short and she was sent to the hospital for evaluation upon arrival she was denying any shortness of breath however her oxygen saturation was in the mid 40s. Patient is known to have advanced COPD on 3 L nasal cannula at home however currently she was hypoxemic despite her home oxygen. She recalls having respiratory symptoms for the past 2 weeks for which her doctor over telehealth prescribed for her prednisone and doxycycline that she's been taking other than that she denies any fevers or chills denies any sore throat runny nose or congestion denies any diffuse body aches diarrhea or abdominal pain. She is feeling fine she is him vaccinated against Covid but she did not suspect having Covid no one is sick around her home and she was not tested. Patient otherwise reporting feeling tired and generally weak, she is not happy that she has to stay in the hospital. Upon arrival to the ED and was found to be hypoxemic patient tested positive for Covid. Blood work overall stable showing end-stage renal disease, chronic anemia, elevated troponin however patient denies any chest pain. Patient refusing Decadron and asking to continue on the prednisone 10 mg twice a day which is the only does that she can tolerate Patient is currently on nonrebreather satting in the mid 90s Review of Systems Pertinent positives as noted in HPI. All other systems were reviewed and are negative Past Medical History Past Medical History: Hypertension Additional Past Medical History / Comment(s): ESRD on M/W/F last on 11/07 on HD for 1.75 years, CHF, COPD on 2.5 L NC, History of Any Multi-Drug Resistant Organisms: None Reported Past Surgical History: Cholecystectomy Additional Past Surgical History / Comment(s): Left Upper arm graft, hs of HD cath right, Salivary gland tumor, leonides Smoking Status: Former smoker Past Alcohol Use History: None Reported Past Drug Use History: None Reported - Past Family History Father Family Medical History: Unable to Obtain Mother Family Medical History: Congestive Heart Failure (CHF) Medications and Allergies Home Medications Medication Instructions Recorded Confirmed Type Albuterol Inhaler [Ventolin Hfa 2 puff INHALATION RT-Q4H PRN 11/09/20 10/07/21 History Inhaler] Cholecalciferol [Vitamin D3 (25 50 mcg PO DAILY 11/09/20 10/07/21 History Mcg = 1000 Iu)] Dialyvite Tablet 1 tab PO DAILY 11/09/20 10/07/21 History Docusate [Colace] 100 mg PO DAILY PRN 11/09/20 10/07/21 History Furosemide [Lasix] 40 mg PO SUTUTHSA 11/09/20 10/07/21 History Lidocaine-Prilocaine Cream [Emla 1 applic TOPICAL DAILY PRN 11/09/20 10/07/21 History Cream 2.5%/2.5%] Melatonin 3 mg PO HS PRN 11/09/20 10/07/21 History Montelukast Sodium [Singulair] 10 mg PO HS 11/09/20 10/07/21 History Tiotropium Br/Olodaterol HCl 2 puff INHALATION RT-DAILY 11/09/20 10/07/21 History [Stiolto Respimat Inhal [place]] allopurinoL [Zyloprim] 200 mg PO DAILY 11/09/20 10/07/21 History levOCARNitine [Levocarnitine] 990 mg PO BID 11/09/20 10/07/21 History amLODIPine [Norvasc] 5 mg PO DAILY #30 tab 11/14/20 10/07/21 Rx Doxycycline Hyclate 100 mg PO BID 10/07/21 10/07/21 History Lactulose 20 gm PO DAILY PRN 10/07/21 10/07/21 History Ondansetron Odt [Zofran Odt] 4 mg PO DAILY PRN 10/07/21 10/07/21 History Ondansetron [Zofran] 8 mg PO Q8H PRN 10/07/21 10/07/21 History guaiFENesin [Mucinex] 600 mg PO DAILY PRN 10/07/21 10/07/21 History predniSONE [Deltasone] 10 mg PO BID 10/07/21 10/07/21 History Allergies Allergy/AdvReac Type Severity Reaction Status Date / Time Corticosteroids Allergy Unknown Verified 10/07/21 20:21 (Glucocorticoids) iodine Allergy Unknown Verified 10/07/21 20:21 Penicillins Allergy Unknown Verified 10/07/21 20:21 shellfish derived [Shellfish] Allergy Unknown Verified 10/07/21 20:21 Gebwjoa-YYM-YjG Reductase Allergy Unknown Verified 10/07/21 20:21 Inhibitor [Pscoboe-Uho-Jjw Reductase Inhibitor] Sulfa (Sulfonamide Allergy Unknown Verified 10/07/21 20:21 Antibiotics) Physical Exam Vitals: Vital Signs Pulse Resp BP Pulse Ox 10/08/21 00:08 100 30 H 120/66 92 L 10/07/21 23:50 75 L 10/07/21 22:11 105 H 28 H 133/76 95 10/07/21 20:59 109 H 30 H 125/72 97 10/07/21 20:19 106 H 10/07/21 20:10 102 H 10/07/21 19:27 110 H 42 H 107/45 49 L Intake and Output 10/07/21 10/07/21 10/08/21 14:59 22:59 06:59 Other: Weight 84.5 kg Constitutional: No acute distress, conversant, pleasant, currently on nonrebreather satting in the mid 90s percent Eyes: Anicteric sclerae, moist conjunctiva, Pupils equal round reactive to light ENMT: NC/AT Oropharynx clear, no erythema, or exudates Neck: Supple, , no masses, or JVD No carotid bruits No thyromegaly Lungs: Diminished breath sounds throughout Clear to percussion Normal respiratory effort, no accessory muscle use Cardiovascular: Heart regular in rate and rhythm, No murmurs, gallops, or rubs Bilateral +2 pitting leg edema Abdominal: Soft Nontender, no guarding, rebound or rigidity Abdomen moving with respiration Normoactive bowel sounds No hepatomegaly, No splenomegaly Skin: Normal temperature, tone, texture, turgor No induration No subcutaneous nodules No rash, lesions No ulcers Extremities: No digital cyanosis No clubbing Pedal pulses intact and symmetrical Radial pulses intact and symmetrical No calf tenderness Psychiatric: Alert and oriented to person, place and time Appropriate affect fair judgement Neuro Muscles Strength +3/5 in all 4 extremities Sensation to light touch grossly present throughout Cranial nerves II-XII grossly intact No focal sensory deficits Lymphatics: no palpable cervical or supraclavicular , or inguinal lymph nodes Results CBC & Chem 7: 10/07/21 20:34 10/07/21 20:34 Labs: Abnormal Lab Results - Last 24 Hours (Table) 10/07/21 10/07/21 10/07/21 Range/Units 20:15 20:34 20:34 RBC 3.21 L (3.80-5.40) m/uL Hgb 8.3 L (11.4-16.0) gm/dL Hct 29.1 L (34.0-46.0) % MCHC 28.4 L (31.0-37.0) g/dL RDW 18.7 H (11.5-15.5) % Neutrophils # 8.8 H (1.3-7.7) k/uL Lymphocytes # 0.5 L (1.0-4.8) k/uL Sodium 135 L (137-145) mmol/L Chloride 96 L (98-107) mmol/L BUN 34 H (7-17) mg/dL Creatinine 4.63 H (0.52-1.04) mg/dL Glucose 110 H (74-99) mg/dL Troponin I (0.000-0.034) ng/mL Total Protein 5.7 L (6.3-8.2) g/dL Albumin 3.2 L (3.5-5.0) g/dL Coronavirus (PCR) Detected A (Not Detectd) 10/07/21 Range/Units 20:34 RBC (3.80-5.40) m/uL Hgb (11.4-16.0) gm/dL Hct (34.0-46.0) % MCHC (31.0-37.0) g/dL RDW (11.5-15.5) % Neutrophils # (1.3-7.7) k/uL Lymphocytes # (1.0-4.8) k/uL Sodium (137-145) mmol/L Chloride (98-107) mmol/L BUN (7-17) mg/dL Creatinine (0.52-1.04) mg/dL Glucose (74-99) mg/dL Troponin I 0.979 H* (0.000-0.034) ng/mL Total Protein (6.3-8.2) g/dL Albumin (3.5-5.0) g/dL Coronavirus (PCR) (Not Detectd) Assessment and Plan Assessment: Acute on chronic hypoxic hypoxic respiratory failure secondary to end-stage COPD, with currently acute Covid pneumonia Covid pneumonia Plan Pulmonary consultation Supplemental oxygen targeting oxygen saturation above 92% Lovenox subcu for DVT prophylaxis Supportive care Cardiac telemetry Droplet and contact precautions Continue with prednisone 10 mg twice a day per patient request, she declined Decadron Tylenol for fever Chest x-ray reviewed Check d-dimer, LDH, ferritin, CRP, troponin, for prognostic value Chronic conditions In discussions renal disease on hemodialysis Thursday Nephrology consultation to continue with hemodialysis Hypertension, resume home blood pressure medications End-stage COPD on supplemental oxygen Continue with home inhalers Anemia of chronic disease, patient denies any bleeding Elevated troponin this could be a component of end-stage renal disease, we'll trend troponins, this also could be component of acute Covid pneumonia. Patient denies any chest pain or shortness of breath Patient is full code DVT prophylaxis Lovenox subcu daily Anticipated length of stay more than 2 midnights
[2021-10-08 00:30] LABS: ABG HCO3 32 mmol/L (21-25); ABG Oxygen Saturation 92.8 % (94-97); ABG PH 7.26 (7.35-7.45); ABG PO2 76 mmHg (83-108); ABG TCO2 34 mmol/L (19-24); Allen Test Performed? Yes
[2021-10-08] MEDS ORDERED: predniSONE 10 MG TAB PO SCH (00:30)
[2021-10-08 00:31] LABS: ABG PCO2 72 mmHg (35-45)
[2021-10-08] MEDS: levOCARNitine (WITH SUGAR) 100 MG/ML BOTTLE PO SCH ×2 (00:49→08:56)
[2021-10-08] MEDS: MONTELUKAST 10 MG TAB PO SCH ×2 (00:49→21:48)
[2021-10-08 03:34] LABS: Calcium 8.5 mg/dL (8.4-10.2); Potassium 4.2 mmol/L (3.5-5.1)
[2021-10-08 03:44] LABS: Anisocytosis Slight; Basophils % (A) 0 %; Eosinophils % (A) 0 %; HCT 28.6 % (34.0-46.0); HGB 7.9 gm/dL (11.4-16.0); Hypochromasia Marked; Lymphocytes # (A) 0.4 k/uL (1.0-4.8); Lymphocytes % (A) 3 %; MCHC 27.8 g/dL (31.0-37.0); MCV 93.6 fL (80.0-100.0); Mean Platelet Volume 8.1; Monocytes # (A) 0.4 k/uL (0-1.0); Monocytes % (A) 4 %; Neutrophils # (A) 10.4 k/uL (1.3-7.7); Neutrophils % (A) 92 %; Platelet Count 279 k/uL (150-450); Poikilocytosis Slight; RBC 3.05 m/uL (3.80-5.40); RDW 18.4 % (11.5-15.5); WBC 11.3 k/uL (3.8-10.6)
[2021-10-08 04:21] LABS: C Reactive Protein 21.4 mg/dL (<1.0)
[2021-10-08 05:47] LABS: ABG Base Excess 4.2 mmol/L; ABG HCO3 31 mmol/L (21-25); ABG Oxygen Saturation 96.8 % (94-97); ABG PH 7.25 (7.35-7.45); ABG PO2 97 mmHg (83-108); ABG TCO2 34 mmol/L (19-24); Allen Test Performed? Yes
[2021-10-08 05:49] LABS: ABG PCO2 72 mmHg (35-45)
[2021-10-08] MEDS ORDERED: TIOTROPIUM 2.5 MCG INHALER INHALATION SCH (08:00)
[2021-10-08] MEDS: Salmeterol 50 mcg INHALER INHALATION SCH ×2 (08:23→19:51)
[2021-10-08] MEDS: DEXAMETHASONE SOD PHOSPHATE 10 MG/ML 1 ML VIAL IVP SCH (08:36)
[2021-10-08] MEDS: amLODIPine 5 MG TAB PO SCH (08:37)
[2021-10-08] MEDS: allopurinoL 100 MG TAB PO SCH (08:37)
[2021-10-08] MEDS: ENOXAPARIN 30 MG/0.3 ML SYRINGE SQ SCH (08:37)
--- NOTE | 2021-10-08 08:50 | US ---
EXAMINATION TYPE: US venous doppler duplex LE DATE OF EXAM: 10/08/2021 8:40 AM COMPARISON: NONE CLINICAL HISTORY: elevated d-dimer. SIDE PERFORMED: Bilateral TECHNIQUE: The lower extremity deep venous system is examined utilizing real time linear array sonog yael with graded compression, doppler sonography and color-flow sonography. VESSELS IMAGED: Common Femoral Vein - not seen Deep Femoral Vein - not seen Greater Saphenous Vein * - not seen Femoral Vein Popliteal Vein Small Saphenous Vein * Proximal Calf Veins (* superficial vessels) Bilateral exam started at proximal femoral vein due to patient sitting forward, refused to lay back Right Leg: Visualized portions appear negative for DVT Left Leg: Visualized portions appear negative for DVT IMPRESSION: No evidence for DVT.
[2021-10-08] MEDS ORDERED: ENOXAPARIN 40 MG/0.4 ML SYRINGE SQ SCH (09:00)
--- NOTE | 2021-10-08 10:37 | P.CNPUL ---
History of Present Illness Consult date: 10/08/21 Requesting physician: Massiel Powell Reason for consult: dyspnea, hypoxemia, abnormal CXR/CT Chief complaint: Shortness of breath, cough for 2 weeks History of present illness: This is a 71-year-old female patient who follows with Dr. Keene as her primary care provider. She has a history of end-stage renal disease receiving hemodialysis on Thursday, hypertension, chronic obstructive pulmonary disease follow with Dr. Denney out of [facility], gastroesophageal reflux disease, gout, carnitine deficiency. She also has a previous history of acute hypoxemic respiratory failure requiring intubation mechanical ventilatory support back in October 2020 here at [facility]. She was brought into the emergency room last evening with a two-week history of increasing shortness of breath cough and congestion. She did have a patella help visit with her PCP and was started on doxycycline and prednisone. Not much improvement. She did test positive for COVID-19 here. She is not vaccinated. Chest x-ray shows bilateral patchy infiltrates. She is seen in the emergency room. Sitting up on the stretcher. On BiPAP 14/6 and 65% FiO2. Blood gases revealed a PaO2 of 97, pCO2 72, pH 7.25. White count 11.3. Hemoglobin 7.9. Lymphocytes 0.4. D-dimer 2.69. Sodium 134. Potassium 4.2. BUN 38. Creatinine 5.38. Ferritin 762. LDH 742. C-reactive protein 21.4. Troponins 0.97, 0.97, 0.98. ProBNP 98,400. She was initiated on Decadron, Lovenox, vitamin supplements. Continued on Ventolin, Singulair, Spiriva and Serevent. Review of Systems REVIEW OF SYSTEMS: CONSTITUTIONAL: Denies any recent significant weight loss or weight gain. EYES: Denies change in vision. EARS, NOSE, MOUTH, THROAT: Denies headaches, denies sore throat. CARDIOVASCULAR: Denies chest pain, palpitations or syncopal episodes. RESPIRATORY: Positive for shortness of breath, cough, congestion no hemoptysis. GASTROINTESTINAL: Denies change in appetite, denies abdominal pain GENITOURINARY: Denies hematuria, denies infections. MUSKULOSKELETAL: Denies pain, denies swelling. INTEGUMENTARY: Denies rash, denies eczema. NEUROLOGICAL: Denies recent memory loss, no recent seizure activity. PSYCHIATRIC: Denies anxiety, denies depression. HEMATOLOGIC/LYMPHATIC: Denies anemia, denies enlarged lymph nodes. Past Medical History Past Medical History: Hypertension Additional Past Medical History / Comment(s): ESRD on M/W/F last on 11/07 on HD for 1.75 years, CHF, COPD on 2.5 L NC, History of Any Multi-Drug Resistant Organisms: None Reported Past Surgical History: Cholecystectomy Additional Past Surgical History / Comment(s): Left Upper arm graft, hs of HD cath right, Salivary gland tumor, leonides Smoking Status: Former smoker Past Alcohol Use History: None Reported Past Drug Use History: None Reported - Past Family History Father Family Medical History: Unable to Obtain Mother Family Medical History: Congestive Heart Failure (CHF) Medications and Allergies Home Medications Medication Instructions Recorded Confirmed Type Albuterol Inhaler [Ventolin Hfa 2 puff INHALATION RT-Q4H PRN 11/09/20 10/07/21 History Inhaler] Cholecalciferol [Vitamin D3 (25 50 mcg PO DAILY 11/09/20 10/07/21 History Mcg = 1000 Iu)] Dialyvite Tablet 1 tab PO DAILY 11/09/20 10/07/21 History Docusate [Colace] 100 mg PO DAILY PRN 11/09/20 10/07/21 History Furosemide [Lasix] 40 mg PO SUTUTHSA 11/09/20 10/07/21 History Lidocaine-Prilocaine Cream [Emla 1 applic TOPICAL DAILY PRN 11/09/20 10/07/21 History Cream 2.5%/2.5%] Melatonin 3 mg PO HS PRN 11/09/20 10/07/21 History Montelukast Sodium [Singulair] 10 mg PO HS 11/09/20 10/07/21 History Tiotropium Br/Olodaterol HCl 2 puff INHALATION RT-DAILY 11/09/20 10/07/21 History [Stiolto Respimat Inhal [place]] allopurinoL [Zyloprim] 200 mg PO DAILY 11/09/20 10/07/21 History levOCARNitine [Levocarnitine] 990 mg PO BID 11/09/20 10/07/21 History amLODIPine [Norvasc] 5 mg PO DAILY #30 tab 11/14/20 10/07/21 Rx Doxycycline Hyclate 100 mg PO BID 10/07/21 10/07/21 History Lactulose 20 gm PO DAILY PRN 10/07/21 10/07/21 History Ondansetron Odt [Zofran Odt] 4 mg PO DAILY PRN 10/07/21 10/07/21 History Ondansetron [Zofran] 8 mg PO Q8H PRN 10/07/21 10/07/21 History guaiFENesin [Mucinex] 600 mg PO DAILY PRN 10/07/21 10/07/21 History predniSONE [Deltasone] 10 mg PO BID 10/07/21 10/07/21 History Allergies Allergy/AdvReac Type Severity Reaction Status Date / Time Corticosteroids Allergy Unknown Verified 10/07/21 20:21 (Glucocorticoids) iodine Allergy Unknown Verified 10/07/21 20:21 Penicillins Allergy Unknown Verified 10/07/21 20:21 shellfish derived [Shellfish] Allergy Unknown Verified 10/07/21 20:21 Wniowxe-HMW-UiF Reductase Allergy Unknown Verified 10/07/21 20:21 Inhibitor [Pvjtrai-Ygm-Coz Reductase Inhibitor] Sulfa (Sulfonamide Allergy Unknown Verified 10/07/21 20:21 Antibiotics) Physical Exam Vitals: Vital Signs Pulse Resp BP Pulse Ox 10/08/21 09:11 96 31 H 106/96 93 L 10/08/21 08:35 101 H 30 H 118/70 94 L 10/08/21 07:56 99 25 H 117/61 96 10/08/21 06:51 95 22 103/61 98 10/08/21 03:38 87 20 116/74 96 10/08/21 02:31 90 20 119/75 96 10/08/21 00:08 100 30 H 120/66 92 L 10/07/21 23:50 75 L 10/07/21 22:11 105 H 28 H 133/76 95 10/07/21 20:59 109 H 30 H 125/72 97 10/07/21 20:19 106 H 10/07/21 20:10 102 H 10/07/21 19:27 110 H 42 H 107/45 49 L Intake and Output 10/07/21 10/08/21 10/08/21 22:59 06:59 14:59 Output Total 50 Balance -50 Output: Urine 50 Uretheral ([place]) 50 Other: Weight 84.5 kg GENERAL EXAM: Alert, 71-year-old female patient, on BiPAP 14/6 and 65% FiO2, in mild respiratory distress. HEAD: Normocephalic. EYES: Normal reaction of pupils, equal size. NOSE: Clear with pink turbinates. THROAT: No erythema or exudates. NECK: No masses, no JVD. CHEST: No chest wall deformity. LUNGS: Equal air entry with coarse crackles in the bilateral bases. CVS: S1 and S2 normal with no audible murmur, regular rhythm. ABDOMEN: No hepatosplenomegaly, normal bowel sounds, no guarding or rigidity. SPINE: No scoliosis or deformity SKIN: No rashes CENTRAL NERVOUS SYSTEM: No focal deficits, tone is normal in all 4 extremities. EXTREMITIES: There is no peripheral edema. No clubbing, no cyanosis. Peripheral pulses are intact. Results - Laboratory Findings CBC and BMP: 10/08/21 02:41 10/08/21 02:41 ABG ABG pH 7.25 (7.35-7.45) L 10/08/21 05:44 ABG pCO2 72 mmHg (35-45) H* 10/08/21 05:44 ABG pO2 97 mmHg (83-108) 10/08/21 05:44 ABG O2 Saturation 96.8 % (94-97) 10/08/21 05:44 PT/INR, D-dimer PT 10.8 sec (9.0-12.0) 10/07/21 20:34 INR 1.0 (<1.2) 10/07/21 20:34 D-Dimer 2.69 mg/L FEU (<0.60) H 10/08/21 02:41 Abnormal lab findings: Abnormal Labs 10/07/21 10/07/21 10/07/21 20:15 20:34 20:34 WBC RBC 3.21 L Hgb 8.3 L Hct 29.1 L MCHC 28.4 L RDW 18.7 H Neutrophils # 8.8 H Lymphocytes # 0.5 L D-Dimer ABG pH ABG pCO2 ABG pO2 ABG HCO3 ABG Total CO2 ABG O2 Saturation Sodium 135 L Chloride 96 L BUN 34 H Creatinine 4.63 H Glucose 110 H Ferritin Lactate Dehydrogenase Troponin I C-Reactive Protein Total Protein 5.7 L Albumin 3.2 L Coronavirus (PCR) Detected A 10/07/21 10/07/21 10/08/21 20:34 23:25 00:28 WBC RBC Hgb Hct MCHC RDW Neutrophils # Lymphocytes # D-Dimer ABG pH 7.26 L ABG pCO2 72 H* ABG pO2 76 L ABG HCO3 32 H ABG Total CO2 34 H ABG O2 Saturation 92.8 L Sodium Chloride BUN Creatinine Glucose Ferritin Lactate Dehydrogenase Troponin I 0.979 H* 0.974 H* C-Reactive Protein Total Protein Albumin Coronavirus (PCR) 10/08/21 10/08/21 10/08/21 02:41 02:41 02:41 WBC 11.3 H RBC 3.05 L Hgb 7.9 L Hct 28.6 L MCHC 27.8 L RDW 18.4 H Neutrophils # 10.4 H Lymphocytes # 0.4 L D-Dimer ABG pH ABG pCO2 ABG pO2 ABG HCO3 ABG Total CO2 ABG O2 Saturation Sodium 134 L Chloride 94 L BUN 38 H Creatinine 5.38 H Glucose 104 H Ferritin 762.0 H Lactate Dehydrogenase 742 H Troponin I 0.980 H* C-Reactive Protein 21.4 H Total Protein Albumin Coronavirus (PCR) 10/08/21 10/08/21 02:41 05:44 WBC RBC Hgb Hct MCHC RDW Neutrophils # Lymphocytes # D-Dimer 2.69 H ABG pH 7.25 L ABG pCO2 72 H* ABG pO2 ABG HCO3 31 H ABG Total CO2 34 H ABG O2 Saturation Sodium Chloride BUN Creatinine Glucose Ferritin Lactate Dehydrogenase Troponin I C-Reactive Protein Total Protein Albumin Coronavirus (PCR) - Diagnostic Findings Chest x-ray: image reviewed Assessment and Plan Assessment: 1 Acute hypoxemic respiratory failure secondary to acute COVID-19 pneumonia. The patient is not vaccinated. Onset of symptoms 2 weeks ago. Outside the window for Remdesivir. Awaiting pro calcitonin level. May consider Baricitinib. Initiated on Lovenox, Decadron, vitamin supplements. Initiated on BiPAP 14/6 and 65% FiO2 2 Elevated inflammatory markers secondary to above 3 Elevated d-dimer, negative DVTs of the lower extremities 4 End-stage renal disease receiving hemodialysis on Fridays 5 History of chronic obstructive pulmonary disease 6 Remote history of chronic tobacco dependence 7 History of carnitine deficiency 8 History of hypertension 9 History of gout 10 Gastroesophageal reflux disease 11 History of ventilator dependent respiratory failure due to fluid volume overload back in October 2020 Plan: The patient was seen and evaluated today Chest x-ray, ABGs and labs reviewed We will change transfer order from selective care unit to the intensive care unit Obtain Dopplers of lower extremities Obtain an pro calcitonin level Continue Decadron, Lovenox, vitamin supplement Outside the window for Remdesivir May consider Baricitinib Follow-up chest x-ray and labs in a.m. The patient is to remain a full code per patient and daughter We will continue to follow and make further recommendations based on her clinical status I, the cosigning physician, performed a history & physical examination of the patient. Lungs sounds are coarse crackles in the bilateral bases. Maintaining O2 saturations in the 90s on BiPAP 14/6 and 65% FiO2. I discussed the assessment and plan of care with my nurse practitioner, Angela Maciel. I attest to the above note as dictated by her. Time with Patient: Greater than 30
[2021-10-08] MEDS: ALBUTEROL HFA INHALER INHALATION PRN (11:43)
[2021-10-08] MEDS: CHOLECALCIFEROL 125 MCG (5000 IU) TABLET PO SCH (11:52)
[2021-10-08] MEDS: ZINC SULFATE 220 MG CAP PO SCH (11:52)
[2021-10-08] MEDS: ASCORBIC ACID 500 MG TAB PO SCH (11:52)
--- NOTE | 2021-10-08 13:37 | P.NPCON ---
History of Present Illness - Reason for Consult end stage renal disease - History of Present Illness Patient is a 71-year-old female admitted to the hospital with shortness of breath and significantly low O2 sats at dialysis yesterday. COVID-19 PCR test was positive today. According to the daughter patient had been diagnosed with pneumonia and treated with antibiotics. She had started to feel better however over the last couple of days her respiratory status had deteriorated. Patient had good ultrafiltration with hemodialysis over the last week and had reached her dry weight as outpatient. Chest x-ray shows bilateral diffuse airspace opacities suggestive of pulmonary vascular congestion. Currently patient is maintained on BiPAP. She had no fever no nausea vomiting or diarrhea. Patient had majority of her treatment yesterday. Review of Systems As per HPI other systems negative Past Medical History Past Medical History: Heart Failure, COPD, GERD/Reflux, Hypertension, Renal Disease, Respiratory Disorder Additional Past Medical History / Comment(s): Home oxygen at 3L/NC ATC, past acute hypoxic respiratory failure requiring vent, ESRD with hemodialysis MW/F, past hypotension, gout years ago, constipation, iron deficiency anemia. History of Any Multi-Drug Resistant Organisms: None Reported Past Surgical History: Cholecystectomy Additional Past Surgical History / Comment(s): L upper arm AV graft that closed and replaced, salivary gland tumor removed Additional Past Anesthesia/Blood Transfusion Reaction / Comment(s): Pt is slow to wake Smoking Status: Former smoker - Past Family History Father Family Medical History: Unable to Obtain Mother Family Medical History: Congestive Heart Failure (CHF) Medications and Allergies Home Medications Medication Instructions Recorded Confirmed Type Albuterol Inhaler [Ventolin Hfa 2 puff INHALATION RT-Q4H PRN 11/09/20 10/07/21 History Inhaler] Cholecalciferol [Vitamin D3 (25 50 mcg PO DAILY 11/09/20 10/07/21 History Mcg = 1000 Iu)] Dialyvite Tablet 1 tab PO DAILY 11/09/20 10/07/21 History Docusate [Colace] 100 mg PO DAILY PRN 11/09/20 10/07/21 History Furosemide [Lasix] 40 mg PO SUTUTHSA 11/09/20 10/07/21 History Lidocaine-Prilocaine Cream [Emla 1 applic TOPICAL DAILY PRN 11/09/20 10/07/21 History Cream 2.5%/2.5%] Melatonin 3 mg PO HS PRN 11/09/20 10/07/21 History Montelukast Sodium [Singulair] 10 mg PO HS 11/09/20 10/07/21 History Tiotropium Br/Olodaterol HCl 2 puff INHALATION RT-DAILY 11/09/20 10/07/21 History [Stiolto Respimat Inhal [place]] allopurinoL [Zyloprim] 200 mg PO DAILY 11/09/20 10/07/21 History levOCARNitine [Levocarnitine] 990 mg PO BID 11/09/20 10/07/21 History amLODIPine [Norvasc] 5 mg PO DAILY #30 tab 11/14/20 10/07/21 Rx Doxycycline Hyclate 100 mg PO BID 10/07/21 10/07/21 History Lactulose 20 gm PO DAILY PRN 10/07/21 10/07/21 History Ondansetron Odt [Zofran Odt] 4 mg PO DAILY PRN 10/07/21 10/07/21 History Ondansetron [Zofran] 8 mg PO Q8H PRN 10/07/21 10/07/21 History guaiFENesin [Mucinex] 600 mg PO DAILY PRN 10/07/21 10/07/21 History predniSONE [Deltasone] 10 mg PO BID 10/07/21 10/07/21 History Allergies Allergy/AdvReac Type Severity Reaction Status Date / Time Corticosteroids Allergy Unknown Verified 10/07/21 20:21 (Glucocorticoids) iodine Allergy Unknown Verified 10/07/21 20:21 Penicillins Allergy Unknown Verified 10/07/21 20:21 shellfish derived [Shellfish] Allergy Unknown Verified 10/07/21 20:21 Hvfhziw-SKH-ReZ Reductase Allergy Unknown Verified 10/07/21 20:21 Inhibitor [Avxexeh-Bgi-Qid Reductase Inhibitor] Sulfa (Sulfonamide Allergy Unknown Verified 10/07/21 20:21 Antibiotics) Physical Exam Vitals: Vital Signs Pulse Resp BP Pulse Ox 10/08/21 11:00 84 22 97/54 96 10/08/21 10:33 86 30 H 93/49 94 L 10/08/21 09:11 96 31 H 106/96 93 L 10/08/21 08:35 101 H 30 H 118/70 94 L 10/08/21 07:56 99 25 H 117/61 96 10/08/21 06:51 95 22 103/61 98 10/08/21 03:38 87 20 116/74 96 10/08/21 02:31 90 20 119/75 96 10/08/21 00:08 100 30 H 120/66 92 L 10/07/21 23:50 75 L 10/07/21 22:11 105 H 28 H 133/76 95 10/07/21 20:59 109 H 30 H 125/72 97 10/07/21 20:19 106 H 10/07/21 20:10 102 H 10/07/21 19:27 110 H 42 H 107/45 49 L Intake and Output 10/07/21 10/08/21 10/08/21 22:59 06:59 14:59 Output Total 50 1999 Balance - Output: Urine 50 Uretheral ([place]) 50 Hemodialysis 1999 Other: Weight 84.5 kg 84.5 kg Patient is comfortable she's currently on BiPAP she is sleeping but arousable. Not in any acute distress. Examination of the heart S1 and S2 Examination lungs bilateral breath sounds are heard Abdomen is soft obese nontender Examination lower extremities does not show significant edema [employer] exam is grossly intact Results - Lab Results Most recent lab results ABG pH 7.25 (7.35-7.45) L 10/08/21 05:44 ABG pCO2 72 mmHg (35-45) H* 10/08/21 05:44 ABG pO2 97 mmHg (83-108) 10/08/21 05:44 ABG HCO3 31 mmol/L (21-25) H 10/08/21 05:44 ABG O2 Saturation 96.8 % (94-97) 10/08/21 05:44 Calcium 8.5 mg/dL (8.4-10.2) 10/08/21 02:41 Magnesium 1.8 mg/dL (1.6-2.3) 10/07/21 20:34 10/08/21 02:41 10/08/21 02:41 Assessment and Plan Assessment: 1. End-stage renal disease on hemodialysis on a Thursday vent is a Thursday schedule via left arm AV fistula scheduled for hemodialysis today mostly for volume overload 2. Volume overload expect improvement post dialysis today patient will receive an extra treatment 3. Acute hypoxic respiratory failure secondary to COVID pneumonia as well as CHF 4. CK D mineral bone disorder 5. Possible Pneumonia treated with antibiotics as outpatient. 6. Anemia no active bleeding noted, anemia of chronic disease. Plan: 1. Hemodialysis today with UF of about 2 L. 2. Repeat hemodialysis in a.m. 3. Maintain patient on Aranesp 4. Maintain phosphate binders 5. Treatment of covid pneumonia as per pulmonary
[2021-10-08] MEDS ORDERED: guaiFENesin 600 MG TABLET.ER PO PRN (17:45)
--- NOTE | 2021-10-08 17:51 | P.PN ---
Subjective Progress Note Date: 10/08/21 (delayed charting seen at 0905) Principal diagnosis: hypoxia Patient is a 71-year-old female end-stage renal disease on hemodialysis Thursday, hypertension, and COPD with home O2 use at 2.5 L nasal cannula. She was at dialysis became hypoxic and she was sent to the ER. She was found have COVID-19 pneumonia. She had been taking prednisone and doxycycl ine secondary to a cold. Initial ABGs of profile acidosis with CO2 retention. She was placed on BiPAP and again continued to have acidosis with CO2 retention. The remainder of her labs were consistent with a dialysis patient. She was also found have mildly elevated troponin which was trended and flat. Pulmonary was consulted. She was started on dexamethasone zinc, vitamin C, and vitamin D. She was admitted to the ICU. Nephrology was consulted. Patient seen and examined at bedside with daughter present. We discussed her overall prognosis being that her acidosis was so profound. They're aware that next steps would be intubation. Currently patient is alert and oriented 3 she is speaking in full sentences without difficulty. She states that her and her mother have both had abnormal ABGs life long. General: ill allearing, moderate distress, appears older than stated age Derm: warm, dry Head: atraumatic, normocephalic, symmetric Eyes: EOMI, no lid lag, anicteric sclera Mouth: no lip lesion, mucus membranes moist Cardiovascular: S1S2 reg, no murmur, positive posterior tibial pulse bilateral, Lungs: Decreased bs bilateral, no rhonchi, no rales , no accessory muscle use Abdominal: soft, nontender to palpation, no guarding, no appreciable organomegaly Ext: no gross muscle atrophy, trace edema, no contractures Neuro: CN II-XI grossly intact, no focal neuro deficits Psych: Alert, oriented, appropriate affect Assessment/Plan: COVID-19 pneumonitis in a non vaccinated patient Acute exacerbation of COPD Acute on chronic hypoxic hypercapnic respiratory failure Elevated d-dimer -Pulmonary recommendations -Zinc, vitamin C, vitamin D -Decadron day #1, outsied the window for REM -Lovenox - Bronchodilators -Elevated pro-calcitonin which may be related to her dialysis. 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 Active Medications Generic Name Dose Route Start Last Admin Trade Name Freq PRN Reason Stop Dose Admin Acetaminophen 650 mg 10/07/21 22:10 Acetaminophen Tab 325 Mg Tab PO Q6HR PRN Mild Pain or Fever > 100.5 Albuterol Sulfate 2 puff 10/08/21 00:17 10/08/21 11:43 Albuterol Hfa Inhaler INHALATION 2 puff RT-Q4H PRN Administration Shortness Of Breath Allopurinol 200 mg 10/08/21 09:00 10/08/21 08:37 Allopurinol 100 Mg Tab PO 200 mg DAILY CANDIE Administration Amlodipine Besylate 5 mg 10/08/21 09:00 10/08/21 08:37 Amlodipine 5 Mg Tab PO 5 mg DAILY CANDIE Administration Ascorbic Acid 1,000 mg 10/08/21 10:45 10/08/21 11:52 Ascorbic Acid 500 Mg Tab PO 1,000 mg DAILY ACNDIE Administration Cholecalciferol 125 mcg 10/08/21 10:45 10/08/21 11:52 Cholecalciferol 125 Mcg (5000 Iu) Tablet PO 125 mcg DAILY CANDIE Administration Dexamethasone Sodium Phosphate 6 mg 10/08/21 09:00 10/08/21 08:36 Dexamethasone Sod Phosphate 10 Mg/Ml 1 Ml Vial IVP 6 mg DAILY CANDIE Administration Docusate Sodium 100 mg 10/08/21 00:17 Docusate 100 Mg Cap PO DAILY PRN Constipation Enoxaparin Sodium 30 mg 10/08/21 09:00 10/08/21 08:37 Enoxaparin 30 Mg/0.3 Ml Syringe SQ 30 mg DAILY CANDIE Administration Guaifenesin 600 mg 10/08/21 17:45 Guaifenesin 600 Mg Tablet.Er PO DAILY PRN Congestion Ceftriaxone Sodium 2 gm/ 50 mls @ 100 mls/hr 10/08/21 18:00 Sodium Chloride IVPB Q24HR CANDIE Levocarnitine 990 mg 10/08/21 09:00 10/08/21 08:56 Levocarnitine (With Sugar) 100 Mg/Ml Bottle PO Not Given BID CANDIE Melatonin 3 mg 10/08/21 00:17 Melatonin 3 Mg Tablet PO HS PRN Insomnia Montelukast Sodium 10 mg 10/08/21 00:30 10/08/21 00:49 Montelukast 10 Mg Tab PO 10 mg HS CANDIE Administration Multivit/Ca Carb/B Cmplx/FA/Prenat 1 each 10/09/21 09:00 Folic Acid-Vit B Complex-Vit C 1 Cap PO DAILY CANDIE Naloxone HCl 0.2 mg 10/07/21 22:10 Naloxone 0.4 Mg/Ml 1 Ml Vial IV Q2M PRN Opioid Reversal Salmeterol Xinafoate 1 puff 10/08/21 08:00 10/08/21 08:23 Salmeterol 50 Mcg Inhaler INHALATION Not Given RT-BID [facility] Tiotropium [place] 2 puff 10/08/21 08:00 10/08/21 08:23 Tiotropium 2.5 Mcg Inhaler INHALATION Not Given RT-DAILY CANDIE Zinc Sulfate 220 mg 10/08/21 10:45 10/08/21 11:52 Zinc Sulfate 220 Mg Cap PO 220 mg DAILY CANDIE Administration Objective - Vital Signs Vital signs: Vital Signs Temp Pulse 87 10/08/21 16:35 Resp 15 10/08/21 16:35 BP 98/50 10/08/21 16:35 Pulse Ox 95 10/08/21 16:35 Intake & Output 10/07/21 10/08/21 10/08/21 18:59 06:59 18:59 Output Total 50 1999 Balance -50 -1999 Weight 84.5 kg 84.5 kg Output: Urine 50 Uretheral ([place]) 50 Hemodialysis 1999 - Labs CBC & Chem 7: 10/08/21 02:41 10/08/21 02:41 Labs: Abnormal Lab Results - Last 24 Hours (Table) 10/07/21 10/07/21 10/07/21 Range/Units 20:15 20:34 20:34 WBC (3.8-10.6) k/uL RBC 3.21 L (3.80-5.40) m/uL Hgb 8.3 L (11.4-16.0) gm/dL Hct 29.1 L (34.0-46.0) % MCHC 28.4 L (31.0-37.0) g/dL RDW 18.7 H (11.5-15.5) % Neutrophils # 8.8 H (1.3-7.7) k/uL Lymphocytes # 0.5 L (1.0-4.8) k/uL D-Dimer (<0.60) mg/L FEU ABG pH (7.35-7.45) ABG pCO2 (35-45) mmHg ABG pO2 (83-108) mmHg ABG HCO3 (21-25) mmol/L ABG Total CO2 (19-24) mmol/L ABG O2 Saturation (94-97) % Sodium 135 L (137-145) mmol/L Chloride 96 L (98-107) mmol/L BUN 34 H (7-17) mg/dL Creatinine 4.63 H (0.52-1.04) mg/dL Glucose 110 H (74-99) mg/dL Ferritin (10.0-291.0) ng/mL Lactate Dehydrogenase (313-618) U/L Troponin I (0.000-0.034) ng/mL C-Reactive Protein (<1.0) mg/dL Total Protein 5.7 L (6.3-8.2) g/dL Albumin 3.2 L (3.5-5.0) g/dL Procalcitonin (0.02-0.09) ng/mL Coronavirus (PCR) Detected A (Not Detectd) 10/07/21 10/07/21 10/08/21 Range/Units 20:34 23:25 00:28 WBC (3.8-10.6) k/uL RBC (3.80-5.40) m/uL Hgb (11.4-16.0) gm/dL Hct (34.0-46.0) % MCHC (31.0-37.0) g/dL RDW (11.5-15.5) % Neutrophils # (1.3-7.7) k/uL Lymphocytes # (1.0-4.8) k/uL D-Dimer (<0.60) mg/L FEU ABG pH 7.26 L (7.35-7.45) ABG pCO2 72 H* (35-45) mmHg ABG pO2 76 L (83-108) mmHg ABG HCO3 32 H (21-25) mmol/L ABG Total CO2 34 H (19-24) mmol/L ABG O2 Saturation 92.8 L (94-97) % Sodium (137-145) mmol/L Chloride (98-107) mmol/L BUN (7-17) mg/dL Creatinine (0.52-1.04) mg/dL Glucose (74-99) mg/dL Ferritin (10.0-291.0) ng/mL Lactate Dehydrogenase (313-618) U/L Troponin I 0.979 H* 0.974 H* (0.000-0.034) ng/mL C-Reactive Protein (<1.0) mg/dL Total Protein (6.3-8.2) g/dL Albumin (3.5-5.0) g/dL Procalcitonin (0.02-0.09) ng/mL Coronavirus (PCR) (Not Detectd) 10/08/21 10/08/21 10/08/21 Range/Units 02:41 02:41 02:41 WBC 11.3 H (3.8-10.6) k/uL RBC 3.05 L (3.80-5.40) m/uL Hgb 7.9 L (11.4-16.0) gm/dL Hct 28.6 L (34.0-46.0) % MCHC 27.8 L (31.0-37.0) g/dL RDW 18.4 H (11.5-15.5) % Neutrophils # 10.4 H (1.3-7.7) k/uL Lymphocytes # 0.4 L (1.0-4.8) k/uL D-Dimer (<0.60) mg/L FEU ABG pH (7.35-7.45) ABG pCO2 (35-45) mmHg ABG pO2 (83-108) mmHg ABG HCO3 (21-25) mmol/L ABG Total CO2 (19-24) mmol/L ABG O2 Saturation (94-97) % Sodium 134 L (137-145) mmol/L Chloride 94 L (98-107) mmol/L BUN 38 H (7-17) mg/dL Creatinine 5.38 H (0.52-1.04) mg/dL Glucose 104 H (74-99) mg/dL Ferritin 762.0 H (10.0-291.0) ng/mL Lactate Dehydrogenase 742 H (313-618) U/L Troponin I 0.980 H* (0.000-0.034) ng/mL C-Reactive Protein 21.4 H (<1.0) mg/dL Total Protein (6.3-8.2) g/dL Albumin (3.5-5.0) g/dL Procalcitonin (0.02-0.09) ng/mL Coronavirus (PCR) (Not Detectd) 10/08/21 10/08/21 10/08/21 Range/Units 02:41 02:41 05:44 WBC (3.8-10.6) k/uL RBC (3.80-5.40) m/uL Hgb (11.4-16.0) gm/dL Hct (34.0-46.0) % MCHC (31.0-37.0) g/dL RDW (11.5-15.5) % Neutrophils # (1.3-7.7) k/uL Lymphocytes # (1.0-4.8) k/uL D-Dimer 2.69 H (<0.60) mg/L FEU ABG pH 7.25 L (7.35-7.45) ABG pCO2 72 H* (35-45) mmHg ABG pO2 (83-108) mmHg ABG HCO3 31 H (21-25) mmol/L ABG Total CO2 34 H (19-24) mmol/L ABG O2 Saturation (94-97) % Sodium (137-145) mmol/L Chloride (98-107) mmol/L BUN (7-17) mg/dL Creatinine (0.52-1.04) mg/dL Glucose (74-99) mg/dL Ferritin (10.0-291.0) ng/mL Lactate Dehydrogenase (313-618) U/L Troponin I (0.000-0.034) ng/mL C-Reactive Protein (<1.0) mg/dL Total Protein (6.3-8.2) g/dL Albumin (3.5-5.0) g/dL Procalcitonin 2.66 H (0.02-0.09) ng/mL Coronavirus (PCR) (Not Detectd)
[2021-10-08 20:13] LABS: Glucose,Whole Blood 90 mg/dL (75-99)
[2021-10-09] MEDS: MELATONIN 3 MG TABLET PO PRN ×2 (00:16→20:41)
[2021-10-09 06:18] LABS: Anisocytosis Slight; HCT 26.1 % (34.0-46.0); HGB 7.2 gm/dL (11.4-16.0); Hypochromasia Marked; MCH 26.4 pg (25.0-35.0); MCHC 27.5 g/dL (31.0-37.0); MCV 96.1 fL (80.0-100.0); Macrocytosis Slight; Mean Platelet Volume 8.4; Platelet Count 314 k/uL (150-450); Poikilocytosis Slight; RBC 2.72 m/uL (3.80-5.40); RDW 18.5 % (11.5-15.5); WBC 10.2 k/uL (3.8-10.6)
[2021-10-09 06:46] LABS: Albumin 2.7 g/dL (3.5-5.0); Calcium 8.7 mg/dL (8.4-10.2); Magnesium 2.3 mg/dL (1.6-2.3); Phosphorus 7.3 mg/dL (2.5-4.5); Potassium 4.7 mmol/L (3.5-5.1); Total Bilirubin 0.5 mg/dL (0.2-1.3); Total Protein 5.2 g/dL (6.3-8.2)
[2021-10-09] MEDS: ENOXAPARIN 30 MG/0.3 ML SYRINGE SQ SCH (07:59)
[2021-10-09] MEDS: DEXAMETHASONE SOD PHOSPHATE 10 MG/ML 1 ML VIAL IVP SCH (07:59)
[2021-10-09] MEDS: ZINC SULFATE 220 MG CAP PO SCH (07:59)
[2021-10-09] MEDS: allopurinoL 100 MG TAB PO SCH (07:59)
[2021-10-09] MEDS: CHOLECALCIFEROL 125 MCG (5000 IU) TABLET PO SCH (08:00)
[2021-10-09] MEDS: ASCORBIC ACID 500 MG TAB PO SCH (08:00)
[2021-10-09] MEDS: amLODIPine 5 MG TAB PO SCH ×2 (08:00→20:13)
[2021-10-09] MEDS ORDERED: STIOLTO RESPIMAT INHALER INHALATION SCH (08:00)
--- NOTE | 2021-10-09 10:13 | P.PN ---
Subjective Progress Note Date: 10/09/21 This is a 71-year-old female patient who follows with Dr. Keene as her primary care provider. She has a history of end-stage renal disease receiving hemodialysis on Thursday, hypertension, chronic obstructive pulmonary disease follow with Dr. Denney out of , gastroesophageal reflux disease, gout, carnitine deficiency. She also has a previous history of acute hypoxemic respiratory failure requiring intubation mechanical ventilatory support back in October 2020 here at [facility]. She was brought into the emergency room last evening with a two-week history of increasing shortness of breath cough and congestion. She did have a patella help visit with her PCP and was started on doxycycline and prednisone. Not much improvement. She did test positive for COVID-19 here. She is not vaccinated. Chest x-ray shows bilateral patchy infiltrates. She is seen in the emergency room. Sitting up on the stretcher. On BiPAP 14/6 and 65% FiO2. Blood gases revealed a PaO2 of 97, pCO2 72, pH 7.25. White count 11.3. Hemoglobin 7.9. Lymphocytes 0.4. D-dimer 2.69. Sodium 134. Potassium 4.2. BUN 38. Creatinine 5.38. Ferritin 762. LDH 742. C-reactive protein 21.4. Troponins 0.97, 0.97, 0.98. ProBNP 98,400. She was initiated on Decadron, Lovenox, v itamin supplements. Continued on Ventolin, Singulair, Spiriva and Serevent. The patient is seen today 10/09/2021 in follow-up in the intensive care unit. He is currently sitting up in bed. Awake and alert in no acute distress. She was maintained on BiPAP through the night 14/6 and 45% FiO2. She is maintaining good O2 saturations in the mid 90s. We'll attempt to transition her to 15 L high flow nasal cannula. He is afebrile. D-dimer 2.71. White count 10.2. Hemoglobin 7.2. Sodium 138. Potassium 4.7. BUN 37. Creatinine 4.96. LDH 631. Procalcitonin 2.66. She remains on ceftriaxone along with Decadron, Lovenox and vitamin supplements. Objective - Vital Signs Vital signs: Vital Signs Temp 98.3 F 10/09/21 08:00 Pulse 85 10/09/21 09:00 Resp 15 10/09/21 09:00 BP 106/55 10/09/21 09:00 Pulse Ox 90 L 10/09/21 09:00 Intake & Output 10/08/21 10/09/21 10/09/21 18:59 06:59 18:59 Intake Total 100 150 Output Total 1999 2 0 Balance -1999 98 150 Weight 84.5 kg 88.4 kg Intake: IV 50 cefTRIAXone 2 gm In 50 Sodium Chloride 0.9% 50 ml @ 100 mls/hr IVPB Q24HR [facility] Rx#:[id number] Oral 100 100 Output: Urine 2 0 Hemodialysis 1999 Other: Voiding Method Indwelling Catheter Indwelling Catheter - Exam GENERAL EXAM: Alert, 71-year-old female patient, on BiPAP 14/6 and 45% FiO2, in no acute respiratory distress. HEAD: Normocephalic. EYES: Normal reaction of pupils, equal size. NOSE: Clear with pink turbinates. THROAT: No erythema or exudates. NECK: No masses, no JVD. CHEST: No chest wall deformity. LUNGS: Equal air entry with coarse crackles in the bilateral bases. CVS: S1 and S2 normal with no audible murmur, regular rhythm. ABDOMEN: No hepatosplenomegaly, normal bowel sounds, no guarding or rigidity. SPINE: No scoliosis or deformity SKIN: No rashes CENTRAL NERVOUS SYSTEM: No focal deficits, tone is normal in all 4 extremities. EXTREMITIES: There is no peripheral edema. No clubbing, no cyanosis. Peripheral pulses are intact. - Labs CBC & Chem 7: 10/09/21 05:54 10/09/21 05:54 Labs: Abnormal Lab Results - Last 24 Hours (Table) 10/08/21 10/08/21 10/09/21 Range/Units 02:41 02:41 05:54 RBC 2.72 L (3.80-5.40) m/uL Hgb 7.2 L (11.4-16.0) gm/dL Hct 26.1 L (34.0-46.0) % MCHC 27.5 L (31.0-37.0) g/dL RDW 18.5 H (11.5-15.5) % D-Dimer (<0.60) mg/L FEU BUN (7-17) mg/dL Creatinine (0.52-1.04) mg/dL Phosphorus (2.5-4.5) mg/dL Ferritin 762.0 H (10.0-291.0) ng/mL Lactate Dehydrogenase (313-618) U/L Total Protein (6.3-8.2) g/dL Albumin (3.5-5.0) g/dL Procalcitonin 2.66 H (0.02-0.09) ng/mL 10/09/21 10/09/21 Range/Units 05:54 05:54 RBC (3.80-5.40) m/uL Hgb (11.4-16.0) gm/dL Hct (34.0-46.0) % MCHC (31.0-37.0) g/dL RDW (11.5-15.5) % D-Dimer 2.71 H (<0.60) mg/L FEU BUN 37 H (7-17) mg/dL Creatinine 4.96 H (0.52-1.04) mg/dL Phosphorus 7.3 H (2.5-4.5) mg/dL Ferritin (10.0-291.0) ng/mL Lactate Dehydrogenase 631 H (313-618) U/L Total Protein 5.2 L (6.3-8.2) g/dL Albumin 2.7 L (3.5-5.0) g/dL Procalcitonin (0.02-0.09) ng/mL Assessment and Plan Assessment: 1 Acute hypoxemic respiratory failure secondary to acute COVID-19 pneumonia. The patient is not vaccinated. Onset of symptoms 2 weeks ago. Outside the window for Remdesivir. Pro calcitonin 2.66. The patient is continued on ceftriaxone. Initiated on Lovenox, Decadron, vitamin supplements. Initiated on BiPAP 14/6 and 45% FiO2 2 Elevated inflammatory markers secondary to above 3 Elevated d-dimer, negative DVTs of the lower extremities 4 End-stage renal disease receiving hemodialysis on Fridays 5 History of chronic obstructive pulmonary disease 6 Remote history of chronic tobacco dependence 7 History of carnitine deficiency 8 History of hypertension 9 History of gout 10 Gastroesophageal reflux disease 11 History of ventilator dependent respiratory failure due to fluid volume overload back in October 2020 Plan: The patient was seen and evaluated today Remains on BiPAP, we'll transition to AirVo or high flow oxygen Progress calcitonin 2.66, currently on ceftriaxone Continue Decadron, Lovenox, vitamin supplement Follow-up chest x-ray and labs in a.m. We will continue to follow I, the cosigning physician, performed a history & physical examination of the patient. Lungs sounds are coarse crackles in the bilateral bases. Maintaining O2 saturations in the 90s on BiPAP 14/6 and 45% FiO2. I discussed the assessment and plan of care with my nurse practitioner, Angela Maciel. I attest to the above note as dictated by her.
[2021-10-09] MEDS ORDERED: MIDODRINE 5 MG TAB PO ONE (10:32)
[2021-10-09 10:43] LABS: C Reactive Protein 23.3 mg/dL (<1.0)
[2021-10-09] MEDS: FOLIC ACID-VIT B COMPLEX-VIT C 1 CAP PO SCH (11:01)
[2021-10-09] MEDS: levOCARNitine (WITH SUGAR) 100 MG/ML BOTTLE PO SCH ×2 (11:01→20:12)
[2021-10-09 11:12] LABS: Glucose,Whole Blood 76 mg/dL (75-99)
--- NOTE | 2021-10-09 11:31 | P.PN ---
Subjective Principal diagnosis: Patient is seen for follow-up for end-stage renal disease. Patient was admitted to the hospital with significant respiratory distress and hypoxia. She did test positive for COVID-19 PCR. Patient was also volume overloaded. She had 2 L of ultrafiltration yesterday in the ER. Currently patient is off of BiPAP overall she states she is feeling better. She is seen on hemodialysis again today. Plan is for another 2 L of ultrafiltration. Blood pressure is on the lower side around 10 8 mmHg systolic. I will admitted to drain to help with the ultrafiltration. Objective - Vital Signs Vital signs: Vital Signs Temp 98.3 F 10/09/21 08:00 Pulse 85 10/09/21 10:00 Resp 17 10/09/21 10:00 BP 119/71 10/09/21 10:00 Pulse Ox 97 10/09/21 10:00 Intake & Output 10/08/21 10/09/21 10/09/21 18:59 06:59 18:59 Intake Total 100 150 Output Total 2000 2 0 Balance -1999 98 150 Weight 84.5 kg 88.4 kg Intake: IV 50 cefTRIAXone 2 gm In 50 Sodium Chloride 0.9% 50 ml @ 100 mls/hr IVPB Q24HR [facility] Rx#:[id number] Oral 100 100 Output: Urine 2 0 Hemodialysis 2000 Other: Voiding Method Indwelling Catheter Indwelling Catheter - Exam Patient is currently comfortable awake alert oriented 3. She is maintained on high flow nasal cannula. Examination lower extremities shows no significant edema. [employer] exam is grossly intact. Lungs and heart are not examined due to Covid isolation - Labs CBC & Chem 7: 10/09/21 05:54 10/09/21 05:54 Labs: Abnormal Lab Results - Last 24 Hours (Table) 10/08/21 10/09/21 10/09/21 Range/Units 02:41 05:54 05:54 RBC 2.72 L (3.80-5.40) m/uL Hgb 7.2 L (11.4-16.0) gm/dL Hct 26.1 L (34.0-46.0) % MCHC 27.5 L (31.0-37.0) g/dL RDW 18.5 H (11.5-15.5) % D-Dimer (<0.60) mg/L FEU BUN 37 H (7-17) mg/dL Creatinine 4.96 H (0.52-1.04) mg/dL Phosphorus 7.3 H (2.5-4.5) mg/dL Lactate Dehydrogenase 631 H (313-618) U/L C-Reactive Protein 23.3 H (<1.0) mg/dL Total Protein 5.2 L (6.3-8.2) g/dL Albumin 2.7 L (3.5-5.0) g/dL Procalcitonin 2.66 H (0.02-0.09) ng/mL 10/09/21 Range/Units 05:54 RBC (3.80-5.40) m/uL Hgb (11.4-16.0) gm/dL Hct (34.0-46.0) % MCHC (31.0-37.0) g/dL RDW (11.5-15.5) % D-Dimer 2.71 H (<0.60) mg/L FEU BUN (7-17) mg/dL Creatinine (0.52-1.04) mg/dL Phosphorus (2.5-4.5) mg/dL Lactate Dehydrogenase (313-618) U/L C-Reactive Protein (<1.0) mg/dL Total Protein (6.3-8.2) g/dL Albumin (3.5-5.0) g/dL Procalcitonin (0.02-0.09) ng/mL Assessment and Plan Assessment: 1. End-stage renal disease on hemodialysis on a Thursday vent is a Thursday schedule via left arm AV fistula scheduled for hemodialysis today mostly for volume overload 2. Volume overload expect improvement post dialysis today patient will receive an extra treatment 3. Acute hypoxic respiratory failure secondary to COVID pneumonia as well as CHF 4. CK D mineral bone disorder 5. Possible Pneumonia treated with antibiotics as outpatient. 6. Anemia no active bleeding noted, anemia of chronic disease. Plan: 1. Hemodialysis today with UF of about 2 L. 2. Evaluate for repeat hemodialysis in a.m. 3. Maintain patient on Aranesp 4. Maintain phosphate binders 5. Treatment of covid pneumonia as per pulmonary 6. Midodrine 10 mg by mouth 1 to help with ultrafiltration
--- NOTE | 2021-10-09 13:18 | P.PN ---
Subjective Progress Note Date: 10/09/21 Principal diagnosis: CC: shortness of breath Patient is a 71-year-old female end-stage renal disease on hemodialysis Thursday, hypertension, and COPD with home O2 use at 2.5 L nasal cannula. She was at dialysis became hypoxic and she was sent to the ER. She was found have COVID-19 pneumonia. She had been taking prednisone and doxycycline secondary to a cold. Initial ABGs of profile acidosis with CO2 retention. She was placed on BiPAP and again continued to have acidosis with CO2 retention. The remainder of her labs were consistent with a dialysis patient. She was also found have mildly elevated troponin which was trended and flat. Pulmonary was consulted. She was started on dexamethasone zinc, vitamin C, and vitamin D. She was admitted to the ICU. Nephrology was consulted. 10/09/2021: Patient this morning was on BiPAP and she was weaned down to optiflow. She is currently getting dialysis for ultrafiltration. Patient states that her breathing is improving since admission. However she still feels short of breath and also gets dyspneic with just talking. Objective - Vital Signs Vital signs: Vital Signs Temp 98.5 F 10/09/21 12:00 Pulse 85 10/09/21 12:00 Resp 17 10/09/21 12:00 BP 120/61 10/09/21 12:00 Pulse Ox 96 10/09/21 12:00 Intake & Output 10/08/21 10/09/21 10/09/21 18:59 06:59 18:59 Intake Total 100 390 Output Total 1999 2 0 Balance -1999 98 390 Weight 84.5 kg 88.4 kg Intake: IV 50 cefTRIAXone 2 gm In 50 Sodium Chloride 0.9% 50 ml @ 100 mls/hr IVPB Q24HR [facility] Rx#:[id number] Oral 100 340 Output: Urine 2 0 Hemodialysis 1999 Other: Voiding Method Indwelling Catheter Indwelling Catheter - Exam General examination - Alert and Oriented 3 in moderate respiratory distress Heart - + S1S2 no murmurs Lungs - diminished breath sounds bilaterally Abdomen soft NT ND +ve BS Extremities - No edema INTERTYPE OPERATOR - Moving all 4 extremities spontaneously Psych - anxious - Labs CBC & Chem 7: 10/09/21 05:54 10/09/21 05:54 Labs: Abnormal Lab Results - Last 24 Hours (Table) 10/08/21 10/09/21 10/09/21 Range/Units 02:41 05:54 05:54 RBC 2.72 L (3.80-5.40) m/uL Hgb 7.2 L (11.4-16.0) gm/dL Hct 26.1 L (34.0-46.0) % MCHC 27.5 L (31.0-37.0) g/dL RDW 18.5 H (11.5-15.5) % D-Dimer (<0.60) mg/L FEU BUN 37 H (7-17) mg/dL Creatinine 4.96 H (0.52-1.04) mg/dL Phosphorus 7.3 H (2.5-4.5) mg/dL Lactate Dehydrogenase 631 H (313-618) U/L C-Reactive Protein 23.3 H (<1.0) mg/dL Total Protein 5.2 L (6.3-8.2) g/dL Albumin 2.7 L (3.5-5.0) g/dL Procalcitonin 2.66 H (0.02-0.09) ng/mL 10/09/21 Range/Units 05:54 RBC (3.80-5.40) m/uL Hgb (11.4-16.0) gm/dL Hct (34.0-46.0) % MCHC (31.0-37.0) g/dL RDW (11.5-15.5) % D-Dimer 2.71 H (<0.60) mg/L FEU BUN (7-17) mg/dL Creatinine (0.52-1.04) mg/dL Phosphorus (2.5-4.5) mg/dL Lactate Dehydrogenase (313-618) U/L C-Reactive Protein (<1.0) mg/dL Total Protein (6.3-8.2) g/dL Albumin (3.5-5.0) g/dL Procalcitonin (0.02-0.09) ng/mL Assessment and Plan Assessment: COVID-19 pneumonitis in a non vaccinated patient Acute exacerbation of COPD Acute on chronic hypoxic hypercapnic respiratory failure Elevated d-dimer -Pulmonary recommendations -Zinc, vitamin C, vitamin D -Decadron day #2, outsied the window for REM -Lovenox -> will switch patient to full dose anticoagulation once patient is transfer out of ICU this is as per [place] updated COVID-19 guidelines. - Bronchodilators -Elevated pro-calcitonin -> patient on rocephin -lower extremity venous dopplers negative for DVT #Endg Stage renal disease with volume overload #Chronic kidney diseas, mineral old bone disease -Dialysis as per nephrology #Hypertension, controlled -Norvasc DVT prophylaxis: Lovenox Gi ppx; PPI Discussed with: patient, nursing Anticipated discharge: undetermined Anticipated discharge place: undetermined
[2021-10-09] MEDS: MONTELUKAST 10 MG TAB PO SCH (20:12)
[2021-10-10 07:39] LABS: C Reactive Protein 14.3 mg/dL (<1.0)
[2021-10-10] MEDS: STIOLTO RESPIMAT INHALER INHALATION SCH (07:50)
--- NOTE | 2021-10-10 08:54 | XR ---
EXAMINATION TYPE: XR chest 1V portable DATE OF EXAM: 10/10/2021 Comparison: 10/07/2021 Clinical History: 71-year-old female CoVID pneumonia Findings: Patient's chin obscures the lung apices. Heart remains enlarged. Continued interstitial densities and more confluent mid and lower lung airspace disease without significant change. Impression: 1. Stable cardiomegaly. 2. Continued diffuse interstitial change along with mid and lower lung consolidation.
--- NOTE | 2021-10-10 10:27 | P.PN ---
Subjective Progress Note Date: 10/10/21 This is a 71-year-old female patient who follows with Dr. Keene as her primary care provider. She has a history of end-stage renal disease receiving hemodialysis on Thursday, hypertension, chronic obstructive pulmonary disease follow with Dr. Denney out of [facility], gastroesophageal reflux disease, gout, carnitine deficiency. She also has a previous history of acute hypoxemic respiratory failure requiring intubation mechanical ventilatory support back in October 2020 here at [facility]. She was brought into the emergency room last evening with a two-week history of increasing shortness of breath cough and congestion. She did have a patella help visit with her PCP and was started on doxycycline and prednisone. Not much improvement. She did test positive for COVID-19 here. She is not vaccinated. Chest x-ray shows bilateral patchy infiltrates. She is seen in the emergency room. Sitting up on the stretcher. On BiPAP 14/6 and 65% FiO2. Blood gases revealed a PaO2 of 97, pCO2 72, pH 7.25. White count 11.3. Hemoglobin 7.9. Lymphocytes 0.4. D-dimer 2.69. Sodium 134. Potassium 4.2. BUN 38. Creatinine 5.38. Ferritin 762. LDH 742. C-reactive protein 21.4. Troponins 0.97, 0.97, 0.98. ProBNP 98,400. She was initiated on Decadron, Lovenox, v itamin supplements. Continued on Ventolin, Singulair, Spiriva and Serevent. The patient is seen today 10/09/2021 in follow-up in the intensive care unit. He is currently sitting up in bed. Awake and alert in no acute distress. She was maintained on BiPAP through the night 14/6 and 45% FiO2. She is maintaining good O2 saturations in the mid 90s. We'll attempt to transition her to 15 L high flow nasal cannula. He is afebrile. D-dimer 2.71. White count 10.2. Hemoglobin 7.2. Sodium 138. Potassium 4.7. BUN 37. Creatinine 4.96. LDH 631. Procalcitonin 2.66. She remains on ceftriaxone along with Decadron, Lovenox and vitamin supplements. The patient is seen today 10/10/2021 in follow-up in the intensive care unit. She is currently sitting up in bed. Awake and alert in no acute distress. She is off BiPAP. She's on 9 L high flow nasal cannula. No IV fluids. She did receive hemodialysis yesterday with 2.5 L removed. Chest x-ray reveals stable cardiomegaly. Continue diffuse interstitial changes in the mid and lower lung garner. D-dimer 2.68. LDH 699. C-reactive protein 14.3. She is continued on Decadron, Lovenox, vitamin supplements. Currently on ceftriaxone. Pro- calcitonin was 2.66. Objective - Vital Signs Vital signs: Vital Signs Temp 98.3 F 10/10/21 08:00 Pulse 86 10/10/21 09:00 Resp 17 10/10/21 09:00 BP 114/55 10/10/21 09:00 Pulse Ox 94 L 10/10/21 09:00 Intake & Output 10/09/21 10/10/21 10/10/21 18:59 06:59 18:59 Intake Total 990 500 220 Output Total 2005 0 0 Balance -1015 500 220 Weight 88.4 kg 87.3 kg Intake: IV 50 100 cefTRIAXone 2 gm In 50 100 Sodium Chloride 0.9% 50 ml @ 100 mls/hr IVPB Q24HR [facility] Rx#:[id number] Oral 640 500 120 Hemodialysis 300 Output: Urine 5 0 0 Hemodialysis 2000 Other: Voiding Method Bedside Commode External Catheter External Catheter - Exam GENERAL EXAM: Alert, 71-year-old female patient, on 9 L high flow nasal cannula, in no acute respiratory distress. HEAD: Normocephalic. EYES: Normal reaction of pupils, equal size. NOSE: Clear with pink turbinates. THROAT: No erythema or exudates. NECK: No masses, no JVD. CHEST: No chest wall deformity. LUNGS: Equal air entry with coarse crackles in the bilateral bases. CVS: S1 and S2 normal with no audible murmur, regular rhythm. ABDOMEN: No hepatosplenomegaly, normal bowel sounds, no guarding or rigidity. SPINE: No scoliosis or deformity SKIN: No rashes CENTRAL NERVOUS SYSTEM: No focal deficits, tone is normal in all 4 extremities. EXTREMITIES: There is no peripheral edema. No clubbing, no cyanosis. Peripheral pulses are intact. - Labs CBC & Chem 7: 10/09/21 05:54 10/09/21 05:54 Labs: Abnormal Lab Results - Last 24 Hours (Table) 10/09/21 10/10/21 10/10/21 Range/Units 05:54 06:04 06:04 D-Dimer 2.68 H (<0.60) mg/L FEU Lactate Dehydrogenase 699 H (313-618) U/L C-Reactive Protein 23.3 H 14.3 H (<1.0) mg/dL Assessment and Plan Assessment: 1 Acute hypoxemic respiratory failure secondary to acute COVID-19 pneumonia. The patient is not vaccinated. Onset of symptoms 2 weeks ago. Outside the window for Remdesivir. Pro calcitonin 2.66. The patient is continued on ceftriaxone. Initiated on Lovenox, Decadron, vitamin supplements. Initially required BiPAP 14/6 and 45% FiO2, improved and on 9 L high flow nasal cannula 2 Elevated inflammatory markers secondary to above 3 Elevated d-dimer, negative DVTs of the lower extremities 4 End-stage renal disease receiving hemodialysis on Fridays 5 History of chronic obstructive pulmonary disease 6 Remote history of chronic tobacco dependence 7 History of carnitine deficiency 8 History of hypertension 9 History of gout 10 Gastroesophageal reflux disease 11 History of ventilator dependent respiratory failure due to fluid volume overload back in October 2020 Plan: The patient was seen and evaluated today Stable and on 9 L high flow nasal cannula Continue Decadron, Lovenox, vitamin supplements Cleared for transfer out of the ICU today We will continue to follow I, the cosigning physician, performed a history & physical examination of the patient. Lungs sounds are coarse crackles in the bilateral bases. Maintaining O2 saturations in the 90s on 9 L high flow nasal cannula. I discussed the assessm ent and plan of care with my nurse practitioner, Angela Maciel. I attest to the above note as dictated by her.
[2021-10-10] MEDS: ENOXAPARIN 30 MG/0.3 ML SYRINGE SQ SCH (10:28)
[2021-10-10] MEDS: levOCARNitine (WITH SUGAR) 100 MG/ML BOTTLE PO SCH ×2 (10:28→22:12)
[2021-10-10] MEDS: PANTOPRAZOLE SODIUM 40 MG GRANULE PKT PO SCH ×2 (10:28→10:57)
[2021-10-10] MEDS: ZINC SULFATE 220 MG CAP PO SCH (10:29)
[2021-10-10] MEDS: DEXAMETHASONE SOD PHOSPHATE 10 MG/ML 1 ML VIAL IVP SCH (10:29)
[2021-10-10] MEDS: ASCORBIC ACID 500 MG TAB PO SCH (10:30)
[2021-10-10] MEDS: CHOLECALCIFEROL 125 MCG (5000 IU) TABLET PO SCH (10:30)
[2021-10-10] MEDS: allopurinoL 100 MG TAB PO SCH (10:30)
[2021-10-10] MEDS: PANTOPRAZOLE 40 MG TABLET PO SCH (10:57)
--- NOTE | 2021-10-10 11:39 | P.PN ---
Subjective Principal diagnosis: Patient is seen for follow-up for end-stage renal disease. Patient was admitted to the hospital with significant respiratory distress and hypoxia. She did test positive for COVID-19 PCR. Patient was also volume overloaded. Patient had 2 L of ultrafiltration on initial admission and then 2 L yesterday we will dialyze again today. Overall patient is feeling much better her O2 requirement is down to about 9 L. She is however still short of breath. Chest x-ray from today continues to show bilateral diffuse interstitial changes. Objective - Vital Signs Vital signs: Vital Signs Temp 98.3 F 10/10/21 08:00 Pulse 86 10/10/21 09:00 Resp 17 10/10/21 09:00 BP 114/55 10/10/21 09:00 Pulse Ox 94 L 10/10/21 09:00 Intake & Output 10/09/21 10/10/21 10/10/21 18:59 06:59 18:59 Intake Total 990 500 220 Output Total 2005 0 0 Balance -1015 500 220 Weight 88.4 kg 87.3 kg Intake: IV 50 100 cefTRIAXone 2 gm In 50 100 Sodium Chloride 0.9% 50 ml @ 100 mls/hr IVPB Q24HR [facility] Rx#:[id number] Oral 640 500 120 Hemodialysis 300 Output: Urine 5 0 0 Hemodialysis 2000 Other: Voiding Method Bedside Commode External Catheter External Catheter - Exam Patient is currently comfortable awake alert oriented 3. She is maintained on high flow nasal cannula. Examination lower extremities shows no significant edema. 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 Lungs and heart are not examined due to Covid isolation - Labs CBC & Chem 7: 10/09/21 05:54 10/09/21 05:54 Labs: Abnormal Lab Results - Last 24 Hours (Table) 10/10/21 10/10/21 Range/Units 06:04 06:04 D-Dimer 2.68 H (<0.60) mg/L FEU Lactate Dehydrogenase 699 H (313-618) U/L C-Reactive Protein 14.3 H (<1.0) mg/dL Assessment and Plan Assessment: 1. End-stage renal disease on hemodialysis on a Thursday vent is a Thursday schedule via left arm AV fistula scheduled for hemodialysis , receiving extra treatments for volume overload. I we will dialyze her again today. 2. Volume overload expect improvement post dialysis today patient will receive an extra treatment 3. Acute hypoxic respiratory failure secondary to COVID pneumonia as well as CHF 4. CK D mineral bone disorder 5. Possible bacterial pneumonia / bronchitis treated with antibiotics as outpatient prior to this admission with improvement in symptoms. 6. Anemia no active bleeding noted, anemia of chronic disease. Plan: 1. Hemodialysis today with UF of about 2 L. 2. Repeat hemodialysis in a.m. as it is her regular scheduled day. 3. Maintain patient on Aranesp 4. Maintain phosphate binders 5. Treatment of covid pneumonia as per pulmonary 6. Midodrine 10 mg by mouth 1 to help with ultrafiltration
--- NOTE | 2021-10-10 12:59 | P.PN ---
Subjective Progress Note Date: 10/10/21 Principal diagnosis: CC: shortness of breath Patient is a 71-year-old female end-stage renal disease on hemodialysis Thursday, hypertension, and COPD with home O2 use at 2.5 L nasal cannula. She was at dialysis became hypoxic and she was sent to the ER. She was found have COVID-19 pneumonia. She had been taking prednisone and doxycycline secondary to a cold. Initial ABGs of profile acidosis with CO2 retention. She was placed on BiPAP and again continued to have acidosis with CO2 retention. The remainder of her labs were consistent with a dialysis patient. She was also found have mildly elevated troponin which was trended and flat. Pulmonary was consulted. She was started on dexamethasone zinc, vitamin C, and vitamin D. She was admitted to the ICU. Nephrology was consulted. 10/10/2021: Patient currently is on 9 liters nasal cannula. Patient's chest x- ray from this morning is about the same. Patient states that her breathing is slightly better compared to yesterday. Objective - Vital Signs Vital signs: Vital Signs Temp 98.3 F 10/10/21 08:00 Pulse 86 10/10/21 09:00 Resp 17 10/10/21 09:00 BP 114/55 10/10/21 09:00 Pulse Ox 94 L 10/10/21 09:00 Intake & Output 10/09/21 10/10/21 10/10/21 18:59 06:59 18:59 Intake Total 990 500 220 Output Total 2005 0 0 Balance -1015 500 220 Weight 88.4 kg 87.3 kg Intake: IV 50 100 cefTRIAXone 2 gm In 50 100 Sodium Chloride 0.9% 50 ml @ 100 mls/hr IVPB Q24HR [facility] Rx#:[id number] Oral 640 500 120 Hemodialysis 300 Output: Urine 5 0 0 Hemodialysis 2000 Other: Voiding Method Bedside Commode External Catheter External Catheter - Exam General examination - Alert and Oriented 3 in moderate respiratory distress Heart - + S1S2 no murmurs Lungs - diminished breath sounds bilaterally Abdomen soft NT ND +ve BS Extremities - No edema 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 - Moving 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 4 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 spontaneously Psych - anxious - Labs CBC & Chem 7: 10/09/21 05:54 10/09/21 05:54 Labs: Abnormal Lab Results - Last 24 Hours (Table) 01/27/22 01/27/22 Range/Units 06:04 06:04 D-Dimer 2.68 H (<0.60) mg/L FEU Lactate Dehydrogenase 699 H (313-618) U/L C-Reactive Protein 14.3 H (<1.0) mg/dL Assessment and Plan Assessment: COVID-19 pneumonitis in a non vaccinated patient Acute exacerbation of COPD Acute on chronic hypoxic hypercapnic respiratory failure Elevated d-dimer -Pulmonary recommendations -Zinc, vitamin C, vitamin D -Decadron day #3, outsied the window for REM -Lovenox -> will switch patient to full dose anticoagulation once patient is transfer out of ICU this is as per [facility] updated COVID-19 guidelines. - Bronchodilators -Elevated pro-calcitonin -> patient on rocephin -lower extremity venous dopplers negative for DVT #Endg Stage renal disease with volume overload #Chronic kidney diseas, mineral old bone disease -Dialysis as per nephrology #Hypertension, controlled -Norvasc DVT prophylaxis: Lovenox Gi ppx; PPI Discussed with: patient, nursing Anticipated discharge: undetermined Anticipated discharge place: undetermined
[2021-10-10] MEDS: amLODIPine 5 MG TAB PO SCH (21:58)
[2021-10-10] MEDS: MONTELUKAST 10 MG TAB PO SCH (21:58)
[2021-10-10] MEDS: FOLIC ACID-VIT B COMPLEX-VIT C 1 CAP PO SCH (21:59)
[2021-10-10] MEDS: MELATONIN 3 MG TABLET PO PRN (22:05)
[2021-10-11 06:18] LABS: Anisocytosis Slight; HCT 25.6 % (34.0-46.0); HGB 7.2 gm/dL (11.4-16.0); Hypochromasia Marked; MCH 26.4 pg (25.0-35.0); MCHC 27.9 g/dL (31.0-37.0); MCV 94.6 fL (80.0-100.0); Mean Platelet Volume 8.2; Platelet Count 281 k/uL (150-450); RBC 2.71 m/uL (3.80-5.40); RDW 18.3 % (11.5-15.5); WBC 7.4 k/uL (3.8-10.6)
[2021-10-11 06:29] LABS: African American GFR (CKD) 12 (>60 ml/min/1.73 sqM); Anion Gap 8 mmol/L; Blood Urea Nitrogen 38 mg/dL (7-17); Calcium 9.1 mg/dL (8.4-10.2); Carbon Dioxide 28 mmol/L (22-30); Chloride 100 mmol/L (98-107); Glucose 107 mg/dL (74-99); Non-African American GFR(CKD) 10 (>60 ml/min/1.73 sqM); Potassium 4.1 mmol/L (3.5-5.1); Sodium 136 mmol/L (137-145)
[2021-10-11] MEDS: FOLIC ACID-VIT B COMPLEX-VIT C 1 CAP PO SCH ×2 (06:57→21:13)
[2021-10-11] MEDS: amLODIPine 5 MG TAB PO SCH ×2 (06:57→21:13)
[2021-10-11] MEDS: ENOXAPARIN 30 MG/0.3 ML SYRINGE SQ SCH (07:47)
[2021-10-11] MEDS: DEXAMETHASONE SOD PHOSPHATE 10 MG/ML 1 ML VIAL IVP SCH ×2 (07:48→08:00)
[2021-10-11] MEDS: PANTOPRAZOLE 40 MG TABLET PO SCH (07:48)
[2021-10-11] MEDS: ZINC SULFATE 220 MG CAP PO SCH (07:48)
[2021-10-11] MEDS: CHOLECALCIFEROL 125 MCG (5000 IU) TABLET PO SCH (07:48)
[2021-10-11] MEDS: allopurinoL 100 MG TAB PO SCH (07:49)
[2021-10-11] MEDS: levOCARNitine (WITH SUGAR) 100 MG/ML BOTTLE PO SCH ×2 (07:49→21:15)
[2021-10-11] MEDS: ASCORBIC ACID 500 MG TAB PO SCH (07:49)
[2021-10-11] MEDS: STIOLTO RESPIMAT INHALER INHALATION SCH (08:42)
--- NOTE | 2021-10-11 12:27 | P.PN ---
Subjective Progress Note Date: 10/11/21 Principal diagnosis: CC: shortness of breath Patient is a 71-year-old female end-stage renal disease on hemodialysis Thursday, hypertension, and COPD with home O2 use at 2.5 L nasal cannula. She was at dialysis became hypoxic and she was sent to the ER. She was found have COVID-19 pneumonia. She had been taking prednisone and doxycycline secondary to a cold. Initial ABGs of profile acidosis with CO2 retention. She was placed on BiPAP and again continued to have acidosis with CO2 retention. The remainder of her labs were consistent with a dialysis patient. She was also found have mildly elevated troponin which was trended and flat. Pulmonary was consulted. She was started on dexamethasone zinc, vitamin C, and vitamin D. She was admitted to the ICU. Nephrology was consulted. 10/11/2021: Patient is currently down to 8 L nasal cannula. She was sitting in the chair when I went to see her. She states that her breathing is improving g radually. Objective - Vital Signs Vital signs: Vital Signs Temp 98.4 F 10/11/21 10:24 Pulse 75 10/11/21 10:24 Resp 19 10/11/21 10:24 BP 115/71 10/11/21 10:24 Pulse Ox 100 10/11/21 10:24 Intake & Output 10/10/21 10/11/21 10/11/21 18:59 06:59 18:59 Intake Total 220 300 Output Total 0 2300 Balance 220 -2000 Intake: IV 100 cefTRIAXone 2 gm In 100 Sodium Chloride 0.9% 50 ml @ 100 mls/hr IVPB Q24HR [facility] Rx#:[id number] Oral 120 Hemodialysis 300 Output: Urine 0 Hemodialysis 2300 Other: Voiding Method External Catheter - Exam General examination - Alert and Oriented 3 in no acute distress Heart - + S1S2 no murmurs Lungs - diminished breath sounds bilaterally Abdomen soft NT ND +ve BS Extremities - No edema 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 spontaneously Psych -calm and appropriate - Labs CBC & Chem 7: 10/11/21 05:35 10/11/21 05:35 Labs: Abnormal Lab Results - Last 24 Hours (Table) 10/11/21 10/11/21 Range/Units 05:35 05:35 RBC 2.71 L (3.80-5.40) m/uL Hgb 7.2 L (11.4-16.0) gm/dL Hct 25.6 L (34.0-46.0) % MCHC 27.9 L (31.0-37.0) g/dL RDW 18.3 H (11.5-15.5) % Sodium 136 L (137-145) mmol/L BUN 38 H (7-17) mg/dL Creatinine 4.09 H (0.52-1.04) mg/dL Glucose 107 H (74-99) mg/dL Assessment and Plan Assessment: COVID-19 pneumonitis in a non vaccinated patient Acute exacerbation of COPD Acute on chronic hypoxic hypercapnic respiratory failure Elevated d-dimer -Pulmonary recommendations -Zinc, vitamin C, vitamin D -Decadron day #4, outsied the window for REM -Lovenox -> will switch patient to full dose anticoagulation once patient is transfer out of ICU this is as per [facility] updated COVID-19 guidelines. - Bronchodilators -Elevated pro-calcitonin -> patient on rocephin -lower extremity venous dopplers negative for DVT -Patient is gradually improving and now she is down to 8 L nasal cannula. #End Stage renal disease with volume overload #Chronic kidney diseas, mineral old bone disease -Dialysis as per nephrology #Hypertension, controlled -Norvasc DVT prophylaxis: Lovenox Gi ppx; PPI Discussed with: patient, nursing Anticipated discharge: undetermined Anticipated discharge place: undetermined
--- NOTE | 2021-10-11 15:10 | P.PN ---
Subjective Progress Note Date: 10/11/21 Principal diagnosis: Coronavirus pneumonia. This is a 71-year-old female patient who follows with Dr. Keene as her primary care provider. She has a history of end-stage renal disease receiving hemodialysis on Thursday, hypertension, chronic obstructive pulmonary disease follow with Dr. Denney out of [facility], gastroesophageal reflux disease, gout, carnitine deficiency. She also has a previous history of acute hypoxemic respiratory failure requiring intubation mechanical ventilatory support back in October 2020 here at [facility]. She was brought into the emergency room last evening with a two-week history of increasing shortness of breath cough and congestion. She did have a patella help visit with her PCP and was started on doxycycline and prednisone. Not much improvement. She did test positive for COVID-19 here. She is not vaccinated. Chest x-ray shows bilateral patchy infiltrates. She is seen in the emergency room. Sitting up on the stretcher. On BiPAP 14/6 and 65% FiO2. Blood gases revealed a PaO2 of 97, pCO2 72, pH 7.25. White count 11.3. Hemoglobin 7.9. Lymphocytes 0.4. D-dimer 2.69. Sodium 134. Potassium 4.2. BUN 38. Creatinine 5.38. Ferritin 762. LDH 742. C-reactive protein 21.4. Troponins 0.97, 0.97, 0.98. ProBNP 98,400. She was initiated on Decadron, Lovenox, vitamin supplements. Continued on Ventolin, Singulair, Spiriva and Serevent. The patient is seen today 10/09/2021 in follow-up in the intensive care unit. He is currently sitting up in bed. Awake and alert in no acute distress. She was maintained on BiPAP through the night 14/6 and 45% FiO2. She is maintaining good O2 saturations in the mid 90s. We'll attempt to transition her to 15 L high flow nasal cannula. He is afebrile. D-dimer 2.71. White count 10.2. Hemoglobin 7.2. Sodium 138. Potassium 4.7. BUN 37. Creatinine 4.96. LDH 631. Procalcitonin 2.66. She remains on ceftriaxone along with Decadron, Lovenox and vitamin supplements. The patient is seen today 10/10/2021 in follow-up in the intensive care unit. She is currently sitting up in bed. Awake and alert in no acute distress. She is off BiPAP. She's on 9 L high flow nasal cannula. No IV fluids. She did receive hemodialysis yesterday with 2.5 L removed. Chest x-ray reveals stable cardiomegaly. Continue diffuse interstitial changes in the mid and lower lung garner. D-dimer 2.68. LDH 699. C-reactive protein 14.3. She is continued on Decadron, Lovenox, vitamin supplements. Currently on ceftriaxone. Pro- calcitonin was 2.66. Progress note dated 10/11/2021. The patient is seen today in room 471. Yesterday, she was in the intensive care unit. Currently, she is on 6 L nasal cannula. She is receiving hemodialysis. Yesterday, she was on 9 L. The patient is feeling much better. She looks much better. She's denies being short of breath, or complaining of any chest pain or chest discomfort. White count 7.4, he will been some 0.2, hematocrit 25.6, and platelet count 281,000. Sodium 136, potassium 4.1, chlorides 100, CO2 28, BUN 38, with a creatinine of 4.09. Calcium is 9.1. The patient has evidence of cardiomegaly and diffuse interstitial changes on chest x-ray. Objective - Vital Signs Vital signs: Vital Signs Temp 97.9 F 10/11/21 14:00 Pulse 85 10/11/21 14:00 Resp 20 10/11/21 14:00 BP 125/61 10/11/21 14:00 Pulse Ox 94 L 10/11/21 14:00 Intake & Output 10/10/21 10/11/21 10/11/21 18:59 06:59 18:59 Intake Total 220 300 50 Output Total 0 2300 Balance 220 -2000 50 Intake: IV 100 50 cefTRIAXone 2 gm In 100 50 Sodium Chloride 0.9% 50 ml @ 100 mls/hr IVPB Q24HR [facility] Rx#:[id number] Oral 120 Hemodialysis 300 Output: Urine 0 Hemodialysis 2300 Other: Voiding Method External Catheter - Exam No acute distress, oriented 3. Currently on 6 L nasal cannula. The patient is receiving hemodialysis. HEENT examination is grossly unremarkable. Neck supple. Full range of motion. No adenopathy thyromegaly or neck vein distention. Cardiovascular examination reveals regular rhythm rate. S1-S2 normal. No S3 or S4. No discernible murmur noted. Heart rate 85 bpm. Heart sounds are distant. Lungs reveal scattered bilateral rhonchi. Mild crackles noted bilaterally. No wheezes. Breath sounds equal bilaterally. Saturations are 94% on 6 L nasal cannula. Abdomen soft bowel sounds are heard. No masses or tenderness. Extremities are intact. No cyanosis clubbing or edema. Skin is without rash or lesion. Neurologic examination is brief but nonfocal. - Labs CBC & Chem 7: 10/11/21 05:35 10/11/21 05:35 Labs: Abnormal Lab Results - Last 24 Hours (Table) 10/11/21 10/11/21 Range/Units 05:35 05:35 RBC 2.71 L (3.80-5.40) m/uL Hgb 7.2 L (11.4-16.0) gm/dL Hct 25.6 L (34.0-46.0) % MCHC 27.9 L (31.0-37.0) g/dL RDW 18.3 H (11.5-15.5) % Sodium 136 L (137-145) mmol/L BUN 38 H (7-17) mg/dL Creatinine 4.09 H (0.52-1.04) mg/dL Glucose 107 H (74-99) mg/dL Assessment and Plan Assessment: 1 Acute hypoxemic respiratory failure secondary to acute COVID-19 pneumonia. The patient is not vaccinated. Onset of symptoms 2 weeks ago. Outside the window for Remdesivir. Pro calcitonin 2.66. The patient is continued on ceftriaxone. Initiated on Lovenox, Decadron, vitamin supplements. Initially required BiPAP 14/6 and 45% FiO2, improved, and on 6 L high flow nasal cannula. 2 Elevated inflammatory markers secondary to above. 3 Elevated d-dimer, negative DVTs of the lower extremities. 4 End-stage renal disease receiving hemodialysis on Fridays. 5 History of chronic obstructive pulmonary disease. 6 Remote history of chronic tobacco dependence. 7 History of carnitine deficiency. 8 History of hypertension. 9 History of gout. 10 Gastroesophageal reflux disease. 11 History of ventilator dependent respiratory failure due to fluid volume overload back in October 2020. Plan: Plan dated 10/11/2019. The patient has been weaned on the 6 L nasal cannula. The patient's story much better. She is receiving hemodialysis today. The patient remains on Lovenox, vitamin C, vitamin D3, and zinc. According to the patient and the patient's daughter, she cannot tolerate glucocorticoids. Hence, they requested that they be stopped. Yesterday, the patient was in the intensive care unit. She was transferred out yesterday. We will continue to follow and make recommendations where appropriate. Prognosis is guarded. Time with Patient: Less than 30
--- NOTE | 2021-10-11 17:27 | P.PN ---
Subjective Principal diagnosis: Patient is seen for follow-up for end-stage renal disease. Patient was admitted to the hospital with significant respiratory distress and hypoxia. She did test positive for COVID-19 PCR. Patient was also volume overloaded. Patient has had about 6 L of ultrafiltration since admission thus far Overall patient is feeling much better her O2 requirement is down to about 6L Transferred out of the ICU. Objective - Vital Signs Vital signs: Vital Signs Temp 98.4 F 10/11/21 17:11 Pulse 112 H 10/11/21 17:11 Resp 16 10/11/21 17:11 BP 114/61 10/11/21 17:11 Pulse Ox 92 L 10/11/21 17:11 Intake & Output 10/10/21 10/11/21 10/11/21 18:59 06:59 18:59 Intake Total 220 300 350 Output Total 0 2300 1500 Balance 220 -2000 -1150 Intake: IV 100 50 cefTRIAXone 2 gm In 100 50 Sodium Chloride 0.9% 50 ml @ 100 mls/hr IVPB Q24HR [facility] Rx#:[id number] Oral 120 Hemodialysis 300 300 Output: Urine 0 Hemodialysis 2300 1500 Other: Voiding Method External Catheter - Exam Patient is currently comfortable awake alert oriented 3. She is maintained on high flow nasal cannula. Examination lower extremities shows no significant edema. 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 Lungs and heart are not examined due to Covid isolation - Labs CBC & Chem 7: 10/11/21 05:35 10/11/21 05:35 Labs: Abnormal Lab Results - Last 24 Hours (Table) 10/11/21 10/11/21 Range/Units 05:35 05:35 RBC 2.71 L (3.80-5.40) m/uL Hgb 7.2 L (11.4-16.0) gm/dL Hct 25.6 L (34.0-46.0) % MCHC 27.9 L (31.0-37.0) g/dL RDW 18.3 H (11.5-15.5) % Sodium 136 L (137-145) mmol/L BUN 38 H (7-17) mg/dL Creatinine 4.09 H (0.52-1.04) mg/dL Glucose 107 H (74-99) mg/dL Assessment and Plan Assessment: 1. End-stage renal disease on hemodialysis on a Thursday vent is a Thursday schedule via left arm AV fistula scheduled for hemodialysis , receiving extra treatments for volume overload. I we will dialyze her again today as well as tomorrow. 2. Volume overload expect improvement post dialysis today patient will receive an extra treatment tomorrow 3. Acute hypoxic respiratory failure secondary to COVID pneumonia as well as CHF 4. CK D mineral bone disorder 5. Possible bacterial pneumonia / bronchitis treated with antibiotics as outpatient prior to this admission with improvement in symptoms. 6. Anemia no active bleeding noted, anemia of chronic disease. Plan: 1. Hemodialysis today with UF of about 2 L. 2. Repeat hemodialysis in a.m. 3. Maintain patient on Aranesp 4. Maintain phosphate binders 5. Treatment of covid pneumonia as per pulmonary 6. Midodrine 10 mg by mouth 1 to help with ultrafiltration
[2021-10-11] MEDS: DOCUSATE 100 MG CAP PO PRN (21:15)
[2021-10-11] MEDS: MELATONIN 3 MG TABLET PO PRN (21:15)
[2021-10-11] MEDS: MONTELUKAST 10 MG TAB PO SCH (21:15)
[2021-10-12 06:39] LABS: Anisocytosis Slight; Basophils % (A) 0 %; Eosinophils % (A) 0 %; HCT 26.7 % (34.0-46.0); HGB 7.3 gm/dL (11.4-16.0); Hypochromasia Marked; Lymphocytes # (A) 0.7 k/uL (1.0-4.8); Lymphocytes % (A) 7 %; MCH 25.6 pg (25.0-35.0); MCHC 27.4 g/dL (31.0-37.0); MCV 93.1 fL (80.0-100.0); Mean Platelet Volume 8.4; Monocytes # (A) 0.5 k/uL (0-1.0); Monocytes % (A) 6 %; Neutrophils # (A) 7.5 k/uL (1.3-7.7); Neutrophils % (A) 83 %; Platelet Count 300 k/uL (150-450); RBC 2.87 m/uL (3.80-5.40); RDW 18.3 % (11.5-15.5); WBC 8.9 k/uL (3.8-10.6)
[2021-10-12 06:52] LABS: African American GFR (CKD) 10 (>60 ml/min/1.73 sqM); Anion Gap 6 mmol/L; Blood Urea Nitrogen 56 mg/dL (7-17); Calcium 9.2 mg/dL (8.4-10.2); Carbon Dioxide 30 mmol/L (22-30); Chloride 101 mmol/L (98-107); Glucose 105 mg/dL (74-99); Non-African American GFR(CKD) 8 (>60 ml/min/1.73 sqM); Potassium 4.3 mmol/L (3.5-5.1); Sodium 137 mmol/L (137-145)
[2021-10-12] MEDS: STIOLTO RESPIMAT INHALER INHALATION SCH (08:17)
[2021-10-12] MEDS: allopurinoL 100 MG TAB PO SCH (08:27)
[2021-10-12] MEDS: ZINC SULFATE 220 MG CAP PO SCH (08:27)
[2021-10-12] MEDS: ENOXAPARIN 30 MG/0.3 ML SYRINGE SQ SCH (08:27)
[2021-10-12] MEDS: ASCORBIC ACID 500 MG TAB PO SCH (08:28)
[2021-10-12] MEDS: levOCARNitine (WITH SUGAR) 100 MG/ML BOTTLE PO SCH ×2 (08:28→20:18)
[2021-10-12] MEDS: CHOLECALCIFEROL 125 MCG (5000 IU) TABLET PO SCH (08:28)
[2021-10-12] MEDS: PANTOPRAZOLE 40 MG TABLET PO SCH (08:28)
--- NOTE | 2021-10-12 10:11 | P.PN ---
Subjective Patient is seen in follow-up for end-stage renal disease. She is maintained on hemodialysis on Thursday schedule. Has received extra treatments of dialysis this admission for volume overload. Currently on 8 L high flow cannula. Denies chest pain or shortness of breath. Hemodynamically stable. Vital signs are stable. General: The patient appeared well nourished and normally developed. HEENT: Head exam is unremarkable. LUNGS: Breath sounds decreased. HEART: Rate and Rhythm are regular. ABDOMEN: Soft, no distention. EXTREMITITES: No edema. Objective - Vital Signs Vital signs: Vital Signs Temp 97.7 F 10/12/21 06:00 Pulse 84 10/12/21 06:00 Resp 19 10/12/21 06:00 BP 105/65 10/12/21 06:00 Pulse Ox 100 10/12/21 06:00 Intake & Output 10/11/21 10/12/21 10/12/21 18:59 06:59 18:59 Intake Total 350 480 Output Total 1500 Balance -1150 480 Intake: IV 50 cefTRIAXone 2 gm In 50 Sodium Chloride 0.9% 50 ml @ 100 mls/hr IVPB Q24HR [facility] Rx#:[id number] Oral 480 Hemodialysis 300 Output: Hemodialysis 1500 - Labs CBC & Chem 7: 10/12/21 05:36 10/12/21 05:36 Labs: Abnormal Lab Results - Last 24 Hours (Table) 10/12/21 10/12/21 Range/Units 05:36 05:36 RBC 2.87 L (3.80-5.40) m/uL Hgb 7.3 L (11.4-16.0) gm/dL Hct 26.7 L (34.0-46.0) % MCHC 27.4 L (31.0-37.0) g/dL RDW 18.3 H (11.5-15.5) % Lymphocytes # 0.7 L (1.0-4.8) k/uL BUN 56 H (7-17) mg/dL Creatinine 4.90 H (0.52-1.04) mg/dL Glucose 105 H (74-99) mg/dL Assessment and Plan Plan: Assessment: 1. End-stage renal disease maintained on hemodialysis on Thursday schedule. 2. Volume overload. Improved with ultrafiltration. 3. Acute hypoxic respiratory failure. 4. COVID-19 pneumonia. 5. Anemia of chronic kidney disease maintained on Aranesp. Plan: Short hemodialysis treatment today. Hold amlodipine for systolic blood pressure less than 120. Check phosphorus level
[2021-10-12] MEDS: ACETAMINOPHEN TAB 325 MG TAB PO PRN ×2 (10:53→20:17)
--- NOTE | 2021-10-12 11:43 | P.PN ---
Subjective Progress Note Date: 10/12/21 Principal diagnosis: CC: shortness of breath Patient is a 71-year-old female end-stage renal disease on hemodialysis Thursday, hypertension, and COPD with home O2 use at 2.5 L nasal cannula. She was at dialysis became hypoxic and she was sent to the ER. She was found have COVID-19 pneumonia. She had been taking prednisone and doxycycline secondary to a cold. Initial ABGs of profile acidosis with CO2 retention. She was placed on BiPAP and again continued to have acidosis with CO2 retention. The remainder of her labs were consistent with a dialysis patient. She was also found have mildly elevated troponin which was trended and flat. Pulmonary was consulted. She was started on dexamethasone zinc, vitamin C, and vitamin D. She was admitted to the ICU. Nephrology was consulted. 10/12/2021: Patient currently an 8 L nasal cannula. Patient states that she feels very tired. Patient was given dialysis when I went to go see her. She states that her breathing is gradually improving. Objective - Vital Signs Vital signs: Vital Signs Temp 98.2 F 10/12/21 09:40 Pulse 86 10/12/21 09:40 Resp 18 10/12/21 09:40 BP 124/65 10/12/21 11:22 Pulse Ox 99 10/12/21 09:40 Intake & Output 10/11/21 10/12/21 10/12/21 18:59 06:59 18:59 Intake Total 350 480 Output Total 1500 2000 Balance -1150 480 -2000 Intake: IV 50 cefTRIAXone 2 gm In 50 Sodium Chloride 0.9% 50 ml @ 100 mls/hr IVPB Q24HR [facility] Rx#:[id number] Oral 480 Hemodialysis 300 Output: Hemodialysis 1500 2000 - Exam General examination - Alert and Oriented 3 in no acute distress Heart - + S1S2 no murmurs Lungs - diminished breath sounds bilaterally Abdomen soft NT ND +ve BS Extremities - No edema 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 - Moving all 4 extremities spontaneously Psych -calm and appropriate - Labs CBC & Chem 7: 10/12/21 05:36 10/12/21 05:36 Labs: Abnormal Lab Results - Last 24 Hours (Table) 10/12/21 10/12/21 10/12/21 Range/Units 05:36 05:36 05:36 RBC 2.87 L (3.80-5.40) m/uL Hgb 7.3 L (11.4-16.0) gm/dL Hct 26.7 L (34.0-46.0) % MCHC 27.4 L (31.0-37.0) g/dL RDW 18.3 H (11.5-15.5) % Lymphocytes # 0.7 L (1.0-4.8) k/uL BUN 56 H (7-17) mg/dL Creatinine 4.90 H (0.52-1.04) mg/dL Glucose 105 H (74-99) mg/dL Phosphorus 5.3 H (2.5-4.5) mg/dL Assessment and Plan Assessment: COVID-19 pneumonitis in a non vaccinated patient Acute exacerbation of COPD Acute on chronic hypoxic hypercapnic respiratory failure Elevated d-dimer -Pulmonary recommendations -Zinc, vitamin C, vitamin D -Decadron day #5, outsied the window for REM -Due to anemia will keep patient at DVT prophylactic dose. - Bronchodilators -Elevated pro-calcitonin -> patient on rocephin -lower extremity venous dopplers negative for DVT -Patient is gradually improving. She is currently on 8 L nasal cannula. 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
--- NOTE | 2021-10-12 16:34 | P.PN ---
Subjective Progress Note Date: 10/12/21 Principal diagnosis: Coronavirus pneumonia. This is a 71-year-old female patient who follows with Dr. Keene as her primary care provider. She has a history of end-stage renal disease receiving hemodialysis on Thursday, hypertension, chronic obstructive pulmonary disease follow with Dr. Denney out of [facility], gastroesophageal reflux disease, gout, carnitine deficiency. She also has a previous history of acute hypoxemic respiratory failure requiring intubation mechanical ventilatory support back in October 2020 here at [facility]. She was brought into the emergency room last evening with a two-week history of increasing shortness of breath cough and congestion. She did have a patella help visit with her PCP and was started on doxycycline and prednisone. Not much improvement. She did test positive for COVID-19 here. She is not vaccinated. Chest x-ray shows bilateral patchy infiltrates. She is seen in the emergency room. Sitting up on the stretcher. On BiPAP 14/6 and 65% FiO2. Blood gases revealed a PaO2 of 97, pCO2 72, pH 7.25. White count 11.3. Hemoglobin 7.9. Lymphocytes 0.4. D-dimer 2.69. Sodium 134. Potassium 4.2. BUN 38. Creatinine 5.38. Ferritin 762. LDH 742. C-reactive protein 21.4. Troponins 0.97, 0.97, 0.98. ProBNP 98,400. She was initiated on Decadron, Lovenox, vitamin supplements. Continued on Ventolin, Singulair, Spiriva and Serevent. The patient is seen today 10/09/2021 in follow-up in the intensive care unit. He is currently sitting up in bed. Awake and alert in no acute distress. She was maintained on BiPAP through the night 14/6 and 45% FiO2. She is maintaining good O2 saturations in the mid 90s. We'll attempt to transition her to 15 L high flow nasal cannula. He is afebrile. D-dimer 2.71. White count 10.2. Hemoglobin 7.2. Sodium 138. Potassium 4.7. BUN 37. Creatinine 4.96. LDH 631. Procalcitonin 2.66. She remains on ceftriaxone along with Decadron, Lovenox and vitamin supplements. The patient is seen today 10/10/2021 in follow-up in the intensive care unit. She is currently sitting up in bed. Awake and alert in no acute distress. She is off BiPAP. She's on 9 L high flow nasal cannula. No IV fluids. She did receive hemodialysis yesterday with 2.5 L removed. Chest x-ray reveals stable cardiomegaly. Continue diffuse interstitial changes in the mid and lower lung garner. D-dimer 2.68. LDH 699. C-reactive protein 14.3. She is continued on Decadron, Lovenox, vitamin supplements. Currently on ceftriaxone. Pro- calcitonin was 2.66. Progress note dated 10/11/2021. The patient is seen today in room 471. Yesterday, she was in the intensive care unit. Currently, she is on 6 L nasal cannula. She is receiving hemodialysis. Yesterday, she was on 9 L. The patient is feeling much better. She looks much better. She's denies being short of breath, or complaining of any chest pain or chest discomfort. White count 7.4, he will been some 0.2, hematocrit 25.6, and platelet count 281,000. Sodium 136, potassium 4.1, chlorides 100, CO2 28, BUN 38, with a creatinine of 4.09. Calcium is 9.1. The patient has evidence of cardiomegaly and diffuse interstitial changes on chest x-ray. Progress note dated 10/12/2021. The patient is again seen in room 471. She is a 71-year-old female who was previously in the intensive care unit, on BiPAP. Currently, she is on 6 L nasal cannula. She did receive hemodialysis today. The patient is typically Thursday/Thursday/Thursday hemodialysis patient. She clinically looks much better. She feeling much better. Laboratory data includes a white count 8.9, hemoglobin 7.3, hematocrit 26.7, and platelet count 300,000. Sodium 137, potassium 4.3, chlorides 101, CO2 30, anion gap 6, BUN 56, and creatinine 4.90. Objective - Vital Signs Vital signs: Vital Signs Temp 97.8 F 10/12/21 14:00 Pulse 98 10/12/21 14:00 Resp 18 10/12/21 14:00 BP 114/69 10/12/21 14:00 Pulse Ox 95 10/12/21 14:00 Intake & Output 10/11/21 10/12/21 10/12/21 18:59 06:59 18:59 Intake Total 350 480 Output Total 1500 2000 Balance -1150 480 -2000 Intake: IV 50 cefTRIAXone 2 gm In 50 Sodium Chloride 0.9% 50 ml @ 100 mls/hr IVPB Q24HR [facility] Rx#:[id number] Oral 480 Hemodialysis 300 Output: Hemodialysis 1500 2000 - Exam No acute distress, oriented 3. Currently on 6 L nasal cannula. The patient had hemodialysis earlier today. HEENT examination is grossly unremarkable. Neck supple. Full range of motion. No adenopathy thyromegaly or neck vein distention. Cardiovascular examination reveals regular rhythm rate. S1-S2 normal. No S3 or S4. No discernible murmur noted. Heart rate 98 bpm. Heart sounds are distant. Lungs reveal scattered bilateral rhonchi. Mild crackles noted bilaterally. No wheezes. Breath sounds equal bilaterally. Saturations are 95% on 6 L nasal cannula. Abdomen soft bowel sounds are heard. No masses or tenderness. Extremities are intact. No cyanosis clubbing or edema. Skin is without rash or lesion. Neurologic examination is brief but nonfocal. - Labs CBC & Chem 7: 10/12/21 05:36 10/12/21 05:36 Labs: Abnormal Lab Results - Last 24 Hours (Table) 10/12/21 10/12/21 10/12/21 Range/Units 05:36 05:36 05:36 RBC 2.87 L (3.80-5.40) m/uL Hgb 7.3 L (11.4-16.0) gm/dL Hct 26.7 L (34.0-46.0) % MCHC 27.4 L (31.0-37.0) g/dL RDW 18.3 H (11.5-15.5) % Lymphocytes # 0.7 L (1.0-4.8) k/uL BUN 56 H (7-17) mg/dL Creatinine 4.90 H (0.52-1.04) mg/dL Glucose 105 H (74-99) mg/dL Phosphorus 5.3 H (2.5-4.5) mg/dL Assessment and Plan Assessment: 1 Acute hypoxemic respiratory failure secondary to acute COVID-19 pneumonia. The patient is not vaccinated. Onset of symptoms 2 weeks ago. Outside the window for Remdesivir. Pro calcitonin 2.66. The patient is continued on ceftriaxone. Initiated on Lovenox, Decadron, vitamin supplements. Initially required BiPAP 14/6 and 45% FiO2, improved, and on 6 L high flow nasal cannula. 2 Elevated inflammatory markers secondary to above. 3 Elevated d-dimer, negative DVTs of the lower extremities. 4 End-stage renal disease receiving hemodialysis on Fridays. 5 History of chronic obstructive pulmonary disease. 6 Remote history of chronic tobacco dependence. 7 History of carnitine deficiency. 8 History of hypertension. 9 History of gout. 10 Gastroesophageal reflux disease. 11 History of ventilator dependent respiratory failure due to fluid volume overload back in October 2020. Plan: Plan dated 10/11/2019. The patient has been weaned on the 6 L nasal cannula. The patient's story much better. She is receiving hemodialysis today. The patient remains on Lovenox, vitamin C, vitamin D3, and zinc. According to the patient and the patient's daughter, she cannot tolerate glucocorticoids. Hence, they requested that they be stopped. Yesterday, the patient was in the intensive care unit. She was transferred out yesterday. We will continue to follow and make recommendations where appropriate. Prognosis is guarded. Plan dated 10/12/2019. The patient is currently on 6 L nasal cannula. The patient's doing much better. She did receive hemodialysis today as well. Patient is on vitamin C, vitamin D3, and zinc. In addition, the patient is on Lovenox. The patient is also maintain an albuterol inhaler. The patient is also getting Rocephin 2 g, every day. We will continue to follow make recommendations where appropriate. She was initially in the intensive care unit, and was transferred out on October 10. Clinically she looks much improved. She is much more awake and alert. Oxygen can be weaned. Time with Patient: Less than 30
[2021-10-12] MEDS: MONTELUKAST 10 MG TAB PO SCH (20:15)
[2021-10-12] MEDS: FOLIC ACID-VIT B COMPLEX-VIT C 1 CAP PO SCH (20:15)
[2021-10-12] MEDS: DOCUSATE 100 MG CAP PO PRN (20:16)
[2021-10-12] MEDS: MELATONIN 3 MG TABLET PO PRN (20:16)
[2021-10-13] MEDS: amLODIPine 5 MG TAB PO SCH ×3 (00:38→23:31)
[2021-10-13] MEDS: STIOLTO RESPIMAT INHALER INHALATION SCH (08:05)
[2021-10-13] MEDS: levOCARNitine (WITH SUGAR) 100 MG/ML BOTTLE PO SCH ×2 (08:52→21:02)
[2021-10-13] MEDS: ENOXAPARIN 30 MG/0.3 ML SYRINGE SQ SCH (08:52)
[2021-10-13] MEDS: PANTOPRAZOLE 40 MG TABLET PO SCH (08:53)
[2021-10-13] MEDS: allopurinoL 100 MG TAB PO SCH (08:53)
[2021-10-13] MEDS: ZINC SULFATE 220 MG CAP PO SCH (08:53)
[2021-10-13] MEDS: CHOLECALCIFEROL 125 MCG (5000 IU) TABLET PO SCH (08:53)
[2021-10-13] MEDS: ASCORBIC ACID 500 MG TAB PO SCH (08:53)
[2021-10-13 09:17] LABS: Basophils # (A) 0.02 X 10*3/uL (0.00-0.10); Basophils % (A) 0.2 %; Eosinophils # (A) 0.23 X 10*3/uL (0.04-0.35); Eosinophils % (A) 2.8 %; HCT 27.9 % (37.2-46.3); HGB 7.1 g/dL (12.0-15.0); Immature Grans, Automated 3.5 %; Lymphocytes # (A) 1.33 X 10*3/uL (0.90-5.00); Lymphocytes % (A) 16.2 %; MCH 24.2 pg (27.0-32.0); MCHC 25.4 g/dL (32.0-37.0); MCV 95.2 fL (80.0-97.0); Mean Platelet Volume 10.5 fL (9.5-12.2); Monocytes # (A) 0.66 X 10*3/uL (0.20-1.00); NRBC Per 100 WBC 0.2 /100 WBCS (0.0-0.0); Neutrophils # (A) 5.69 X 10*3/uL (1.80-7.70); Neutrophils % (A) 69.3 %; Platelet Count 259 X 10*3/uL (140-440); RBC 2.93 X 10*6/uL (4.10-5.20); RDW 18.2 % (11.5-14.5); WBC 8.22 X 10*3/uL (4.50-10.00)
[2021-10-13 09:28] LABS: African American GFR (CKD) 9.6 (60.0-200.0); Anion Gap 11.6 mmol/L (10.00-18.00); BUN/Creat Ratio 7.64 Ratio (12.00-20.00); Blood Urea Nitrogen 37.6 mg/dL (9.0-27.0); Calcium 9.1 mg/dL (8.7-10.3); Carbon Dioxide 26.1 mmol/L (20.0-27.5); Non-African American GFR(CKD) 8.3 (60.0-200.0); Potassium 4.3 mmol/L (3.5-5.5)
--- NOTE | 2021-10-13 09:49 | P.PN ---
Subjective Patient is seen in follow-up for end-stage renal disease. She is maintained on hemodialysis on Thursday schedule. Has received extra treatments of dialysis this admission for volume overload. Currently on 6 L high flow cannula. Denies chest pain or shortness of breath. Hemodynamically stable. Does have a productive cough with brown phlegm. Vital signs are stable. General: The patient appeared well nourished and normally developed. HEENT: Head exam is unremarkable. LUNGS: Breath sounds decreased. HEART: Rate and Rhythm are regular. ABDOMEN: Soft, no distention. EXTREMITITES: No edema. Objective - Vital Signs Vital signs: Vital Signs Temp 97.6 F 10/13/21 06:19 Pulse 98 10/13/21 07:35 Resp 15 10/13/21 07:35 BP 95/60 10/13/21 06:19 Pulse Ox 100 10/13/21 06:19 Intake & Output 10/12/21 10/13/21 10/13/21 18:59 06:59 18:59 Output Total 1999 Balance -1999 Output: Hemodialysis 1999 Other: # Voids 0 0 - Labs CBC & Chem 7: 10/13/21 05:56 10/13/21 05:56 Labs: Abnormal Lab Results - Last 24 Hours (Table) 10/12/21 10/13/21 10/13/21 Range/Units 05:36 05:56 05:56 RBC 2.93 L (4.10-5.20) X 10*6/uL Hgb 7.1 L (12.0-15.0) g/dL Hct 27.9 L (37.2-46.3) % MCH 24.2 L (27.0-32.0) pg MCHC 25.4 L (32.0-37.0) g/dL RDW 18.2 H (11.5-14.5) % Absolute Nucleated RBC 0.02 H (0.00-0.00) X 10*3/uL Immature Gran # 0.29 H (0.00-0.04) X 10*3/uL NRBC/100 WBC Diff 0.2 H (0.0-0.0) /100 WBCS BUN 37.6 H (9.0-27.0) mg/dL Creatinine 4.9 H (0.6-1.5) mg/dL Est GFR (CKD-EPI)AfAm 9.6 L (60.0-200.0) Est GFR (CKD-EPI)NonAf 8.3 L (60.0-200.0) BUN/Creatinine Ratio 7.64 L (12.00-20.00) Ratio Phosphorus 5.3 H (2.5-4.5) mg/dL Assessment and Plan Plan: Assessment: 1. End-stage renal disease maintained on hemodialysis on Thursday schedule. 2. Volume overload. Improved with ultrafiltration. 3. Acute hypoxic respiratory failure. 4. COVID-19 pneumonia. 5. Anemia of chronic kidney disease maintained on Aranesp. Plan: Hemodialysis tomorrow. Hold amlodipine for systolic blood pressure less than 120. Phosphorus 5.3. Check iron studies.
[2021-10-13] MEDS ORDERED: cefTRIAXone 2 GM VIAL IM SCH (10:00)
[2021-10-13] MEDS ORDERED: LIDOCAINE 1% INJ 10MG/ML (10 ML MDV) IM SCH (10:00)
[2021-10-13] MEDS: LIDOCAINE 1% INJ 10MG/ML (20 ML MDV) IM SCH (10:10)
--- NOTE | 2021-10-13 12:20 | P.PN ---
Subjective Progress Note Date: 10/13/21 Principal diagnosis: CC: shortness of breath Patient is a 71-year-old female end-stage renal disease on hemodialysis Thursday, hypertension, and COPD with home O2 use at 2.5 L nasal cannula. She was at dialysis became hypoxic and she was sent to the ER. She was found have COVID-19 pneumonia. She had been taking prednisone and doxycycline secondary to a cold. Initial ABGs of profile acidosis with CO2 retention. She was placed on BiPAP and again continued to have acidosis with CO2 retention. The remainder of her labs were consistent with a dialysis patient. She was also found have mildly elevated troponin which was trended and flat. Pulmonary was consulted. She was started on dexamethasone zinc, vitamin C, and vitamin D. She was admitted to the ICU. Nephrology was consulted. 10/13/2021: Patient currently an 6 L nasal cannula. Per nurse patient desaturates very quickly with minimal exertion. Patient also concerned about her desaturation episodes. At rest she states that her breathing is good. Patient states that she would like to go home and not to rehab. 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 Psych -calm and appropriate - Labs CBC & Chem 7: 10/13/21 05:56 10/13/21 05:56 Labs: Abnormal Lab Results - Last 24 Hours (Table) 10/13/21 10/13/21 Range/Units 05:56 05:56 RBC 2.93 L (4.10-5.20) X 10*6/uL Hgb 7.1 L (12.0-15.0) g/dL Hct 27.9 L (37.2-46.3) % MCH 24.2 L (27.0-32.0) pg MCHC 25.4 L (32.0-37.0) g/dL RDW 18.2 H (11.5-14.5) % Absolute Nucleated RBC 0.02 H (0.00-0.00) X 10*3/uL Immature Gran # 0.29 H (0.00-0.04) X 10*3/uL NRBC/100 WBC Diff 0.2 H (0.0-0.0) /100 WBCS BUN 37.6 H (9.0-27.0) mg/dL Creatinine 4.9 H (0.6-1.5) mg/dL Est GFR (CKD-EPI)AfAm 9.6 L (60.0-200.0) Est GFR (CKD-EPI)NonAf 8.3 L (60.0-200.0) BUN/Creatinine Ratio 7.64 L (12.00-20.00) Ratio Assessment and Plan Assessment: COVID-19 pneumonitis in a non vaccinated patient Acute exacerbation of COPD Acute on chronic hypoxic hypercapnic respiratory failure Elevated d-dimer -Pulmonary recommendations -Zinc, vitamin C, vitamin D -Decadron day #6, outsied the window for REM -Subcu Lovenox at prophylactic dose - Bronchodilators -Elevated pro-calcitonin -> patient on rocephin day 5/7 -lower extremity venous dopplers negative for DVT -Patient is gradually improving. She is currently on 6 L nasal cannula. 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 We'll switch her Rocephin 2 IM. DVT prophylaxis: Lovenox Gi ppx; PPI Discussed with: patient, nursing Anticipated discharge: undetermined Anticipated discharge place: home with home care, patient motivated to go home
--- NOTE | 2021-10-13 14:44 | P.PN ---
Subjective Progress Note Date: 10/13/21 This is a 71-year-old female patient who follows with Dr. Keene as her primary care provider. She has a history of end-stage renal disease receiving hemodialysis on Thursday, hypertension, chronic obstructive pulmonary disease follow with Dr. Denney out of [facility], gastroesophageal reflux disease, gout, carnitine deficiency. She also has a previous history of acute hypoxemic respiratory failure requiring intubation mechanical ventilatory support back in October 2020 here at [facility]. She was brought into the emergency room last evening with a two-week history of increasing shortness of breath cough and congestion. She did have a patella help visit with her PCP and was started on doxycycline and prednisone. Not much improvement. She did test positive for COVID-19 here. She is not vaccinated. Chest x-ray shows bilateral patchy infiltrates. She is seen in the emergency room. Sitting up on the stretcher. On BiPAP 14/6 and 65% FiO2. Blood gases revealed a PaO2 of 97, pCO2 72, pH 7.25. White count 11.3. Hemoglobin 7.9. Lymphocytes 0.4. D-dimer 2.69. Sodium 134. Potassium 4.2. BUN 38. Creatinine 5.38. Ferritin 762. LDH 742. C-reactive protein 21.4. Troponins 0.97, 0.97, 0.98. ProBNP 98,400. She was initiated on Decadron, Lovenox, v itamin supplements. Continued on Ventolin, Singulair, Spiriva and Serevent. The patient is seen today 10/09/2021 in follow-up in the intensive care unit. He is currently sitting up in bed. Awake and alert in no acute distress. She was maintained on BiPAP through the night 14/6 and 45% FiO2. She is maintaining good O2 saturations in the mid 90s. We'll attempt to transition her to 15 L high flow nasal cannula. He is afebrile. D-dimer 2.71. White count 10.2. Hemoglobin 7.2. Sodium 138. Potassium 4.7. BUN 37. Creatinine 4.96. LDH 631. Procalcitonin 2.66. She remains on ceftriaxone along with Decadron, Lovenox and vitamin supplements. The patient is seen today 10/10/2021 in follow-up in the intensive care unit. She is currently sitting up in bed. Awake and alert in no acute distress. She is off BiPAP. She's on 9 L high flow nasal cannula. No IV fluids. She did receive hemodialysis yesterday with 2.5 L removed. Chest x-ray reveals stable cardiomegaly. Continue diffuse interstitial changes in the mid and lower lung garner. D-dimer 2.68. LDH 699. C-reactive protein 14.3. She is continued on Decadron, Lovenox, vitamin supplements. Currently on ceftriaxone. Pro- calcitonin was 2.66. The patient is seen today 10/13/2021 in follow-up on the regular medical floor. She is currently sitting up in a chair at the bedside. Awake and alert in no acute distress. She is currently on 6 L high flow nasal cannula. She's been afebrile. Hemodynamically stable. White count 8.2. Hemoccult 7.1. Sodium 144. Potassium 4.3. Creatinine 4.9. She is continued on antibiotics in the form of ceftriaxone. She remains on Lovenox. Vitamin supplements. Objective - Vital Signs Vital signs: Vital Signs Temp 98.2 F 10/13/21 10:25 Pulse 98 10/13/21 10:25 Resp 90 H 10/13/21 10:25 BP 115/67 10/13/21 10:25 Pulse Ox 90 L 10/13/21 10:25 Intake & Output 10/12/21 10/13/21 10/13/21 18:59 06:59 18:59 Output Total 1999 Balance -1999 Output: Hemodialysis 1999 Other: # Voids 0 0 - Exam GENERAL EXAM: Alert, 71-year-old female patient, on 6 L high flow nasal cannula, in no acute respiratory distress. HEAD: Normocephalic. EYES: Normal reaction of pupils, equal size. NOSE: Clear with pink turbinates. THROAT: No erythema or exudates. NECK: No masses, no JVD. CHEST: No chest wall deformity. LUNGS: Equal air entry with coarse crackles in the bilateral bases. CVS: S1 and S2 normal with no audible murmur, regular rhythm. ABDOMEN: No hepatosplenomegaly, normal bowel sounds, no guarding or rigidity. SPINE: No scoliosis or deformity SKIN: No rashes CENTRAL NERVOUS SYSTEM: No focal deficits, tone is normal in all 4 extremities. EXTREMITIES: There is no peripheral edema. No clubbing, no cyanosis. Peripheral pulses are intact. - Labs CBC & Chem 7: 10/13/21 05:56 10/13/21 05:56 Labs: Abnormal Lab Results - Last 24 Hours (Table) 10/13/21 10/13/21 Range/Units 05:56 05:56 RBC 2.93 L (4.10-5.20) X 10*6/uL Hgb 7.1 L (12.0-15.0) g/dL Hct 27.9 L (37.2-46.3) % MCH 24.2 L (27.0-32.0) pg MCHC 25.4 L (32.0-37.0) g/dL RDW 18.2 H (11.5-14.5) % Absolute Nucleated RBC 0.02 H (0.00-0.00) X 10*3/uL Immature Gran # 0.29 H (0.00-0.04) X 10*3/uL NRBC/100 WBC Diff 0.2 H (0.0-0.0) /100 WBCS BUN 37.6 H (9.0-27.0) mg/dL Creatinine 4.9 H (0.6-1.5) mg/dL Est GFR (CKD-EPI)AfAm 9.6 L (60.0-200.0) Est GFR (CKD-EPI)NonAf 8.3 L (60.0-200.0) BUN/Creatinine Ratio 7.64 L (12.00-20.00) Ratio Assessment and Plan Assessment: 1 Acute hypoxemic respiratory failure secondary to acute COVID-19 pneumonia. The patient is not vaccinated. Onset of symptoms 2 weeks ago. Outside the window for Remdesivir. Pro calcitonin 2.66. The patient is continued on ceftriaxone. Initiated on Lovenox, Decadron, vitamin supplements. Initially required BiPAP 14/6 and 45% FiO2, improved and on 6 L high flow nasal cannula 2 Elevated inflammatory markers secondary to above 3 Elevated d-dimer, negative DVTs of the lower extremities 4 End-stage renal disease receiving hemodialysis on Fridays 5 History of chronic obstructive pulmonary disease 6 Remote history of chronic tobacco dependence 7 History of carnitine deficiency 8 History of hypertension 9 History of gout 10 Gastroesophageal reflux disease 11 History of ventilator dependent respiratory failure due to fluid volume overload back in October 2020 Plan: The patient was seen and evaluated today Doing well, up in a chair at the bedside Stable and on 6 L high flow nasal cannula Continue to titrate down the FiO2 as tolerated Continue the current treatment plan Plan is for possible home after hemodialysis tomorrow I, the cosigning physician, performed a history & physical examination of the patient. Lungs sounds are coarse crackles in the bilateral bases. Maintaining O2 saturations in the 90s on 6 L high flow nasal cannula. I discussed the assessment and plan of care with my nurse practitioner, Angela Maciel. I attest to the above note as dictated by her.
[2021-10-13 16:30] LABS: % Iron Saturation 18.81 (12.00-45.00)
[2021-10-13] MEDS: ACETAMINOPHEN TAB 325 MG TAB PO PRN (21:02)
[2021-10-13] MEDS: MONTELUKAST 10 MG TAB PO SCH (21:02)
[2021-10-13] MEDS: FOLIC ACID-VIT B COMPLEX-VIT C 1 CAP PO SCH (21:02)
[2021-10-13] MEDS: MELATONIN 3 MG TABLET PO PRN (21:03)
[2021-10-14] MEDS: amLODIPine 5 MG TAB PO SCH (04:30)
[2021-10-14] MEDS: allopurinoL 100 MG TAB PO SCH (08:07)
[2021-10-14] MEDS: ENOXAPARIN 30 MG/0.3 ML SYRINGE SQ SCH (08:07)
[2021-10-14] MEDS: PANTOPRAZOLE 40 MG TABLET PO SCH (08:07)
[2021-10-14] MEDS: ASCORBIC ACID 500 MG TAB PO SCH (08:07)
[2021-10-14] MEDS: ZINC SULFATE 220 MG CAP PO SCH (08:07)
[2021-10-14] MEDS: CHOLECALCIFEROL 125 MCG (5000 IU) TABLET PO SCH (08:08)
[2021-10-14] MEDS: levOCARNitine (WITH SUGAR) 100 MG/ML BOTTLE PO SCH ×2 (08:18→20:43)
[2021-10-14] MEDS: ALBUTEROL HFA INHALER INHALATION PRN (08:52)
[2021-10-14] MEDS: STIOLTO RESPIMAT INHALER INHALATION SCH (08:52)
--- NOTE | 2021-10-14 09:32 | P.PN ---
Subjective Patient is seen in follow-up for end-stage renal disease. She is maintained on hemodialysis on Thursday schedule. Has received extra treatments of dialysis this admission for volume overload. Currently on 5 L high flow cannula. Denies chest pain or shortness of breath. Hemodynamically stable. Cough improved. Tolerating dialysis well. Vital signs are stable. General: The patient appeared well nourished and normally developed. HEENT: Head exam is unremarkable. LUNGS: Breath sounds decreased. HEART: Rate and Rhythm are regular. ABDOMEN: Soft, no distention. EXTREMITITES: No edema. Objective - Vital Signs Vital signs: Vital Signs Temp 97.5 F L 10/14/21 06:23 Pulse 87 10/14/21 06:23 Resp 15 10/14/21 06:23 BP 104/66 10/14/21 06:23 Pulse Ox 100 10/14/21 06:23 Intake & Output 10/13/21 10/14/21 10/14/21 18:59 06:59 18:59 Other: Voiding Method Bedside Commode # Voids 0 1 # Bowel Movements 2 - Labs CBC & Chem 7: 10/13/21 05:56 10/13/21 05:56 Labs: Abnormal Lab Results - Last 24 Hours (Table) 10/13/21 Range/Units 05:56 Iron 35 L (50-170) ug/dL TIBC 183 L (228-460) ug/dL Transferrin 131.0 L (204.0-354.0) mg/dL Ferritin 717.0 H (10.0-291.0) ng/mL Assessment and Plan Plan: Assessment: 1. End-stage renal disease maintained on hemodialysis on Thursday schedule. 2. Volume overload. Improved with ultrafiltration. 3. Acute hypoxic respiratory failure. 4. COVID-19 pneumonia. 5. Anemia of chronic kidney disease maintained on Aranesp. Iron deficiency noted. Plan: Currently seen while undergoing hemodialysis. Next treatment on Thursday. Hold amlodipine for systolic blood pressure less than 120. Phosphorus 5.3. Add IV iron.
[2021-10-14] MEDS: LIDOCAINE 1% INJ 10MG/ML (20 ML MDV) IM SCH (09:43)
--- NOTE | 2021-10-14 11:30 | P.PN ---
Subjective Progress Note Date: 10/14/21 Principal diagnosis: CC: shortness of breath Patient is a 71-year-old female end-stage renal disease on hemodialysis Thursday, hypertension, and COPD with home O2 use at 2.5 L nasal cannula. She was at dialysis became hypoxic and she was sent to the ER. She was found have COVID-19 pneumonia. She had been taking prednisone and doxycycline secondary to a cold. Initial ABGs of profile acidosis with CO2 retention. She was placed on BiPAP and again continued to have acidosis with CO2 retention. The remainder of her labs were consistent with a dialysis patient. She was also found have mildly elevated troponin which was trended and flat. Pulmonary was consulted. She was started on dexamethasone zinc, vitamin C, and vitamin D. She was admitted to the ICU. Nephrology was consulted. Patient had consecutive days of dialysis. Her shortness of breath did improve. Once she was stable on 8 L nasal cannula she was transferred out of the ICU. Patient's O2 requirements have been gradually trending down. Patient's shortness of breath is improving. 10/14/2021: Patient says that her shortness of breath is improving. She is now down to 5 L nasal cannula. Per nurse patient desaturates when they try to wean her down to 4 L. 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 Psych -calm and appropriate - Labs CBC & Chem 7: 10/13/21 05:56 10/13/21 05:56 Labs: Abnormal Lab Results - Last 24 Hours (Table) 10/13/21 Range/Units 05:56 Iron 35 L (50-170) ug/dL TIBC 183 L (228-460) ug/dL Transferrin 131.0 L (204.0-354.0) mg/dL Ferritin 717.0 H (10.0-291.0) ng/mL Assessment and Plan Assessment: COVID-19 pneumonitis in a non vaccinated patient Acute exacerbation of COPD Acute on chronic hypoxic hypercapnic respiratory failure Elevated d-dimer -Pulmonary recommendations -Zinc, vitamin C, vitamin D -Decadron day #7, outsied the window for REM -Subcu Lovenox at prophylactic dose - Bronchodilators -Elevated pro-calcitonin -> patient on rocephin day 6/7 -lower extremity venous dopplers negative for DVT -Patient is gradually improving. She is currently on 5 L nasal cannula. 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 Midline ordered for IV iron infusion DVT prophylaxis: Lovenox Gi ppx; PPI Discussed with: patient, nursing Anticipated discharge: In the next 24-48 hours if patient is satting well on 4 [address]: home with home care, patient motivated to go home. She does not want to go to rehab. She stated that she has plenty of support at home.
[2021-10-14] MEDS: SODIUM FERRIC GLUCONAT-SUCROSE 125 MG in SODIUM CHLORIDE 0.9% 100 ML IVPB SCH (13:13)
--- NOTE | 2021-10-14 14:15 | P.PN ---
Subjective Progress Note Date: 10/14/21 Principal diagnosis: Shortness of breath, COVID-19 pneumonia This is a 71-year-old female patient who follows with Dr. Keene as her primary care provider. She has a history of end-stage renal disease receiving hemodialysis on Thursday, hypertension, chronic obstructive pulmonary disease follow with Dr. Denney out of [facility], gastroesophageal reflux disease, gout, carnitine deficiency. She also has a previous history of acute hypoxemic respiratory failure requiring intubation mechanical ventilatory support back in October 2020 here at [facility]. She was brought into the emergency room last evening with a two-week history of increasing shortness of breath cough and congestion. She did have a patella help visit with her PCP and was started on doxycycline and prednisone. Not much improvement. She did test positive for COVID-19 here. She is not vaccinated. Chest x-ray shows bilateral patchy infiltrates. She is seen in the emergency room. Sitting up on the stretcher. On BiPAP 14/6 and 65% FiO2. Blood gases revealed a PaO2 of 97, pCO2 72, pH 7.25. White count 11.3. Hemoglobin 7.9. Lymphocytes 0.4. D-dimer 2.69. Sodium 134. Potassium 4.2. BUN 38. Creatinine 5.38. Ferritin 762. LDH 742. C-reactive protein 21.4. Troponins 0.97, 0.97, 0.98. ProBNP 98,400. She was initiated on Decadron, Lovenox, vitamin supplements. Continued on Ventolin, Singulair, Spiriva and Serevent. The patient is seen today 10/09/2021 in follow-up in the intensive care unit. He is currently sitting up in bed. Awake and alert in no acute distress. She was maintained on BiPAP through the night 14/6 and 45% FiO2. She is maintaining good O2 saturations in the mid 90s. We'll attempt to transition her to 15 L high flow nasal cannula. He is afebrile. D-dimer 2.71. White count 10.2. Hemoglobin 7.2. Sodium 138. Potassium 4.7. BUN 37. Creatinine 4.96. LDH 631. Procalcitonin 2.66. She remains on ceftriaxone along with Decadron, Lovenox and vitamin supplements. The patient is seen today 10/10/2021 in follow-up in the intensive care unit. She is currently sitting up in bed. Awake and alert in no acute distress. She is off BiPAP. She's on 9 L high flow nasal cannula. No IV fluids. She did receive hemodialysis yesterday with 2.5 L removed. Chest x-ray reveals stable cardiomegaly. Continue diffuse interstitial changes in the mid and lower lung garner. D-dimer 2.68. LDH 699. C-reactive protein 14.3. She is continued on Decadron, Lovenox, vitamin supplements. Currently on ceftriaxone. Pro-calcitonin was 2.66. The patient is seen today 10/13/2021 in follow-up on the regular medical floor. She is currently sitting up in a chair at the bedside. Awake and alert in no acute distress. She is currently on 6 L high flow nasal cannula. She's been afebrile. Hemodynamically stable. White count 8.2. Hemoccult 7.1. Sodium 144. Potassium 4.3. Creatinine 4.9. She is continued on antibiotics in the form of ceftriaxone. She remains on Lovenox. Vitamin supplements. On 10/14/2021 patient seen in follow-up on medical surgical floor. She is calm and comfortable, she is currently on 5 L of oxygen with pulse ox of 100%, she normally wears 3 L of oxygen at home and regular basis, he is awake and alert, oriented 3, denies any worsening dyspnea, no cough, no compressive chest discomfort, vital signs have been stable. She has had no fever or chills. Patient is being treated for COVID-19 pneumonia. Patient was outside the window for Remdesivir and in addition she has end-stage renal disease. She is currently on inhaled bronchodilators, and she is on prophylactic dose Lovenox adjusted for renal function. She has completed a course of Decadron, she is not too far off her baseline. Last chest x-ray from 10/10/2021 showed stable cardiomegaly, continue diffuse interstitial changes along with mid and lower lung consolidation. No new labs today. Patient had a hemodialysis treatment today with removal of 1.3 L in fluid. Objective - Vital Signs Vital signs: Vital Signs Temp 97.8 F 10/14/21 12:07 Pulse 70 10/14/21 12:07 Resp 21 10/14/21 12:07 BP 129/53 10/14/21 12:07 Pulse Ox 100 10/14/21 06:23 Intake & Output 10/13/21 10/14/21 10/14/21 18:59 06:59 18:59 Intake Total 300 Output Total 1300 Balance -1000 Intake: Hemodialysis 300 Output: Hemodialysis 1300 Other: Voiding Method Bedside Commode Bedside Commode # Voids 0 1 # Bowel Movements 2 - Exam GENERAL EXAM: Alert, very pleasant, 71-year-old female patient on 5 L of oxygen with a pulse ox of 99-100% comfortable in no apparent distress. HEAD: Normocephalic/atraumatic. EYES: Normal reaction of pupils, equal size. Conjunctiva pink, sclera white. NOSE: Clear with pink turbinates. THROAT: No erythema or exudates. NECK: No masses, no JVD, no thyroid enlargement, no adenopathy. CHEST: No chest wall deformity. Symmetrical expansion. LUNGS: Equal air entry with bilateral minimal crackles CVS: Regular rate and rhythm, normal S1 and S2, no gallops, no murmurs, no rubs ABDOMEN: Soft, nontender. No hepatosplenomegaly, normal bowel sounds, no guarding or rigidity. EXTREMITIES: No clubbing, no edema, no cyanosis, 2+ pulses and upper and lower extremities. 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 SPINE: No scoliosis or deformity SKIN: No rashes CENTRAL NERVOUS SYSTEM: Alert and oriented -3. No focal deficits, tone is normal in all 4 extremities. PSYCHIATRIC: Alert and oriented -3. Appropriate affect. Intact judgment and insight. - Labs CBC & Chem 7: 10/13/21 05:56 10/13/21 05:56 Labs: Abnormal Lab Results - Last 24 Hours (Table) 10/13/21 Range/Units 05:56 Iron 35 L (50-170) ug/dL TIBC 183 L (228-460) ug/dL Transferrin 131.0 L (204.0-354.0) mg/dL Ferritin 717.0 H (10.0-291.0) ng/mL Assessment and Plan Plan: Assessment: #1. Acute on chronic hypoxic respiratory failure secondary to acute COVID-19 pneumonia. Patient is not vaccinated. Onset of symptoms was 2 weeks ago, she was outside the window for Remdesivir. Patient did have elevated pro calcitonin of 2.66 suggesting possibly bacterial pneumonia and patient is on ceftriaxone completed 6 out of 7 day course treatment. Clinically she has remained stable, she is currently on 4 L of oxygen, improving, no worsening dyspnea or hypoxia. Patient continues on Lovenox 30 mg daily, Decadron, and vitamin supplements. Patient did require BiPAP support initially with settings of 14/6 and FiO2 of 45%, improved and she is currently down to 4 L of oxygen #2. Chronic hypoxic respiratory failure related to COPD normally wears 2 L of oxygen at home #3. Elevated d-dimer, no evidence of DVT on lower extremities #4. ESRD on Thursday hemodialysis #5. History of COPD on home oxygen at 3 L #6. Remote history of chronic tobacco dependence #7. History of carnitine deficiency #8. History of hypertension #9. History of gout #10. GERD/reflux #11. History of ventilatory dependent respiratory failure related to fluid volume overload back and he reached thousand 21 Plan: Patient continues to improve, she is breathing comfortably Continue current medical treatment, continue prophylactic anticoagulation, continue multivitamins, and Decadron Breathing comfortably, no worsening dyspnea no worsening cough Continue weaning down FiO2, patient is currently down to 4 L, normally wears 2 L of oxygen at home on a regular basis Increase activity as tolerated Consider discharge home today or tomorrow I performed a history & physical examination of the patient and discussed their management with my nurse practitioner, Luly Joy. I reviewed the nurse practitioner's note and agree with the documented findings and plan of care. Lung sounds are positive for dim breath sounds throughout the lung garner. The findings and the impression was discussed with the patient. I attest to the documentation by the nurse practitioner. Time with Patient: Less than 30
[2021-10-14] MEDS: FOLIC ACID-VIT B COMPLEX-VIT C 1 CAP PO SCH (20:43)
[2021-10-14] MEDS: MONTELUKAST 10 MG TAB PO SCH (20:44)
[2021-10-14] MEDS: MELATONIN 3 MG TABLET PO PRN (20:45)
[2021-10-14] MEDS: ACETAMINOPHEN TAB 325 MG TAB PO PRN (22:08)
[2021-10-15] MEDS: PANTOPRAZOLE 40 MG TABLET PO SCH (08:29)
[2021-10-15] MEDS: ENOXAPARIN 30 MG/0.3 ML SYRINGE SQ SCH (08:29)
[2021-10-15] MEDS: CHOLECALCIFEROL 125 MCG (5000 IU) TABLET PO SCH (08:30)
[2021-10-15] MEDS: ASCORBIC ACID 500 MG TAB PO SCH (08:30)
[2021-10-15] MEDS: ZINC SULFATE 220 MG CAP PO SCH (08:30)
[2021-10-15] MEDS: allopurinoL 100 MG TAB PO SCH (08:30)
[2021-10-15] MEDS: levOCARNitine (WITH SUGAR) 100 MG/ML BOTTLE PO SCH ×2 (08:30→21:10)
[2021-10-15] MEDS: STIOLTO RESPIMAT INHALER INHALATION SCH (09:20)
--- NOTE | 2021-10-15 09:57 | P.PN ---
Subjective Progress Note Date: 10/15/21 COVID-19 pneumonitis in a non vaccinated patient Acute exacerbation of COPD Acute on chronic hypoxic hypercapnic respiratory failure Elevated d-dimer -Pulmonary recommendations -Zinc, vitamin C, vitamin D -Decadron day #7, outsied the window for REM -Subcu Lovenox at prophylactic dose - Bronchodilators -Elevated pro-calcitonin -> patient on rocephin day 6/7 -lower extremity venous dopplers negative for DVT -Patient is gradually improving. She is currently on 5 L nasal cannula. 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 Midline ordered for IV iron infusion DVT prophylaxis: Lovenox Gi ppx; PPI Discussed with: patient, nursing Anticipated discharge: In the next 24-48 hours if patient is satting well on 4 [address]: home with home care, patient motivated to go home. She does not want to go to rehab. She stated that she has plenty of support at home. Constitutional: No acute distress, conversant, pleasant Eyes: Anicteric sclerae, moist conjunctiva, no lid-lag PERRLA ENMT: NC/AT Oropharynx clear, no erythema, exudates Neck: Supple, FROM, no masses, or JVD No carotid bruits No thyromegaly Lungs: Clear to auscultation Clear to percussion Normal respiratory effort, no accessory muscle use Cardiovascular: Heart regular in rate and rhythm, No murmurs, gallops, or rubs No peripheral edema Abdominal: Soft Nontender, no guarding, rebound or rigidity Abdomen moving with respiration Normoactive bowel sounds No hepatomegaly, No splenomegaly No palpable mass No abdominal wall hernia noted Skin: Normal temperature, tone, texture, turgor No induration No subcutaneous nodules No rash, lesions No ulcers Extremities: No digital cyanosis No clubbing Pedal pulses intact and symmetrical Radial pulses intact and symmetrical Normal gait and station No calf tenderness Psychiatric:Alert and oriented to person, place and time Appropriate affect Intact judgement Neuro: Muscles Strength 5/5 in all 4 extremities Sensation to light touch grossly present throughout Cranial nerves II-XII grossly intact No focal sensory deficits Patient still weak less short of breath Continued to be hypoxic we'll continue to monitor Objective - Vital Signs Vital signs: Vital Signs Temp 97.5 F L 10/15/21 05:26 Pulse 89 10/15/21 05:26 Resp 16 10/15/21 05:26 BP 99/62 10/15/21 05:26 Pulse Ox 99 10/15/21 05:26 Intake & Output 10/14/21 10/15/21 10/15/21 18:59 06:59 18:59 Intake Total 300 Output Total 1300 Balance -1000 Intake: Hemodialysis 300 Output: Hemodialysis 1300 Other: Voiding Method Bedside Commode Bedside Commode # Voids 0 - Labs CBC & Chem 7: 10/13/21 05:56 10/13/21 05:56
--- NOTE | 2021-10-15 11:02 | P.PN ---
Subjective Patient is seen in follow-up for end-stage renal disease. She is maintained on hemodialysis on Thursday schedule. Has received extra treatments of dialysis this admission for volume overload. Currently on 5 L high flow cannula. Denies chest pain or shortness of breath. Hemodynamically stable. Cough improved. Vital signs are stable. General: The patient appeared well nourished and normally developed. HEENT: Head exam is unremarkable. LUNGS: Breath sounds decreased. HEART: Rate and Rhythm are regular. ABDOMEN: Soft, no distention. EXTREMITITES: No edema. Objective - Vital Signs Vital signs: Vital Signs Temp 98.0 F 10/15/21 10:00 Pulse 85 10/15/21 10:00 Resp 18 10/15/21 10:00 BP 104/71 10/15/21 10:00 Pulse Ox 100 10/15/21 10:00 Intake & Output 10/14/21 10/15/21 10/15/21 18:59 06:59 18:59 Intake Total 300 Output Total 1300 Balance -1000 Intake: Hemodialysis 300 Output: Hemodialysis 1300 Other: Voiding Method Bedside Commode Bedside Commode # Voids 0 - Labs CBC & Chem 7: 10/13/21 05:56 10/13/21 05:56 Assessment and Plan Plan: Assessment: 1. End-stage renal disease maintained on hemodialysis on Thursday schedule. 2. Volume overload. Improved with ultrafiltration. 3. Acute hypoxic respiratory failure. 4. COVID-19 pneumonia. 5. Anemia of chronic kidney disease maintained on Aranesp. Iron deficiency noted. Plan: Hemodialysis tomorrow. Hold amlodipine for systolic blood pressure less than 120. Phosphorus 5.3. Maintain IV iron. Midodrine as needed for hypotension during dialysis
[2021-10-15] MEDS: SODIUM FERRIC GLUCONAT-SUCROSE 125 MG in SODIUM CHLORIDE 0.9% 100 ML IVPB SCH (12:25)
[2021-10-15] MEDS: LIDOCAINE 1% INJ 10MG/ML (20 ML MDV) IM SCH (12:29)
[2021-10-15 14:04] VITALS: BMI 33.0
--- NOTE | 2021-10-15 15:49 | P.PN ---
Subjective Progress Note Date: 10/15/21 Principal diagnosis: Shortness of breath, COVID-19 pneumonia This is a 71-year-old female patient who follows with Dr. Keene as her primary care provider. She has a history of end-stage renal disease receiving hemodialysis on Thursday, hypertension, chronic obstructive pulmonary disease follow with Dr. Denney out of [facility], gastroesophageal reflux disease, gout, carnitine deficiency. She also has a previous history of acute hypoxemic respiratory failure requiring intubation mechanical ventilatory support back in October 2020 here at [facility]. She was brought into the emergency room last evening with a two-week history of increasing shortness of breath cough and congestion. She did have a patella help visit with her PCP and was started on doxycycline and prednisone. Not much improvement. She did test positive for COVID-19 here. She is not vaccinated. Chest x-ray shows bilateral patchy infiltrates. She is seen in the emergency room. Sitting up on the stretcher. On BiPAP 14/6 and 65% FiO2. Blood gases revealed a PaO2 of 97, pCO2 72, pH 7.25. White count 11.3. Hemoglobin 7.9. Lymphocytes 0.4. D-dimer 2.69. Sodium 134. Potassium 4.2. BUN 38. Creatinine 5.38. Ferritin 762. LDH 742. C-reactive protein 21.4. Troponins 0.97, 0.97, 0.98. ProBNP 98,400. She was initiated on Decadron, Lovenox, vitamin supplements. Continued on Ventolin, Singulair, Spiriva and Serevent. The patient is seen today 10/09/2021 in follow-up in the intensive care unit. He is currently sitting up in bed. Awake and alert in no acute distress. She was maintained on BiPAP through the night 14/6 and 45% FiO2. She is maintaining good O2 saturations in the mid 90s. We'll attempt to transition her to 15 L high flow nasal cannula. He is afebrile. D-dimer 2.71. White count 10.2. Hemoglobin 7.2. Sodium 138. Potassium 4.7. BUN 37. Creatinine 4.96. LDH 631. Procalcitonin 2.66. She remains on ceftriaxone along with Decadron, Lovenox and vitamin supplements. The patient is seen today 10/10/2021 in follow-up in the intensive care unit. She is currently sitting up in bed. Awake and alert in no acute distress. She is off BiPAP. She's on 9 L high flow nasal cannula. No IV fluids. She did receive hemodialysis yesterday with 2.5 L removed. Chest x-ray reveals stable cardiomegaly. Continue diffuse interstitial changes in the mid and lower lung garner. D-dimer 2.68. LDH 699. C-reactive protein 14.3. She is continued on Decadron, Lovenox, vitamin supplements. Currently on ceftriaxone. Pro-calcitonin was 2.66. The patient is seen today 10/13/2021 in follow-up on the regular medical floor. She is currently sitting up in a chair at the bedside. Awake and alert in no acute distress. She is currently on 6 L high flow nasal cannula. She's been afebrile. Hemodynamically stable. White count 8.2. Hemoccult 7.1. Sodium 144. Potassium 4.3. Creatinine 4.9. She is continued on antibiotics in the form of ceftriaxone. She remains on Lovenox. Vitamin supplements. On 10/14/2021 patient seen in follow-up on medical surgical floor. She is calm and comfortable, she is currently on 5 L of oxygen with pulse ox of 100%, she normally wears 3 L of oxygen at home and regular basis, he is awake and alert, oriented 3, denies any worsening dyspnea, no cough, no compressive chest discomfort, vital signs have been stable. She has had no fever or chills. Patient is being treated for COVID-19 pneumonia. Patient was outside the window for Remdesivir and in addition she has end-stage renal disease. She is currently on inhaled bronchodilators, and she is on prophylactic dose Lovenox adjusted for renal function. She has completed a course of Decadron, she is not too far off her baseline. Last chest x-ray from 10/10/2021 showed stable cardiomegaly, continue diffuse interstitial changes along with mid and lower lung consolidation. No new labs today. Patient had a hemodialysis treatment today with removal of 1.3 L in fluid. On 10/15/2021 patient seen in follow-up on medical surgical floor. She is calm and comfortable, currently on 5 L of oxygen pulse ox is 99%, she normally wears 3 L of oxygen on a regular basis at home, breathing comfortable, no cough, no chest discomfort. No fever or chills, no acute complaints. Patient is currently on Lovenox 30 mg daily, she remains on prophylactic antibiotics in the form of Rocephin. Patient is very close to her baseline. She has completed a course of Decadron. Her last chest x-ray showed diffuse interstitial changes, stable cardiomegaly. Patient is supposed to have a hemodialysis treatment tomorrow. Nephrology is following. Labs labs are pending for today Objective - Vital Signs Vital signs: Vital Signs Temp 98.0 F 10/15/21 10:00 Pulse 85 10/15/21 10:00 Resp 18 10/15/21 10:00 BP 104/71 10/15/21 10:00 Pulse Ox 100 10/15/21 10:00 Intake & Output 10/14/21 10/15/21 10/15/21 18:59 06:59 18:59 Intake Total 300 Output Total 1300 Balance -1000 Weight 87.3 kg Intake: Hemodialysis 300 Output: Hemodialysis 1300 Other: Voiding Method Bedside Commode Bedside Commode # Voids 0 - Exam GENERAL EXAM: Alert, very pleasant, 71-year-old female patient on 5 L of oxygen with a pulse ox of 99-100% comfortable in no apparent distress. HEAD: Normocephalic/atraumatic. EYES: Normal reaction of pupils, equal size. Conjunctiva pink, sclera white. NOSE: Clear with pink turbinates. THROAT: No erythema or exudates. NECK: No masses, no JVD, no thyroid enlargement, no adenopathy. CHEST: No chest wall deformity. Symmetrical expansion. LUNGS: Equal air entry with bilateral minimal crackles CVS: Regular rate and rhythm, normal S1 and S2, no gallops, no murmurs, no rubs ABDOMEN: Soft, nontender. No hepatosplenomegaly, normal bowel sounds, no gua rding or rigidity. EXTREMITIES: No clubbing, no edema, no cyanosis, 2+ pulses and upper and lower extremities. 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 SPINE: No scoliosis or deformity SKIN: No rashes CENTRAL NERVOUS SYSTEM: Alert and oriented -3. No focal deficits, tone is normal in all 4 extremities. PSYCHIATRIC: Alert and oriented -3. Appropriate affect. Intact judgment and insight. - Labs CBC & Chem 7: 01/30/22 05:56 10/13/21 05:56 Assessment and Plan Plan: Assessment: #1. Acute on chronic hypoxic respiratory failure secondary to acute COVID-19 pneumonia. Patient is not vaccinated. Onset of symptoms was 2 weeks ago, she was outside the window for Remdesivir. Patient did have elevated pro calcitonin of 2.66 suggesting possibly bacterial pneumonia and patient is on ceftriaxone completed 6 out of 7 day course treatment. Clinically she has remained stable, she is currently on 4 L of oxygen, improving, no worsening dyspnea or hypoxia. Patient continues on Lovenox 30 mg daily, Decadron, and vitamin supplements. Patient did require BiPAP support initially with settings of 14/6 and FiO2 of 45%, improved and she is currently down to 4 L of oxygen #2. Chronic hypoxic respiratory failure related to COPD normally wears 2 L of oxygen at home #3. Elevated d-dimer, no evidence of DVT on lower extremities #4. ESRD on Thursday hemodialysis #5. History of COPD on home oxygen at 3 L #6. Remote history of chronic tobacco dependence #7. History of carnitine deficiency #8. History of hypertension #9. History of gout #10. GERD/reflux #11. History of ventilatory dependent respiratory failure related to fluid volume overload back and he reached thousand 21 Plan: Patient continues to improve, she is breathing comfortably She is satting 99% on 5 L, and her FiO2 has been dropped down to 3 L Clinically patient is feeling better, no worsening dyspnea or cough, She has completed a course of Decadron, she continues on prophylactic anticoagulation Patient is supposed to have hemodialysis treatment tomorrow Follow-up chest x-ray tomorrow, follow up labs Increase activity as tolerated Consider discharge home in the next 24 hours if remains stable and continues to improve I performed a history & physical examination of the patient and discussed their management with my nurse practitioner, Luly Joy. I reviewed the nurse practitioner's note and agree with the documented findings and plan of care. Lung sounds are positive for dim breath sounds throughout the lung garner. The findings and the impression was discussed with the patient. I attest to the documentation by the nurse practitioner. Time with Patient: Less than 30
[2021-10-15] MEDS ORDERED: diphenhydrAMINE 50 MG/ML 1 ML VIAL IVP PRN (16:18)
[2021-10-15] MEDS: ACETAMINOPHEN TAB 325 MG TAB PO PRN (21:09)
[2021-10-15] MEDS: MONTELUKAST 10 MG TAB PO SCH (21:09)
[2021-10-15] MEDS: FOLIC ACID-VIT B COMPLEX-VIT C 1 CAP PO SCH (21:09)
[2021-10-15] MEDS: amLODIPine 5 MG TAB PO SCH (21:10)
[2021-10-15] MEDS: MELATONIN 3 MG TABLET PO PRN (22:11)
--- NOTE | 2021-10-16 08:16 | XR ---
EXAMINATION TYPE: XR chest 1V portable DATE OF EXAM: 10/16/2021 Comparison: 10/10/2021 Clinical History: 71-year-old female COVID Findings: Patient obliqued towards the right. Heart remains enlarged. Interstitial densities show improvement. Airspace disease in the right greater than the left mid and lower lungs shows considerable improvemen t. Residual densities remain. Some nodularity at the periphery of the right base likely summation art ifact. Continued follow-up to ensure complete clearance. Impression: 1. Similar mild cardiomegaly. 2. Improving lung disease. Residual interstitial changes remain. The previous bibasilar airspace dise ase shows considerable improvement. Residual densities remain. 3. Nodularity at the right base likely summation artifact. Continued follow-up to ensure complete garrett arance.
[2021-10-16] MEDS: ENOXAPARIN 30 MG/0.3 ML SYRINGE SQ SCH ×2 (08:50→09:00)
[2021-10-16] MEDS: allopurinoL 100 MG TAB PO SCH (08:51)
[2021-10-16] MEDS: ZINC SULFATE 220 MG CAP PO SCH (08:51)
[2021-10-16] MEDS: levOCARNitine (WITH SUGAR) 100 MG/ML BOTTLE PO SCH ×2 (08:51→19:56)
[2021-10-16] MEDS: PANTOPRAZOLE 40 MG TABLET PO SCH (08:51)
[2021-10-16] MEDS: CHOLECALCIFEROL 125 MCG (5000 IU) TABLET PO SCH (08:51)
[2021-10-16] MEDS: ASCORBIC ACID 500 MG TAB PO SCH (08:51)
[2021-10-16] MEDS: FOLIC ACID-VIT B COMPLEX-VIT C 1 CAP PO SCH ×2 (08:52→19:56)
[2021-10-16] MEDS: STIOLTO RESPIMAT INHALER INHALATION SCH (09:18)
[2021-10-16 09:30] LABS: ALT 13 U/L (8-44); AST 16 U/L (13-35); African American GFR (CKD) 6.4 (60.0-200.0); Albumin/Globulin Ratio 1.43 (1.60-3.17); Alkaline Phosphatase 55 U/L (41-126); BUN/Creat Ratio 5.87 Ratio (12.00-20.00); Blood Urea Nitrogen 40.5 mg/dL (9.0-27.0); Calcium 8.6 mg/dL (8.7-10.3); Carbon Dioxide 20.9 mmol/L (20.0-27.5); Chloride 103 mmol/L (96-109); Globulin 2.1 g/dL (1.6-3.3); Glucose 82 mg/dL (70-110); LDH 236 U/L (120-246); Non-African American GFR(CKD) 5.5 (60.0-200.0); Sodium 138 mmol/L (135-145); Total Bilirubin <0.20 mg/dL (0.30-1.20); Total Protein 5.1 g/dL (6.2-8.2)
[2021-10-16 10:15] LABS: Basophils # (A) 0.02 X 10*3/uL (0.00-0.10); Basophils % (A) 0.2 %; Eosinophils # (A) 0.44 X 10*3/uL (0.04-0.35); Eosinophils % (A) 5.1 %; HCT 23.1 % (37.2-46.3); HGB 6.4 g/dL (12.0-15.0); Immature Grans, Automated 1.6 %; Lymphocytes # (A) 1.29 X 10*3/uL (0.90-5.00); Lymphocytes % (A) 14.9 %; MCH 25.2 pg (27.0-32.0); MCHC 27.7 g/dL (32.0-37.0); MCV 90.9 fL (80.0-97.0); Mean Platelet Volume 11.6 fL (9.5-12.2); Monocytes # (A) 0.61 X 10*3/uL (0.20-1.00); Monocytes % (A) 7.1 %; NRBC Per 100 WBC 0 /100 WBCS (0.0-0.0); Neutrophils # (A) 6.14 X 10*3/uL (1.80-7.70); Neutrophils % (A) 71.1 %; Platelet Count 199 X 10*3/uL (140-440); RBC 2.54 X 10*6/uL (4.10-5.20); RDW 18.4 % (11.5-14.5); WBC 8.64 X 10*3/uL (4.50-10.00)
[2021-10-16] MEDS: SODIUM FERRIC GLUCONAT-SUCROSE 125 MG in SODIUM CHLORIDE 0.9% 100 ML IVPB SCH (11:16)
[2021-10-16 11:27] LABS: Anisocytosis Slight; Basophils % (A) 0 %; Eosinophils # (A) 0.3 k/uL (0-0.7); Eosinophils % (A) 4 %; HCT 24.2 % (34.0-46.0); Hypochromasia Marked; Lymphocytes # (A) 0.9 k/uL (1.0-4.8); Lymphocytes % (A) 11 %; MCH 26.4 pg (25.0-35.0); MCHC 28.8 g/dL (31.0-37.0); MCV 91.8 fL (80.0-100.0); Mean Platelet Volume 8.4; Monocytes # (A) 0.4 k/uL (0-1.0); Monocytes % (A) 5 %; Neutrophils # (A) 6.4 k/uL (1.3-7.7); Neutrophils % (A) 79 %; Platelet Count 179 k/uL (150-450); RBC 2.63 m/uL (3.80-5.40); RDW 18.8 % (11.5-15.5); WBC 8.1 k/uL (3.8-10.6)
--- NOTE | 2021-10-16 11:41 | P.PN ---
Subjective Progress Note Date: 10/16/21 Principal diagnosis: Patient still short of breath but overall improving COVID-19 pneumonitis in a non vaccinated patient Acute exacerbation of COPD Acute on chronic hypoxic hypercapnic respiratory failure Elevated d-dimer -Pulmonary recommendations -Zinc, vitamin C, vitamin D -Decadron day #7, outsied the window for REM -Subcu Lovenox at prophylactic dose - Bronchodilators -Elevated pro-calcitonin -> patient on rocephin day 6/7 -lower extremity venous dopplers negative for DVT -Patient is gradually improving. She is currently on 5 L nasal cannula. 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 Midline ordered for IV iron infusion DVT prophylaxis: Lovenox Gi ppx; PPI Discussed with: patient, nursing Anticipated discharge: In the next 24-48 hours if patient is satting well on [address]: home with home care, patient motivated to go home. She does not want to go to rehab. She stated that she has plenty of support at home. Constitutional: No acute distress, conversant, pleasant Eyes: Anicteric sclerae, moist conjunctiva, no lid-lag PERRLA ENMT: NC/AT Oropharynx clear, no erythema, exudates Neck: Supple, FROM, no masses, or JVD No carotid bruits No thyromegaly Lungs: Clear to auscultation Clear to percussion Normal respiratory effort, no accessory muscle use Cardiovascular: Heart regular in rate and rhythm, No murmurs, gallops, or rubs No peripheral edema Abdominal: Soft Nontender, no guarding, rebound or rigidity Abdomen moving with respiration Normoactive bowel sounds No hepatomegaly, No splenomegaly No palpable mass No abdominal wall hernia noted Skin: Normal temperature, tone, texture, turgor No induration No subcutaneous nodules No rash, lesions No ulcers Extremities: No digital cyanosis No clubbing Pedal pulses intact and symmetrical Radial pulses intact and symmetrical Normal gait and station No calf tenderness Psychiatric:Alert and oriented to person, place and time Appropriate affect Intact judgement Neuro: Muscles Strength 5/5 in all 4 extremities Sensation to light touch grossly present throughout Cranial nerves II-XII grossly intact No focal sensory deficits Patient still weak less short of breath Continued to be hypoxic we'll continue to monitor Hypoxia improving we'll continue to monitor hopefully discharge home in a day or 2 if continues to improve Objective - Vital Signs Vital signs: Vital Signs Temp 97.8 F 10/16/21 10:00 Pulse 97 10/16/21 10:00 Resp 18 10/16/21 10:00 BP 102/48 10/16/21 10:00 Pulse Ox 95 10/16/21 10:00 Intake & Output 10/15/21 10/16/21 10/16/21 18:59 06:59 18:59 Intake Total 480 Output Total 1000 Balance 480 -1000 Weight 87.3 kg Intake: Oral 480 Output: Hemodialysis 1000 Other: Voiding Method Bedside Commode Bedside Commode # Voids 2 - Labs CBC & Chem 7: 10/16/21 11:01 10/16/21 05:32 Labs: Abnormal Lab Results - Last 24 Hours (Table) 10/16/21 10/16/21 10/16/21 Range/Units 05:32 05:32 11:01 RBC 2.54 L 2.63 L (4.10-5.20) X 10*6/uL Hgb 6.4 L* 7.0 L (12.0-15.0) g/dL Hct 23.1 L 24.2 L (37.2-46.3) % MCH 25.2 L (27.0-32.0) pg MCHC 27.7 L 28.8 L (32.0-37.0) g/dL RDW 18.4 H 18.8 H (11.5-14.5) % Immature Gran # 0.14 H (0.00-0.04) X 10*3/uL Lymphocytes # 0.9 L (1.0-4.8) k/uL Eosinophils # 0.44 H (0.04-0.35) X 10*3/uL BUN 40.5 H (9.0-27.0) mg/dL Creatinine 6.9 H (0.6-1.5) mg/dL Est GFR (CKD-EPI)AfAm 6.4 L (60.0-200.0) Est GFR (CKD-EPI)NonAf 5.5 L (60.0-200.0) BUN/Creatinine Ratio 5.87 L (12.00-20.00) Ratio Calcium 8.6 L (8.7-10.3) mg/dL Total Bilirubin <0.20 L (0.30-1.20) mg/dL C-Reactive Protein 1.90 H (0.00-0.80) mg/dL Total Protein 5.1 L (6.2-8.2) g/dL Albumin 3.0 L (3.8-4.9) g/dL Albumin/Globulin Ratio 1.43 L (1.60-3.17) g/dL
--- NOTE | 2021-10-16 11:55 | P.PN ---
Subjective Patient is seen in follow-up for end-stage renal disease. She is maintained on hemodialysis on Thursday schedule. Has received extra treatments of dialysis this admission for volume overload. Currently on 3 L high flow cannula. Denies chest pain or shortness of breath. Hemodynamically stable. Tolerating dialysis well. Complaining of swelling of the right upper extremity. Vital signs are stable. General: The patient appeared well nourished and normally developed. HEENT: Head exam is unremarkable. LUNGS: Breath sounds decreased. HEART: Rate and Rhythm are regular. ABDOMEN: Soft, no distention. EXTREMITITES: No edema. Bruising noted right upper extremity. Objective - Vital Signs Vital signs: Vital Signs Temp 97.8 F 10/16/21 10:00 Pulse 97 10/16/21 10:00 Resp 18 10/16/21 10:00 BP 102/48 10/16/21 10:00 Pulse Ox 95 10/16/21 10:00 Intake & Output 10/15/21 10/16/21 10/16/21 18:59 06:59 18:59 Intake Total 480 Output Total 1000 Balance 480 -1000 Weight 87.3 kg Intake: Oral 480 Output: Hemodialysis 1000 Other: Voiding Method Bedside Commode Bedside Commode # Voids 2 - Labs CBC & Chem 7: 10/16/21 11:01 10/16/21 05:32 Labs: Abnormal Lab Results - Last 24 Hours (Table) 10/16/21 10/16/21 10/16/21 Range/Units 05:32 05:32 11:01 RBC 2.54 L 2.63 L (4.10-5.20) X 10*6/uL Hgb 6.4 L* 7.0 L (12.0-15.0) g/dL Hct 23.1 L 24.2 L (37.2-46.3) % MCH 25.2 L (27.0-32.0) pg MCHC 27.7 L 28.8 L (32.0-37.0) g/dL RDW 18.4 H 18.8 H (11.5-14.5) % Immature Gran # 0.14 H (0.00-0.04) X 10*3/uL Lymphocytes # 0.9 L (1.0-4.8) k/uL Eosinophils # 0.44 H (0.04-0.35) X 10*3/uL BUN 40.5 H (9.0-27.0) mg/dL Creatinine 6.9 H (0.6-1.5) mg/dL Est GFR (CKD-EPI)AfAm 6.4 L (60.0-200.0) Est GFR (CKD-EPI)NonAf 5.5 L (60.0-200.0) BUN/Creatinine Ratio 5.87 L (12.00-20.00) Ratio Calcium 8.6 L (8.7-10.3) mg/dL Total Bilirubin <0.20 L (0.30-1.20) mg/dL C-Reactive Protein 1.90 H (0.00-0.80) mg/dL Total Protein 5.1 L (6.2-8.2) g/dL Albumin 3.0 L (3.8-4.9) g/dL Albumin/Globulin Ratio 1.43 L (1.60-3.17) g/dL Assessment and Plan Plan: Assessment: 1. End-stage renal disease maintained on hemodialysis on Thursday schedule. 2. Volume overload. Improved with ultrafiltration. 3. Acute hypoxic respiratory failure. 4. COVID-19 pneumonia. 5. Anemia of chronic kidney disease maintained on Aranesp. Iron deficiency noted. Plan: Currently seen while undergoing hemodialysis. Hold amlodipine for systolic blood pressure less than 120. Phosphorus 5.3. Maintain IV iron. Midodrine as needed for hypotension during dialysis. Check right upper extremity Doppler.
--- NOTE | 2021-10-16 12:31 | US ---
EXAMINATION TYPE: US venous doppler duplex UE RT DATE OF EXAM: 10/16/2021 COMPARISON: NONE CLINICAL HISTORY: swelling. Right hand swelling x 1 day Exam done portable on covid patient SIDE PERFORMED: Right Limited visualization due to patient body habitus and position Superficial cephalic and basilic veins not seen, limited visualization of brachial veins due to IV si te Right Arm: Visualized portions appear negative for DVT IMPRESSION: No evidence of DVT at this time.
[2021-10-16] MEDS: ACETAMINOPHEN TAB 325 MG TAB PO PRN ×2 (14:59→19:57)
--- NOTE | 2021-10-16 15:13 | CDI ---
Documentation Clarification Form Date: 10/16/2021 02:54:12 PM From: Kiah Castañeda CCS, CCDS Admit Date: 10/07/2021 10:10:00 PM Patient Name: Elmira Herr Visit Number: [id number] Discharge Date: ATTENTION: The Clinical Documentation Specialists (CDI) and [facility] Coding Staff appreciate your assistance in clarifying documentation. Please respond to the clarification below the line at the bottom and electronically sign. The CDI & [facility] Coding staff will review the response and follow-up if needed. Please note: Queries are made part of the Legal Health Record. If you have any questions, please contact the author of this message via ITS. Dr. Marlon Syed: Your patient has the documented diagnosis of unspecified CHF in the 10/07 ED Note, 10/07 History & Physical, the 10/08 Pulmonary and Nephrology Consults and in subsequent Progress Notes. Additional information regarding the Acuity and Type of CHF is requested. History/Risk Factors per the 10/07 H/P: ESRD on Hemodialysis, COPD on 3L O2 at home, Hypertension, CHF, COPD & a former smoker. Clinical Indicators: Presented to the ED on 10/07 with SOB. PCP placed the patient on Doxycycline & low dose Prednisone with some improvement. Went to dialysis today but only tolerated half of the treatment. Arrived on 3L nc with PO 49%. Admit with COVID 19 infection, Atypical Pneumonia and Hypoxia. Per the 10/07 H/P: Bilateral 2+ pitting leg edema. 10/07 VS: T ( ), P 110, R 42 (sob, cough), BP 107/45, PO 49 3Lnc, BMI: 33.0 10/07 LAB: Hgb 8.3, Hct 29.1, Neutrophils 8.8, Lymphocytes 0.5, Na 135, Cl 96, BUN 34, Creatinine 4.63, Glucose 110, Troponin 0.974, 0.980; total Protein 5.7, Albumin 3.2 10/07 COVID positive 10/07 BNP [id number] 10/07 CXR: Bilateral diffuse airspace opacities with cardiomegaly with pulmonary vascular congestion. Correlate with BNP. Superimposed atypical pneumonia not excluded. Most recent ECHO 11/09/2020: Moderate LVH, Left ventricular systolic function is mild-moderately impaired with EF 40-45%. Right ventricle is moderately enlarged. Mild AR, Mod mitral calcification. Mod-severe MR, Mild-moderate mitral stenosis, Mild TR. Treatment 10/07: O2 3Lnc - 15% nrb, INH Duoneb 3 ml x1, IV Mag Sulfate/Dextrose 100 mls/hr x1. 10/08: INH Ventolin q4H/prn, po Colace Daily, po Singulair, po Prednisone, IV Decadron 6 mg daily, Lovenox 30 mg sq daily, Vit C & D3 daily, Orazinc daily. In your professional opinion, can you please clarify the Acuity and Type of CHF if known? [ ] Acute Systolic Heart Failure [ ] Chronic Systolic Heart Failure [ ] Acute on Chronic Systolic Heart Failure [ ] Other, please specify: [ ] Unable to determine (Template Last Revised: October 2020) chronic diastolic MTDD
--- NOTE | 2021-10-16 15:16 | P.PN ---
Subjective Progress Note Date: 10/16/21 Principal diagnosis: Shortness of breath, COVID-19 pneumonia This is a 71-year-old female patient who follows with Dr. Keene as her primary care provider. She has a history of end-stage renal disease receiving hemodialysis on Thursday, hypertension, chronic obstructive pulmonary disease follow with Dr. Denney out of [facility], gastroesophageal reflux disease, gout, carnitine deficiency. She also has a previous history of acute hypoxemic respiratory failure requiring intubation mechanical ventilatory support back in October 2020 here at [facility]. She was brought into the emergency room last evening with a two-week history of increasing shortness of breath cough and congestion. She did have a patella help visit with her PCP and was started on doxycycline and prednisone. Not much improvement. She did test positive for COVID-19 here. She is not vaccinated. Chest x-ray shows bilateral patchy infiltrates. She is seen in the emergency room. Sitting up on the stretcher. On BiPAP 14/6 and 65% FiO2. Blood gases revealed a PaO2 of 97, pCO2 72, pH 7.25. White count 11.3. Hemoglobin 7.9. Lymphocytes 0.4. D-dimer 2.69. Sodium 134. Potassium 4.2. BUN 38. Creatinine 5.38. Ferritin 762. LDH 742. C-reactive protein 21.4. Troponins 0.97, 0.97, 0.98. ProBNP 98,400. She was initiated on Decadron, Lovenox, vitamin supplements. Continued on Ventolin, Singulair, Spiriva and Serevent. The patient is seen today 10/09/2021 in follow-up in the intensive care unit. He is currently sitting up in bed. Awake and alert in no acute distress. She was maintained on BiPAP through the night 14/6 and 45% FiO2. She is maintaining good O2 saturations in the mid 90s. We'll attempt to transition her to 15 L high flow nasal cannula. He is afebrile. D-dimer 2.71. White count 10.2. Hemoglobin 7.2. Sodium 138. Potassium 4.7. BUN 37. Creatinine 4.96. LDH 631. Procalcitonin 2.66. She remains on ceftriaxone along with Decadron, Lovenox and vitamin supplements. The patient is seen today 10/10/2021 in follow-up in the intensive care unit. She is currently sitting up in bed. Awake and alert in no acute distress. She is off BiPAP. She's on 9 L high flow nasal cannula. No IV fluids. She did receive hemodialysis yesterday with 2.5 L removed. Chest x-ray reveals stable cardiomegaly. Continue diffuse interstitial changes in the mid and lower lung garner. D-dimer 2.68. LDH 699. C-reactive protein 14.3. She is continued on Decadron, Lovenox, vitamin supplements. Currently on ceftriaxone. Pro-calcitonin was 2.66. The patient is seen today 10/13/2021 in follow-up on the regular medical floor. She is currently sitting up in a chair at the bedside. Awake and alert in no acute distress. She is currently on 6 L high flow nasal cannula. She's been afebrile. Hemodynamically stable. White count 8.2. Hemoccult 7.1. Sodium 144. Potassium 4.3. Creatinine 4.9. She is continued on antibiotics in the form of ceftriaxone. She remains on Lovenox. Vitamin supplements. On 10/14/2021 patient seen in follow-up on medical surgical floor. She is calm and comfortable, she is currently on 5 L of oxygen with pulse ox of 100%, she normally wears 3 L of oxygen at home and regular basis, he is awake and alert, oriented 3, denies any worsening dyspnea, no cough, no compressive chest discomfort, vital signs have been stable. She has had no fever or chills. Patient is being treated for COVID-19 pneumonia. Patient was outside the window for Remdesivir and in addition she has end-stage renal disease. She is currently on inhaled bronchodilators, and she is on prophylactic dose Lovenox adjusted for renal function. She has completed a course of Decadron, she is not too far off her baseline. Last chest x-ray from 10/10/2021 showed stable cardiomegaly, continue diffuse interstitial changes along with mid and lower lung consolidation. No new labs today. Patient had a hemodialysis treatment today with removal of 1.3 L in fluid. On 10/15/2021 patient seen in follow-up on medical surgical floor. She is calm and comfortable, currently on 5 L of oxygen pulse ox is 99%, she normally wears 3 L of oxygen on a regular basis at home, breathing comfortable, no cough, no chest discomfort. No fever or chills, no acute complaints. Patient is currently on Lovenox 30 mg daily, she remains on prophylactic antibiotics in the form of Rocephin. Patient is very close to her baseline. She has completed a course of Decadron. Her last chest x-ray showed diffuse interstitial changes, stable cardiomegaly. Patient is supposed to have a hemodialysis treatment tomorrow. Nephrology is following. Labs labs are pending for today On 10/16/2021 patient seen in follow-up on medical surgical floor. She is resting comfortably in bed, she is currently on 3 L of oxygen pulse ox of 99%, breathing comfortably, no worsening cough, no worsening dyspnea, no chest discomfort. Her chest x-ray yesterday showed similar myocardial megaly, improving lung disease, with residual interstitial changes, and previous bibasilar airspace disease showed significant improvement. Patient had repeat hemodialysis treatment yesterday with removal of 2 L of fluid, and she had hemodialysis treatment the day before with removal of 3 L of fluid. Breathing much more comfortably. Today's labs have been reviewed, white blood cell count is 8.1, hemoglobin is 7.0, earlier today hemoglobin was 6.4 and this was reche cked. She does have chronic anemia related to chronic kidney disease stage IV, no signs of active bleeding. Hemodynamically she is been stable. Electrolytes are within normal limits, BUN of 40, and creatinine is 6.9. Patient has completed her Decadron, she is close to her baseline, she normally wears 3 L of oxygen at home. LDH today is within normal limits, significantly improved and is down to 236, CRP is down to 1.9. Objective - Vital Signs Vital signs: Vital Signs Temp 97.8 F 10/16/21 10:00 Pulse 97 10/16/21 10:00 Resp 18 10/16/21 10:00 BP 102/48 10/16/21 10:00 Pulse Ox 95 10/16/21 10:00 Intake & Output 10/15/21 10/16/21 10/16/21 18:59 06:59 18:59 Intake Total 480 Output Total 1000 Balance 480 -1000 Weight 87.3 kg Intake: Oral 480 Output: Hemodialysis 1000 Other: Voiding Method Bedside Commode Bedside Commode # Voids 2 - Exam GENERAL EXAM: Alert, very pleasant, 71-year-old female patient on 3 L of oxygen with a pulse ox of 95% comfortable in no apparent distress. HEAD: Normocephalic/atraumatic. EYES: Normal reaction of pupils, equal size. Conjunctiva pink, sclera white. NOSE: Clear with pink turbinates. THROAT: No erythema or exudates. NECK: No masses, no JVD, no thyroid enlargement, no adenopathy. CHEST: No chest wall deformity. Symmetrical expansion. LUNGS: Equal air entry with bilateral minimal crackles CVS: Regular rate and rhythm, normal S1 and S2, no gallops, no murmurs, no rubs ABDOMEN: Soft, nontender. No hepatosplenomegaly, normal bowel sounds, no guarding or rigidity. EXTREMITIES: No clubbing, no edema, no cyanosis, 2+ pulses and upper and lower extremities. 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 SPINE: No scoliosis or deformity SKIN: No rashes CENTRAL NERVOUS SYSTEM: Alert and oriented -3. No focal deficits, tone is normal in all 4 extremities. PSYCHIATRIC: Alert and oriented -3. Appropriate affect. Intact judgment and insight. - Labs CBC & Chem 7: 10/16/21 11:01 10/16/21 05:32 Labs: Abnormal Lab Results - Last 24 Hours (Table) 10/16/21 10/16/21 10/16/21 Range/Units 05:32 05:32 11:01 RBC 2.54 L 2.63 L (4.10-5.20) X 10*6/uL Hgb 6.4 L* 7.0 L (12.0-15.0) g/dL Hct 23.1 L 24.2 L (37.2-46.3) % MCH 25.2 L (27.0-32.0) pg MCHC 27.7 L 28.8 L (32.0-37.0) g/dL RDW 18.4 H 18.8 H (11.5-14.5) % Immature Gran # 0.14 H (0.00-0.04) X 10*3/uL Lymphocytes # 0.9 L (1.0-4.8) k/uL Eosinophils # 0.44 H (0.04-0.35) X 10*3/uL BUN 40.5 H (9.0-27.0) mg/dL Creatinine 6.9 H (0.6-1.5) mg/dL Est GFR (CKD-EPI)AfAm 6.4 L (60.0-200.0) Est GFR (CKD-EPI)NonAf 5.5 L (60.0-200.0) BUN/Creatinine Ratio 5.87 L (12.00-20.00) Ratio Calcium 8.6 L (8.7-10.3) mg/dL Total Bilirubin <0.20 L (0.30-1.20) mg/dL C-Reactive Protein 1.90 H (0.00-0.80) mg/dL Total Protein 5.1 L (6.2-8.2) g/dL Albumin 3.0 L (3.8-4.9) g/dL Albumin/Globulin Ratio 1.43 L (1.60-3.17) g/dL Assessment and Plan Plan: Assessment: #1. Acute on chronic hypoxic respiratory failure secondary to acute COVID-19 pneumonia. Patient is not vaccinated. Onset of symptoms was 2 weeks ago, she was outside the window for Remdesivir. Patient did have elevated pro calcitonin of 2.66 suggesting possibly bacterial pneumonia and patient is on ceftriaxone completed 6 out of 7 day course treatment. Clinically she has remained stable, she is currently on 4 L of oxygen, improving, no worsening dyspnea or hypoxia. Patient continues on Lovenox 30 mg daily, Decadron, and vitamin supplements. Patient did require BiPAP support initially with settings of 14/6 and FiO2 of 45%, improved and she is currently down to 3 L of oxygen #2. Chronic hypoxic respiratory failure related to COPD normally wears 3 L of oxygen at home #3. Elevated d-dimer, no evidence of DVT on lower extremities #4. ESRD on Thursday hemodialysis #5. History of COPD on home oxygen at 3 L #6. Remote history of chronic tobacco dependence #7. History of carnitine deficiency #8. History of hypertension #9. History of gout #10. GERD/reflux #11. History of ventilatory dependent respiratory failure related to fluid volume overload back and he reached thousand 21 Plan: Patient continues to improve, she is breathing comfortably Distress chest x-ray showed significant improvement in aeration of bilateral lungs Clinically stable, no fever or chills, no worsening dyspnea, no fever or chills Increase activity as tolerated Decadron course has been completed, her inflammatory markers are significantly improved and are almost within normal limits, LDH is within normal limits Hemodialysis per nephrology Encouraged the patient to sit up in the chair, ambulate Consider discharge home today or tomorrow if cleared by medicine I performed a history & physical examination of the patient and discussed their management with my nurse practitioner, Luly Joy. I reviewed the nurse practitioner's note and agree with the documented findings and plan of care. Lung sounds are positive for dim breath sounds throughout the lung garner. The findings and the impression was discussed with the patient. I attest to the documentation by the nurse practitioner. Time with Patient: Less than 30
[2021-10-16] MEDS: amLODIPine 5 MG TAB PO SCH (18:39)
[2021-10-16] MEDS: MONTELUKAST 10 MG TAB PO SCH (19:56)
[2021-10-16] MEDS: MELATONIN 3 MG TABLET PO PRN (22:16)
[2021-10-17] MEDS: ACETAMINOPHEN TAB 325 MG TAB PO PRN ×2 (02:16→21:45)
[2021-10-17 06:30] LABS: Anisocytosis Slight; Basophils % (A) 0 %; Eosinophils # (A) 0.3 k/uL (0-0.7); Eosinophils % (A) 4 %; HCT 22.9 % (34.0-46.0); Hypochromasia Marked; Lymphocytes % (A) 14 %; MCH 25.8 pg (25.0-35.0); MCHC 27.1 g/dL (31.0-37.0); MCV 94.9 fL (80.0-100.0); Macrocytosis Slight; Mean Platelet Volume 8.6; Monocytes # (A) 0.3 k/uL (0-1.0); Monocytes % (A) 4 %; Neutrophils # (A) 5.2 k/uL (1.3-7.7); Neutrophils % (A) 74 %; Platelet Count 175 k/uL (150-450); RBC 2.41 m/uL (3.80-5.40); RDW 18.9 % (11.5-15.5)
[2021-10-17 06:38] LABS: ALT 11 U/L (4-34); AST 20 U/L (14-36); African American GFR (CKD) 8 (>60 ml/min/1.73 sqM); Albumin 2.5 g/dL (3.5-5.0); Alkaline Phosphatase 49 U/L (38-126); Anion Gap 4 mmol/L; Blood Urea Nitrogen 27 mg/dL (7-17); Calcium 8.5 mg/dL (8.4-10.2); Carbon Dioxide 26 mmol/L (22-30); Chloride 110 mmol/L (98-107); Globulin 2.6 g/dL; Glucose 78 mg/dL (74-99); HGB 6.2 gm/dL (11.4-16.0); Non-African American GFR(CKD) 7 (>60 ml/min/1.73 sqM); Potassium 3.7 mmol/L (3.5-5.1); Sodium 140 mmol/L (137-145); Total Bilirubin 0.4 mg/dL (0.2-1.3); Total Protein 5.1 g/dL (6.3-8.2)
[2021-10-17] MEDS: levOCARNitine (WITH SUGAR) 100 MG/ML BOTTLE PO SCH ×2 (07:52→21:44)
[2021-10-17] MEDS: ENOXAPARIN 30 MG/0.3 ML SYRINGE SQ SCH (07:52)
[2021-10-17] MEDS: PANTOPRAZOLE 40 MG TABLET PO SCH (07:53)
[2021-10-17] MEDS: CHOLECALCIFEROL 125 MCG (5000 IU) TABLET PO SCH (07:53)
[2021-10-17] MEDS: ASCORBIC ACID 500 MG TAB PO SCH (07:53)
[2021-10-17] MEDS: ZINC SULFATE 220 MG CAP PO SCH (07:53)
[2021-10-17] MEDS: allopurinoL 100 MG TAB PO SCH (07:53)
[2021-10-17] MEDS: STIOLTO RESPIMAT INHALER INHALATION SCH (08:15)
[2021-10-17] MEDS: SODIUM FERRIC GLUCONAT-SUCROSE 125 MG in SODIUM CHLORIDE 0.9% 100 ML IVPB SCH (09:23)
--- NOTE | 2021-10-17 09:35 | P.PN ---
Subjective Patient is seen in follow-up for end-stage renal disease. She is maintained on hemodialysis on Thursday schedule. Has received extra treatments of dialysis this admission for volume overload. Currently on 3 L high flow cannula. Denies chest pain or shortness of breath. Hemodynamically stable. Hemoglobin 6.2 today. No active bleeding. Vital signs are stable. General: The patient appeared well nourished and normally developed. HEENT: Head exam is unremarkable. LUNGS: Breath sounds decreased. HEART: Rate and Rhythm are regular. ABDOMEN: Soft, no distention. EXTREMITITES: No edema. Bruising noted right upper extremity. Objective - Vital Signs Vital signs: Vital Signs Temp 98.6 F 10/17/21 05:56 Pulse 81 10/17/21 05:56 Resp 16 10/17/21 05:56 BP 101/58 10/17/21 05:56 Pulse Ox 97 10/17/21 05:56 Intake & Output 10/16/21 10/17/21 10/17/21 18:59 06:59 18:59 Intake Total 150 680 Output Total 1000 Balance -850 680 Intake: Intake, IV Titration 150 Amount Sodium Ferric Gluconat- 100 Sucrose 125 mg In Sodium Chloride 0.9% 100 ml @ 100 mls/hr IVPB DAILY CANDIE Rx#:[id number] cefTRIAXone 2 gm In 50 Sodium Chloride 0.9% 50 ml @ 100 mls/hr IVPB Q24HR CANDIE Rx#:[id number] Oral 680 Output: Hemodialysis 1000 Other: Voiding Method Bedside Commode Bedside Commode - Labs CBC & Chem 7: 10/17/21 05:39 10/17/21 05:39 Labs: Abnormal Lab Results - Last 24 Hours (Table) 10/16/21 10/16/21 10/17/21 Range/Units 05:32 11:01 05:39 RBC 2.54 L 2.63 L 2.41 L (4.10-5.20) X 10*6/uL Hgb 6.4 L* 7.0 L 6.2 L* (12.0-15.0) g/dL Hct 23.1 L 24.2 L 22.9 L (37.2-46.3) % MCH 25.2 L (27.0-32.0) pg MCHC 27.7 L 28.8 L 27.1 L (32.0-37.0) g/dL RDW 18.4 H 18.8 H 18.9 H (11.5-14.5) % Immature Gran # 0.14 H (0.00-0.04) X 10*3/uL Lymphocytes # 0.9 L (1.0-4.8) k/uL Eosinophils # 0.44 H (0.04-0.35) X 10*3/uL Chloride (98-107) mmol/L BUN (7-17) mg/dL Creatinine (0.52-1.04) mg/dL Total Protein (6.3-8.2) g/dL Albumin (3.5-5.0) g/dL Crossmatch 10/17/21 10/17/21 Range/Units 05:39 07:15 RBC (4.10-5.20) X 10*6/uL Hgb (12.0-15.0) g/dL Hct (37.2-46.3) % MCH (27.0-32.0) pg MCHC (32.0-37.0) g/dL RDW (11.5-14.5) % Immature Gran # (0.00-0.04) X 10*3/uL Lymphocytes # (1.0-4.8) k/uL Eosinophils # (0.04-0.35) X 10*3/uL Chloride 110 H (98-107) mmol/L BUN 27 H (7-17) mg/dL Creatinine 5.60 H (0.52-1.04) mg/dL Total Protein 5.1 L (6.3-8.2) g/dL Albumin 2.5 L (3.5-5.0) g/dL Crossmatch See Detail Assessment and Plan Plan: Assessment: 1. End-stage renal disease maintained on hemodialysis on Thursday F rid schedule. 2. Volume overload. Improved with ultrafiltration. 3. Acute hypoxic respiratory failure. 4. COVID-19 pneumonia. 5. Anemia of chronic kidney disease maintained on Aranesp. Iron deficiency noted. Hemoglobin 6.2 today. Plan: Hemodialysis tomorrow. Hold amlodipine for systolic blood pressure less than 120. Phosphorus 5.3. Maintain IV iron. Scheduled to receive a unit of blood today. Midodrine as needed for hypotension during dialysis. No DVT in the right upper extremity. I will give her dose of IV DDAVP today. Further management per primary team
[2021-10-17] MEDS ORDERED: DESMOPRESSIN ACETATE 20 MCG in SODIUM CHLORIDE 0.9% 50 ML IVPB ONE (10:00)
--- NOTE | 2021-10-17 10:51 | P.PN ---
Subjective Progress Note Date: 10/17/21 Principal diagnosis: Patient feels weak today Principal diagnosis: Patient still short of breath but overall improving COVID-19 pneumonitis in a non vaccinated patient Acute exacerbation of COPD Acute on chronic hypoxic hypercapnic respiratory failure Elevated d-dimer -Pulmonary recommendations -Zinc, vitamin C, vitamin D -Decadron day #7, outsied the window for REM -Subcu Lovenox at prophylactic dose - Bronchodilators -Elevated pro-calcitonin -> patient on rocephin day 6/7 -lower extremity venous dopplers negative for DVT -Patient is gradually improving. She is currently on 5 L nasal cannula. 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 Midline ordered for IV iron infusion DVT prophylaxis: Lovenox Gi ppx; PPI Discussed with: patient, nursing Anticipated discharge: In the next 24-48 hours if patient is satting well on 4 [address]: home with home care, patient motivated to go home. She does not want to go to rehab. She stated that she has plenty of support at home. Constitutional: No acute distress, conversant, pleasant Eyes: Anicteric sclerae, moist conjunctiva, no lid-lag PERRLA ENMT: NC/AT Oropharynx clear, no erythema, exudates Neck: Supple, FROM, no masses, or JVD No carotid bruits No thyromegaly Lungs: Clear to auscultation Clear to percussion Normal respiratory effort, no accessory muscle use Cardiovascular: Heart regular in rate and rhythm, No murmurs, gallops, or rubs No peripheral edema Abdominal: Soft Nontender, no guarding, rebound or rigidity Abdomen moving with respiration Normoactive bowel sounds No hepatomegaly, No splenomegaly No palpable mass No abdominal wall hernia noted Skin: Normal temperature, tone, texture, turgor No induration No subcutaneous nodules No rash, lesions No ulcers Extremities: No digital cyanosis No clubbing Pedal pulses intact and symmetrical Radial pulses intact and symmetrical Normal gait and station No calf tenderness Psychiatric:Alert and oriented to person, place and time Appropriate affect Intact judgement Neuro: Muscles Strength 5/5 in all 4 extremities Sensation to light touch grossly present throughout Cranial nerves II-XII grossly intact No focal sensory deficits Patient still weak less short of breath Continued to be hypoxic we'll continue to monitor Hypoxia improving we'll continue to monitor hopefully discharge home in a day or 2 if continues to improve Anemia with hemoglobin 6.2 patients receiving iron May consider transfusion Objective - Vital Signs Vital signs: Vital Signs Temp 97.8 F 10/17/21 10:00 Pulse 92 10/17/21 10:00 Resp 16 10/17/21 10:00 BP 103/69 10/17/21 10:00 Pulse Ox 96 10/17/21 10:00 Intake & Output 10/16/21 10/17/21 10/17/21 18:59 06:59 18:59 Intake Total 150 680 296 Output Total 1000 Balance -850 680 296 Intake: Intake, IV Titration 150 Amount Sodium Ferric Gluconat- 100 Sucrose 125 mg In Sodium Chloride 0.9% 100 ml @ 100 mls/hr IVPB DAILY C[facility]IE Rx#:[id number] cefTRIAXone 2 gm In 50 Sodium Chloride 0.9% 50 ml @ 100 mls/hr IVPB Q24HR C[facility]IE Rx#:[id number] Oral 680 296 Output: Hemodialysis 1000 Other: Voiding Method Bedside Commode Bedside Commode Bedside Commode - Labs CBC & Chem 7: 10/17/21 05:39 10/17/21 05:39 Labs: Abnormal Lab Results - Last 24 Hours (Table) 10/16/21 10/17/21 10/17/21 Range/Units 11:01 05:39 05:39 RBC 2.63 L 2.41 L (3.80-5.40) m/uL Hgb 7.0 L 6.2 L* (11.4-16.0) gm/dL Hct 24.2 L 22.9 L (34.0-46.0) % MCHC 28.8 L 27.1 L (31.0-37.0) g/dL RDW 18.8 H 18.9 H (11.5-15.5) % Lymphocytes # 0.9 L (1.0-4.8) k/uL Chloride 110 H (98-107) mmol/L BUN 27 H (7-17) mg/dL Creatinine 5.60 H (0.52-1.04) mg/dL Total Protein 5.1 L (6.3-8.2) g/dL Albumin 2.5 L (3.5-5.0) g/dL Crossmatch 10/17/21 Range/Units 07:15 RBC (3.80-5.40) m/uL Hgb (11.4-16.0) gm/dL Hct (34.0-46.0) % MCHC (31.0-37.0) g/dL RDW (11.5-15.5) % Lymphocytes # (1.0-4.8) k/uL Chloride (98-107) mmol/L BUN (7-17) mg/dL Creatinine (0.52-1.04) mg/dL Total Protein (6.3-8.2) g/dL Albumin (3.5-5.0) g/dL Crossmatch See Detail
--- NOTE | 2021-10-17 14:32 | P.PN ---
Subjective Progress Note Date: 10/17/21 Principal diagnosis: Shortness of breath, COVID-19 pneumonia This is a 71-year-old female patient who follows with Dr. Keene as her primary care provider. She has a history of end-stage renal disease receiving hemodialysis on Thursday, hypertension, chronic obstructive pulmonary disease follow with Dr. Denney out of [facility], gastroesophageal reflux disease, gout, carnitine deficiency. She also has a previous history of acute hypoxemic respiratory failure requiring intubation mechanical ventilatory support back in October 2020 here at [facility]. She was brought into the emergency room last evening with a two-week history of increasing shortness of breath cough and congestion. She did have a patella help visit with her PCP and was started on doxycycline and prednisone. Not much improvement. She did test positive for COVID-19 here. She is not vaccinated. Chest x-ray shows bilateral patchy infiltrates. She is seen in the emergency room. Sitting up on the stretcher. On BiPAP 14/6 and 65% FiO2. Blood gases revealed a PaO2 of 97, pCO2 72, pH 7.25. White count 11.3. Hemoglobin 7.9. Lymphocytes 0.4. D-dimer 2.69. Sodium 134. Potassium 4.2. BUN 38. Creatinine 5.38. Ferritin 762. LDH 742. C-reactive protein 21.4. Troponins 0.97, 0.97, 0.98. ProBNP 98,400. She was initiated on Decadron, Lovenox, vitamin supplements. Continued on Ventolin, Singulair, Spiriva and Serevent. The patient is seen today 10/09/2021 in follow-up in the intensive care unit. He is currently sitting up in bed. Awake and alert in no acute distress. She was maintained on BiPAP through the night 14/6 and 45% FiO2. She is maintaining good O2 saturations in the mid 90s. We'll attempt to transition her to 15 L high flow nasal cannula. He is afebrile. D-dimer 2.71. White count 10.2. Hemoglobin 7.2. Sodium 138. Potassium 4.7. BUN 37. Creatinine 4.96. LDH 631. Procalcitonin 2.66. She remains on ceftriaxone along with Decadron, Lovenox and vitamin supplements. The patient is seen today 10/10/2021 in follow-up in the intensive care unit. She is currently sitting up in bed. Awake and alert in no acute distress. She is off BiPAP. She's on 9 L high flow nasal cannula. No IV fluids. She did receive hemodialysis yesterday with 2.5 L removed. Chest x-ray reveals stable cardiomegaly. Continue diffuse interstitial changes in the mid and lower lung garner. D-dimer 2.68. LDH 699. C-reactive protein 14.3. She is continued on Decadron, Lovenox, vitamin supplements. Currently on ceftriaxone. Pro-calcitonin was 2.66. The patient is seen today 10/13/2021 in follow-up on the regular medical floor. She is currently sitting up in a chair at the bedside. Awake and alert in no acute distress. She is currently on 6 L high flow nasal cannula. She's been afebrile. Hemodynamically stable. White count 8.2. Hemoccult 7.1. Sodium 144. Potassium 4.3. Creatinine 4.9. She is continued on antibiotics in the form of ceftriaxone. She remains on Lovenox. Vitamin supplements. On 10/14/2021 patient seen in follow-up on medical surgical floor. She is calm and comfortable, she is currently on 5 L of oxygen with pulse ox of 100%, she normally wears 3 L of oxygen at home and regular basis, he is awake and alert, oriented 3, denies any worsening dyspnea, no cough, no compressive chest discomfort, vital signs have been stable. She has had no fever or chills. Patient is being treated for COVID-19 pneumonia. Patient was outside the window for Remdesivir and in addition she has end-stage renal disease. She is currently on inhaled bronchodilators, and she is on prophylactic dose Lovenox adjusted for renal function. She has completed a course of Decadron, she is not too far off her baseline. Last chest x-ray from 10/10/2021 showed stable cardiomegaly, continue diffuse interstitial changes along with mid and lower lung consolidation. No new labs today. Patient had a hemodialysis treatment today with removal of 1.3 L in fluid. On 10/15/2021 patient seen in follow-up on medical surgical floor. She is calm and comfortable, currently on 5 L of oxygen pulse ox is 99%, she normally wears 3 L of oxygen on a regular basis at home, breathing comfortable, no cough, no chest discomfort. No fever or chills, no acute complaints. Patient is currently on Lovenox 30 mg daily, she remains on prophylactic antibiotics in the form of Rocephin. Patient is very close to her baseline. She has completed a course of Decadron. Her last chest x-ray showed diffuse interstitial changes, stable cardiomegaly. Patient is supposed to have a hemodialysis treatment tomorrow. Nephrology is following. Labs labs are pending for today On 10/16/2021 patient seen in follow-up on medical surgical floor. She is resting comfortably in bed, she is currently on 3 L of oxygen pulse ox of 99%, breathing comfortably, no worsening cough, no worsening dyspnea, no chest discomfort. Her chest x-ray yesterday showed similar myocardial megaly, improving lung disease, with residual interstitial changes, and previous bibasilar airspace disease showed significant improvement. Patient had repeat hemodialysis treatment yesterday with removal of 2 L of fluid, and she had hemodialysis treatment the day before with removal of 3 L of fluid. Breathing much more comfortably. Today's labs have been reviewed, white blood cell count is 8.1, hemoglobin is 7.0, earlier today hemoglobin was 6.4 and this was reche cked. She does have chronic anemia related to chronic kidney disease stage IV, no signs of active bleeding. Hemodynamically she is been stable. Electrolytes are within normal limits, BUN of 40, and creatinine is 6.9. Patient has completed her Decadron, she is close to her baseline, she normally wears 3 L of oxygen at home. LDH today is within normal limits, significantly improved and is down to 236, CRP is down to 1.9. On 10/17/2021 patient seen in follow-up on medical surgical floor. Patient is resting comfortably in bed, denies any acute distress, she is breathing comfortably, she is receiving a unit of blood for hemoglobin of 6.2, no signs of active bleeding. Patient did not have hemodialysis yesterday and she is scheduled for hemodialysis treatment today, she's had no acute events overnight. No fever or chills, no worsening dyspnea or cough, no chest discomfort. Vital signs have been stable. She has been setting 100% on 3 L of oxygen. The rest of her labs have been reviewed, her white blood cell, remains within normal range at 7.0, hemoglobin is 6.2 as mentioned above, platelet count is 175, sodium is 140, potassium is 3.7, chloride is 110, CO2 is 26, BUN is 27, cre atinine is 5.6. Objective - Vital Signs Vital signs: Vital Signs Temp 97.6 F 10/17/21 14:04 Pulse 86 10/17/21 14:04 Resp 18 10/17/21 14:04 BP 137/85 10/17/21 14:04 Pulse Ox 100 10/17/21 14:04 Intake & Output 10/16/21 10/17/21 10/17/21 18:59 06:59 18:59 Intake Total 150 680 575 Output Total 1000 Balance -850 680 575 Intake: Intake, IV Titration 150 Amount Sodium Ferric Gluconat- 100 Sucrose 125 mg In Sodium Chloride 0.9% 100 ml @ 100 mls/hr IVPB DAILY CANDIE Rx#:[id number] cefTRIAXone 2 gm In 50 Sodium Chloride 0.9% 50 ml @ 100 mls/hr IVPB Q24HR CANDIE Rx#:[id number] Oral 680 296 Blood Product 279 Rc Pheresis As-3 Unit 279 [id number] Output: Hemodialysis 1000 Other: Voiding Method Bedside Commode Bedside Commode Bedside Commode - Exam GENERAL EXAM: Alert, very pleasant, 71-year-old female patient on 3 L of oxygen with a pulse ox of 95% comfortable in no apparent distress. HEAD: Normocephalic/atraumatic. EYES: Normal reaction of pupils, equal size. Conjunctiva pink, sclera white. NOSE: Clear with pink turbinates. THROAT: No erythema or exudates. NECK: No masses, no JVD, no thyroid enlargement, no adenopathy. CHEST: No chest wall deformity. Symmetrical expansion. LUNGS: Equal air entry with bilateral minimal crackles CVS: Regular rate and rhythm, normal S1 and S2, no gallops, no murmurs, no rubs ABDOMEN: Soft, nontender. No hepatosplenomegaly, normal bowel sounds, no guarding or rigidity. EXTREMITIES: No clubbing, no edema, no cyanosis, 2+ pulses and upper and lower extremities. 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 SPINE: No scoliosis or deformity SKIN: No rashes CENTRAL NERVOUS SYSTEM: Alert and oriented -3. No focal deficits, tone is normal in all 4 extremities. PSYCHIATRIC: Alert and oriented -3. Appropriate affect. Intact judgment and insight. - Labs CBC & Chem 7: 10/17/21 05:39 10/17/21 05:39 Labs: Abnormal Lab Results - Last 24 Hours (Table) 10/17/21 10/17/21 10/17/21 Range/Units 05:39 05:39 07:15 RBC 2.41 L (3.80-5.40) m/uL Hgb 6.2 L* (11.4-16.0) gm/dL Hct 22.9 L (34.0-46.0) % MCHC 27.1 L (31.0-37.0) g/dL RDW 18.9 H (11.5-15.5) % Chloride 110 H (98-107) mmol/L BUN 27 H (7-17) mg/dL Creatinine 5.60 H (0.52-1.04) mg/dL Total Protein 5.1 L (6.3-8.2) g/dL Albumin 2.5 L (3.5-5.0) g/dL Crossmatch See Detail Assessment and Plan Plan: Assessment: #1. Acute on chronic hypoxic respiratory failure secondary to acute COVID-19 pneumonia. Patient is not vaccinated. Onset of symptoms was 2 weeks ago, she was outside the window for Remdesivir. Patient did have elevated pro calcitonin of 2.66 suggesting possibly bacterial pneumonia and patient is on ceftriaxone completed 6 out of 7 day course treatment. Clinically she has remained stable, she is currently on 4 L of oxygen, improving, no worsening dyspnea or hypoxia. Patient continues on Lovenox 30 mg daily, Decadron, and vitamin supplements. Patient did require BiPAP support initially with settings of 14/6 and FiO2 of 45%, improved and she is currently down to 3 L of oxygen #2. Chronic hypoxic respiratory failure related to COPD normally wears 3 L of oxygen at home #3. Elevated d-dimer, no evidence of DVT on lower extremities #4. ESRD on Thursday hemodialysis #5. History of COPD on home oxygen at 3 L #6. Remote history of chronic tobacco dependence #7. History of carnitine deficiency #8. History of hypertension #9. History of gout #10. GERD/reflux #11. History of ventilatory dependent respiratory failure related to fluid volume overload back and he reached thousand 21 Plan: Patient continues to improve, she is breathing comfortably Increase activity as tolerated Patient is going to have a hemodialysis treatment today She is receiving a unit of blood She said no acute events overnight She can be considered for discharge home from pulmonary perspective once cleared by medicine I performed a history & physical examination of the patient and discussed their management with my nurse practitioner, Luly Joy. I reviewed the nurse practitioner's note and agree with the documented findings and plan of care. Lung sounds are positive for dim breath sounds throughout the lung garner. The findings and the impression was discussed with the patient. I attest to the documentation by the nurse practitioner. Time with Patient: Less than 30
[2021-10-17] MEDS: MONTELUKAST 10 MG TAB PO SCH (21:44)
[2021-10-17] MEDS: amLODIPine 5 MG TAB PO SCH (21:44)
[2021-10-17] MEDS: MELATONIN 3 MG TABLET PO PRN (21:46)
[2021-10-18] MEDS ORDERED: MIDODRINE 5 MG TAB PO ONE (07:30)
[2021-10-18] MEDS: STIOLTO RESPIMAT INHALER INHALATION SCH (08:22)
[2021-10-18] MEDS: allopurinoL 100 MG TAB PO SCH (08:25)
[2021-10-18] MEDS: ENOXAPARIN 30 MG/0.3 ML SYRINGE SQ SCH (08:25)
[2021-10-18] MEDS: ZINC SULFATE 220 MG CAP PO SCH (08:25)
[2021-10-18] MEDS: ASCORBIC ACID 500 MG TAB PO SCH (08:25)
[2021-10-18] MEDS: CHOLECALCIFEROL 125 MCG (5000 IU) TABLET PO SCH (08:25)
[2021-10-18] MEDS: PANTOPRAZOLE 40 MG TABLET PO SCH (08:25)
[2021-10-18] MEDS: levOCARNitine (WITH SUGAR) 100 MG/ML BOTTLE PO SCH ×2 (08:26→23:03)
--- NOTE | 2021-10-18 08:55 | P.PN ---
Subjective Progress Note Date: 10/18/21 Patient feels weak today Principal diagnosis: Patient still short of breath but overall improving COVID-19 pneumonitis in a non vaccinated patient Acute exacerbation of COPD Acute on chronic hypoxic hypercapnic respiratory failure Elevated d-dimer -Pulmonary recommendations -Zinc, vitamin C, vitamin D -Decadron day #7, outsied the window for REM -Subcu Lovenox at prophylactic dose - Bronchodilators -Elevated pro-calcitonin -> patient on rocephin day 6/ -lower extremity venous dopplers negative for DVT -Patient is gradually improving. She is currently on 5 L nasal cannula. 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 Midline ordered for IV iron infusion DVT prophylaxis: Lovenox Gi ppx; PPI Discussed with: patient, nursing Anticipated discharge: In the next 24-48 hours if patient is satting well on [address]: home with home care, patient motivated to go home. She does not want to go to rehab. She stated that she has plenty of support at home. Constitutional: No acute distress, conversant, pleasant Eyes: Anicteric sclerae, moist conjunctiva, no lid-lag PERRLA ENMT: NC/AT Oropharynx clear, no erythema, exudates Neck: Supple, FROM, no masses, or JVD No carotid bruits No thyromegaly Lungs: Clear to auscultation Clear to percussion Normal respiratory effort, no accessory muscle use Cardiovascular: Heart regular in rate and rhythm, No murmurs, gallops, or rubs No peripheral edema Abdominal: Soft Nontender, no guarding, rebound or rigidity Abdomen moving with respiration Normoactive bowel sounds No hepatomegaly, No splenomegaly No palpable mass No abdominal wall hernia noted Skin: Normal temperature, tone, texture, turgor No induration No subcutaneous nodules No rash, lesions No ulcers Extremities: No digital cyanosis No clubbing Pedal pulses intact and symmetrical Radial pulses intact and symmetrical Normal gait and station No calf tenderness Psychiatric:Alert and oriented to person, place and time Appropriate affect Intact judgement Neuro: Muscles Strength 5/5 in all 4 extremities Sensation to light touch grossly present throughout Cranial nerves II-XII grossly intact No focal sensory deficits Patient still weak less short of breath Continued to be hypoxic we'll continue to monitor Hypoxia improving we'll continue to monitor hopefully discharge home in a day or 2 if continues to improve Anemia with hemoglobin 6.2 patients receiving iron May consider transfusion Currently labs are still pending we'll continue to monitor may consider transfusion if hemoglobin continues to drop Objective - Vital Signs Vital signs: Vital Signs Temp 97.8 F 10/18/21 04:58 Pulse 94 10/18/21 04:58 Resp 16 10/18/21 04:58 BP 95/61 10/18/21 07:11 Pulse Ox 98 10/18/21 04:58 Intake & Output 10/17/21 10/18/21 10/18/21 18:59 06:59 18:59 Intake Total 1047 350 Balance 1047 350 Weight 87.3 kg Intake: Oral 768 350 Blood Product 279 Rc Pheresis As-3 Unit 279 [id number] Other: Voiding Method Bedside Commode Bedside Commode # Voids 3 0 # Bowel Movements 2 - Labs CBC & Chem 7: 10/17/21 05:39 10/17/21 05:39 Labs: Abnormal Lab Results - Last 24 Hours (Table) 10/17/21 Range/Units 07:15 Crossmatch See Detail
[2021-10-18 09:43] LABS: African American GFR (CKD) 5.9 (60.0-200.0); Albumin 2.8 g/dL (3.8-4.9); Albumin/Globulin Ratio 1.32 (1.60-3.17); Anion Gap 13.4 mmol/L (10.00-18.00); BUN/Creat Ratio 4.81 Ratio (12.00-20.00); Blood Urea Nitrogen 35.4 mg/dL (9.0-27.0); Calcium 8.4 mg/dL (8.7-10.3); Carbon Dioxide 21.8 mmol/L (20.0-27.5); Globulin 2.1 g/dL (1.6-3.3); Non-African American GFR(CKD) 5.1 (60.0-200.0); Potassium 4.4 mmol/L (3.5-5.5); Total Bilirubin 0.2 mg/dL (0.30-1.20); Total Protein 4.9 g/dL (6.2-8.2)
--- NOTE | 2021-10-18 09:47 | P.PN ---
Subjective Patient is seen in follow-up for end-stage renal disease. She is maintained on hemodialysis on Thursday schedule. Has received extra treatments of dialysis this admission for volume overload. Currently on 3 L high flow cannula. Denies chest pain or shortness of breath. No active bleeding. Received blood yesterday. Vital signs are stable. Blood pressure on the lower side. General: The patient appeared well nourished and normally developed. HEENT: Head exam is unremarkable. LUNGS: Breath sounds decreased. HEART: Rate and Rhythm are regular. ABDOMEN: Soft, no distention. EXTREMITITES: No edema. Objective - Vital Signs Vital signs: Vital Signs Temp 97.8 F 10/18/21 04:58 Pulse 94 10/18/21 04:58 Resp 16 10/18/21 04:58 BP 95/61 10/18/21 07:11 Pulse Ox 98 10/18/21 04:58 Intake & Output 10/17/21 10/18/21 10/18/21 18:59 06:59 18:59 Intake Total 1047 350 Balance 1047 350 Weight 87.3 kg Intake: Oral 768 350 Blood Product 279 Rc Pheresis As-3 Unit 279 [id number] Other: Voiding Method Bedside Commode Bedside Commode # Voids 3 0 # Bowel Movements 2 - Labs CBC & Chem 7: 10/17/21 05:39 10/17/21 05:39 Labs: Abnormal Lab Results - Last 24 Hours (Table) 10/17/21 Range/Units 07:15 Crossmatch See Detail Assessment and Plan Plan: Assessment: 1. End-stage renal disease maintained on hemodialysis on Thursday y schedule. 2. Volume overload. Improved with ultrafiltration. 3. Acute hypoxic respiratory failure. 4. COVID-19 pneumonia. 5. Anemia of chronic kidney disease maintained on Aranesp. Iron deficiency noted. Status post IV iron. Received unit of blood 10/17/2021. No active bleeding. Also received a dose of IV DDAVP this admission. Plan: Hemodialysis today. Stop amlodipine. Phosphorus 5.3. Midodrine as needed for hypotension during dialysis. No DVT in the right upper extremity. His blood pressure remains persistently low, will add scheduled midodrine. Monitor hemoglobin and transfuse as needed. Defer to primary team.
[2021-10-18 10:33] LABS: Basophils # (A) 0.03 X 10*3/uL (0.00-0.10); Basophils % (A) 0.3 %; Eosinophils # (A) 0.38 X 10*3/uL (0.04-0.35); Eosinophils % (A) 4.1 %; HGB 6.4 g/dL (12.0-15.0); Immature Grans, Automated 0.4 %; Lymphocytes # (A) 0.95 X 10*3/uL (0.90-5.00); Lymphocytes % (A) 10.3 %; MCH 25.8 pg (27.0-32.0); MCHC 27.8 g/dL (32.0-37.0); MCV 92.7 fL (80.0-97.0); Mean Platelet Volume 11.4 fL (9.5-12.2); Monocytes # (A) 0.81 X 10*3/uL (0.20-1.00); Monocytes % (A) 8.8 %; NRBC Per 100 WBC 0 /100 WBCS (0.0-0.0); Neutrophils # (A) 6.99 X 10*3/uL (1.80-7.70); Neutrophils % (A) 76.1 %; Platelet Count 166 X 10*3/uL (140-440); RBC 2.48 X 10*6/uL (4.10-5.20); RDW 18.4 % (11.5-14.5)
--- NOTE | 2021-10-18 14:01 | P.PN ---
Subjective Progress Note Date: 10/18/21 Principal diagnosis: Shortness of breath, COVID-19 pneumonia This is a 71-year-old female patient who follows with Dr. Keene as her primary care provider. She has a history of end-stage renal disease receiving hemodialysis on Thursday, hypertension, chronic obstructive pulmonary disease follow with Dr. Denney out of , gastroesophageal reflux disease, gout, carnitine deficiency. She also has a previous history of acute hypoxemic respiratory failure requiring intubation mechanical ventilatory support back in October 2020 here at [facility]. She was brought into the emergency room last evening with a two-week history of increasing shortness of breath cough and congestion. She did have a patella help visit with her PCP and was started on doxycycline and prednisone. Not much improvement. She did test positive for COVID-19 here. She is not vaccinated. Chest x-ray shows bilateral patchy infiltrates. She is seen in the emergency room. Sitting up on the stretcher. On BiPAP 14/6 and 65% FiO2. Blood gases revealed a PaO2 of 97, pCO2 72, pH 7.25. White count 11.3. Hemoglobin 7.9. Lymphocytes 0.4. D-dimer 2.69. Sodium 134. Potassium 4.2. BUN 38. Creatinine 5.38. Ferritin 762. LDH 742. C-reactive protein 21.4. Troponins 0.97, 0.97, 0.98. ProBNP 98,400. She was initiated on Decadron, Lovenox, vitamin supplements. Continued on Ventolin, Singulair, Spiriva and Serevent. The patient is seen today 10/09/2021 in follow-up in the intensive care unit. He is currently sitting up in bed. Awake and alert in no acute distress. She was maintained on BiPAP through the night 14/6 and 45% FiO2. She is maintaining good O2 saturations in the mid 90s. We'll attempt to transition her to 15 L high flow nasal cannula. He is afebrile. D-dimer 2.71. White count 10.2. Hemoglobin 7.2. Sodium 138. Potassium 4.7. BUN 37. Creatinine 4.96. LDH 631. Procalcitonin 2.66. She remains on ceftriaxone along with Decadron, Lovenox and vitamin supplements. The patient is seen today 10/10/2021 in follow-up in the intensive care unit. She is currently sitting up in bed. Awake and alert in no acute distress. She is off BiPAP. She's on 9 L high flow nasal cannula. No IV fluids. She did receive hemodialysis yesterday with 2.5 L removed. Chest x-ray reveals stable cardiomegaly. Continue diffuse interstitial changes in the mid and lower lung garner. D-dimer 2.68. LDH 699. C-reactive protein 14.3. She is continued on Decadron, Lovenox, vitamin supplements. Currently on ceftriaxone. Pro-calcitonin was 2.66. The patient is seen today 10/13/2021 in follow-up on the regular medical floor. She is currently sitting up in a chair at the bedside. Awake and alert in no acute distress. She is currently on 6 L high flow nasal cannula. She's been afebrile. Hemodynamically stable. White count 8.2. Hemoccult 7.1. Sodium 144. Potassium 4.3. Creatinine 4.9. She is continued on antibiotics in the form of ceftriaxone. She remains on Lovenox. Vitamin supplements. On 10/14/2021 patient seen in follow-up on medical surgical floor. She is calm and comfortable, she is currently on 5 L of oxygen with pulse ox of 100%, she normally wears 3 L of oxygen at home and regular basis, he is awake and alert, oriented 3, denies any worsening dyspnea, no cough, no compressive chest discomfort, vital signs have been stable. She has had no fever or chills. Patient is being treated for COVID-19 pneumonia. Patient was outside the window for Remdesivir and in addition she has end-stage renal disease. She is currently on inhaled bronchodilators, and she is on prophylactic dose Lovenox adjusted for renal function. She has completed a course of Decadron, she is not too far off her baseline. Last chest x-ray from 10/10/2021 showed stable cardiomegaly, continue diffuse interstitial changes along with mid and lower lung consolidation. No new labs today. Patient had a hemodialysis treatment today with removal of 1.3 L in fluid. On 10/15/2021 patient seen in follow-up on medical surgical floor. She is calm and comfortable, currently on 5 L of oxygen pulse ox is 99%, she normally wears 3 L of oxygen on a regular basis at home, breathing comfortable, no cough, no chest discomfort. No fever or chills, no acute complaints. Patient is currently on Lovenox 30 mg daily, she remains on prophylactic antibiotics in the form of Rocephin. Patient is very close to her baseline. She has completed a course of Decadron. Her last chest x-ray showed diffuse interstitial changes, stable cardiomegaly. Patient is supposed to have a hemodialysis treatment tomorrow. Nephrology is following. Labs labs are pending for today On 10/16/2021 patient seen in follow-up on medical surgical floor. She is resting comfortably in bed, she is currently on 3 L of oxygen pulse ox of 99%, breathing comfortably, no worsening cough, no worsening dyspnea, no chest discomfort. Her chest x-ray yesterday showed similar myocardial megaly, improving lung disease, with residual interstitial changes, and previous bibasilar airspace disease showed significant improvement. Patient had repeat hemodialysis treatment yesterday with removal of 2 L of fluid, and she had hemodialysis treatment the day before with removal of 3 L of fluid. Breathing much more comfortably. Today's labs have been reviewed, white blood cell count is 8.1, hemoglobin is 7.0, earlier today hemoglobin was 6.4 and this was reche cked. She does have chronic anemia related to chronic kidney disease stage IV, no signs of active bleeding. Hemodynamically she is been stable. Electrolytes are within normal limits, BUN of 40, and creatinine is 6.9. Patient has completed her Decadron, she is close to her baseline, she normally wears 3 L of oxygen at home. LDH today is within normal limits, significantly improved and is down to 236, CRP is down to 1.9. On 10/17/2021 patient seen in follow-up on medical surgical floor. Patient is resting comfortably in bed, denies any acute distress, she is breathing comfortably, she is receiving a unit of blood for hemoglobin of 6.2, no signs of active bleeding. Patient did not have hemodialysis yesterday and she is scheduled for hemodialysis treatment today, she's had no acute events overnight. No fever or chills, no worsening dyspnea or cough, no chest discomfort. Vital signs have been stable. She has been setting 100% on 3 L of oxygen. The rest of her labs have been reviewed, her white blood cell, remains within normal range at 7.0, hemoglobin is 6.2 as mentioned above, platelet count is 175, sodium is 140, potassium is 3.7, chloride is 110, CO2 is 26, BUN is 27, cre atinine is 5.6. On 10/18/2021 patient seen in follow-up on medical surgical floor. Patient is awake and alert, in no acute distress, she is currently on 3 L of oxygen pulse ox is 100%, breathing comfortably, occasional cough, no phlegm production, no chest discomfort. No acute events overnight, patient received a unit of packed red blood cells yesterday for hemoglobin of 6.2, today she is receiving another unit of packed red blood cells for hemoglobin of 6.4, no signs of active bleeding, no dark tarry stools, vital signs have been stable. Objective - Vital Signs Vital signs: Vital Signs Temp 97.6 F 10/18/21 13:39 Pulse 83 10/18/21 13:39 Resp 18 10/18/21 13:39 BP 129/66 10/18/21 13:39 Pulse Ox 100 10/18/21 13:01 Intake & Output 10/17/21 10/18/21 10/18/21 18:59 06:59 18:59 Intake Total 1047 350 575 Output Total 1999 Balance 1047 350 -1425 Weight 87.3 kg Intake: Oral 768 350 Blood Product 279 275 Rc Pheresis As-3 Unit 279 [id number] Rc Pheresis As-3 Unit 275 [id number] Hemodialysis 300 Output: Hemodialysis 2000 Other: Voiding Method Bedside Commode Bedside Commode # Voids 3 0 # Bowel Movements 2 - Exam GENERAL EXAM: Alert, very pleasant, 71-year-old female patient on 3 L of oxygen with a pulse ox of 95% comfortable in no apparent distress. HEAD: Normocephalic/atraumatic. EYES: Normal reaction of pupils, equal size. Conjunctiva pink, sclera white. NOSE: Clear with pink turbinates. THROAT: No erythema or exudates. NECK: No masses, no JVD, no thyroid enlargement, no adenopathy. CHEST: No chest wall deformity. Symmetrical expansion. LUNGS: Equal air entry with bilateral minimal crackles CVS: Regular rate and rhythm, normal S1 and S2, no gallops, no murmurs, no rubs ABDOMEN: Soft, nontender. No hepatosplenomegaly, normal bowel sounds, no guarding or rigidity. EXTREMITIES: No clubbing, no edema, no cyanosis, 2+ pulses and upper and lower extremities. 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 SPINE: No scoliosis or deformity SKIN: No rashes CENTRAL NERVOUS SYSTEM: Alert and oriented -3. No focal deficits, tone is norm al in all 4 extremities. PSYCHIATRIC: Alert and oriented -3. Appropriate affect. Intact judgment and insight. - Labs CBC & Chem 7: 10/18/21 05:59 10/18/21 05:59 Labs: Abnormal Lab Results - Last 24 Hours (Table) 10/17/21 10/18/21 10/18/21 Range/Units 07:15 05:59 05:59 RBC 2.48 L (4.10-5.20) X 10*6/uL Hgb 6.4 L* (12.0-15.0) g/dL Hct 23.0 L (37.2-46.3) % MCH 25.8 L (27.0-32.0) pg MCHC 27.8 L (32.0-37.0) g/dL RDW 18.4 H (11.5-14.5) % Eosinophils # 0.38 H (0.04-0.35) X 10*3/uL BUN 35.4 H (9.0-27.0) mg/dL Creatinine 7.4 H* (0.6-1.5) mg/dL Est GFR (CKD-EPI)AfAm 5.9 L (60.0-200.0) Est GFR (CKD-EPI)NonAf 5.1 L (60.0-200.0) BUN/Creatinine Ratio 4.81 L (12.00-20.00) Ratio Calcium 8.4 L (8.7-10.3) mg/dL Total Bilirubin 0.20 L (0.30-1.20) mg/dL Total Protein 4.9 L (6.2-8.2) g/dL Albumin 2.8 L (3.8-4.9) g/dL Albumin/Globulin Ratio 1.32 L (1.60-3.17) g/dL Crossmatch See Detail Assessment and Plan Plan: Assessment: #1. Acute on chronic hypoxic respiratory failure secondary to acute COVID-19 pneumonia. Patient is not vaccinated. Onset of symptoms was 2 weeks ago, she was outside the window for Remdesivir. Patient did have elevated pro calcitonin of 2.66 suggesting possibly bacterial pneumonia and patient is on ceftriaxone completed 6 out of 7 day course treatment. Clinically she has remained stable, she is currently on 4 L of oxygen, improving, no worsening dyspnea or hypoxia. Patient continues on Lovenox 30 mg daily, Decadron, and vitamin supplements. Patient did require BiPAP support initially with settings of 14/6 and FiO2 of 45%, improved and she is currently down to 3 L of oxygen #2. Chronic hypoxic respiratory failure related to COPD normally wears 3 L of oxygen at home #3. Elevated d-dimer, no evidence of DVT on lower extremities #4. ESRD on Thursday hemodialysis #5. History of COPD on home oxygen at 3 L #6. Remote history of chronic tobacco dependence #7. History of carnitine deficiency #8. History of hypertension #9. History of gout #10. GERD/reflux #11. History of ventilatory dependent respiratory failure related to fluid volume overload #12. Anemia of chronic kidney disease, status post transfusion with 2 units of packed red blood cells, with no signs of active bleeding Plan: Patient continues to improve, she is breathing comfortably No acute events overnight, she is on home dose oxygen of 3 L Stable from pulmonary perspective She is receiving on a unit of packed red blood cells today Her inflammatory markers have improved and LDH was within normal limits, CRP was 1.9 this was under labs from 2 days ago Increase activity as tolerated From pulm perspective patient is stable, without worsening symptsom consider discharge when cleared by surgery I performed a history & physical examination of the patient and discussed their management with my nurse practitioner, Luly Joy. I reviewed the nurse practitioner's note and agree with the documented findings and plan of care. Lung sounds are positive for dim breath sounds throughout the lung garner. The findings and the impression was discussed with the patient. I attest to the documentation by the nurse practitioner. Time with Patient: Less than 30
[2021-10-18] MEDS: ACETAMINOPHEN TAB 325 MG TAB PO PRN (23:02)
[2021-10-18] MEDS: MELATONIN 3 MG TABLET PO PRN (23:02)
[2021-10-18] MEDS: MONTELUKAST 10 MG TAB PO SCH (23:03)
[2021-10-18] MEDS: FOLIC ACID-VIT B COMPLEX-VIT C 1 CAP PO SCH (23:03)
[2021-10-19] MEDS: STIOLTO RESPIMAT INHALER INHALATION SCH (08:20)
--- NOTE | 2021-10-19 08:43 | P.PN ---
Subjective Patient is seen in follow-up for end-stage renal disease. She is maintained on hemodialysis on Thursday schedule. Has received extra treatments of dialysis this admission for volume overload. Currently on 3 L nasal cannula. Denies chest pain or shortness of breath. No active bleeding. Received blood yesterday. Vital signs are stable. General: The patient appeared well nourished and normally developed. HEENT: Head exam is unremarkable. LUNGS: Breath sounds decreased. HEART: Rate and Rhythm are regular. ABDOMEN: Soft, no distention. EXTREMITITES: No edema. Objective - Vital Signs Vital signs: Vital Signs Temp 97.6 F 10/19/21 05:14 Pulse 83 10/19/21 05:14 Resp 17 10/19/21 05:14 BP 114/64 10/19/21 05:14 Pulse Ox 98 10/19/21 05:14 Intake & Output 10/18/21 10/19/21 10/19/21 18:59 06:59 18:59 Intake Total 575 250 Output Total 1999 Balance -1425 250 Intake: Oral 250 Blood Product 275 Rc Pheresis As-3 Unit 275 [id number] Hemodialysis 300 Output: Hemodialysis 2000 Other: Voiding Method Bedside Commode Bedside Commode Bedside Commode # Voids 1 0 # Bowel Movements 1 - Labs CBC & Chem 7: 10/18/21 05:59 10/18/21 05:59 Labs: Abnormal Lab Results - Last 24 Hours (Table) 10/17/21 10/18/21 10/18/21 Range/Units 07:15 05:59 05:59 RBC 2.48 L (4.10-5.20) X 10*6/uL Hgb 6.4 L* (12.0-15.0) g/dL Hct 23.0 L (37.2-46.3) % MCH 25.8 L (27.0-32.0) pg MCHC 27.8 L (32.0-37.0) g/dL RDW 18.4 H (11.5-14.5) % Eosinophils # 0.38 H (0.04-0.35) X 10*3/uL BUN 35.4 H (9.0-27.0) mg/dL Creatinine 7.4 H* (0.6-1.5) mg/dL Est GFR (CKD-EPI)AfAm 5.9 L (60.0-200.0) Est GFR (CKD-EPI)NonAf 5.1 L (60.0-200.0) BUN/Creatinine Ratio 4.81 L (12.00-20.00) Ratio Calcium 8.4 L (8.7-10.3) mg/dL Total Bilirubin 0.20 L (0.30-1.20) mg/dL Total Protein 4.9 L (6.2-8.2) g/dL Albumin 2.8 L (3.8-4.9) g/dL Albumin/Globulin Ratio 1.32 L (1.60-3.17) g/dL Crossmatch See Detail Assessment and Plan Plan: Assessment: 1. End-stage renal disease maintained on hemodialysis on Thursday schedule. 2. Volume overload. Improved with ultrafiltration. Tolerated 2 L ultrafiltration yesterday. 3. Acute hypoxic respiratory failure. 4. COVID-19 pneumonia. 5. Anemia of chronic kidney disease maintained on Aranesp. Iron deficiency noted. Status post IV iron. Received blood transfusions this admission. No active bleeding. Also received a dose of IV DDAVP this admission. Plan: Hemodialysis Thursday. Phosphorus 5.3. Midodrine as needed for hypotension during dialysis. No DVT in the right upper extremity. Monitor hemoglobin and transfuse as needed. Defer to primary team.
[2021-10-19] MEDS ORDERED: DARBEPOETIN ALFA 40 MCG/0.4 ML SYRINGE SQ SCH (09:00)
[2021-10-19 09:27] LABS: African American GFR (CKD) 13.5 (60.0-200.0); Albumin 2.9 g/dL (3.8-4.9); Albumin/Globulin Ratio 1.36 (1.60-3.17); Anion Gap 12.7 mmol/L (10.00-18.00); BUN/Creat Ratio 3.58 Ratio (12.00-20.00); Blood Urea Nitrogen 13.3 mg/dL (9.0-27.0); Calcium 8.2 mg/dL (8.7-10.3); Carbon Dioxide 25.8 mmol/L (20.0-27.5); Globulin 2.2 g/dL (1.6-3.3); Non-African American GFR(CKD) 11.6 (60.0-200.0); Total Bilirubin 0.2 mg/dL (0.30-1.20); Total Protein 5.1 g/dL (6.2-8.2)
[2021-10-19] MEDS: CHOLECALCIFEROL 125 MCG (5000 IU) TABLET PO SCH (09:52)
[2021-10-19] MEDS: ZINC SULFATE 220 MG CAP PO SCH (09:53)
[2021-10-19] MEDS: PANTOPRAZOLE 40 MG TABLET PO SCH (09:53)
[2021-10-19] MEDS: levOCARNitine (WITH SUGAR) 100 MG/ML BOTTLE PO SCH ×2 (09:53→21:18)
[2021-10-19] MEDS: allopurinoL 100 MG TAB PO SCH (09:53)
[2021-10-19] MEDS: ENOXAPARIN 30 MG/0.3 ML SYRINGE SQ SCH (09:53)
[2021-10-19 10:06] LABS: Basophils # (A) 0.04 X 10*3/uL (0.00-0.10); Basophils % (A) 0.5 %; Eosinophils # (A) 0.35 X 10*3/uL (0.04-0.35); HCT 28.1 % (37.2-46.3); Immature Grans, Automated 0.7 %; Lymphocytes # (A) 1.17 X 10*3/uL (0.90-5.00); Lymphocytes % (A) 13.4 %; MCH 26.7 pg (27.0-32.0); MCHC 28.5 g/dL (32.0-37.0); MCV 93.7 fL (80.0-97.0); Mean Platelet Volume 13.6 fL (9.5-12.2); Monocytes % (A) 9.2 %; NRBC Per 100 WBC 0 /100 WBCS (0.0-0.0); Neutrophils # (A) 6.32 X 10*3/uL (1.80-7.70); Neutrophils % (A) 72.2 %; Platelet Count 134 X 10*3/uL (140-440); RDW 17.7 % (11.5-14.5); WBC 8.74 X 10*3/uL (4.50-10.00)
--- NOTE | 2021-10-19 10:48 | P.PN ---
Subjective Progress Note Date: 10/19/21 No new complaints today. Pt is at her baseline oxygen requirement. Denies hematochezia, melena. Rec'd 2U PRBCs for anemia related to iron deficiency and CKD. Objective - Vital Signs Vital signs: Vital Signs Temp 97.7 F 10/19/21 09:57 Pulse 83 10/19/21 09:57 Resp 100 H 10/19/21 09:57 BP 140/85 10/19/21 09:57 Pulse Ox 98 10/19/21 05:14 Intake & Output 10/18/21 10/19/21 10/19/21 18:59 06:59 18:59 Intake Total 575 250 Output Total 1999 Balance -1425 250 Intake: Oral 250 Blood Product 275 Rc Pheresis As-3 Unit 275 [id number] Hemodialysis 300 Output: Hemodialysis 1999 Other: Voiding Method Bedside Commode Bedside Commode Bedside Commode # Voids 1 0 # Bowel Movements 1 - Exam Gen: awake, alert HEENT: normocephalic, atraumatic, good hearing acuity, moist mucous membranes Resp: good air exchange, breathing comfortably with no accessory muscle use CVS: good distal perfusion x 4, GI: soft, NTTP, ND : no SPT, no CVAT, ronquillo catheter not present MSK: no pitting edema, no clubbing Neuro: non-focal, moving all extremities Psych: cooperative, euthymic mood - Labs CBC & Chem 7: 10/19/21 04:54 10/19/21 04:54 Labs: Abnormal Lab Results - Last 24 Hours (Table) 10/17/21 10/19/21 10/19/21 Range/Units 07:15 04:54 04:54 RBC 3.00 L (4.10-5.20) X 10*6/uL Hgb 8.0 L (12.0-15.0) g/dL Hct 28.1 L (37.2-46.3) % MCH 26.7 L (27.0-32.0) pg MCHC 28.5 L (32.0-37.0) g/dL RDW 17.7 H (11.5-14.5) % Plt Count 134 L (140-440) X 10*3/uL Plt Count Comment DECREASED A MPV 13.6 H (9.5-12.2) fL Immature Gran # 0.06 H (0.00-0.04) X 10*3/uL Creatinine 3.7 H (0.6-1.5) mg/dL Est GFR (CKD-EPI)AfAm 13.5 L (60.0-200.0) Est GFR (CKD-EPI)NonAf 11.6 L (60.0-200.0) BUN/Creatinine Ratio 3.58 L (12.00-20.00) Ratio Calcium 8.2 L (8.7-10.3) mg/dL Total Bilirubin 0.20 L (0.30-1.20) mg/dL Total Protein 5.1 L (6.2-8.2) g/dL Albumin 2.9 L (3.8-4.9) g/dL Albumin/Globulin Ratio 1.36 L (1.60-3.17) g/dL Crossmatch See Detail Assessment and Plan Assessment: COVID-19 pneumonitis in a non vaccinated patient Acute exacerbation of COPD Acute on chronic hypoxic hypercapnic respiratory failure Elevated d-dimer -Pulmonary recommendations -Zinc, vitamin C, vitamin D -Decadron completed, outsied the window for REM -Subcu Lovenox at prophylactic dose - Bronchodilators -Elevated pro-calcitonin -> patient completed rocephin day 03/20 on 10/18 -lower extremity venous dopplers negative for DVT -Patient is gradually improving. She is currently on 3 L nasal cannula. 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 Midline ordered for IV iron infusion
[2021-10-19] MEDS: ASCORBIC ACID 500 MG TAB PO SCH (11:13)
[2021-10-19] MEDS: FOLIC ACID-VIT B COMPLEX-VIT C 1 CAP PO SCH (21:16)
[2021-10-19] MEDS: MELATONIN 3 MG TABLET PO PRN (21:17)
[2021-10-19] MEDS: ACETAMINOPHEN TAB 325 MG TAB PO PRN (21:17)
[2021-10-19] MEDS: MONTELUKAST 10 MG TAB PO SCH (21:17)
[2021-10-20] MEDS: ZINC SULFATE 220 MG CAP PO SCH (08:10)
[2021-10-20] MEDS: allopurinoL 100 MG TAB PO SCH (08:10)
[2021-10-20] MEDS: ASCORBIC ACID 500 MG TAB PO SCH (08:10)
[2021-10-20] MEDS: CHOLECALCIFEROL 125 MCG (5000 IU) TABLET PO SCH (08:10)
[2021-10-20] MEDS: PANTOPRAZOLE 40 MG TABLET PO SCH (08:11)
[2021-10-20] MEDS: ENOXAPARIN 30 MG/0.3 ML SYRINGE SQ SCH (08:11)
[2021-10-20] MEDS: levOCARNitine (WITH SUGAR) 100 MG/ML BOTTLE PO SCH ×2 (08:12→21:56)
[2021-10-20] MEDS: STIOLTO RESPIMAT INHALER INHALATION SCH (08:13)
--- NOTE | 2021-10-20 09:19 | P.PN ---
Subjective Progress Note Date: 10/20/21 Pt is doing well today, no complaints. Hgb stable. Plan is for dialysis tomorrow AM, then discharge home for routine dialysis schedule. Objective - Vital Signs Vital signs: Vital Signs Temp 98.0 F 10/20/21 06:00 Pulse 83 10/20/21 06:00 Resp 18 10/20/21 06:00 BP 116/69 10/20/21 06:00 Pulse Ox 97 10/20/21 06:00 Intake & Output 10/19/21 10/20/21 10/20/21 18:59 06:59 18:59 Intake Total 296 Output Total 1 Balance 296 -1 Intake: Oral 296 Output: Urine 1 Other: Voiding Method Bedside Commode Bedside Commode # Voids 1 1 # Bowel Movements 1 - Exam Gen: awake, alert HEENT: normocephalic, atraumatic, good hearing acuity, moist mucous membranes Resp: good air exchange, breathing comfortably with no accessory muscle use CVS: good distal perfusion x 4, GI: soft, NTTP, ND : no SPT, no CVAT, ronquillo catheter not present MSK: no pitting edema, no clubbing Neuro: non-focal, moving all extremities Psych: cooperative, euthymic mood - Labs CBC & Chem 7: 10/19/21 04:54 10/19/21 04:54 Labs: Abnormal Lab Results - Last 24 Hours (Table) 10/19/21 10/19/21 Range/Units 04:54 04:54 RBC 3.00 L (4.10-5.20) X 10*6/uL Hgb 8.0 L (12.0-15.0) g/dL Hct 28.1 L (37.2-46.3) % MCH 26.7 L (27.0-32.0) pg MCHC 28.5 L (32.0-37.0) g/dL RDW 17.7 H (11.5-14.5) % Plt Count 134 L (140-440) X 10*3/uL Plt Count Comment DECREASED A MPV 13.6 H (9.5-12.2) fL Immature Gran # 0.06 H (0.00-0.04) X 10*3/uL Creatinine 3.7 H (0.6-1.5) mg/dL Est GFR (CKD-EPI)AfAm 13.5 L (60.0-200.0) Est GFR (CKD-EPI)NonAf 11.6 L (60.0-200.0) BUN/Creatinine Ratio 3.58 L (12.00-20.00) Ratio Calcium 8.2 L (8.7-10.3) mg/dL Total Bilirubin 0.20 L (0.30-1.20) mg/dL Total Protein 5.1 L (6.2-8.2) g/dL Albumin 2.9 L (3.8-4.9) g/dL Albumin/Globulin Ratio 1.36 L (1.60-3.17) g/dL Assessment and Plan Assessment: COVID-19 pneumonitis in a non vaccinated patient Acute exacerbation of COPD Acute on chronic hypoxic hypercapnic respiratory failure Elevated d-dimer -Pulmonary recommendations -Zinc, vitamin C, vitamin D -Decadron completed, outsied the window for REM -Subcu Lovenox at prophylactic dose - Bronchodilators -Elevated pro-calcitonin -> patient completed rocephin day 03/20 on 10/18 -lower extremity venous dopplers negative for DVT -Patient is gradually improving. She is currently on 3 L nasal cannula. 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
[2021-10-20 09:32] LABS: Basophils # (A) 0.04 X 10*3/uL (0.00-0.10); Basophils % (A) 0.5 %; Eosinophils # (A) 0.25 X 10*3/uL (0.04-0.35); Eosinophils % (A) 3.3 %; HCT 26.9 % (37.2-46.3); HGB 7.6 g/dL (12.0-15.0); Immature Grans, Automated 0.7 %; Lymphocytes % (A) 18.6 %; MCHC 28.3 g/dL (32.0-37.0); MCV 95.7 fL (80.0-97.0); Mean Platelet Volume 10.7 fL (9.5-12.2); Monocytes # (A) 0.74 X 10*3/uL (0.20-1.00); Monocytes % (A) 9.8 %; NRBC Per 100 WBC 0 /100 WBCS (0.0-0.0); Neutrophils # (A) 5.06 X 10*3/uL (1.80-7.70); Neutrophils % (A) 67.1 %; Platelet Count 126 X 10*3/uL (140-440); RBC 2.81 X 10*6/uL (4.10-5.20); RDW 17.9 % (11.5-14.5); WBC 7.54 X 10*3/uL (4.50-10.00)
[2021-10-20 09:34] LABS: African American GFR (CKD) 7.6 (60.0-200.0); Anion Gap 13.9 mmol/L (10.00-18.00); BUN/Creat Ratio 3.63 Ratio (12.00-20.00); Blood Urea Nitrogen 21.6 mg/dL (9.0-27.0); Calcium 8.5 mg/dL (8.7-10.3); Carbon Dioxide 23.9 mmol/L (20.0-27.5); Non-African American GFR(CKD) 6.6 (60.0-200.0); Potassium 3.7 mmol/L (3.5-5.5)
--- NOTE | 2021-10-20 09:48 | P.PN ---
Subjective Patient is seen in follow-up for end-stage renal disease. She is maintained on hemodialysis on Thursday schedule. Has received extra treatments of dialysis this admission for volume overload. Currently on 3 L nasal cannula. Denies chest pain or shortness of breath. No active bleeding. Hemoglobin 7.6 today. Vital signs are stable. General: The patient appeared well nourished and normally developed. HEENT: Head exam is unremarkable. LUNGS: Breath sounds decreased. HEART: Rate and Rhythm are regular. ABDOMEN: Soft, no distention. EXTREMITITES: No edema. Objective - Vital Signs Vital signs: Vital Signs Temp 98.0 F 10/20/21 06:00 Pulse 83 10/20/21 06:00 Resp 18 10/20/21 06:00 BP 116/69 10/20/21 06:00 Pulse Ox 97 10/20/21 06:00 Intake & Output 10/19/21 10/20/21 10/20/21 18:59 06:59 18:59 Intake Total 296 Output Total 1 Balance 296 -1 Intake: Oral 296 Output: Urine 1 Other: Voiding Method Bedside Commode Bedside Commode # Voids 1 1 # Bowel Movements 1 - Labs CBC & Chem 7: 10/20/21 04:48 10/20/21 04:48 Labs: Abnormal Lab Results - Last 24 Hours (Table) 10/19/21 10/20/21 10/20/21 Range/Units 04:54 04:48 04:48 RBC 3.00 L 2.81 L (4.10-5.20) X 10*6/uL Hgb 8.0 L 7.6 L (12.0-15.0) g/dL Hct 28.1 L 26.9 L (37.2-46.3) % MCH 26.7 L (27.0-32.0) pg MCHC 28.5 L 28.3 L (32.0-37.0) g/dL RDW 17.7 H 17.9 H (11.5-14.5) % Plt Count 134 L 126 L (140-440) X 10*3/uL Plt Count Comment DECREASED A MPV 13.6 H (9.5-12.2) fL Immature Gran # 0.06 H 0.05 H (0.00-0.04) X 10*3/uL Creatinine 6.0 H (0.6-1.5) mg/dL Est GFR (CKD-EPI)AfAm 7.6 L (60.0-200.0) Est GFR (CKD-EPI)NonAf 6.6 L (60.0-200.0) BUN/Creatinine Ratio 3.63 L (12.00-20.00) Ratio Calcium 8.5 L (8.7-10.3) mg/dL Assessment and Plan Plan: Assessment: 1. End-stage renal disease maintained on hemodialysis on Thursday schedule. 2. Volume overload. Improved with ultrafiltration. 3. Acute hypoxic respiratory failure. 4. COVID-19 pneumonia. 5. Anemia of chronic kidney disease maintained on Aranesp. Iron deficiency noted. Status post IV iron. Received blood transfusions this admission. No active bleeding. Also received a dose of IV DDAVP this admission. Plan: Hemodialysis Thursday. Phosphorus 5.3. Midodrine as needed for hypotension during dialysis. No DVT in the right upper extremity. Monitor hemoglobin and transfuse as needed. Defer to primary team. Discussed case with primary team. Possible discharge home tomorrow.
[2021-10-20] MEDS: FOLIC ACID-VIT B COMPLEX-VIT C 1 CAP PO SCH (21:51)
[2021-10-20] MEDS: MELATONIN 3 MG TABLET PO PRN (21:51)
[2021-10-20] MEDS: MONTELUKAST 10 MG TAB PO SCH (21:51)
[2021-10-20] MEDS: ACETAMINOPHEN TAB 325 MG TAB PO PRN (21:51)
[2021-10-21] MEDS: allopurinoL 100 MG TAB PO SCH (07:45)
[2021-10-21] MEDS: PANTOPRAZOLE 40 MG TABLET PO SCH (07:45)
[2021-10-21] MEDS: ZINC SULFATE 220 MG CAP PO SCH (07:45)
[2021-10-21] MEDS: ASCORBIC ACID 500 MG TAB PO SCH (07:45)
[2021-10-21] MEDS: levOCARNitine (WITH SUGAR) 100 MG/ML BOTTLE PO SCH (07:46)
[2021-10-21] MEDS: CHOLECALCIFEROL 125 MCG (5000 IU) TABLET PO SCH (07:46)
[2021-10-21] MEDS: ENOXAPARIN 30 MG/0.3 ML SYRINGE SQ SCH (07:46)
[2021-10-21] MEDS: STIOLTO RESPIMAT INHALER INHALATION SCH (07:47)
--- NOTE | 2021-10-21 12:29 | P.DS ---
Providers Date of admission: 10/07/21 22:10 Expected date of discharge: 10/21/21 Attending physician: Massiel Powell MD Consults: 10/07/21 22:11 Consult Physician Urgent Consulting Provider: Fransico Garza Consult Reason/Comments: acute hypoxic resp failure, chronic resp insuff, acute covid Do you want consulting provider notified?: Yes 10/08/21 07:52 Consult Physician Routine Consulting Provider: Marie Ott Consult Reason/Comments: ESRD Do you want consulting provider notified?: Yes Primary care physician: [facility] Course: COVID-19 pneumonitis in a non vaccinated patient Acute exacerbation of COPD Acute on chronic hypoxic hypercapnic respiratory failure Elevated d-dimer -Admitted 14 days ago for COVID 19 Pneumonitis in a non-vaccinated patient which was causing COPD exacerbation and Acute on Chronic Hypoxic and Hypercapnic RF. Pt was treated with Vit C/D, Zinc, Dexamethasone. She presented outside the window for use of remdesivir. She did also have an elevated procalcitonin, so was treated with seven days of ceftriaxone, which was completed on 10/18. Pt was returned to her home dose of 3L of O2 by day of discharge. Initial CXR on 10/07: bilateral diffuse airspace opacities with cardiomegaly CXR on 10/16: mild cardiomegaly, improved lung disease with residual interstitial lung disease. 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 Pt refused endoscopic workup and FOBT of stool was negative. As outpatient, will continue aranesp per nephrology or iron infusions per nephrology as needed. #Hypertension -Norvasc was discontinued on discharge due to low/borderline BPs, often needing PRN midodrine on dialysis days during session; midodrine therefore was prescribed PRN. I spent 40 minutes coordinating this complex discharge. Assessment: Gen: awake, alert HEENT: normocephalic, atraumatic, good hearing acuity, moist mucous membranes Resp: good air exchange, breathing comfortably with no accessory muscle use CVS: good distal perfusion x 4, GI: soft, NTTP, ND : no SPT, no CVAT, ronquillo catheter not present MSK: no pitting edema, no clubbing Neuro: non-focal, moving all extremities Psych: cooperative, euthymic mood Patient Condition at Discharge: Good Plan - Discharge Summary Discharge Rx Participant: No New Discharge Prescriptions: New Midodrine HCl 5 mg PO MOWEFR PRN #30 tablet PRN Reason: See Comments Darbepoetin Fuentes [Aranesp] 40 mcg SQ Q7D each Acetaminophen Tab [Tylenol] 650 mg PO Q6HR PRN tab PRN Reason: Mild Pain Or Fever > 100.5 Continue Lidocaine-Prilocaine Cream [Emla Cream 2.5%/2.5%] 1 applic TOPICAL DAILY PRN PRN Reason: DIAYLSIS Dialyvite Tablet 1 tab PO DAILY Tiotropium Br/Olodaterol HCl [Stiolto Respimat Inhal [place]] 2 puff INHALATION RT-DAILY Montelukast Sodium [Singulair] 10 mg PO HS Furosemide [Lasix] 40 mg PO SUTUTHSA allopurinoL [Zyloprim] 200 mg PO DAILY Albuterol Inhaler [Ventolin Hfa Inhaler] 2 puff INHALATION RT-Q4H PRN PRN Reason: Shortness Of Breath levOCARNitine [Levocarnitine] 990 mg PO BID Cholecalciferol [Vitamin D3 (25 Mcg = 1000 Iu)] 50 mcg PO DAILY Docusate [Colace] 100 mg PO DAILY PRN PRN Reason: Constipation Melatonin 3 mg PO HS PRN PRN Reason: Insomnia guaiFENesin [Mucinex] 600 mg PO DAILY PRN PRN Reason: Congestion Lactulose 20 gm PO DAILY PRN PRN Reason: Constipation Ondansetron [Zofran] 8 mg PO Q8H PRN PRN Reason: Nausea predniSONE [Deltasone] 10 mg PO BID Ondansetron Odt [Zofran ODT] 4 mg PO DAILY PRN PRN Reason: Nausea Discontinued amLODIPine [Norvasc] 5 mg PO DAILY #30 tab Doxycycline Hyclate 100 mg PO BID Discharge Medication List Albuterol Inhaler [Ventolin Hfa Inhaler] 2 puff INHALATION RT-Q4H PRN 11/09/20 [History] Cholecalciferol [Vitamin D3 (25 Mcg = 1000 Iu)] 50 mcg PO DAILY 11/09/20 [History] Dialyvite Tablet 1 tab PO DAILY 11/09/20 [History] Docusate [Colace] 100 mg PO DAILY PRN 11/09/20 [History] Furosemide [Lasix] 40 mg PO SUTUTHSA 11/09/20 [History] Lidocaine-Prilocaine Cream [Emla Cream 2.5%/2.5%] 1 applic TOPICAL DAILY PRN 11/09/20 [History] Melatonin 3 mg PO HS PRN 11/09/20 [History] Montelukast Sodium [Singulair] 10 mg PO HS 11/09/20 [History] Tiotropium Br/Olodaterol HCl [Stiolto Respimat Inhal [place]] 2 puff INHALATION RT-DAILY 11/09/20 [History] allopurinoL [Zyloprim] 200 mg PO DAILY 11/09/20 [History] levOCARNitine [Levocarnitine] 990 mg PO BID 11/09/20 [History] Lactulose 20 gm PO DAILY PRN 10/07/21 [History] Ondansetron Odt [Zofran ODT] 4 mg PO DAILY PRN 10/07/21 [History] Ondansetron [Zofran] 8 mg PO Q8H PRN 10/07/21 [History] guaiFENesin [Mucinex] 600 mg PO DAILY PRN 10/07/21 [History] predniSONE [Deltasone] 10 mg PO BID 10/07/21 [History] Acetaminophen Tab [Tylenol] 650 mg PO Q6HR PRN tab 10/21/21 [Rx] Darbepoetin Fuentes [Aranesp] 40 mcg SQ Q7D each 10/21/21 [Rx] Midodrine HCl 5 mg PO MOWEFR PRN #30 tablet 10/21/21 [Rx] Follow up Appointment(s)/Referral(s): Amari Keene MD [Primary Care Provider] - 1-2 days (patient to call office to make appointment after D/C) Hank Mccormack MD [STAFF PHYSICIAN] - 11/06/21 10:00 am Activity/Diet/Wound Care/Special Instructions: Patient able to return to [facility] and continue normal schedule. Next HD on Thursday. Anyone entering the building MUST wear a mask. Patient is required to wear a N95 mask her first week back.
--- NOTE | 2021-10-21 14:22 | P.PN ---
Subjective Principal diagnosis: Patient is seen for follow-up for end-stage renal disease. Patient was admitted to the hospital with acute hypoxic respiratory failure and severe fluid overload. Respiratory status has improved significantly. Patient is maintained on a Thursday schedule for hemodialysis. She is due for hemodialysis today. Objective - Vital Signs Vital signs: Vital Signs Temp 97.9 F 10/21/21 10:00 Pulse 91 10/21/21 10:00 Resp 18 10/21/21 10:00 BP 133/76 10/21/21 10:00 Pulse Ox 98 10/21/21 10:00 Intake & Output 10/20/21 10/21/21 10/21/21 18:59 06:59 18:59 Weight 87.3 kg Other: Voiding Method Bedside Commode Bedside Commode # Voids 2 0 # Bowel Movements 1 - Exam Patient is awake comfortable not in any acute distress. Examination lower extremity shows no evidence of edema. Abdomen is soft obese nontender [employer] exam grossly intact. Lungs and heart not examined due to Covid isolation. - Labs CBC & Chem 7: 10/20/21 04:48 10/20/21 04:48 Assessment and Plan Assessment: 1. End-stage renal disease on hemodialysis on a Thursday is a Thursday schedule via left arm AV fistula scheduled for hemodialysis , receiving extra treatments for volume overload. 2. Volume overload , improved with increased ultrafiltration. 3. Acute hypoxic respiratory failure secondary to COVID pneumonia as well as CHF, resolved 4. CK D mineral bone disorder 5. Possible bacterial pneumonia / bronchitis treated with antibiotics as outpatient prior to this admission with improvement in symptoms. 6. Anemia with no active bleeding noted, anemia of chronic disease. Plan: Hemodialysis today. Patient can be discharged to continue dialysis at her home facility in [place]. She will continue with Thursday vent is a Thursday schedule. Fluid restriction discussed with patient.
[2021-10-21 16:18] VITALS: BP 151/68; PULSE 96; RESP 22; TEMP 97.8
== END 2021-10-21 18:03 | disposition home or self-care (01) | DRG 177 ==
LOC: EC 19:21 → 3SCARD 22:10 → 2SICU 10-08 14:53 → 4SSUR 10-10 20:34
PROVIDERS: ADMIT Internal Medicine; ATTEND Internal Medicine
PROC: 5A1D70Z Performance of Urinary Filtration, Intermittent, Less than 6 Hours Per Day (ICD-10-PCS; 2021-10-08)
PROC: 5A09457 Assistance with Respiratory Ventilation, 24-96 Consecutive Hours, Continuous Positive Airway Pressure (ICD-10-PCS; 2021-10-09)
PROC: 05H933Z Insertion of Infusion Device into Right Brachial Vein, Percutaneous Approach (ICD-10-PCS; principal; 2021-10-14 17:50)
PROC: 05H933Z Insertion of Infusion Device into Right Brachial Vein, Percutaneous Approach (ICD-10-PCS; 2021-10-15 10:25)
PROC: 5A0935A Assistance with Respiratory Ventilation, Less than 24 Consecutive Hours, High Flow/Velocity Cannula (ICD-10-PCS; 2021-10-19)
DX: U07.1 COVID-19 (principal); N18.6 End stage renal disease; J96.21 Acute and chronic respiratory failure with hypoxia; J96.22 Acute and chronic respiratory failure with hypercapnia; J12.82 Pneumonia due to coronavirus disease 2019; J44.1 Chronic obstructive pulmonary disease with (acute) exacerbation; J44.0 Chronic obstructive pulmonary disease with (acute) lower respiratory infection; E87.2 Acidosis; I13.2 Hypertensive heart and chronic kidney disease with heart failure and with stage 5 chronic kidney disease, or end stage renal disease; I50.32 Chronic diastolic (congestive) heart failure; Z99.2 Dependence on renal dialysis; K21.9 Gastro-esophageal reflux disease without esophagitis; D50.9 Iron deficiency anemia, unspecified; D63.1 Anemia in chronic kidney disease; G47.00 Insomnia, unspecified; K59.00 Constipation, unspecified; Z79.899 Other long term (current) drug therapy; Z82.49 Family history of ischemic heart disease and other diseases of the circulatory system; E83.9 Disorder of mineral metabolism, unspecified; Z87.891 Personal history of nicotine dependence; Z99.81 Dependence on supplemental oxygen; Z87.09 Personal history of other diseases of the respiratory system; M10.9 Gout, unspecified; R79.1 Abnormal coagulation profile; Z88.2 Allergy status to sulfonamides; Z88.8 Allergy status to other drugs, medicaments and biological substances; Z88.0 Allergy status to penicillin; Z91.013 Allergy to seafood; Z90.49 Acquired absence of other specified parts of digestive tract; Z98.890 Other specified postprocedural states
CPT/HCPCS: 36410; 36415; 36600; 71045; 71046; 76937; 80048; 80053; 82728; 82805; 83540; 83550; 83605; 83615; 83735; 83880; 84100; 84145; 84484; 85025; 85027; 85379; 85610; 85730; 86140; 86850; 86900; 86901; 86920; 87635; 90935; 93005; 93970; 94640; 94660; 94760; 96365; 99291